=== PATIENT | female | born 1985 | race African-American/Black ===

== ENCOUNTER → 2017-05-19 11:26 | Outpatient (CLI) | payer MEDICAID, SELFPAY ==
[2017-05-23 14:35] LABS: HPV Reflexed? NOT INDICATED
== END ==
PROVIDERS: Visit Provider Obstetrics & Gynecology
DX: Z12.4 Encounter for screening for malignant neoplasm of cervix (principal)
CPT/HCPCS: 88175; G0145

== ENCOUNTER → 2018-01-09 10:14 | Outpatient (CLI) | payer MEDICAID, SELFPAY ==
[2018-01-09 12:51] LABS: hCG Titer Quant., Serum < 1 mIU/mL (<9 non-preg)
== END ==
PROVIDERS: Visit Provider Obstetrics & Gynecology
DX: N92.5 Other specified irregular menstruation (principal)
CPT/HCPCS: 36415; 84702

== ENCOUNTER 2018-04-06 16:23 | Emergency (ER) | payer MEDICAID, SELFPAY ==
[2018-04-06 16:25] VITALS: BP 172/93; PULSE 90; RESP 16; TEMP 37.1; O2SAT 98; BMI 39.8
--- NOTE | 2018-04-06 16:36 | RAD_ITS ---
STUDY: X-RAY - LEFT HAND, ATTENTION FIRST FINGER REASON FOR EXAM: Female, 32 years old. Shut thumb in car door one week ago. Swelling and bruising. TECHNIQUE: 3 view(s) of the finger were obtained. COMPARISON: None. FINDINGS: Normal metacarpal head. Normal metacarpophalangeal joint. Normal proximal phalanx. Normal distal phalanx. Normal interphalangeal joint. There is no demonstrated fracture. RAD/Finger(s) Min 2 Views IMPRESSION: No fracture of the left thumb. Electronically Signed: Estuardo Cardoso MD at 16:59 EST , Service support ,
--- NOTE | 2018-04-06 16:57 | ED.VISSUMM ---
- ER Visit Summary Date of Service: 04/06/18 Chief Complaint: [Injury left thumb] History of Present Illness: The patient is a 32 F [presents the emergency department after sustaining an injury to her left thumb 1 week ago. Patient states that she accidentally slammed her thumb in a car door. Patient continues to have discomfort and swelling.] Physical Examination: [Left thumb-patient has 100% subungual hematoma. Patient has tenderness over the distal phalanx. She has normal range of motion at the IP joint. Neurovascular intact.] Test Results: [X-rays of the left thumb obtained showed no obvious fracture on my interpretation however official report pending from radiology.] Emergency Department Course and Treatment: [Using high heat electrocautery I was able to trephinate the nail without difficulty and large amount of old dark blood was expressed. Clean dressing was applied and a cage splint was applied over the thumb.] Treatment Plan: [Follow-up with primary care physician within next 5-7 days. I did advise the patient that she she would likely lose the nail and it was unclear if she would grow a new nail partially or if there would be deformity to the nail. Patient also will be given referral to orthopedics.] Disposition: [Discharged home in stable condition] Impression: [Contusion left thumb with 100% subungual hematoma Trephination nail of left thumb] This note was generated with [facility] dictation software. It may contain incorrect words, spelling, and punctuation that were not noted in review of the chart prior to signing ED Disposition - Plan for ED Patient: Referrals: Holland Vang [Primary Care Provider] -
--- NOTE | 2018-04-06 16:59 | ED.DEP ---
ED Disposition - Plan for ED Patient: Instructions: ED Contusion Finger, ED Hematoma Subungual Referrals: Holland Vang [Primary Care Provider] - 5-7 Days Davidson Arzola DO [STAFF PHYSICIAN] - 5-7 Days
== END 2018-04-06 17:12 | disposition home or self-care (01) ==
LOC: ED 17:08
PROVIDERS: Emergency Provider Emergency Medicine; Family Provider Student in an Organized Health Care Education/Training Program; PCP Student in an Organized Health Care Education/Training Program
DX: S60.112A Contusion of left thumb with damage to nail, initial encounter (principal); W23.0XXA Caught, crushed, jammed, or pinched between moving objects, initial encounter; Y93.9 Activity, unspecified; Y92.9 Unspecified place or not applicable; Y99.9 Unspecified external cause status; Z72.0 Tobacco use; Z79.899 Other long term (current) drug therapy
CPT/HCPCS: 11740; 73140; 99283

== ENCOUNTER → 2018-11-08 16:50 | Outpatient (CLI) | payer MEDICAID, SELFPAY ==
[2018-11-08 20:53] LABS: Chlamydia Trachomatis by PCR Negative (Negative); Neisserai gonorrhoeae by PCR Negative (Negative); Probe Check PASS; Sample Adequacy Control PASS; Specimen Processing Control PASS
[2018-11-15 15:27] LABS: HPV APTIMA, High Risk Negative (Negative)
== END ==
PROVIDERS: Family Provider Student in an Organized Health Care Education/Training Program; PCP Student in an Organized Health Care Education/Training Program; Visit Provider Obstetrics & Gynecology
DX: Z12.4 Encounter for screening for malignant neoplasm of cervix (principal); Z11.3 Encounter for screening for infections with a predominantly sexual mode of transmission
CPT/HCPCS: 87491; 87591; 88175; G0145

== ENCOUNTER 2019-07-12 15:14 | Observation (INO) | payer MEDICAID, SELFPAY ==
[2019-07-12 15:15] VITALS: BP 198/94; PULSE 114; RESP 15; TEMP 37.2; O2SAT 96; BMI 42.6
--- NOTE | 2019-07-12 15:35 | CT_ITS ---
STUDY: CT ABDOMEN AND PELVIS WITH CONTRAST REASON FOR EXAM: Female, 33 years old. Abdomen pain x 2 days, nausea, vomiting, diarrhea, elevated WBC, fever yesterday. RADIATION DOSAGE (If Supplied By Facility): CTDIvol = ( 17.00 ) mGy, DLP = ( 1317.18 ) mGycm TECHNIQUE: Transaxial images were obtained from the dome of the diaphragm to the symphysis pubis without oral contrast. Oral and amp; IV Gastrografin and amp; 100mL Isovue-300 was administered. Sagittal and coronal images were reconstructed. Individualized dose optimization techniques were used for this CT. COMPARISON: None. FINDINGS: The visualized lung bases are unremarkable. The visualized portions of the heart are within normal limits. Normal liver. Normal gallbladder and extrahepatic biliary system. Normal spleen. Normal pancreas. Normal bilateral adrenal glands. Normal right kidney. Normal left kidney. Normal visualized stomach. Normal small intestine. There is a moderate amount of stool throughout the colon. The appendix is visualized and appears normal. Normal abdominal aorta. Normal inferior vena cava. Normal retroperitoneum. Normal urinary bladder. There is trace fluid within the pelvis. Normal abdominal wall. There is posterior scalloping of the L2 vertebral body left of midline. CT/Abdomen/Pelvis WITH Contrast IMPRESSION: Moderate amount of stool throughout the colon. Posterior scalloping of the L2 vertebral body may be secondary to an underlying spinal lesion, recommend an MRI with contrast for further evaluation. Electronically Signed: Eda Sanchez MD at 17:36 EDT Tel , Service support ,
--- NOTE | 2019-07-12 15:36 | ED.DCSUM_ITS ---
- ER Visit Summary Date of Service: 07/12/19 Chief Complaint: [Abdominal pain] History of Present Illness: The patient is a 33 F [presents the emergency department complaint of abdominal pain that started 2 to 3 days ago. Patient states the pain is continuous and kind of diffuse throughout the abdomen. She denies any nausea or vomiting or diarrhea. She denies any blood in her stool or black tarry stools. Her last menstrual period was a week ago but was little bit shorter than usual. Patient last ate around 11 AM today and ate some fries and a hot dog. Patient states food does not really seem affected. Moving makes the pain worse. Patient states he had a fever yesterday up to 101. Patient do es describe some frequency of urination but no dysuria. She denies any abnormal vaginal discharge.] Physical Examination: [HEENT-PERRLA, EOMI. Cranial nerves II through XII priscilla ssly intact. TMs clear. Mucous membranes moist. No adenopathy. Cardiovascular-regular rate and rhythm without murmur or ectopy Lungs-clear to auscultation, chest wall stable without crepitus or subcu emphysema Abdomen-normoactive bowel sounds, soft. Patient has diffuse tenderness palpation. There is no rebound, rigidity, or cranial signs. No masses palpated. Patient is morbidly obese. Pelvic exam performed patient had small amount of yellowish discharge noted. She had cervical motion tenderness on exam. Uterus was tender on exam. Extremities-intact ?4, normal range of motion, normal pulses, atraumatic] Test Results: [CBC with differential obtained showed an elevated white count of 16.4, hemoglobin 11.5, hematocrit 36, placed to 86. Chemistries unremarkable. LFTs were normal. Urinalysis normal. hCG was negative. CT flank essentially showed nothing acute and it was thought that the appendix was normal. Patient had moderate stool burden.] Emergency Department Course and Treatment: [She was medicated morphine and Zofran on arrival. Patient continued to vomit. She was given Phenergan.] Case was discussed initially with general surgeon who evaluated the patient in the emergency department and he felt that her exam more consistent with PID and did not feel this was a case of appendicitis. I did bend off gonorrhea and Chlamydia cultures which did come back positive for gonorrhea. Patient was started on Rocephin 1 g IV as well as Zithromax 1 g p.o. Patient continues to have significant discomfort and nausea. Case was discussed with [employer] on-call Dr. Hendricks who will admit patient Treatment Plan: [Admit for pain control and IV antibiotics] Disposition: [Admit] Impression: [PID Intractable abdominal pain] This note was generated with [employer] dictation software. It may contain incorrect words, spelling, and punctuation that were not noted in review of the chart prior to signing ED Disposition - Plan for ED Patient: Referrals: Holland Vang [Primary Care Provider] -
[2019-07-12] MEDS: 0.9% Normal Saline 1,000 ML 125 ML IV (15:57)
[2019-07-12] MEDS: Morphine 4 MG/ML Syringe IV (15:57)
[2019-07-12] MEDS: Ondansetron 4 MG/2 ML Vial IV ×2 (15:57→20:20)
[2019-07-12 16:06] LABS: Absolute Lymphocyte Count 0.93 X10^3/uL (0.83-4.51); Absolute Neutrophil Count 15.1 X10^3/uL (2.0-7.7); Basophil# 0.03 X10^3/uL; Basophil% 0.2 % (0-1); Eosinophil# 0.05 X10^3/uL; Eosinophils% 0.3 % (0-5); Hemoglobin 11.5 g/dL (12.0-15.0); Lymphocyte # 0.93 X10^3/ul (4.0); Lymphocyte % 5.6 % (19-41); Mean Corp Hgb Conc 31.9 g/dL (32-36); Mean Corpuscular Hgb 30.6 pg (27.0-32.0); Mean Corpuscular Volume 95.7 fL (81-99); Mean Platelet Vol. 9.5 fl (6.2-12.0); Monocyte# 0.51 X10^3/uL; Monocyte% 3.1 % (0-10); NRBC Flagged by Analyzer 0 % (0-5); Neutrophil % 90.3 % (47-70); Platelet Count 286 K/mm3 (150-450); RBC Distribution Width CV 13.6 % (11.6-14.6); RBC Distribution Width SD 47.7 fl (35.1-43.9); Red Blood Count 3.76 M/mm3 (4.2-5.4); White Blood Count 16.7 K/mm3 (4.4-11.0)
[2019-07-12 16:36] LABS: Internal QC Validated? YES +Cl - CLEAR BKGD; Pregnancy, Serum, hCG Quali. NEGATIVE Negative
[2019-07-12 16:43] LABS: ALB/GLOB Ratio 0.7 RATIO (0.9-2.4); AST(SGOT) 26 U/L (15-37); Alanine Aminotransfer ALT/SGPT 45 U/L (13-56); Albumin, Serum 3.1 g/dL (3.2-5.0); Alkaline Phosphatase 73 U/L (45-117); Anion Gap 3 (5-15); BUN 8 mg/dL (7-18); BUN/Creat Ratio 10.7 RATIO (10-20); Calcium,Total 8.7 mg/dL (8.5-10.1); Chloride 107 mmol/L (98-107); Creatinine, Serum 0.74 mg/dL (0.55-1.02); EST Glomerular Filtration Rate 96 mL/min (>60); Est Glom Filt Rate - Afr Amer 116 mL/min (>60); Estimated Creatinine Clearance 103.12 ml/min; Globulin 4.6 g/dL (2.2-4.2); Glucose 105 mg/dL (74-106); Lipase 67 U/L (73-393); Potassium 3.8 mmol/L (3.5-5.1); Protein, Total 7.7 g/dL (6.4-8.2); Sodium Level 139 mmol/L (136-145)
[2019-07-12 17:11] LABS: Bacteria 0 SEEN /hpf (None Seen); Mucous, Urine 0 SEEN /hpf (<or=2+); Red Blood Cells-Urine 0 SEEN /hpf (0-5)
[2019-07-12 17:14] LABS: Color, Urine Straw (Yellow); Glucose, Dipstick Normal (Normal); Ketone-Dipstick Negative (Negative); Leukocyte Esterase-Dipstick 25 /ul (Negative); Nitrite-Dipstick Negative (Negative); Occult Blood-Urine 10 /ul (Negative); Protein-Dipstick Negative (Negative); Urine Bilirubin Dipstick Negative (Negative); Urine Clarity Clear (Clear); Urine Urobilinogen Normal (Normal)
[2019-07-12 17:23] LABS: Squamous Epithelial Cells - UA 0-5 SEEN /hpf (5-10); White Blood Cells 0-5 SEEN /hpf (0-5)
[2019-07-12 18:00] VITALS: RESP 16
[2019-07-12] MEDS: proMETHazine 25 MG/ML Syringe 12.5 MG IV (18:26)
--- NOTE | 2019-07-12 18:45 | PCM.CONS.GEN ---
Problem List (1) Diffuse abdominal pain Status: Acute Reason for Consult Date of Consultation: 07/12/19 History of Present Illness: The patient is a 33 F presents the emergency department complaint of abdominal pain that started 2 to 3 days ago. Patient states the pain is continuous and kind of diffuse throughout the abdomen. She denies any nausea or vomiting or diarrhea. She denies any blood in her stool or black tarry stools. Her last menstrual period was a week ago but was little bit shorter than usual. Patient last ate around 11 AM today and ate some fries and a hot dog. Patient states food does not really seem affected. Moving makes the pain worse. Patient states he had a fever yesterday up to 101. Patient does describe some frequency of urination but no dysuria. Patient has no vaginal discharge. Patient had a CAT scan of the abdomen and pelvis reportedly it was read that the appendix was visualized. At the time of this dictation the official report has not been put into the computer. Past Medical History Allergies No Known Allergies Allergy (Verified 07/12/19 15:14) Home Medications: Ambulatory Orders Medication Instructions Recorded Baclofen [Lioresal] 10 mg PO PRN PRN 07/12/19 Escitalopram Oxalate [Lexapro] 10 mg PO DAILY 07/12/19 Multivitamin with Minerals 1 ea PO DAILY 07/12/19 [Multiple Vitamin] Risperidone 1 mg PO DAILY 07/12/19 Smoking Status: Former smoker - *Family History Maternal History Items: No pertinent history Review of Systems Constitutional: Reports: Fever Eyes: Denies: Blurred vision, Pain, Redness, Vision Change HEENT: Denies: Dysphasia, Ear Pain, Eye Pain, Head Aches, Hearing Changes, Sore Throat Cardiovascular: Denies: Chest Pain, Chest Pressure, Chest Tightness, Palpitations Respiratory: Denies: Cough, Hemoptysis, Shortness of breath at rest, Shortness of breath upon exertion, Wheezing Gastrointestinal: Reports: Abdominal Pain. Denies: Diarrhea, Hematemesis, Hematochezia, Melena, Vomiting Genitourinary: Denies: Dysuria, Frequency, Hematuria, Urgency Gynecological: Reports: Vaginal discharge Patient Problems: Active and Suspected Problems Diffuse abdominal pain (Acute) - Physical Exam Vitals/I&O's: Vital Signs Temp Pulse Resp BP Pulse Ox 99.0 F 114 H 15 198/94 H 96 07/12/19 15:15 05/22/20 15:15 07/12/19 15:15 07/12/19 15:15 07/12/19 15:15 Weight: 264 lb 1.82 oz Body Mass Index (BMI) 42.6 General: Alert, Oriented x3 Lungs: Clear to auscultation Cardiovascular: Regular rate, Regular Rhythm, No murmurs Abdomen: Tender - Diffuse abdominal tenderness equally in the left upper quadrant right upper quadrant and in the pelvis area. Laboratory Results 07/12/19 15:50: WBC 16.7 H, RBC 3.76 L, Hgb 11.5 L, Hct 36.0 L, MCV 95.7, MCH 30.6, MCHC 31.9 L, RDW Std Deviation 47.7 H, RDW Coeff of Lc 13.6, Plt Count 286, MPV 9.5, Immature Gran % (Auto) 0.500, Neut % (Auto) 90.3 H, Lymph % (Auto) 5.6 L, Atkinson % (Auto) 3.1, Eos % (Auto) 0.3, Baso % (Auto) 0.2, Absolute Neuts (auto) 15.1 H, Absolute Lymphs (auto) 0.93, Nucleated RBC % 0 07/12/19 15:50: Sodium 139, Potassium 3.8, Chloride 107, Carbon Dioxide 29.0, Anion Gap 3 L, BUN 8, Creatinine 0.74, Estim Creat Clear Calc 103.12, Est GFR (MDRD) Af Amer 116, Est GFR (MDRD) Non-Af 96, BUN/Creatinine Ratio 10.7, Glucose 105, Calcium 8.7, Total Bilirubin 0.90, AST 26, ALT 45, Alkaline Phosphatase 73, Total Protein 7.7, Albumin 3.1 L, Globulin 4.6 H, Albumin/Globulin Ratio 0.7 L, Lipase 67 L 07/12/19 15:50: Serum , Qual NEGATIVE 07/12/19 17:05: Urine Color Straw, Urine Clarity Clear, Urine pH 8.0, Ur Specific [place] 1.010, Urine Protein Negative, Urine Glucose (UA) Normal, Urine Ketones Negative, Urine Occult Blood 10 H, Urine Nitrite Negative, Urine Bilirubin Negative, Urine Urobilinogen Normal, Ur Leukocyte Esterase 25 H, Urine RBC 0 SEEN, Urine WBC 0-5 SEEN, Ur Squamous Epith Cells 0-5 SEEN, Urine Bacteria 0 SEEN, Urine Mucus 0 SEEN 07/12/19 17:05: Chlam trachomat DNA PCR Pending, N.gonorrhoeae DNA (PCR) Pending Current Medications Sodium Chloride () 1,000 mls @ 125 mls/hr IV .Q8H [facility] Last Admin: 07/12/19 15:57 Dose: 125 mls/hr Documented by: Assessment/Plan All Active Problems Diffuse abdominal pain (Acute) I am concerned this patient may have pelvic inflammatory disease I have spoke with ER physician and he is going to do a vaginal exam on her. When I compare her previous CAT scans to the most recent CAT scan the uterus itself seems far more boggy. Possibly a vaginal ultrasound might be beneficial here. Her presentation is not that of what I would consider a ruptured appendicitis but does not appear to be any signs of acute appendicitis on the CAT scan. I called the radiologist and reviewed the films with her and i am in agreement that her appendix is normal. Office Visits / Consults: [id number] IP Consult L3
[2019-07-12 21:13] LABS: Chlamydia Trachomatis by PCR Negative (Negative); Probe Check PASS
[2019-07-12 21:17] LABS: Neisserai gonorrhoeae by PCR Positive (Negative)
[2019-07-12] MEDS: Ceftriaxone 1 GM/50 ML BAG IV (21:33)
[2019-07-12] MEDS: Azithromycin 250 MG Tablet 1000 MG PO (21:33)
[2019-07-12 21:38] VITALS: BP 170/88; PULSE 102; RESP 16; O2SAT 99
[2019-07-12 21:45] VITALS: BP 170/88; PULSE 102; RESP 16; TEMP 37.2; O2SAT 99
[2019-07-12 22:12] VITALS: BP 170/88; PULSE 102; RESP 16; TEMP 37.2; O2SAT 99
[2019-07-12 22:29] VITALS: BP 117/68; PULSE 123; RESP 18; TEMP 36.8; O2SAT 100; BMI 41.3
[2019-07-12] MEDS: Ketorolac 30 MG/ML Syringe IV (22:55)
[2019-07-12] MEDS: Dext 5%-0.45% NS 1,000 ML 30 ML IV (22:55)
--- NOTE | 2019-07-12 23:00 | NURSING ---
pt takes valtrex. she is unsure of the amount. pt had a flue shot in the fall, but she doesn't remember when.
[2019-07-13] MEDS: oxyCODONE 5 MG Tablet PO ×2 (01:44→07:30)
[2019-07-13 02:24] VITALS: BP 116/68; PULSE 116; RESP 16; TEMP 37; O2SAT 97
[2019-07-13] MEDS: Ketorolac 30 MG/ML Syringe IV ×2 (04:37→10:43)
[2019-07-13 05:54] VITALS: BP 121/64; PULSE 99; RESP 16; TEMP 36.8; O2SAT 98
[2019-07-13] MEDS: Doxycycline 100 MG CAPSULE PO (08:59)
[2019-07-13 09:55] VITALS: BP 108/66; PULSE 95; RESP 16; TEMP 36.8; O2SAT 100
--- NOTE | 2019-07-13 11:02 | HP.PCM_ITS ---
History and Physical Date of Admission: 07/12/19 HISTORY OF PRESENT ILLNESS: Emre Quinn, a 33 year old female 1 0 2 0 1, presented to the ER last evening for: -- Severe abdominal pain -- Emre presented last evening to the emergency room with severe abdominal pain and fevers. Subsequent work-up showed a white count of approximately 16,000 and positive gonorrhea cultures. She had a fever of approximately 101 at home. She was ruled out for appendicitis by Dr. Casas. CT scan of the abdomen showed some inflammatory changes around the uterus and her pain was sufficiently severe that it was felt that it warranted admission. Patient had a CAT scan of the abdomen and pelvis reportedly it was read that the appendix was visualized. At the time of this dictation the official report has not been put into the computer. ALLERGIES: NKDA MEDICATIONS HISTORY: Current medications prescribed by our practice are: valacyclovir 500 mg tablet, one tab PO daily Patient is also takin. buspirone 10 mg tablet, daily REVIEW OF SYSTEMS: GENERAL - Denies fever, or chills SKIN - Denies skin changes EYES - Denies visual changes EARS - Denies difficulty hearing NOSE - Denies nasal congestion or bleeding MOUTH - Denies sore throat or difficulty swallowing NECK - Denies pain or swelling RESPIRATORY - Shortness of breath before presenting to the ER. Markedly improved after IV antibiotics. CARDIOVASCULAR - Denies palpitations or chest pain GASTROINTESTINAL - Denies nausea, vomiting, diarrhea, constipation GENITOURINARY - Denies dysuria, frequency of urination, incontinence of urine MUSCULOSKELETAL - Denies joint or muscle pain NEUROLOGICAL - Denies localized numbness or weakness PSYCHIATRIC - Denies depression or anxiety ENDOCRINE - Denies heat or cold intolerance, weight loss or gain HEMATO-IMMUNOLOGIC - Denies excessive bleeding with cuts PAST HISTORY: Breast/Ovarian/Colon Cancers - Mat. Gr Aunt -- Breast CA Infections - Chlamydia and Chicken pox Illnesses - allergies, depression, GERD and HSV Accidents - no injuries of consequence History of Abnormal PAPS - NO Hospitalizations - see surgery and Childbirth Irreg. HR at times and PP Depression; SURGICAL HISTORY: 1. 05/13/[address] Mic Cota 2. Tonsillectomy 2001 3. D+C 2008 4. 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 Illicit Drug Use - uses marijuana and denies in recent years Sexual Activity - multiple sexual partners Hours Worked - 40 hours per week Spouse-Sig Other Name - boyfriend of 1 year as of 11-08-18 Children Name(s) - Adry () JW Control - Mirena IUD PHYSICAL EXAMINATION BP- 128/90 Sitting, Right arm, large cuff Weight- 240.20 lbs Height- 65.50 inch BMI:39.45 CONSTITUTIONAL - NAD, well nourished, and well developed SKIN - No rash, lesions, or ulcers HEENT - Normocephalic, PERRLA, EOMI NECK - No nodes, no nuchal rigidity and thyroid normal size and texture LYMPH NODES - Palpation of lymph nodes in neck and groins within normal limits LUNGS - CTA x2 without wheezes, crackles or rales per ER CARDIAC - Regular rate and rhythm without rubs, murmurs, or gallops per ER ABDOMEN - Without hepatosplenomegaly, distention, masses; moderate tenderness especially around the umbilicus this morning EXTREMITIES - No edema or calf tenderness NEUROLOGICAL - Cranial nerves II-XII grossly intact PSYCHIATRIC - A and O to time, place, person, mood and affect ASSESSMENT/PLAN BY DIAGNOSIS: Positive gonorrhea and pelvic inflammatory disease. Patient was given Rocephin and started on IV antibiotics. Since her admission last evening and the antibiotics her pain has markedly improved and she feels comfortable going home on oral medications. She indicates her pain is now 4 out of 10 when before it was 10 out of 10. Patient was instructed to call if she had fever or if her pain was worsening. We discussed the possibility of PID causing infertility and chronic pelvic pain. She is already contacted her partner regarding the positive gonorrhea culture. Plan to see Emre chandra in approximately 2 weeks. A prescription for doxycycline 100 mg twice daily for 2 weeks and Flagyl 500 mg twice daily for 2 weeks was sent to [facility]'s pharmacy in [place].
--- NOTE | 2019-07-13 11:20 | PCM.DC ---
- Discharge Diagnoses Current Active Problems: Current Active and Chronic Problems Diffuse abdominal pain (Acute) You will use the following diet at home:: No restrictions Discharge Activity: Return to Normal Activity May resume sexual activity in: 2 weeks Weight Bearing Status: Weight bearing as tolerated Call your doctor if your incision/area has: Increased Pain/ Swelling, Foul Smelling Discharge Call your doctor if you observe: Fever of 101 or Higher, Inability to urinate, Inability to have a bowel movement, Shortness of breath Additional Instructions: Call with fevers or increasing pain Allergies/Adverse Reactions: Allergies No Known Allergies Allergy (Verified 07/12/19 15:14) Medications to take at Discharge Baclofen [Lioresal] 10 mg PO PRN PRN 07/12/19 Escitalopram Oxalate [Lexapro] 10 mg PO DAILY 07/12/19 Multivitamin with Minerals [Multiple Vitamin] 1 ea PO DAILY 07/12/19 Risperidone 1 mg PO DAILY 07/12/19 Valtrex 500 mg PO DAILY 07/12/19 Doxycycline [Vibramycin] 100 mg PO BID 14 Days #28 capsule 07/13/19 Metronidazole [Flagyl] 500 mg PO BID 14 Days #28 tablet 07/13/19 traMADol [Ultram (G)] 50 mg PO Q6H PRN PRN 14 Days #30 tab 07/13/19 The following prescriptions were given: Metronidazole [Flagyl] 500 mg PO BID 14 Days #28 tablet traMADol [Ultram (G)] 50 mg PO Q6H PRN PRN 14 Days #30 tab PRN Reason: Pain Score 6-10/10 Transmission Status: Received by [id number] Doxycycline [Vibramycin] 100 mg PO BID 14 Days #28 capsule Primary Care Physician: Holland Vang [Primary Care Provider] - Test Results: Test results from this visit will be discussed in further detail at your follow-up appointment, if applicable. Please Follow Up With: Tico Hendricks MD When: 2 to 3 weeks
[2019-07-13 12:24] VITALS: BP 119/87; PULSE 91; RESP 16; TEMP 36.7; O2SAT 98
== END 2019-07-13 11:26 | disposition home or self-care (01) ==
LOC: ED 16:04 → MS3 23:16
PROVIDERS: Admitting Provider Obstetrics & Gynecology; Emergency Provider Emergency Medicine; PCP Student in an Organized Health Care Education/Training Program; Referring Provider Obstetrics & Gynecology; Visit Provider Obstetrics & Gynecology
DX: N73.9 Female pelvic inflammatory disease, unspecified (principal); A54.9 Gonococcal infection, unspecified; A54.24 Gonococcal female pelvic inflammatory disease; F32.9 Major depressive disorder, single episode, unspecified; Z79.899 Other long term (current) drug therapy; Z87.891 Personal history of nicotine dependence
CPT/HCPCS: 74177; 80053; 81001; 83690; 84703; 85025; 87491; 87591; 96361; 96365; 96367; 96375; 96376; 99218; 99285; 99406; J7050; Q9967; A4216; G0378; J2405; J7799

== ENCOUNTER 2021-04-06 11:23 | Outpatient (CLI) | payer MEDICAID, SELFPAY ==
[2021-04-08 14:28] LABS: HPV Reflexed? NOT INDICATED
== END 2021-04-06 23:59 | disposition home or self-care (01) ==
LOC: LABSPEC 11:29
PROVIDERS: PCP Student in an Organized Health Care Education/Training Program; Visit Provider Obstetrics & Gynecology
DX: Z12.4 Encounter for screening for malignant neoplasm of cervix (principal)
CPT/HCPCS: 88175; G0145

== ENCOUNTER 2022-05-18 08:44 | Emergency (ER) | payer MEDICAID, SELFPAY ==
[2022-05-18 08:45] VITALS: BP 143/97; PULSE 79; RESP 16; TEMP 36.2; O2SAT 99; BMI 47.9
--- NOTE | 2022-05-18 09:22 | US_ITS ---
STUDY: ULTRASOUND TRANSVAGINAL CLINICAL: Female, 36 years old. Pelvic pain TECHNIQUE: Transvaginal COMPARISON: None. FINDINGS: Normal uterine size measuring 8.2 sono by 5.5 signed by 4.1 cm in maximal craniocaudal dimension. There are no myometrial masses. Normal endometrial thickness measuring 5 mm. There are no endometrial masses, and there is no fluid in the endometrial cavity. Normal uterine cervix. Normal right ovary, measuring 2.7 cm x 1.7 cm x 2 cm. There are multiple follicles without a dominant cyst. Normal left ovary, measuring 3.1 cm x 2.5 cm x 2 cm. There are multiple follicles without a dominant cyst. Minimal fluid is seen in the cul-de-sac. Polycystic ovary disease: No. US/Transvaginal Non- IMPRESSION: Normal pelvic sonogram. Electronically Signed: Carlos Pugh MD at 10:22 EDT ,
--- NOTE | 2022-05-18 09:24 | EDS_ITS ---
HPI HPI - Female History of Present Illness Chief Complaint: Abd Pain Detail of Chief Complaint: Pelvic pain with vaginal bleeding. Informant: patient Pain Pain: Positive for Pelvic Pain Onset: Today and Yesterday Context: Gradual Onset Timing: Continuous Quality: Positive for Cramping Current Severity: Mild Maximum Severity: Mild Bleeding Issue: Positive for Vaginal bleeding and Passing clots; Negative for Passing tissue Onset: Today and Yesterday Context: Gradual Onset Timing: Intermittent Current Severity: Mild Maximum Severity: Heavy Associated Symptoms Associated Symptoms: Negative for Dysuria or Frequency P: 1 Ab: 2 Narrative Narrative: 36-year-old female no seen past medical history. G3, P1 Ab2 with is being miscarriages. Prior history of PID. States she had pelvic pain for the last 3 days. Prior history of similar. Last menstrual period was 227 started having heavier bleeding around 3 days ago and now its only mild. No discharge. No fever. No dysuria. She is also had 1 prior D&C with one of her miscarriages. Prior similar symptoms: Yes Recent Illness/Hospitalization: No PFSH PFSH Medical History Physical exam, pre-employment no medical history Home Medications Valtrex 500 mg PO DAILY herpes 07/12/19 [History Last Taken Unknown] multivitamin with minerals 1 ea PO DAILY dep 07/12/19 [History Last Taken 07/12/19] Allergy/AdvReac Type Severity Reaction Status Date / Time No Known Allergies Allergy Verified 05/18/22 08:47 Social History Smoking Status: Former smoker ROS ROS ED ROS Narrative Pelvic pain with vaginal bleeding. No discharge. No fever. No dysuria. Review of Systems ROS Unobtainable: Denies due to encephalopathy Constitutional Constitutional ED: Denies chills or fever(s) ENT ENT ED: Denies ear pain Cardiovascular Cardiovascular: Denies chest pain Respiratory/Chest Respiratory/Chest: Denies cough or dyspnea Gastrointestinal Gastrointestinal: Reports other Details: Pelvic pain ; Denies abdominal pain Genitourinary Genitourinary ED: Denies dysuria or hematuria Musculoskeletal Musculoskeletal: Denies arthralgias Integumentary Denies abscess Neurologic Neurologic: Denies headache(s) Psychiatric Psychiatric: Denies anxiety or depression Endocrine Endocrinology: Denies heat intolerance Hematologic/Lymphatic Hematologic/Lymphatic: Denies easy bleeding Allergic/Immunologic Allergic/Immunologic ED: Denies mouth swelling EXAM Physical Exam Narrative Exam Narrative: Well-appearing 37-year-old female. Vital signs stable afebrile. No distress. H EENT exam unremarkable. Lungs clear. Heart regular rhythm. Abdomen soft, nontender, nondistended normal bowel sounds without peritoneal signs. Both right upper and right lower quadrants are unremarkable. She has mild discomfort on lower suprapubic and pelvic region. Moving all 4 extremities. Back nontender. Neurologically she is awake and alert. Const Vital Signs: 05/18/22 08:45 05/18/22 10:44 Temperature 97.1 F L Temperature Source Temporal Pulse Rate 79 Respiratory Rate 16 20 H Blood Pressure 143/97 H Blood Pressure Mean 112 Pulse Ox 99 Oxygen Delivery Method Room Air Positive well nourished, well developed and obese; Negative for cachectic, contractures or unkempt General Appearance ED: well developed and NAD; Negative for unkempt, cachectic, contractures or pallor Nutritional Appearance: obese; Negative for cachectic HEENT Reports moist mucous membranes Negative for trauma or tenderness Eyes PERRL and EOMs intact bilaterally General Eye ED: Negative for pale conjunctiva, scleral icterus or other Neck no lymphadenopathy, supple and no JVD General: Negative for other Thyroid: Negative for tender Lymph Lymphatic: Negative for other Chest Wall inspection of chest normal and palpation of chest normal Chest: Negative for other Resp normal respiratory effort and clear to auscultation bilaterally Effort and Inspection: Negative for pain with movement Auscultation: Negative for rales, rhonchi or wheezes Cardio regular rate, regular rhythm, S1 normal heart sound, no murmurs and no JVD GI normal to inspection, nondistended, normoactive bowel sounds, soft to palpation, non-tender, non-distended and no masses GI Narrative: Very mild suprapubic/pelvic tenderness. No abdominal tenderness. Auscultation: normoactive bowel sounds Palpation: Negative for tender, guarding or rigid Back/Spine no CVA tenderness General Back: Negative for CVA tenderness Cervical Spine: Negative for cervical spine tenderness Thoracic Spine / Upper Back: Negative for thoracic spinal tenderness Lumbar Spine / Lower Back: Negative for lumbar spinal tenderness Extremity normal to inspection and full ROM General Extremety ED: Negative for edema or other findings General Extremity: Negative for edema or other findings Neuro oriented x3 and CN's II-XII intact bilaterally Sensorium / Orientation: alert, oriented to person, oriented to place and oriented to time; Negative for confused, lethargic or stuporous Motor Exam: strength 5/5 throughout Psych mental status grossly normal Appearance: Negative for unkempt Attitude: No agitated Speech: No other Mood & Affect: Negative for depressed, anxious or tearful Skin no rashes or lesions noted and no wounds General Skin Exam: Negative for jaundice or pallor Rashes: No rashes noted Trauma: Negative for other MDM MDM MDM Narrative Medical decision making narrative: 36-year-old female with vaginal bleeding and pelvic pain. About time for her menstrual period. Patient is G3, P1 with 2 prior miscarriages. She had a prior D&C. She had PID several years ago. She is having no fever, chills or discharge at this time. Screening labs and urinalysis will be obtained. A serum test. She will be given Zofran for nausea. And a pelvic ultrasound is being obtained. She did not want thing for pain. Repeat exam patient is doing well at 11:35 PM. We discussed all of her test results. This may just be your menstrual period with the cramping and the bleeding. She is having no discharge and deferred a pelvic exam at this time. Outpatient follow-up with her [employer]. Tylenol Motrin for pain. Return if worse. Lab Data Attestation: I reviewed the patient's lab results. Lab results narrative: CBC shows normal white count 5.1 H&H of 12.7 39.2. Platelets 354. Electrolytes unremarkable gap of 7 normal BUN of 9 creatinine 0.8. Glucose 99. Serum test negative. UA is negative. Pelvic ultrasound per radiologist read shows no acute abnormality. Labs: Laboratory Results - last 24 hr 05/18/22 05/18/22 05/18/22 09:32 09:32 09:32 WBC 5.1 RBC 4.28 Hgb 12.7 Hct 39.2 MCV 91.6 MCH 29.7 MCHC 32.4 RDW Std Deviation 45.1 H RDW Coeff of Lc 13.3 Plt Count 354 MPV 9.8 Immature Gran % (Auto) 0.000 Neut % (Auto) 62.1 Lymph % (Auto) 29.4 [place] % (Auto) 6.3 Eos % (Auto) 1.6 Baso % (Auto) 0.6 Absolute Neuts (auto) 3.2 Absolute Lymphs (auto) 1.50 Nucleated RBC % 0 Sodium 139 Potassium 3.7 Chloride 106 Carbon Dioxide 26.0 Anion Gap 7 BUN 9 Creatinine 0.86 Estim Creat Clear Calc 82.94 Est GFR (MDRD) Af Amer 96 Est GFR (MDRD) Non-Af 79 BUN/Creatinine Ratio 10.4 Glucose 99 Calcium 8.8 Serum , Qual NEGATIVE Urine Color Urine Clarity Urine pH Ur Specific [place] Urine Protein Urine Glucose (UA) Urine Ketones Urine Occult Blood Urine Nitrite Urine Bilirubin Urine Urobilinogen Ur Leukocyte Esterase Urine RBC Urine WBC Ur Squamous Epith Cells Urine Bacteria Urine Mucus 05/18/22 10:20 WBC RBC Hgb Hct MCV MCH MCHC RDW Std Deviation RDW Coeff of Lc Plt Count MPV Immature Gran % (Auto) Neut % (Auto) Lymph % (Auto) [place] % (Auto) Eos % (Auto) Baso % (Auto) Absolute Neuts (auto) Absolute Lymphs (auto) Nucleated RBC % Sodium Potassium Chloride Carbon Dioxide Anion Gap BUN Creatinine Estim Creat Clear Calc Est GFR (MDRD) Af Amer Est GFR (MDRD) Non-Af BUN/Creatinine Ratio Glucose Calcium Serum , Qual Urine Color Yellow Urine Clarity Clear Urine pH 6.0 Ur Specific [place] 1.025 Urine Protein 30 H Urine Glucose (UA) Normal Urine Ketones 5 H Urine Occult Blood 50 H Urine Nitrite Negative Urine Bilirubin Negative Urine Urobilinogen Normal Ur Leukocyte Esterase 25 H Urine RBC 0 SEEN Urine WBC 0 SEEN Ur Squamous Epith Cells 0-5 SEEN Urine Bacteria 0 SEEN Urine Mucus 1+ Radiography Diagnostic Testing: Clinical Impression(s) from Imaging Studies Transvaginal US 05/18/22 09:22 IMPRESSION: Normal pelvic sonogram. Electronically Signed: Carlos Pugh MD at 10:22 EDT , Discharge Plan Triage Chief Complaint: Abd Pain ED Provider: Lonny Akbar Dx/Rx/DC Orders Clinical Impression: Pelvic pain, Vaginal bleeding Instructions: ED Pelvic Pain, Unknown Cause Prescriptions: No Action multivitamin with minerals 1 EACH tablet 1 ea PO DAILY Valtrex 500 mg PO DAILY Primary Care Provider: Holland Vang Referrals: Holland Vang DO [Primary Care Provider] - Mere Guevara MD [Med Staff - Active Staff] - 3-5 Days if not improving Activity Restrictions/Additional Instructions: Plenty fluids and rest. Tylenol and Motrin for pain. Follow-up with your [employer] if not improving. Return if increasing pain, fever, discharge or heavy bleeding with clots. Disposition Disposition: Home, Self Care
[2022-05-18 09:38] LABS: Absolute Neutrophil Count 3.2 X10^3/uL (2.0-7.7); Basophil# 0.03 X10^3/uL; Basophil% 0.6 % (0-1); Eosinophil# 0.08 X10^3/uL; Eosinophils% 1.6 % (0-5); Hematocrit 39.2 % (37-47); Hemoglobin 12.7 g/dL (12.0-15.0); Lymphocyte % 29.4 % (19-41); Mean Corp Hgb Conc 32.4 g/dL (32-36); Mean Corpuscular Hgb 29.7 pg (27.0-32.0); Mean Corpuscular Volume 91.6 fL (81-99); Mean Platelet Vol. 9.8 fl (6.2-12.0); Monocyte# 0.32 X10^3/uL; Monocyte% 6.3 % (0-10); NRBC Flagged by Analyzer 0 % (0-5); Neutrophil # 3.17 X10^3/uL (2.7-7.7); Neutrophil % 62.1 % (47-70); Platelet Count 354 K/mm3 (150-450); RBC Distribution Width CV 13.3 % (11.6-14.6); RBC Distribution Width SD 45.1 fl (35.1-43.9); Red Blood Count 4.28 M/mm3 (4.2-5.4); White Blood Count 5.1 K/mm3 (4.4-11.0)
[2022-05-18] MEDS: Ondansetron 4 MG/2 ML Vial IV (09:38)
[2022-05-18 09:53] LABS: Anion Gap 7 (5-15); BUN 9 mg/dL (7-18); BUN/Creat Ratio 10.4 RATIO (10-20); Calcium,Total 8.8 mg/dL (8.5-10.1); Chloride 106 mmol/L (98-107); Creatinine, Serum 0.86 mg/dL (0.55-1.02); EST Glomerular Filtration Rate 79 mL/min (>60); Est Glom Filt Rate - Afr Amer 96 mL/min (>60); Estimated Creatinine Clearance 82.94 ml/min; Glucose 99 mg/dL (74-106); Potassium 3.7 mmol/L (3.5-5.1); Sodium Level 139 mmol/L (136-145)
[2022-05-18 10:07] LABS: Internal QC Validated? YES +Cl - CLEAR BKGD; Pregnancy, Serum, hCG Quali. NEGATIVE Negative
[2022-05-18 10:28] LABS: Bacteria 0 SEEN /hpf (None Seen); Red Blood Cells-Urine 0 SEEN /hpf (0-5); White Blood Cells 0 SEEN /hpf (0-5)
[2022-05-18 10:29] LABS: Color, Urine Yellow (Yellow); Glucose, Dipstick Normal (Normal); Ketone-Dipstick 5 mg/dl (Negative); Leukocyte Esterase-Dipstick 25 /ul (Negative); Nitrite-Dipstick Negative (Negative); Occult Blood-Urine 50 /ul (Negative); Protein-Dipstick 30 mg/dl (Negative); Specific Gravity, Urine 1.025 (1.002-1.030); Urine Bilirubin Dipstick Negative (Negative); Urine Clarity Clear (Clear); Urine Urobilinogen Normal (Normal)
[2022-05-18 10:44] VITALS: RESP 20
[2022-05-18 11:17] LABS: Mucous, Urine 1+ /hpf (<or=2+); Squamous Epithelial Cells - UA 0-5 SEEN /hpf (5-10)
== END 2022-05-18 11:51 | disposition home or self-care (01) ==
PROVIDERS: Emergency Provider Emergency Medicine; PCP Student in an Organized Health Care Education/Training Program; Visit Provider Emergency Medicine
DX: R10.2 Pelvic and perineal pain (principal); N93.9 Abnormal uterine and vaginal bleeding, unspecified; R11.0 Nausea; Z87.891 Personal history of nicotine dependence; E66.9 Obesity, unspecified
CPT/HCPCS: 76830; 80048; 81001; 84703; 85025; 93976; 96374; 99283; A4216; J2405

== ENCOUNTER 2022-07-25 15:45 | Emergency (ER) | payer OTHER, MEDICAID, SELFPAY ==
[2022-07-25 15:46] VITALS: BP 124/83; PULSE 94; RESP 14; TEMP 36.1; O2SAT 100; BMI 46.9
--- NOTE | 2022-07-25 16:05 | ED.VIS.FEGU ---
HPI HPI - Female History of Present Illness Chief Complaint: Female C/O Informant: patient Narrative Narrative: With vaginal itch odor and discharge. Patient has a new sexual partner. Symptoms started after intercourse about a week ago. She is not really having pain. But she has a thick discharge. She states that has a strong odor. She is not sure if it is a fishy odor or not. She is not really having pain. No change in urination or bowel habits. No fevers or chills. No upper abdominal pain. No sore joints or rashes. She overall feels well but just has the discharge and odor. No history of diabetes. No polyuria or polydipsia. [facility] Medical History (Updated 07/25/22 @ 16:16 by Franci Troy) Acute urogenital gonorrhea Chlamydia Physical exam, pre-employment Home Medications Valtrex 500 mg PO DAILY herpes 07/12/19 [History Last Taken Unknown] multivitamin with minerals 1 ea PO DAILY dep 07/12/19 [History Last Taken 07/12/19] metronidazole 500 mg tablet 500 mg PO BID 7 days #14 tabs 07/25/22 [Rx Last Taken Unknown] Allergy/AdvReac Type Severity Reaction Status Date / Time No Known Allergies Allergy Verified 07/25/22 15:46 Social History Smoking Status: Former smoker ROS ROS ED ROS Narrative A complete review of systems was performed and is negative except as documented in the history of present illness. Some specific details below. Constitutional: No recent fevers or chills. She does not feel ill. ENT: No difficulty swallowing. No sore throat. CV: No chest pain or palpitations. Respiratory: No dyspnea. No hemoptysis. No difficulty taking breaths. GI: No nausea vomiting abdominal pain or change in bowel habits : See history of present illness. Musculoskeletal: No recent trauma. No pains. Skin: No rash. Nondiaphoretic. Neuro: No weakness or numbness. Endocrine: No polyuria or polydipsia. EXAM Physical Exam Narrative Exam Narrative: CONSTITUTIONAL: Patient is nontoxic in appearance. The patient looks comfortable. She is sitting comfortably on bed. HEENT: No notable trauma. Mucous membranes moist. EYES: No conjunctival injection. CARDIOVASCULAR: Regular rate. Regular rhythm. No notable murmur. No JVD. RESPIRATORY: No respiratory distress. Breathing is unlabored. No wheezes. GASTROINTESTINAL: Not distended. Bowel sounds are normal. No tenderness. No guarding. No rebound. No palpable mass. No bruit. GENITOURINARY: No tenderness over the bladder. No CVA tenderness. Pelvic exam will be done separately with nurse in attendance. MUSCULOSKELETAL: Atraumatic. No peripheral edema. NEUROLOGICAL: Patient is alert and appropriate. SKIN: No noted rashes. No diaphoresis. PSYCHIATRIC: Patient is calm. Mood is appropriate. Const Vital Signs: 07/25/22 15:46 07/25/22 16:16 Temperature 97 F L 97.9 F Temperature Source Temporal Temporal Pulse Rate 94 84 Respiratory Rate 14 18 Blood Pressure 124/83 H 132/89 H Blood Pressure Mean 96 103 Pulse Ox 100 97 Oxygen Delivery Method Room Air Room Air MDM MDM MDM Narrative Medical decision making narrative: Patient's urine does show a few white cells but its also having a discharge on the patient. She is not having dysuria. This will not be treated with antibiotics. I did do a pelvic exam with nurse Tessie in attendance. Patient has signs of yeast with some redness on the external structures and whitish discharge but she also has that whitish discharge which is rather thin and watery it is not thick. She is also has some odor. I think this may be bacterial vaginosis. She will be treated for this and candidal vaginitis is. We have sent off chlamydia and GC. She does not think it is those either. If those are positive we will have to contact her and initiate treatment. Patient's urine test is negative. Lab Data Attestation: I reviewed the patient's lab results. Labs: Laboratory Results - last 24 hr 07/25/22 16:35 Urine Color Yellow Urine Clarity Sl. Cloudy Urine pH 6.0 Ur Specific [place] 1.025 Urine Protein 30 H Urine Glucose (UA) Normal Urine Ketones 5 H Urine Occult Blood 25 H Urine Nitrite Negative Urine Bilirubin Negative Urine Urobilinogen 1 H Ur Leukocyte Esterase 500 H Urine RBC 0-5 SEEN Urine WBC 10-25 SEEN Ur Squamous Epith Cells 0-5 SEEN Urine Bacteria 1+ Urine Mucus 0 SEEN Urine Test Negative Discharge Plan Triage Chief Complaint: Female C/O ED Provider: Rudi Duke Dx/Rx/DC Orders Instructions: Bacterial Vaginosis, Candidiasis Vaginal Prescriptions: New metronidazole 500 mg tablet 500 mg PO BID 7 Days Qty: 14 0RF No Action multivitamin with minerals 1 EACH tablet 1 ea PO DAILY Valtrex 500 mg PO DAILY Primary Care Provider: Holland Vang Referrals: Holland Vang, [Primary Care Provider] - 1 Week if not improving Activity Restrictions/Additional Instructions: Purchase Monistat 7 [id number] and use. Do not drink any alcohol while taking the antibiotic. Disposition Disposition: Home, Self Care
--- NOTE | 2022-07-25 16:09 | NURSING ---
07/25/22@1604- PT STATES SHES IS HAVING LOTS OF THICK YELLOW DISCHARGE. IT SMELLS LIKE INFECTION. PT C/O HER PUBIS BEING VERY ITCHY. THIS ALL STARTED 07/18/22. INNER THIGHS ARE HOT, ITCHY AND SKIN LOOKS WORN DOWN.
[2022-07-25 16:16] VITALS: BP 132/89; PULSE 84; RESP 18; TEMP 36.6; O2SAT 97
[2022-07-25 16:40] LABS: Mucous, Urine 0 SEEN /hpf (<or=2+)
[2022-07-25 16:52] LABS: Color, Urine Yellow (Yellow); Glucose, Dipstick Normal (Normal); Ketone-Dipstick 5 mg/dl (Negative); Leukocyte Esterase-Dipstick 500 /ul (Negative); Nitrite-Dipstick Negative (Negative); Occult Blood-Urine 25 /ul (Negative); Protein-Dipstick 30 mg/dl (Negative); Specific Gravity, Urine 1.025 (1.002-1.030); Urine Bilirubin Dipstick Negative (Negative); Urine Clarity Sl. Cloudy (Clear); Urine Urobilinogen 1 mg/dl (Normal)
[2022-07-25 17:08] LABS: Bacteria 1+ /hpf (None Seen); Red Blood Cells-Urine 0-5 SEEN /hpf (0-5); Squamous Epithelial Cells - UA 0-5 SEEN /hpf (5-10)
[2022-07-25 17:09] LABS: Internal QC Validated? YES +Cl - CLEAR BKGD; Pregnancy, Urine Negative Negative; White Blood Cells 10-25 SEEN /hpf (0-5)
[2022-07-25 17:19] LABS: Bedside Glucose 107 mg/dL (74-106)
[2022-07-25] MEDS: Fluconazole 100 MG Tablet 200 MG PO (17:19)
[2022-07-25 18:23] LABS: Chlamydia Trachomatis by PCR Negative (Negative); Neisserai gonorrhoeae by PCR Negative (Negative); Probe Check PASS; Sample Adequacy Control PASS; Specimen Processing Control PASS
== END 2022-07-25 17:22 | disposition home or self-care (01) ==
PROVIDERS: Emergency Provider Emergency Medicine; PCP Student in an Organized Health Care Education/Training Program; Visit Provider Emergency Medicine
DX: N89.8 Other specified noninflammatory disorders of vagina (principal); B37.31 Acute candidiasis of vulva and vagina; Z87.891 Personal history of nicotine dependence
CPT/HCPCS: 81001; 81025; 82962; 87491; 87591; 99282

== ENCOUNTER 2023-02-10 20:47 | Emergency (ER) | payer OTHER, MEDICAID, SELFPAY ==
[2023-02-10 20:50] VITALS: BP 137/85; PULSE 81; RESP 16; TEMP 36.4; O2SAT 99; BMI 43.2
--- NOTE | 2023-02-10 21:03 | CT_ITS ---
EXAM: CT maxillofacial. HISTORY: left periorbital work injury TECHNIQUE: CT Maxillofacial W/O Contrast Injection. Coronal and sagittal reconstructions were obtained. A radiation dose optimization technique was utilized for this scan. COMPARISON: None. LIMITATIONS: None. ORBITS: Normal. NASAL BONES: Normal ZYGOMATIC ARCHES: Normal. MAXILLAE: Normal. PTERYGOID PLATES: Normal. MANDIBLE: Normal. SINUSES: Trace fluid in the sphenoid sinus. SOFT TISSUES: The ocular globes are normal in appearance bilaterally. No vitreous hemorrhage. No retrobulbar hematoma. No definite periorbital soft tissue swelling. Submandibular and jugular chain lymph nodes are mildly enlarged. OTHER: None. CONCLUSION: No acute fracture. Electronically Signed: Wellington Stanton MD at 21:49 EST , CT/Sinus/Facial Bone IMPRESSION: undefined
--- NOTE | 2023-02-10 21:04 | EDS_ITS ---
HPI History of Present Illness Chief Complaint: Head Injury Informant: patient Onset/Context/Timing Onset: Yesterday Narrative Narrative: Patient presents secondary to left periorbital injury. She states yesterday at work she was walking in ran into a metal pole that was sticking out. It hit her along the left medial upper eye. She states this morning she noted some blurred vision when she first got up. She states has been having some intermittent blurred vision throughout the day and has tenderness around her left eye. She states she does have some light sensitivity and some watering. She does not wea r glasses or contacts. She does note having URI symptoms this week. [facility] Medical History (Updated 02/10/23 @ 21:[address] Rachelle Kay MD) Acute urogenital gonorrhea Chlamydia Hx of gastroesophageal reflux (GERD) Physical exam, pre-employment Home Medications Valtrex 500 mg PO DAILY herpes 07/12/19 [History Last Taken Unknown] multivitamin with minerals 1 ea PO DAILY dep 07/12/19 [History Last Taken 07/12/19] metronidazole 500 mg tablet 500 mg PO BID 7 days #14 tabs 07/25/22 [Rx Last Taken Unknown] Allergy/AdvReac Type Severity Reaction Status Date / Time No Known Allergies Allergy Verified 07/25/22 15:46 Social History Smoking Status: Former smoker ROS ROS ED Constitutional Constitutional ED: Denies chills or fever(s) Eyes Eyes: Reports blurry vision left; Denies discharge from eye(s) ENT ENT ED: Denies discharge from eye(s), rhinorrhea or sore throat Cardiovascular Cardiovascular: Denies chest pain or palpitations Respiratory/Chest Respiratory/Chest: Denies cough or dyspnea Gastrointestinal Gastrointestinal: Denies abdominal pain, nausea or vomiting Genitourinary Genitourinary ED: Denies dysuria Musculoskeletal Musculoskeletal: Denies back pain or extremity pain Integumentary Denies Abrasions or rash Neurologic Neurologic: Denies headache(s) or weakness Psychiatric Psychiatric: Denies anxiety or depression Allergic/Immunologic Allergic/Immunologic ED: Denies lip swelling or urticaria EXAM Physical Exam Const Vital Signs: 02/10/23 20:50 02/10/23 21:10 Temperature 97.6 F L Temperature Source Temporal Pulse Rate 81 Respiratory Rate 16 Respiratory Effort Normal Blood Pressure 137/85 H Blood Pressure Mean 102 Pulse Ox 99 Oxygen Delivery Method Room Air Positive well nourished and well developed General Appearance ED: well developed HEENT Reports moist mucous membranes Eyes PERRL and EOMs intact bilaterally Eyes Narrative: No significant periorbital edema, ecchymosis, or erythema. Mild tenderness with palpation around the upper left orbital rim. Chest Wall inspection of chest normal and palpation of chest normal Resp normal respiratory effort and clear to auscultation bilaterally Cardio regular rate and regular rhythm GI non-tender Palpation: soft Extremity normal to inspection Neuro oriented x3 and no sensory deficits noted Motor Exam: strength 5/5 throughout Psych mental status grossly normal Skin no rashes or lesions noted MDM MDM MDM Narrative Medical decision making narrative: Given that this was a work-related injury patient was sent for CT scan of the facial bones. I will fluorescein stain her eye to ensure no evidence of conjunctival abrasion or injury. Radiography Diagnostic Testing: Clinical Impression(s) from Imaging Studies Facial/Sinus 02/10/23 21:03 IMPRESSION: undefined The facial bones Conclusion: No acute fracture. Treatment and Re-Evaluation :: Fluorescein is applied to the left eye. There is no abrasion or uptake. CT scan is unremarkable. Patient instructed to take Tylenol or ibuprofen. She will follow-up with [facility]. Discharge Plan Triage Chief Complaint: Head Injury ED Provider: Rachelle Kay Dx/Rx/DC Orders Clinical Impression: Contusion of face Instructions: ED Facial Contusion Prescriptions: No Action multivitamin with minerals 1 EACH tablet 1 ea PO DAILY Valtrex 500 mg PO DAILY metronidazole 500 mg tablet 500 mg PO BID 7 Days Qty: 14 0RF Stand Alone Forms: Work Status Form Primary Care Provider: Holland Vang Referrals: [facility] [Group of Physicians] - 5-7 Days Holland Vang DO [Primary Care Provider] - Disposition Disposition: Home, Self Care
[2023-02-10] MEDS: Fluorescein 1 MG STRIP 1 STRIP LEFT EYE (21:09)
== END 2023-02-10 22:03 | disposition home or self-care (01) ==
PROVIDERS: Emergency Provider Emergency Medicine; PCP Student in an Organized Health Care Education/Training Program; Visit Provider Emergency Medicine
DX: S00.83XA Contusion of other part of head, initial encounter (principal); H53.8 Other visual disturbances; W22.09XA Striking against other stationary object, initial encounter; Y93.01 Activity, walking, marching and hiking; Y99.0 Civilian activity done for income or pay; Z79.899 Other long term (current) drug therapy; Z87.891 Personal history of nicotine dependence
CPT/HCPCS: 70486; 99283

== ENCOUNTER 2023-09-11 16:11 | Observation (INO) | payer OTHER, MEDICAID, SELFPAY ==
[2023-09-11 16:13] VITALS: BP 120/108; PULSE 76; RESP 18; TEMP 36.6; O2SAT 100; BMI 43.7
[2023-09-11 16:30] VITALS: BP 147/90; PULSE 74; RESP 18; O2SAT 100
--- NOTE | 2023-09-11 16:31 | EX.ED.SAOD ---
HPI History of Present Illness Chief Complaint: Substance Abuse Detail of Chief Complaint: Requesting alcohol detox Informant: patient Narrative Narrative: Patient presents requesting admission for alcohol detox. She states she was referred here by her therapist. She states has been drinking alcohol since the age of 19, but has gotten much worse over the past several months. She states she will typically drink what ever she can get her hands on. She has had multiple stressors over the past several months including losing her home and her job. She does admit to some drug use. She specifically names marijuana and mushrooms. When I specifically asked her about opiates or benzodiazepines she denies. Patient states her last drink was yesterday. She is currently feeling anxious with some abdominal pain. She denies history of seizure in the past if she stops drinking. [facility] Medical History Psilocybin abuse Cannabis use disorder History of nicotine vaping Former cigarette smoker Morbid obesity Anxiety and depression Alcohol abuse Substance abuse GERD (gastroesophageal reflux disease) Home Medications ?Medication ?Instructions ?Recorded ?Last Taken ?Type Valtrex 500 mg PO DAILY herpes 07/12/19 Unknown History multivitamin with minerals 1 ea PO DAILY dep 07/12/19 07/12/19 History buspirone 5 mg tablet 5 mg PO PRN ANXIETY 09/11/23 Unknown History cholecalciferol (vitamin D3) 50 50 mcg PO DAILY VIT 09/11/23 Unknown History mcg (2,000 unit) capsule escitalopram oxalate 10 mg tablet 10 mg PO DAILY ANXIETY 09/11/23 Unknown History Allergy/AdvReac Type Severity Reaction Status Date / Time No Known Allergies Allergy Verified 09/11/23 16:12 Family History Father Hypertension Diabetes ETOH abuse Mother Diabetes Surgical History History of dilation and curettage History of tonsillectomy and adenoidectomy Social History (Updated 09/11/23 @ 19:[address] Karen Rice MD) household members: other details: Lives with her 8 year old daughter. Smoking Status: Former smoker how long ago did patient quit smoking: Quit cigarette use 03/2013->transitioned to vaping, quit x 2 weeks. alcohol intake: current alcohol intake frequency: 3 or more drinks per day substance use type: marijuana and other details: Psilocybin ingestion. ROS ROS ED Constitutional Constitutional ED: Denies chills or fever(s) Eyes Eyes: Denies discharge from eye(s) ENT ENT ED: Denies discharge from eye(s), rhinorrhea or sore throat Cardiovascular Cardiovascular: Denies chest pain Respiratory/Chest Respiratory/Chest: Denies cough or dyspnea Gastrointestinal Gastrointestinal: Reports abdominal pain; Denies diarrhea, nausea or vomiting Genitourinary Genitourinary ED: Denies dysuria Musculoskeletal Musculoskeletal: Denies back pain or extremity pain Integumentary Denies Abrasions or rash Neurologic Neurologic: Denies headache(s) or weakness Psychiatric Psychiatric: Reports anxiety; Denies depression Allergic/Immunologic Allergic/Immunologic ED: Denies lip swelling or urticaria EXAM Physical Exam Const Vital Signs: 09/11/23 16:13 09/11/23 16:30 Temperature 97.8 F Temperature Source Temporal Pulse Rate 76 74 Respiratory Rate 18 18 Blood Pressure 120/108 H 147/90 H Blood Pressure Mean 112 109 Blood Pressure Source Monitor Blood Pressure Position Semi-Fowlers Blood Pressure Location Right Arm Pulse Ox 100 100 Oxygen Delivery Method Room Air Room Air Positive well nourished and well developed General Appearance ED: well developed HEENT Reports normocephalic and head/scalp atraumatic Eyes PERRL and EOMs intact bilaterally Neck supple Chest Wall inspection of chest normal and palpation of chest normal Resp normal respiratory effort and clear to auscultation bilaterally Cardio regular rate and regular rhythm GI normal to inspection, nondistended, normoactive bowel sounds Palpation: soft Extremity normal to inspection Neuro oriented x3 and no sensory deficits noted Sensorium / Orientation: alert Motor Exam: strength 5/5 throughout Psych mental status grossly normal Skin no rashes or lesions noted MDM MDM MDM Narrative Medical decision making narrative: Patient sitting comfortably in no acute distress. IV line will be established. Lab work for addiction medicine will be obtained. Patient states that the rules of the program were reviewed with her and she is in agreement. Once medically cleared I will speak with hospitalist regarding admission. Treatment and Re-Evaluation Narrative: CBC was normal white count 6.2 with a hemoglobin of 12.1. Differential unremarkable. CMP is significant only for slightly low potassium at 3.4. test is negative. Urine tox screen is positive for cannabinoids. EtOH is negative. Patient was discussed with hospitalist. Patient will be admitted for detox. Nursing staff states that the patient did complain in triage of having some suicidal thoughts. Nurse did discuss this with her and states that she does feel better while she is here but is concerned about going home to a poor situation. Patient will have a sitter until seen and evaluated by crisis on the floor. Discharge Plan Dx/Rx/DC Orders Clinical Impression: Alcohol abuse, Desire for detoxification Disposition Disposition: Acute Care Hospital [facility] Discharge Date/Time: 09/11/23 18:40
--- NOTE | 2023-09-11 17:00 | HP.PCM.HOS_ITS ---
HPI - General HPI Narrative The patient is a 38 y/o F w/ PMHx: Polysubstance abuse (Cannabis use, Psilocybin usage), Former tobacco use, Anxiety and Depression/Mood disorder, GERD, EtOH abuse who presents to the [facility] on [] w/ noted acute EtOH withdrawal, onset starting [] following last EtOH intake [] with onset of nausea, tremors, agit ation, tactile disturbances. Patient interested in attaining sober status. She notes recently loss her home and job. Last intake the day prior. Anxious, upset stomach. No history of seizures. Acute EtOH Withdrawal: Will admit to [], routine labs obtained in the ED upon presentation and notable for []. Given interest in sobriety, will initiate and continue on protocol with taper course of Phenobarbital, as needed gabapentin, Catapres, Bentyl, Vistaril, IV fluids, IV antiemetics, Tylenol as needed for pain. Will consult Case management for assistance for transition to next level of rehabilitation care. Mag, phos pending. Maintain on CIWA protocol concurrently. T+A, D+C Allergic rhinitis Former tobcco use, quit 03/2013 Maternal aunt Breast [facility] Medical History Hx of gastroesophageal reflux (GERD) Acute urogenital gonorrhea Chlamydia Home Medications ?Medication ?Instructions ?Recorded ?Last Taken ?Type Valtrex 500 mg PO DAILY herpes 07/12/19 Unknown History multivitamin with minerals 1 ea PO DAILY dep 07/12/19 07/12/19 History metronidazole 500 mg tablet 500 mg PO BID 7 days #14 tabs 07/25/22 Unknown Rx Allergy/AdvReac Type Severity Reaction Status Date / Time No Known Allergies Allergy Verified 09/11/23 16:12 Family History (Updated 09/11/23 @ 16:49 by Quinten Dee) Father Hypertension Other Diabetes ETOH abuse Social History Smoking Status: Current some day smoker tobacco type: e-cigarettes Vital Signs Vital Signs Vital Signs: 09/11/23 16:13 Temperature 97.8 F Temperature Source Temporal Pulse Rate 76 Respiratory Rate 18 Blood Pressure 120/108 H Blood Pressure Mean 112 Pulse Ox 100 Oxygen Delivery Method Room Air Weight Weight: 262 lb 9.6 oz Body Mass Index (BMI) 43.7
--- NOTE | 2023-09-11 17:00 | PCM.HP.STD ---
HPI - General General Date of Admission: 09/11/23 Date of Service: 09/11/23 Chief Complaint: Acute EtOH withdrawal HPI Narrative The patient is a 38 y/o F w/ PMHx: Polysubstance abuse (Cannabis use, Psilocybin usage), Former tobacco use, Anxiety and Depression/Mood disorder, GERD, EtOH abuse (Wine, Liquor) who presents to the [facility] on 09/11/23 w/ noted acute EtOH withdrawal, onset starting on day of presentation following last EtOH intake the evening prior with onset of mild nausea, dyspepsia, increased anxiety, mild tremors, tactile disturbances. Patient interested in attaining sober status. She notes she recently lost her home and job. She denies any prior withdrawal seizure history. She notes that she had wine and several margaritas the evening prior. In the emergency room following hospitalist evaluation patient reported to ED staff that she does have suicide thoughts but no specific plan and does have underlying anxiety and depression/mood disorder that has worsened. Following this patient was placed on suicide precaution and crisis was consulted and their evaluation is pending. She does note that if she does not get the help she needs she feels that she would have more of an impetus. Workup in the ED included T97.8, heart rate 76, BP 120/108, respiratory rate 18, 100% room air, CBC with WC 6.2, human 12.1, platelet 314 without marked shift, CMP with potassium 3.4 otherwise unremarkable, serum testing negative, UDS with positive cannabis, alcohol less than 3. [facility] Medical History Psilocybin abuse Cannabis use disorder History of nicotine vaping Former cigarette smoker Morbid obesity Anxiety and depression Alcohol abuse Substance abuse GERD (gastroesophageal reflux disease) Home Medications ?Medication ?Instructions ?Recorded ?Last Taken ?Type Valtrex 500 mg PO DAILY herpes 07/12/19 Unknown History multivitamin with minerals 1 ea PO DAILY dep 07/12/19 07/12/19 History buspirone 5 mg tablet 5 mg PO PRN ANXIETY 09/11/23 Unknown History cholecalciferol (vitamin D3) 50 50 mcg PO DAILY VIT 09/11/23 Unknown History mcg (2,000 unit) capsule escitalopram oxalate 10 mg tablet 10 mg PO DAILY ANXIETY 09/11/23 Unknown History Allergy/AdvReac Type Severity Reaction Status Date / Time No Known Allergies Allergy Verified 09/11/23 16:12 Family History Father Hypertension Diabetes ETOH abuse Mother Diabetes Surgical History History of dilation and curettage History of tonsillectomy and adenoidectomy Social History (Updated 09/11/23 @ 19:[address] Karen Rice MD) household members: other details: Lives with her 8 year old daughter. Smoking Status: Former smoker how long ago did patient quit smoking: Quit cigarette use 03/2013->transitioned to vaping, quit x 2 weeks. alcohol intake: current alcohol intake frequency: 3 or more drinks per day substance use type: marijuana and other details: Psilocybin ingestion. ROS ROS Narrative Admission Review of Systems: CONSTITUTIONAL: No weight loss, fever, chills, + weakness or fatigue. HEENT: Eyes: No visual loss, blurred vision, double vision or yellow sclerae. Ears, Nose, Throat: No hearing loss, sneezing, congestion, runny nose or sore throat. SKIN: No rash or itching, lesions, wounds. CARDIOVASCULAR: No chest pain, chest pressure or chest discomfort, palpitations, edema, orthopnea, syncopal events. RESPIRATORY: No shortness of breath, cough or sputum, wheezing, hemoptysis. GASTROINTESTINAL: + anorexia, nausea, dyspepsia, No vomiting, diarrhea, abdominal pain, melena, BRBPR. GENITOURINARY: No dysuria, frequency, urgency or retention. NEUROLOGICAL: + Tactile disturbances, mild tremors, mild agitation. No headache, dizziness, syncope, paralysis, ataxia, numbness or tingling in the extremities, focal weakness, change in bowel or bladder control, seizure. MUSCULOSKELETAL: + muscle, back pain, joint pain or stiffness. HEMATOLOGIC: No anemia, bleeding or bruising. LYMPHATICS: No enlarged nodes. No history of splenectomy. PSYCHIATRIC: + History of anxiety and depression. Admits to suicidal ideation upon current presentation but no plan. ENDOCRINOLOGIC: No reports of sweating, cold or heat intolerance. No polyuria or polydipsia. ALLERGIES: + History of allergic rhinitis. Vital Signs Vital Signs Vital Signs: 09/11/23 16:13 Temperature 97.8 F Temperature Source Temporal Pulse Rate 76 Respiratory Rate 18 Blood Pressure 120/108 H Blood Pressure Mean 112 Pulse Ox 100 Oxygen Delivery Method Room Air Weight Weight: 262 lb 9.6 oz Body Mass Index (BMI) 43.7 Physical Exam Narrative Physical Examination: General: Awake, alert, oriented x 3 and cooperative, seated upright in the ED bed, fatigued, notes mild ongoing withdrawal symptoms. Skin: Normal color, normal turgor, no icterus, no cyanosis. HEENT: AT/NC, EOMI, PERRLA, mildly dry MM, no carotid bruits or JVD noted; however thickened neck makes evaluation difficult. Lungs: Diminished, distant breath sounds, appropriate effort, no rales, ronchi or wheezing. Heart: Regular rate and rhythm; no gallop, rub audible. Abdomen: Soft, morbidly obese, NTTP, mildly hyperactive BS, difficult to appreciate distention and HSM given habitus. Extremities: No cyanosis, clubbing, or edema. Neurological: Patient awake, alert, oriented as noted, cognitive function intact; pupils equally reactive to light and accommodation, cranial nerves grossly normal, moving all 4 extremities, no focal deficits, strength moderately to severely globally decreased secondary to acute presentation with withdrawal symptoms, noting tactile disturbances, mild tremors Psychiatric: Affect appears fatigued, tearful during discussions, does have underlying anxiety and depression, following evaluation and then admitted to staff suicidal ideations but denying plan. Results Lab / Micro Data 09/11/23 17:55 09/11/23 17:55 Assessment & Plan Assessment/Plan (1) Desire for detoxification: PLAN: Plan The patient is a 38 y/o F w/ PMHx: Polysubstance abuse (Cannabis use, Psilocybin usage), Former tobacco use, Anxiety and Depression/Mood disorder, GERD, EtOH abuse (Wine, Liquor) who presents to the [facility] on 09/11/23 w/ noted acute EtOH withdrawal, onset starting on day of presentation following last EtOH intake the evening prior. #1. Acute EtOH Withdrawal: Will admit to MS, routine labs obtained in the ED upon presentation as noted. Given interest in sobriety, will initiate and continue on protocol with taper course of Phenobarbital, as needed gabapentin, Catapres, Bentyl, Vistaril, IV fluids, IV antiemetics, Tylenol as needed for pain. Will consult Case management for assistance for transition to next level of rehabilitation care. Mag, phos pending. Maintain on CIWA protocol concurrently. #2. Anxiety and depression with suicidal ideation, no specific plan reported: Given this finding until crisis evaluation will maintain on suicide precautions, continue patient escitalopram and BuSpar regimen. Patient will need aggressive outpatient therapy and potentially medication alteration as this is likely contributing to her ongoing alcohol abuse. #3. Hypokalemia: Admission K+ 3.4, magnesium level requested, supplementation given, repeat level in AM. #4. Polysubstance abuse: Patient with usage of cannabis and psilocybin, denies any IV drug abuse or any usage of narcotic therapies, UDS with cannabis noted only, discussed at length and patient is amenable especially given previous history of sexually transmitted infections to have HIV, hepatitis and syphilis testing. #5. Former cigarette tobacco use-> vaping, recent cessation: Encourage continued cigarette tobacco cessation and encouraged patient continue discontinuation of vaping, notes 2 weeks since last usage. #6. Morbid Obesity: Weight loss and lifestyle changes encouraged. #7. GERD: We will have as needed Mylanta regimen. #8. DVT prophylaxis: Low risk, encourage ambulation Charges/Coding Visit Charges Inpatient E&M: 50310 Init Hosp L3
[2023-09-11 17:12] VITALS: BP 147/90; PULSE 75; RESP 20; O2SAT 98
--- NOTE | 2023-09-11 17:13 | NURSING ---
MED SURG ETOH DETOX WHITE
[2023-09-11 17:46] LABS: Amphetamine Urine VISTA NEGATIVE (<1000 ng/mL); Barbiturate Urine VISTA NEGATIVE (< 200 ng/mL); Benzodiazepine Urine VISTA NEGATIVE (< 200 ng/mL); Cocaine Urine VISTA NEGATIVE (< 300 ng/mL); Ecstacy Urine VISTA NEGATIVE (< 500 ng/mL); Methadone Urine VISTA NEGATIVE (< 300 ng/mL); PCP Urine VISTA NEGATIVE (< 25 ng/mL); THC Urine VISTA POSITIVE (< 50 ng/mL); Vista UDS pH Range 5
[2023-09-11 18:00] VITALS: BP 137/73; PULSE 77; RESP 20; O2SAT 98
[2023-09-11 18:03] LABS: Absolute Lymphocyte Count 1.87 X10^3/uL (0.83-4.51); Absolute Neutrophil Count 3.7 X10^3/uL (2.0-7.7); Basophil# 0.03 X10^3/uL; Basophil% 0.5 % (0-1); Eosinophil# 0.09 X10^3/uL; Eosinophils% 1.5 % (0-5); Hematocrit 36.8 % (37-47); Hemoglobin 12.1 g/dL (12.0-15.0); Lymphocyte # 1.87 X10^3/ul (0.83-4.51); Lymphocyte % 30.3 % (19-41); Mean Corp Hgb Conc 32.9 g/dL (32-36); Mean Corpuscular Hgb 30.5 pg (27.0-32.0); Mean Corpuscular Volume 92.7 fL (81-99); Mean Platelet Vol. 9.6 fl (6.2-12.0); Monocyte# 0.42 X10^3/uL; Monocyte% 6.8 % (0-10); NRBC Flagged by Analyzer 0 % (0-5); Neutrophil # 3.74 X10^3/uL (2.7-7.7); Neutrophil % 60.4 % (47-70); Platelet Count 314 K/mm3 (150-450); RBC Distribution Width CV 13.2 % (11.6-14.6); RBC Distribution Width SD 45.5 fl (35.1-43.9); Red Blood Count 3.97 M/mm3 (4.2-5.4); White Blood Count 6.2 K/mm3 (4.4-11.0)
--- NOTE | 2023-09-11 18:05 | ED.RN ---
DR. PULLIAM MADE AWARE OF SUICIDAL STATEMENTS @ 8020
--- NOTE | 2023-09-11 18:13 | ED.RN ---
THIS RN DISCUSSED WITH PT HER FEELING OF BEING SUICIDAL. PT STATES I HAVE NO PLAN, I DON'T FEEL LIKE I'M GOING TO HURT MYSELF, BUT IF I DON'T GET GOOD FOLLOW UP, OR GO BACK TO THE SAME SITUATION I FEEL LIKE I MAY HURT MYSELF. THIS RN INFORMS ED PHYSICIAN
[2023-09-11 18:15] LABS: Internal QC Validated? YES +Cl - CLEAR BKGD; Pregnancy, Serum, hCG Quali. NEGATIVE Negative
[2023-09-11 18:22] LABS: Alcohol, Blood (Medical)-Serum < 3.0 mg/dL
[2023-09-11 18:26] LABS: ALB/GLOB Ratio 0.8 RATIO (0.9-2.4); AST(SGOT) 20 U/L (15-37); Alanine Aminotransfer ALT/SGPT 27 U/L (13-56); Albumin, Serum 3.4 g/dL (3.2-5.0); Alkaline Phosphatase 67 U/L (45-117); Anion Gap 8 (5-15); BUN 11 mg/dL (7-18); BUN/Creat Ratio 13.2 RATIO (10-20); Calcium,Total 8.4 mg/dL (8.5-10.1); Chloride 105 mmol/L (98-107); Creatinine, Serum 0.84 mg/dL (0.55-1.02); EST Glomerular Filtration Rate 82 mL/min (>60); Est Glom Filt Rate - Afr Amer 99 mL/min (>60); Estimated Creatinine Clearance 119.63 ml/min; Globulin 4.3 g/dL (2.2-4.2); Glucose 94 mg/dL (74-106); Magnesium 1.8 mg/dL (1.6-2.6); Potassium 3.4 mmol/L (3.5-5.1); Protein, Total 7.7 g/dL (6.4-8.2); Sodium Level 137 mmol/L (136-145)
--- NOTE | 2023-09-11 18:26 | ED.RN ---
DR DURON AWARE OF PT STATEMENTS. PT TO HAVE A SITTER PER DR DURON. PT TO BE EVALUATED BY CRISES BUT CAN OCCUR ON THE FLOOR
[2023-09-11 18:29] LABS: Phosphorus 2.7 mg/dL (2.5-4.9)
[2023-09-11 18:37] VITALS: BP 137/73; PULSE 71; RESP 20; TEMP 36.8; O2SAT 99
[2023-09-11 18:42] VITALS: BMI 43.4
[2023-09-11 18:55] VITALS: BP 149/95; PULSE 81; RESP 18; TEMP 36.9; O2SAT 100
[2023-09-11 20:09] LABS: HIV - WCH Non-Reactive (Nonreactive); Hepatitis B Surface Antibody Reactive; Hepatitis B Surface Antigen Non-Reactive (Nonreactive); Hepatitis C Antibody Non-Reactive (Nonreactive); Syphilis Antibodies Non-reactive
[2023-09-11] MEDS: Phenobarbital 32.4 MG Tablet 64.8 MG PO (21:10)
[2023-09-11] MEDS: Lactated Ringers 1,000 ML 125 ML IV (21:11)
[2023-09-11] MEDS: Potassium Chloride Oral Tablet 20 MEQ 40 MEQ PO (21:11)
[2023-09-11] MEDS: Acetaminophen 325 MG Tablet 650 MG PO (21:11)
[2023-09-11] MEDS: 0.9% Saline Lock 10 ML Syringe IV (21:12)
[2023-09-11] MEDS: hydrOXYzine PAM 25 MG Capsule 50 MG PO (21:22)
[2023-09-12] VITALS (7 sets, daily range): BP systolic 133–153; BP diastolic 70–101; PULSE 70–80; RESP 16–18; TEMP 36.6–37.1; O2SAT 95–100
[2023-09-12] MEDS: Phenobarbital 32.4 MG Tablet 64.8 MG PO ×6 (01:09→20:05)
[2023-09-12] MEDS: Multivitamins,Ther W-Minerals Tablet 1 TABLET PO (08:55)
[2023-09-12] MEDS: Folic Acid 1 MG Tablet PO (08:55)
[2023-09-12] MEDS: Acyclovir 200 MG Capsule 400 MG PO ×2 (08:56→20:11)
[2023-09-12] MEDS: Escitalopram Oxalate 10 MG Tablet PO (08:56)
[2023-09-12] MEDS: busPIRone 5 MG Tablet PO (08:56)
[2023-09-12] MEDS: Thiamine Hydrochloride 100 MG Tablet PO (08:56)
[2023-09-12] MEDS: Na Biphos/Potassium Phosphate PACKET 1 PACKET PO ×3 (10:32→20:10)
[2023-09-12] MEDS: Magnesium Chloride 64 MG Delay Rel.Tablet 128 MG PO ×2 (10:32→20:10)
[2023-09-12] MEDS: Pantoprazole Sodium 40 MG Tablet PO (10:32)
--- NOTE | 2023-09-12 12:19 | ADDICTION ---
This travel writer met with PT to conduct ASAM, MSE, AUDIT, DUDIT assessments and to plan for d/c. PT A+Ox4 and participated actively. All assessments completed. PT plans to f/u with [facility] for follow-up in patient treatment services on . [facility] will transport to treatment.
--- NOTE | 2023-09-12 14:04 | PCM.PN.HOSP ---
Objective Data Objective Data Vital Signs: Vital Signs Temp Pulse Resp BP Pulse Ox O2 Del Method 98.2 F 78 18 153/95 H 100 Room Air 09/12/23 08:59 09/12/23 08:59 09/12/23 08:59 09/12/23 08:59 09/12/23 08:59 09/12/23 08:59 Oxygen Delivery Method Room Air Weight: 261 lb 7.492 oz Body Mass Index (BMI) 43.4 Intake & Output: Intake and Output for Last 24 Hours 09/10/23 09/11/23 09/12/23 23:59 23:59 23:59 Intake Total 1000 / 1000 Balance 1000 / 1000 Lab / Micro Data 09/11/23 17:55 09/11/23 17:55 Labs: Laboratory Results - last 24 hr 09/11/23 17:02: Urine Opiates Screen NEGATIVE, Urine Methadone Screen NEGATIVE, Ur Barbiturates Screen NEGATIVE, Ur Phencyclidine Scrn NEGATIVE, Ur Amphetamines Screen NEGATIVE, MDMA (Ecstasy) Screen NEGATIVE, U Benzodiazepines Scrn NEGATIVE, Urine Cocaine Screen NEGATIVE, U Cannabinoids Screen POSITIVE H, Ur Drug Screen Comment 09/11/23 17:55: WBC 6.2, RBC 3.97 L, Hgb 12.1, Hct 36.8 L, MCV 92.7, MCH 30.5, MCHC 32.9, RDW Std Deviation 45.5 H, RDW Coeff of Lc 13.2, Plt Count 314, MPV 9.6, Immature Gran % (Auto) 0.500, Neut % (Auto) 60.4, Lymph % (Auto) 30.3, Finney % (Auto) 6.8, Eos % (Auto) 1.5, Baso % (Auto) 0.5, Absolute Neuts (auto) 3.7, Absolute Lymphs (auto) 1.87, Nucleated RBC % 0, Sodium 137, Potassium 3.4 L, Chloride 105, Carbon Dioxide 24.0, Anion Gap 8, BUN 11, Creatinine 0.84, Estim Creat Clear Calc 119.63, Est GFR (MDRD) Af Amer 99, Est GFR (MDRD) Non-Af 82, BUN/Creatinine Ratio 13.2, Glucose 94, Calcium 8.4 L, Phosphorus 2.7, Magnesium 1.8, Total Bilirubin 0.50, AST 20, ALT 27, Alkaline Phosphatase 67, Total Protein 7.7, Albumin 3.4, Globulin 4.3 H, Albumin/Globulin Ratio 0.8 L, Serum , Qual NEGATIVE, Ethyl Alcohol < 3.0, Syphilis Total Ab Non-reactive, Hep Bs Antigen Non-Reactive, Hep Bs Antibody Reactive, Hepatitis C Antibody Non-Reactive, HIV 1&2 Antibody Non-Reactive Physical Exam Narrative Seen and examined. Patient not straightforward in giving accurate history. She does not tell exactly how much she drinks alcohol. She states she starts drinking in the morning and then keep on drinking until she falls sleeps by the evening. She drinks vodka, rum and whiskey. She also had several suicidal attempt but could not tell me how many times and what was the methods. Probably she is hiding. Patient was evaluated by crisis management team and found no high risk for suicide therefore sitter was discontinued. Currently having withdrawal symptoms of anxiety and restlessness. Physical exam General: Alert, Oriented x3, Cooperative HEENT: Atraumatic, PERRLA, EOMI, Normocephalic Oral: No Gingival or Mucosal Lesions/ Ulcerations Neck: Supple, No JVD, Negative Carotid Bruits Chest wall/Lungs: Air entry diminished in bilateral lung bases. No crepitation/rhonchi Cardiovascular: Regular rate, Regular Rhythm, Normal S1, Normal S2, No M/G/R Abdomen: Bowel Sounds Present, Soft, Non Tender, Non-Distended : No dysuria. No renal angle tenderness. No suprapubic tenderness. Extremities: No edema, Capillary Refill Less than 3 Seconds Skin: No rashes, No breakdown Musculoskeletal: No Tenderness to Palpation of Joints or Extremities Neurological: Cranial nerves II-XII grossly intact, DTR 2+/4. No acute focal neurological deficit. Psych/Mental Status: Normal Affect, Appropriate. Assessment & Plan Assessment/Plan (1) Desire for detoxification: PLAN: Plan The patient is a 38 y/o F with history of polysubstance use and alcohol admitted with acute alcohol withdrawal syndrome. w/ PMHx: Polysubstance abuse (Cannabis use, Psilocybin usage), Former tobacco use, Anxiety and Depression/Mood disorder, GERD, EtOH abuse (Wine, Liquor) who presents to the [facility] on 09/11/23 w/ noted acute EtOH withdrawal, onset starting on day of presentation following last EtOH intake the evening prior. #1. Acute alcohol withdrawal syndrome with history of chronic alcohol use disorder with dependence and tolerance: Patient is being admitted to MedSur floor. Patient on phenobarbital based order set along with other adjunctive medications gabapentin, Bentyl, Vistaril, clonidine, Klonopin as needed for alcohol withdrawal symptom control. Patient is on thiamine and folate acid. CIWA monitor. veterinary manager 180 consulted. #2. Anxiety and depression with suicidal ideation, no specific plan reported: Patient was evaluated by crisis management and found no high risk. Sitter was discontinued. Continue escitalopram and BuSpar. #3. Hypokalemia: Admission K+ 3.4, magnesium level requested, supplementation given, repeat potassium is still 3.4. On Neutra-Phos. Magnesium and phosphorus in normal range. #4. Polysubstance abuse: Patient with usage of cannabis and psilocybin, denies any IV drug abuse or any usage of narcotic therapies, UDS with cannabis noted only, discussed at length and patient is amenable especially given previous history of sexually transmitted infections to have HIV, hepatitis and syphilis testing. #5. Former cigarette tobacco use-> vaping, recent cessation: Encourage continued cigarette tobacco cessation and encouraged patient continue discontinuation of vaping, notes 2 weeks since last usage. #6. Morbid Obesity: Weight loss and lifestyle changes encouraged. #7. GERD: We will have as needed Mylanta regimen. #8. DVT prophylaxis: Low risk, encourage ambulation Charges/Coding Visit Charges Inpatient E&M: 43581 Subs Hosp L2
[2023-09-12] MEDS: Acetaminophen 325 MG Tablet 650 MG PO (20:07)
[2023-09-13] MEDS: Phenobarbital 32.4 MG Tablet 64.8 MG PO ×4 (00:09→11:56)
[2023-09-13] MEDS: Na Biphos/Potassium Phosphate PACKET 1 PACKET PO ×2 (04:17→11:56)
[2023-09-13 04:40] VITALS: BP 109/56; PULSE 74; RESP 16; TEMP 36.3; O2SAT 100
[2023-09-13 08:06] VITALS: O2SAT 95
[2023-09-13] MEDS: Folic Acid 1 MG Tablet PO (08:41)
[2023-09-13] MEDS: Multivitamins,Ther W-Minerals Tablet 1 TABLET PO (08:41)
[2023-09-13] MEDS: Escitalopram Oxalate 10 MG Tablet PO (08:42)
[2023-09-13] MEDS: Pantoprazole Sodium 40 MG Tablet PO (08:42)
[2023-09-13] MEDS: Magnesium Chloride 64 MG Delay Rel.Tablet 128 MG PO (08:42)
[2023-09-13] MEDS: Thiamine Hydrochloride 100 MG Tablet PO (08:42)
[2023-09-13] MEDS: Acyclovir 200 MG Capsule 400 MG PO (08:42)
[2023-09-13 10:00] VITALS: BP 138/78; PULSE 75; RESP 16; TEMP 36.7; O2SAT 100
--- NOTE | 2023-09-13 12:12 | DCINST_ITS ---
Discharge Instructions Diet Discharge Diet: No restrictions Activity Discharge Activity: Return to Normal Activity Weight Bearing Status: Weight bearing as tolerated Dressing / Incision Call your doctor if you observe: Fever of 101 or Higher, Coldness, Increased Pain, Numbness or Tingling, Change in Color, Inability to urinate, Inability to have a bowel movement, Shortness of breath, Dizziness, Fainting spells, Swelling in the ankles, Chest pain, Prolonged hiccupping, Increased palpitations (irregular heartbeat) and Calf discomfort Follow Up Care When: IN 2 WEEKS Test Results: Test results from this visit will be discussed in further detail at your follow- up appointment, if applicable. Discharge Plan Admission Admit Date/Time: 09/11/23 17:00 Primary Reason for Your Visit: Acute alcohol withdrawal syndrome Attending Provider: Jorje Harper Primary Care Provider: Holland Vang Consulting Providers: Karen Rice Discharge Orders/Prescriptions Prescriptions: New thiamine HCl (vitamin B1) 100 mg Tablet 100 mg PO DAILYCM Qty: 0 0RF folic acid 1 mg Tablet 1 mg PO DAILY@0800 Qty: 0 0RF Continued multivitamin with minerals 1 EACH tablet 1 ea PO DAILY Valtrex 500 mg PO DAILY buspirone 5 mg tablet 5 mg PO PRN cholecalciferol (vitamin D3) 50 mcg (2,000 unit) capsule 50 mcg PO DAILY escitalopram oxalate 10 mg tablet 10 mg PO DAILY Referrals / Follow Up: Holland Vang DO [Primary Care Provider] -
--- NOTE | 2023-09-13 12:14 | DS.PCM_ITS ---
Providers Date of Admission: 09/11/23 Date of Discharge: 09/13/23 Primary Care Physician: Dr. Holland Vnag DO Reason For Visit: ETOH WITHDRAWAL Diagnosis Discharge Diagnosis (1) Desire for detoxification: Status: Acute Plan The patient is a 38 y/o F with history of polysubstance use and alcohol admitted with acute alcohol withdrawal syndrome. w/ PMHx: Polysubstance abuse (Cannabis use, Psilocybin usage), Former tobacco use, Anxiety and Depression/Mood disorder, GERD, EtOH abuse (Wine, Liquor) who presents to the [facility] on 09/11/23 w/ noted acute EtOH withdrawal, onset starting on day of presentation following last EtOH intake the evening prior. #1. Acute alcohol withdrawal syndrome with history of chronic alcohol use disorder with dependence and tolerance: Patient is being admitted to [facility] floor. Patient on phenobarbital based order set along with other adjunctive medications gabapentin, Bentyl, Vistaril, clonidine, Klonopin as needed for alcohol withdrawal symptom control. Patient is on thiamine and folate acid. CIWA monitor. credit relationship manager 180 consulted. 09/12: Patient alcohol withdrawal symptoms are well-controlled. She is walking around the nursing station independently. Patient was evaluated by [facility] staff and felt she is stable for discharge to inpatient alcohol rehab. Patient is discharged. #2. Anxiety and depression with suicidal ideation, no specific plan reported: Patient was evaluated by crisis management and found no high risk. Sitter was discontinued. Continue escitalopram and BuSpar. 09/12: Patient denies any suicidal ideation. #3. Hypokalemia: Admission K+ 3.4, magnesium level requested, supplementation given, repeat potassium is still 3.4. On Neutra-Phos. Magnesium and phosphorus in normal range. 09/12: Potassium replaced. #4. Polysubstance abuse: Patient with usage of cannabis and psilocybin, denies any IV drug abuse or any usage of narcotic therapies, UDS with cannabis noted only, discussed at length and patient is amenable especially given previous history of sexually transmitted infections to have HIV, hepatitis and syphilis testing. #5. Former cigarette tobacco use-> vaping, recent cessation: Encourage continued cigarette tobacco cessation and encouraged patient continue discontinuation of vaping, notes 2 weeks since last usage. #6. Morbid Obesity: Weight loss and lifestyle changes encouraged. #7. GERD: We will have as needed Mylanta regimen. #8. DVT prophylaxis: Low risk, encourage ambulation discharge medication reconciliation done. Discharge follow-up instructions completed. Discharge process discussed with the patient and all questions were answered to patient's satisfaction. Follow with PCP in 1 to 2 weeks Total time spent, exact 35 minutes on discharge meds reconciliation, examination, coordination of care with nurses and ancillary staff, review of imaging and blood test and discussion with the patient on follow-up instructions. Medications at Discharge Home Medications Valtrex 500 mg PO DAILY herpes 07/12/19 multivitamin with minerals 1 ea PO DAILY dep 07/12/19 buspirone 5 mg tablet 5 mg PO PRN ANXIETY 09/11/23 cholecalciferol (vitamin D3) 50 mcg (2,000 unit) capsule 50 mcg PO DAILY VIT 09/11/23 escitalopram oxalate 10 mg tablet 10 mg PO DAILY ANXIETY 09/11/23 folic acid 1 mg tablet 1 mg PO DAILY@0800 #0 tabs 09/13/23 thiamine HCl (vitamin B1) 100 mg tablet 100 mg PO DAILYCM #0 tabs 09/13/23 Physical Exam Narrative Seen and examined. Alcohol withdrawal symptoms are well-controlled. Physical exam General: Alert, Oriented x3, Cooperative HEENT: Atraumatic, PERRLA, EOMI, Normocephalic Oral: No Gingival or Mucosal Lesions/ Ulcerations Neck: Supple, No JVD, Negative Carotid Bruits Chest wall/Lungs: Air entry diminished in bilateral lung bases. No crepitation/rhonchi Cardiovascular: Regular rate, Regular Rhythm, Normal S1, Normal S2, No M/G/R Abdomen: Bowel Sounds Present, Soft, Non Tender, Non-Distended : No dysuria. No renal angle tenderness. No suprapubic tenderness. Extremities: No edema, Capillary Refill Less than 3 Seconds Skin: No rashes, No breakdown Musculoskeletal: No Tenderness to Palpation of Joints or Extremities Neurological: Cranial nerves II-XII grossly intact, DTR 2+/4. No acute focal neurological deficit. Psych/Mental Status: Normal Affect, Appropriate. Weight / BMI Weight Weight: 261 lb 7.492 oz Body Mass Index (BMI) 43.4 ABG / Lab / Microbiology Data 09/11/23 17:55 09/11/23 17:55 D/C Instructions Discharge Diet: No restrictions Weight Bearing Status: Weight bearing as tolerated Call your doctor if you observe: Fever of 101 or Higher, Coldness, Increased Pain, Numbness or Tingling, Change in Color, Inability to urinate, Inability to have a bowel movement, Shortness of breath, Dizziness, Fainting spells, Swelling in the ankles, Chest pain, Prolonged hiccupping, Increased palpitations (irregular heartbeat) and Calf discomfort When: IN 2 WEEKS Meaningful Use Info Meaningful Use Meaningful Use Diagnoses (Choose all that apply): None applicable Ischemic Stroke Statin Dosing Therapy Reference: STATIN DOSE THERAPY REFERENCE: * Patients > 75 years receive moderate or high dose statin therapy. * Patients 75 years or YOUNGER should receive HIGH intensity statin dose unless contraindicated. You will be required to document reason for non-treatment if statin daily dose does not meet guidelines. HIGH DOSE STATIN THERAPY DAILY Atorvastatin > than or = to 40 mg Rosuvastatin > than or = to 20 mg Amlodipine + Atorvastatin > than or = to 2.5/40 mg Ezetimibe + Simvastatin 10/80 mg Simvastatin 80mg Discharge Plan Admission Admit Date/Time: 09/11/23 17:00 Primary Reason for Your Visit: Acute alcohol withdrawal syndrome Attending Provider: Jorje Harper Primary Care Provider: Holland Vang Consulting Providers: Karen Rice Discharge Orders/Prescriptions Prescriptions: New thiamine HCl (vitamin B1) 100 mg Tablet 100 mg PO DAILYCM Qty: 0 0RF folic acid 1 mg Tablet 1 mg PO DAILY@0800 Qty: 0 0RF Continued multivitamin with minerals 1 EACH tablet 1 ea PO DAILY Valtrex 500 mg PO DAILY buspirone 5 mg tablet 5 mg PO PRN cholecalciferol (vitamin D3) 50 mcg (2,000 unit) capsule 50 mcg PO DAILY escitalopram oxalate 10 mg tablet 10 mg PO DAILY Referrals / Follow Up: Holland Vang DO [Primary Care Provider] - Charges/Coding Visit Charges Inpatient E&M: 13490 Disch Hosp >30min
== END 2023-09-13 12:28 | disposition home or self-care (01) | DRG 775 ==
LOC: ED 17:06 → MS3 09-12 07:07
PROVIDERS: Admitting Provider Family Medicine; Emergency Provider Emergency Medicine; PCP Student in an Organized Health Care Education/Training Program; Visit Provider Internal Medicine
DX: F10.239 Alcohol dependence with withdrawal, unspecified (principal); E66.01 Morbid (severe) obesity due to excess calories; Z68.41 Body mass index [BMI] 40.0-44.9, adult; R45.851 Suicidal ideations; F32.A Depression, unspecified; E87.6 Hypokalemia; K21.9 Gastro-esophageal reflux disease without esophagitis; F12.90 Cannabis use, unspecified, uncomplicated; F41.9 Anxiety disorder, unspecified; F16.90 Hallucinogen use, unspecified, uncomplicated; Z87.891 Personal history of nicotine dependence; Z79.899 Other long term (current) drug therapy; Z91.51 Personal history of suicidal behavior
CPT/HCPCS: 36415; 80053; 80307; 82077; 83735; 84100; 84703; 85025; 86703; 86706; 86780; 86803; 87340; 96360; 96361; 99221; 99284; 99406; A4216; G0378

== ENCOUNTER 2024-09-23 12:29 | Inpatient (IN) | payer MEDICAID, SELFPAY ==
[2024-09-23] VITALS (15 sets, daily range): BP systolic 125–162; BP diastolic 67–110; PULSE 88–113; RESP 16–22; TEMP 35.9–37.1; O2SAT 98–100; BMI 48.6; BMI 1333.0; BMI 20250804.0
[2024-09-23] MEDS: Lactated Ringers 1,000 ML 999 ML IV ×2 (13:05→13:20)
[2024-09-23 13:30] LABS: Hematocrit 34.8 % (37-47); Hemoglobin 11.6 g/dL (12.0-15.0); Immature Granulocytes Count 0.050 X10^3/uL (0.0-0.0); Mean Corp Hgb Conc 33.3 g/dL (32-36); Mean Corpuscular Volume 87.2 fL (81-99); Mean Platelet Vol. 10.8 fl (6.2-12.0); NRBC Flagged by Analyzer 0 % (0-5); Platelet Count 246 K/mm3 (150-450); RBC Distribution Width CV 15.7 % (11.6-14.6); RBC Distribution Width SD 50.0 fl (35.1-43.9); Red Blood Count 3.99 M/mm3 (4.2-5.4); White Blood Count 7.6 K/mm3 (4.4-11.0)
--- NOTE | 2024-09-23 13:50 | PCM.HP.OB ---
HPI - General General Date of Admission: 09/23/24 Date of Service: 09/23/24 Chief Complaint: labor HPI Narrative MACY REYES, is a 39 F who presents with contractions. She has been having contractions since yesterday morning. No vb, lof. Good FM. PFSH [facility] Medical History (Updated 09/23/24 @ 13:[address] Tyesha Ardon, DO) AMA (advanced maternal age) multigravida 35+ Psilocybin abuse Cannabis use disorder History of nicotine vaping Former cigarette smoker Morbid obesity Anxiety and depression Alcohol abuse Substance abuse GERD (gastroesophageal reflux disease) Home Medications ?Medication ?Instructions ?Recorded ?Last Taken ?Type Valtrex 500 mg PO DAILY herpes 07/12/19 09/22/24 History multivitamin with minerals 1 ea PO DAILY dep 07/12/19 07/12/19 History buspirone 5 mg tablet 5 mg PO PRN ANXIETY 09/11/23 Unknown History Held on 09/23/24. Instructions: MD Ordered cholecalciferol (vitamin D3) 50 50 mcg PO DAILY VIT 09/11/23 09/23/24 History mcg (2,000 unit) capsule escitalopram oxalate 10 mg tablet 10 mg PO DAILY ANXIETY 09/11/23 09/22/24 History folic acid 1 mg tablet 1 mg PO DAILY@0800 prenancy #0 tabs 09/13/23 Unknown Rx Held on 09/23/24. Instructions: Order Changed thiamine HCl (vitamin B1) 100 mg 100 mg PO DAILYCM #0 tabs 09/13/23 Unknown Rx tablet Held on 09/23/24. Instructions: MD Ordered aspirin 81 mg tablet,delayed 81 mg PO DAILY 09/23/24 09/22/24 History release famotidine 20 mg tablet 20 mg PO BID 09/23/24 09/22/24 History ferrous sulfate 325 mg (65 mg 325 mg PO QODAY 09/23/24 09/22/24 History iron) tablet omeprazole 20 mg capsule,delayed 20 mg PO 09/23/24 09/22/24 History release Allergy/AdvReac Type Severity Reaction Status Date / Time No Known Allergies Allergy Verified 09/23/24 13:02 Family History Father Hypertension Diabetes ETOH abuse Mother Diabetes Surgical History (Updated 09/23/24 @ 13:[address] Tyesha Ardon DO) History of dilation and curettage History of tonsillectomy and adenoidectomy Social History (Updated 09/11/23 @ 19:[address] Karen Rice MD) household members: other details: Lives with her 8 year old daughter. Smoking Status: Former smoker how long ago did patient quit smoking: Quit cigarette use 03/2013->transitioned to vaping, quit x 2 weeks. alcohol intake: current alcohol intake frequency: 3 or more drinks per day substance use type: marijuana and other details: Psilocybin ingestion. History Elective abortions Hx Para 1 Spontaneous abortions Hx # Term Pregnancies Ectopic pregnancies Hx # Pregnancies Multiple births # of living children Addt'l History: Daughter was 8 lb 8 ounces - vacuum delivery and shoulder dystocia documented. Delivery with [place] [employer] NST FHR Rate Baby A FHR Category:: Category I Vital Signs Vital Signs Vital Signs: 09/23/24 10:19 09/23/24 10:19 09/23/24 10:19 Temperature Temperature Source Pulse Rate 100 Respiratory Rate Blood Pressure 142/78 H Blood Pressure Mean BP Systolic 142 BP Diastolic 78 Blood Pressure Source Blood Pressure Position Blood Pressure Location Pulse Ox 99 Oxygen Delivery Method 09/23/24 13:45 09/23/24 13:45 09/23/24 13:45 Temperature 98 F Temperature Source Temporal Pulse Rate 113 H Respiratory Rate 20 H Blood Pressure 142/78 H Blood Pressure Mean 99 BP Systolic BP Diastolic Blood Pressure Source Monitor Blood Pressure Position Semi-Fowlers Blood Pressure Location Left Arm Pulse Ox 99 Oxygen Delivery Method Room Air Weight Weight: 301 lb 6.4 oz Body Mass Index (BMI) 48.6 Labs Labs Labs: Blood Type B POSITIVE Antibody Screen NEGATIVE Hct 34.8 % (37-47) L Hgb 11.6 g/dL (12.0-15.0) L Syphilis Total Ab Non-reactive Rubella IgG Antibody 20.1 IU/mL Hep Bs Antigen Non-Reactive (Nonreactive) Hepatitis C Antibody Non-Reactive (Nonreactive) Chlamydia DNA (CHRISS) Negative (Negative) N.gonorrhoeae DNA (CHRISS) Negative (Negative) HIV 1&2 Antibody Non-Reactive (Nonreactive) Glucose 1 Hr 50 gm 99 mg/dL (70-140) Group B Strep DNA Negative (Negative) Rhogam given: No Assessment & Plan (1) 38 weeks gestation of : PLAN: Discussed r/b/a primary versus continuing with labor to try for a vaginal delivery. Discussed limitations with growth US, risk of shoulder dystocia, surgical risk with a section. Patient feels she has been well counseled and all questions answered. The patient requests to proceed with a primary section given LGA and baby expected to be about 1 pound more than daughter, and she had a vacuum and shoulder dystocia with her daughter. (2) Uterine contractions: (3) LGA (large for gestational age) fetus affecting management of mother: (4) History of shoulder dystocia in prior : (5) History of vacuum extraction assisted delivery: (6) Advanced maternal age (AMA) in : (7) Request for sterilization: PLAN: Discussed r/b/a tubal sterilization. She understands this is permanent and irreversible with risk of regret. She requests to proceed with tubal sterilization. (8) History of substance abuse:
[2024-09-23] MEDS: Cefazolin 1 GM/5 ML Vial 3 GM IV (14:09)
[2024-09-23 14:16] LABS: Syphilis Antibodies Nonreactive (Nonreactive)
[2024-09-23 14:53] LABS: Barbiturate Urine NEGATIVE (< 200 ng/mL); Benzodiazepine Urine NEGATIVE (< 200 ng/mL); PCP Urine NEGATIVE (< 25 ng/mL); THC Urine NEGATIVE (< 50 ng/mL)
--- NOTE | 2024-09-23 15:30 | OP.PCM_ITS ---
Problems Associated Problem List Diagnoses (1) History of substance abuse: (2) Request for sterilization: (3) Advanced maternal age (AMA) in : (4) History of vacuum extraction assisted delivery: (5) History of shoulder dystocia in prior : (6) LGA (large for gestational age) fetus affecting management of mother: (7) Uterine contractions: (8) 38 weeks gestation of : Operative Report (Standard) Operative Information Date of Procedure: 09/23/24 Pre-Operative Diagnosis: 38 week gestation, labor, LGA, history vacuum assisted vaginal delivery and shoulder dystocia, request for sterilization Post-Operative Diagnosis: As above Surgery/Procedure Performed: PLTCS via pfannenstiel incision Bilateral salpingectomy mental hygiene consultant: Yes Primary Care Provider: Letitia SAGE Tasks completed by cardiology physician assistant: Closing and Retracting Type of Anesthesia: Spinal Procedure Start Time: 14:04 Procedure Stop Time: 15:47 Select all DRAINS/GRAFTS/IMPLANTS that apply: None Special Medications: None Estimated Blood Loss: 1200 mL Fluids Replaced: 1000 mL Specimen collected: No Description of surgery: The patient was taken to the operating room where the spinal anesthesia was found to be adequate. She was prepped and draped in the dorsal supine position with a leftward tilt. A Pfannenstiel skin incision was made using a scalpel and carried down to the underlying layer of fascia. The fascia was incised in midline. The fascial incision was extended laterally using Jenkins scissors. The fascia was tented off the rectus muscles using Kulwant clamps and dissected cephalad and caudad using a combination of sharp and blunt dissection. The rectus muscles were already in the midline. The peritoneum was entered bluntly with good visualization of the bladder. The peritoneal incision was extended with lateral traction. A bladder blade was inserted. A low transverse incision was made on the uterus with a scalpel. The uterine incision was extended with cephalad and caudad traction. Clear fluid was noted. The head was elevated and flexed and delivered followed by the shoulders and body without any traction force or delay. A vigorous viable male was delivered, and the cord was clamped and cut after a slight delay. The infant was handed off to the awaiting nursery staff. The placenta was delivered with fundal massage. The placenta was noted to be normal-appearing and intact. The uterus was exteriorized. The uterus was cleared of all clot and debris. There were several vessels that were bleeding along the hysterotomy, as well as a right sided extension. 1-0 Vicryl was used to close the hysterotomy in a running locked fashion including the extension into the cervix, followed by several [id number] sutures to achieve hemostasis. I confirmed that the patient desired sterilization. The right fallopian tube was followed out to the fimbriated end, and elevated using Ivy clamps. The LigaSure device was used to serially clamp, cauterize, and transect along the mesosalpinx hugging adjacent to the fallopian tube. The fallopian tube was then transected once at the cornua and removed. The left fallopian tube was followed up to the fimbriated end. The left fallopian tube was elevated using ivy clamps. The LigaSure device was used to serially clamp, cauterize, and transect along the mesosalpinx adjacent to the fallopian tube. The fallopian tube was then transected and removed. Hemostasis was confirmed after the bilateral salpingectomy. The uterus was placed back into the abdomen. Gutters were cleared of clot and debris. A bladder blade was reinserted. Hemablast was placed over the extension and hysterotomy. Hemostasis was confirmed. The subfascial space was inspected and noted to be hemostatic. The fascia was closed with STRATAFIX in a running fashion. The subcutaneous space was irrigated and made hemostatic with the Bovie cautery. The subcutaneous space was reapproximated using 3-0 Vicryl. The skin was closed with 4-0 Monocryl in a subcuticular fashion. A dressing was placed. Instrument, sharp, sponge counts were correct x 2 and the patient was taken to the recovery room in stable condition. Surgical Findings: Normal appearing uterus and bilateral adnexa VMI weighing 9 pounds 12 ounces Clear fluid Normal appearing placenta Complications Complications: No Admit VTE Documentation VTE Present on Admission: No VTE Mechan Device Prophylaxis: SCD's
--- NOTE | 2024-09-23 15:36 | PCM.POST.ANE ---
Anesthesia: Postop Eval I Current Vital Signs Temperature: 98 F Pulse Rate: 88 Blood Pressure: 162/100 (pt had been given methergine) Respiratory Rate: 16 Pulse Ox: 100 Oxygen Delivery Method: Room Air Assessment Airway patent: Yes Spontaneous unlabored respirations: Yes Mental status: Awake and Calm nausea: No Vomiting: No Anesthesia Complication: No Fluid Hydration Crystalloid volume administer (ml): 1,200 Total IV fluid infused: 1,200 Progress Note Anesthesia document: Postop Eval 1 completed: Yes
--- NOTE | 2024-09-23 15:41 | POSTOPAN2_ITS ---
Anesthesia Postop Eval I Sum Postop Eval Completion status Anesthesia document: Postop Eval 1 completed: Yes Anesthesia Postop Eval I Summary Anesthesia Postop Eval I Summary: Anesthesia Postop Eval I: Assessment Summary Airway patent Yes 09/23/24 15:37 LOSS PREVENTION SUPERVISOR.MDOT Spontaneous unlabored Yes 09/23/24 15:37 LOSS PREVENTION SUPERVISOR.MDOT respirations Mental status Awake,Calm 09/23/24 15:37 LOSS PREVENTION SUPERVISOR.MDOT nausea No 09/23/24 15:37 LOSS PREVENTION SUPERVISOR.MDOT Vomiting No 09/23/24 15:37 LOSS PREVENTION SUPERVISOR.MDOT Anesthesia Postop Eval I: Fluid Summary Crystalloid volume administer 1,200 09/23/24 15:37 LOSS PREVENTION SUPERVISOR.MDOT (ml) Colloids volume administered ( ml) Blood Product volume administered (ml) Total IV fluid infused 1,200 09/23/24 15:37 LOSS PREVENTION SUPERVISOR.MDOT Anesthesia Postop Eval I: Summary Notes Anesthesia Complication No 09/23/24 15:37 LOSS PREVENTION SUPERVISOR.MDOT Anesthesia Complication Comment: Post-operative progress note Anesthesia: Postop Eval II Evaluation Mental status: Awake and Calm Pain Level: 0 nausea: No Vomiting: No Complications Anesthesia Complication: No
--- NOTE | 2024-09-23 15:41 | PCM.POSTANE2 ---
Anesthesia Postop Eval I Sum Postop Eval Completion status Anesthesia document: Postop Eval 1 completed: Yes Anesthesia Postop Eval I Summary Anesthesia Postop Eval I Summary: Anesthesia Postop Eval I: Assessment Summary Airway patent Yes 09/23/24 15:37 LEGAL INSTRUCTOR.MDOT Spontaneous unlabored Yes 09/23/24 15:37 LEGAL INSTRUCTOR.MDOT respirations Mental status Awake,Calm 09/23/24 15:37 LEGAL INSTRUCTOR.MDOT nausea No 09/23/24 15:37 LEGAL INSTRUCTOR.MDOT Vomiting No 09/23/24 15:37 LEGAL INSTRUCTOR.MDOT Anesthesia Postop Eval I: Fluid Summary Crystalloid volume administer 1,200 09/23/24 15:37 LEGAL INSTRUCTOR.MDOT (ml) Colloids volume administered ( ml) Blood Product volume administered (ml) Total IV fluid infused 1,200 09/23/24 15:37 LEGAL INSTRUCTOR.MDOT Anesthesia Postop Eval I: Summary Notes Anesthesia Complication No 09/23/24 15:37 LEGAL INSTRUCTOR.MDOT Anesthesia Complication Comment: Post-operative progress note Anesthesia: Postop Eval II Evaluation Mental status: Awake and Calm Pain Level: 0 nausea: No Vomiting: No Complications Anesthesia Complication: No
[2024-09-23] MEDS: Oxytocin 15 Units/NS 250ml 15 UNITS/250 ML IV.SOLN 83 UNITS IV (16:04)
[2024-09-23] MEDS: Ketorolac 30 MG/ML Syringe IV ×2 (16:36→22:14)
[2024-09-23] MEDS: NIFEdipine 30 MG Tablet PO (19:10)
[2024-09-23] MEDS: Lactated Ringers 1,000 ML 100 ML IV (19:11)
[2024-09-23 19:40] LABS: Creatinine, Urine (random) 167.00 mg/dL (28.00-217.00)
[2024-09-23 19:42] LABS: AST(SGOT) 23 U/L (<=31); Alanine Aminotransfer ALT/SGPT 15 U/L (<=34); Albumin, Serum 2.9 g/dL (3.5-5.0); Alkaline Phosphatase 131 U/L (35-104); Anion Gap 14 (5-15); BUN 5 mg/dL (4-19); BUN/Creat Ratio 8.8 RATIO (10-20); Calcium,Total 9.0 mg/dL (7.6-11.0); Carbon Dioxide 16.7 mmol/L (21.0-32.0); Chloride 105 mmol/L (98-108); Estimated Creatinine Clearance 177.03 ml/min (50-250); Globulin 2.8 g/dL (2.2-4.2); Glucose 143 mg/dL (70-99); Potassium 3.8 mmol/L (3.3-5.1)
[2024-09-23 19:51] LABS: Protein, Urine (Random) 422.0 mg/dL (0.0-12.0); Protein:Creat Ratio 2527 mg/g CRE (0-200)
--- NOTE | 2024-09-23 20:16 | FALS_PTH ---
PATIENT: MACY REYES LOC: [facility] U#:[id number] AGE/SX: 39/F ROOM: WP009 RE09/23/[address]: Aixa Mak CNM : 1985 BED: 1 DIS: 09/25/2024 SPEC #: [id number] RECD: 09/23/24 20:30 STATUS: LOTUS ZACHARY #: [id number] LU: 09/23/24 20:[address]: Aixa Mak DEPT: SURGICAL PATHOLOGY RECD BY: Bk Aguilar ENTERED: 09/24/24 09:45 SP TYPE: FALL TUBES OTHR DR: Dr. Holland Vang, DO Tissues: A - Fallopian tube Procedures: Surgery Specimen Level II HEADER OPERATION: Primary section PRE-OP DIAGNOSIS: Tubal ligation TISSUE SUBMITTED: A- Bilateral fallopian tubes MICROSCOPIC DIAGNOSIS A. Left and right fallopian tubes, bilateral salpingectomy: - No specific pathologic change (luminal cross-section confirmed), left (A1). - Focal acute inflammation (luminal cross-section confirmed), right (A2) - see note. Note: The acute inflammation raises consideration of infection/pelvic inflammatory disease. Recommend correlation with clinical findings. MICROSCOPIC DESCRIPTION Slides are reviewed. GROSS DESCRIPTION A. Received in formalin labeled with the patient's name and date of . Designated as R+ L fallopian tubes are 2 red-purple fimbriated fallopian tubes with orientation (suture-right), measuring 6.4 x 0.6 cm (left) and 6.8 x 0.7 cm (right). There are patchy serosal adhesions however, no definitive lesions are grossly identified. Appliance Parts Counter Clerk sections are submitted in 2 cassettes as follows: A1: Left fallopian tubeA2: Right fallopian tube OK 09/24/2024 CPT:[id number]
[2024-09-23] MEDS: Cefazolin 1 GM/50 ML BAG IV (22:14)
--- OUTSIDE RECORDS SUMMARY | 2024-09-23 22:15 | XMS RPT_ITS | CCD ---
Author Organization [facility] Care Team Providers Care Seal Mixer Name Role Phone Holland Vang DO Primary Care Provider Ha[address] BUILDER.Lianne SOTO Unavailable DELPHINE BRADLEY Attending Unavailabl e MIGUEL ESCUDERO Referring Unavailable HOLLAND VANG Primary Care Unavailable Holland Vang DO Primary Care Provider Ha[address] BUILDER.Lianne SOTO Unavailable Holland Vang DO Primary Care Provider Ha[address] BUILDER.Lianne SOTO Unavailable Sharma ROAD BUILDER.Soco SOTO Unavailable Jonh ROAD BUILDER.Ronny SOTO Unavailable Ha[address] BUILDER.Lianne SOTO Unavailable Shrama ROAD BUILDER.Soco SOTO Unavailable Jorje Harper Attending Unavailable White, Karen L Consulting Unavailable White, Karen L Admitting Unavailable Vang, Holland Primary Care Unavailable Leroy, Jorje Consulting Unavailable White, Karen L Admitting Unavailable Leroy, Jorje Attending Unavailable Dwayne, Karen L Consulting Unavailable Vang, Holland Primary Care Unavailable Miguel Escudero Attending Unavailable Miguel Escudero Referring Unavailable Vang, Holland Primary Care Unavailable Miguel Escudero Admitting Unavailable Dwayne Karen L Attending Unavailable Hus[address] RO[address] BUILDER.Mi SOTO Unavailable HOLLAND VANG Primary Care Unavailable CHAPARRITA COPE Attending Unavailable VANG, HOLLAND L Primary Care Unavailable HAURY, CHAPARRITA Referring Unavailable JULIA DAY Attending Unavail able VANG, HOLLAND L Primary Care Unavailable VANG, HOLLAND L Primary Care Unavailable HAURY, CHAPARRITA Referring Unavailable VANG, HOLLAND L Primary Care Unavailable SELENE BASILIO Attending Unavailable VANG, HOLLAND L Primary Care Unavailable AIXA MAK Attending Unavailable VANG, HOLLAND L Primary Care Unavailable HAURY, CHAPARRITA Attending Unavailable MIGUEL ESCUDERO Attending Unavailable VANG, HOLLAND L Primary Care Unavailable HAURY, CHAPARRITA Referring Unavailable VANG, HOLLAND L Primary Care Unavailable VANG, HOLLAND L Primary Care Unavailable MEHRAN RENEE Attending Unavailable RACHELLE VARNER Referring Unavailable VANG, HOLLAND L Primary Care Unavailable TORCHIA, SONAM Referring Unavailable VANG, HOLLAND L Primary Care Unavailable VANG, HOLLAND L Primary Care Unavailable TORCHIA, SONAM Referring Unavailable WISWELL, KRISTI Referring Unavailable VANG, HOLLADN L Primary Care Unavailable JULIA DAY Attending Unavail able WISWELL, KRISTI Referring Unavailable VANG, HOLLAND L Primary Care Unavailable WISWELL, KRISTI Attending Unavailable VANG, HOLLAND L Primary Care Unavailable JULIA DAY Referring Unavail able VANG, HOLLAND L Primary Care Unavailable TORCHIA, SONAM Referring Unavailable VANG, HOLLAND L Primary Care Unavailable TORCHIA, SONAM Referring Unavailable VANG, HOLLAND L Primary Care Unavailable VANG, HOLLAND L Primary Care Unavailable VANG, HOLLAND L Primary Care Unavailable MEHRAN RENEE Attending Unavailable VANG, HOLLAND L Primary Care Unavailable HAURY, CHAPARRITA Referring Unavailable VANG, HOLLAND L Primary Care Unavailable RACHELLE VARNER Referring Unavailable WISWELL, KRISTI Referring Unavailable VNAG, HOLLAND L Primary Care Unavailable WISWELL, KRISTI Referring Unavailable RACHELLE VARNER Attending Unavailable VANG, HOLLAND L Primary Care Unavailable WISWELL, KRISTI Referring Unavailable VANG, HOLLAND L Primary Care Unavailable RONNY BORJA Attending Unavailable VANG, HOLLAND L Primary Care Unavailable JONHRONNY Referring Unavailable VANG, HOLLAND L Primary Care Unavailable VANG, HOLLAND L Primary Care Unavailable RACHELLE VARNER Attending Unavailable VANG, HOLLAND L Primary Care Unavailable RACHELLE VARNER Referring Unavailable WISWELL, KRISTI Referring Unavailable MEHRAN RENEE Attending Unavailable HOLLAND VANG Primary Care Unavailable KRISTI ARDON Attending Unavailable HOLLAND VANG Primary Care Unavailable RACHELLE VARNER Referring Unavailable Medications Current Medications Medication Drug Class(es) Dates Sig (Normalized) Sig (Original) aspirin 81 mg delayed release oral tablet (20 sources) Platelet Aggregation Inhibitor, Nonsteroidal Anti-inflammatory Drug Start: 03-04-2024 take 1 tablet by mouth once daily aspirin, enteric coated (ECOTRIN LOW STRENGTH) 81 mg EC tablet Indications: Encounter for supervision of high risk in first trimester, antepartum (HCC) , 8 weeks gestation of (HCC) Take 1 tablet by mouth once daily. 90 tablet 3 03/04/2024 Active busPIRone hydrochloride 5 mg oral tablet (1 source) Start: 12-28-2022 End: 03-28-2023 take 1 tablet by mouth three times daily busPIRone (BUSPAR) 5 mg tablet Indications: MARCO ANTONIO (generalized anxiety disorder) Take 1 tablet by mouth three times a day. 270 tablet 0 12/28/2022 03/28/2023 Active Comment on above: Take 1 tablet by [facility] three times a day. cholecalciferol 0.05 mg oral capsule (20 sources) Vitamin D Start: 07-20-2022 End: 05-09-2024 take 1 capsule by mouth once daily Cholecalciferol, Vitamin D3, 50 mcg (2,000 unit) cap Indications: Vitamin D deficiency Take 1 capsule by mouth once daily. 90 capsule 3 05/09/2024 Active Start: 07-15-2021 End: 07-17-2022 take 1 capsule by mouth once daily Cholecalciferol, Vitamin D3, 50 mcg (2,000 unit) cap Indications: Vitamin D deficiency Take 1 capsule by mouth once daily. 90 capsule 3 07/15/2021 07/17/2022 Discontinued Comment on above: Take 1 capsule by mo [facility] once daily. escitalopram 10 mg oral tablet (20 sources) Serotonin Reuptake Inhibitor Start: End: take 1 tablet by mouth once daily escitalopram oxalate (LEXAPRO) 10 mg tablet Indications: MARCO ANTONIO (generalized anxiety disorder) Take 1 tablet by mouth once daily. 90 tablet 1 05/06/2024 11/02/2024 Active Start: 05-05-2020 End: 07-08-2023 take 1 tablet by mouth once daily escitalopram oxalate (LEXAPRO) 10 mg tablet Indications: MARCO ANTONIO (generalized anxiety disorder) Take 1 tablet by mouth once daily. 90 tablet 1 12/28/2022 06/26/2023 Active Comment on above: Take 1 tablet by anshul th once daily. famotidine 20 mg oral tablet (20 sources) Histamine-2 Receptor Antagonist Start: 03-04-19 take 1 tablet by mouth twice daily famotidine (PEPCID) 20 mg tablet Indications: Heartburn during in first trimester (HCC) Take 1 tablet by mouth two times a day. 60 tablet 3 03/04/2024 Active ferrous sulfate 325 mg oral tablet (20 sources) Start: 08-08-19 End: 09-03-19 take 1 tablet by mouth every other day ferrous sulfate 325 mg (65 mg iron) tablet TAKE 1 TABLET BY MOUTH EVERY OTHER DAY 45 tablet 2 09/02/2024 Active metroNIDAZOLE 500 mg oral tablet (5 sources) Nitroimidazole Antimicrobial Start: 07-26-19 take 500 mg by mouth twice daily Metronidazole Active 500 MG PO TWICE A DAY 14 July 24, 2022 11:00pm Start: 07-13-2019 End: 07-27-2019 take 500 mg by mouth twice daily Metronidazole Discontinued 500 MG PO TWICE A DAY July 12, 2019 11:00pm July 26, 2019 11:02pm Multivitamin With Minerals (3 sources) Start: 07-12-2019 Multivitamin W ith Minerals Active 1 EACH PO DAILY July 11, 2019 11:00pm Start: 07-12-2019 Multivitamin W ith Minerals Active 1 EACH PO DAILY July 12, 2019 12:00am omeprazole 20 mg delayed release oral capsule (20 sources) Proton Pump Inhibitor Start: 07-01-2024 take 1 capsule by mouth once daily before breakfast omeprazole (PRILOSEC) 20 mg capsule Indications: Well adult exam , GERD without esophagitis Take 1 capsule by mouth daily before breakfast. 1/2 hr before meal. 30 capsule 2 07/01/2024 Active Start: 12-18-2023 End: 03-04-2024 take 1 capsule by mouth once daily before breakfast omeprazole (PRILOSEC) 20 mg capsule Indications: Well adult exam , GERD without esophagitis Take 1 capsule by mouth daily before breakfast. 1/2 hr before meal. 30 capsule 2 12/18/2023 03/04/2024 Discontinued Start: 07-20-2022 End: 12-16-2023 take 1 capsule by mouth once daily before breakfast omeprazole (PRILOSEC) 20 mg capsule Indications: Well adult exam , GERD without esophagitis Take 1 capsule by mouth daily before breakfast. 1/2 hr before meal. 30 capsule 2 08/23/2023 12/16/2023 Discontinued Start: 11-01-2021 End: 07-17-2022 take 1 capsule by mouth once daily before breakfast omeprazole (PRILOSEC) 20 mg capsule Indications: GERD without esophagitis , Well adult exam Take 1 capsule by mouth daily before breakfast. 1/2 hr before meal. 30 capsule 2 03/15/2022 07/17/2022 Discontinued Start: 07-14-2021 End: 10-30-2021 take 1 capsule by mouth once daily before breakfast omeprazole (PRILOSEC) 20 mg capsule Indications: GERD without esophagitis , Well adult exam Take 1 capsule by mouth daily before breakfast. 1/2 hr before meal. 30 capsule 2 07/14/2021 10/30/2021 Discontinued Comment on above: Take 1 capsule by mo uth daily before breakfast. 1/2 hr before meal. PNV no.153/FA/om3/dha/epa /fish ( GUMMIES ORAL) (20 sources) PNV no.153/FA/om3/dha/ep a/fish ( GUMMIES ORAL) Take 2 Pieces by mouth once daily. Active valACYclovir 1000 mg oral tablet (20 sources) Herpesvirus Nucleoside Analog DNA Polymerase Inhibitor, Herpes Simplex Virus Nucleoside Analog DNA Polymerase Inhibitor, Herpes Zoster Virus Nucleoside Analog DNA Polymerase Inhibitor Start: End: take 1 tablet by mouth once daily valACYclovir (VALTREX) 1 gram tablet Take 1 tablet by mouth once daily. 90 tablet 3 08/28/2024 Active Start: 04-27-2022 End: 05-10-2023 take 2 tablets by mouth once daily valACYclovir (VALTREX) 500 mg tablet Take 2 tablets by mouth once daily. 60 tablet 12 04/27/2022 05/10/2023 Discontinued Start: 07-12-2019 take 500 mg by mouth once merlene y Valtrex Active 500 MG PO DAILY July 11, 2019 11:00pm End: 04-27-2022 take 1 tablet by mouth twice daily valACYclovir (VALTREX) 500 mg tablet Take 500 mg by mouth twice daily. 0 04/27/2022 Discontinued Comment on above: Take 500 mg by mouth twice daily. Take 2 tablets by mo [facility] once daily. Take 1 tablet by anshul th once daily. TAKE 1 TABLET BY ANSHUL TH EVERY DAY Completed/Discontinued Medications Medication Drug Class(es) Dates Sig (Normalized) Sig (Original) baclofen 10 mg oral tablet (20 sources) gamma-Aminobutyric Acid-ergic Agonist Start: 04-20-2020 End: 08-17-2023 take 1 tablet by mouth every eight hours as needed baclofen (LIORESAL) 10 mg tablet Take 1 tablet by mouth three times daily as needed (muscle spasms). 30 tablet 0 04/20/2020 08/17/2023 Discontinued (Other) Comment on above: Take 1 tablet by anshul th three times daily as needed (muscle spasms). cetirizine hydrochloride 10 mg oral tablet (8 sources) Histamine-1 Receptor Antagonist Start: 01-18-2021 End: 12-28-2022 take 1 tablet by mouth once daily cetirizine (ZYRTEC) 10 mg tablet Indications: URI with cough and congestion Take 1 tablet by mouth once daily. 30 tablet 01/18/2021 12/28/2022 Discontinued Comment on above: Take 1 tablet by anshul th once daily. doxycycline hyclate 100 mg oral capsule (3 sources) Tetracycline-class Drug Start: 07-13-2019 End: 07-27-2019 take 100 mg by mouth twice daily Doxycycline Hyclate Discontinued 100 MG PO TWICE A DAY July 12, 2019 11:00pm July 26, 2019 11:02pm fluticasone propionate 0.05 mg/actuat metered dose nasal spray (8 sources) Corticosteroid Start: 01-18-2021 End: 12-28-2022 take 2 spray(s) by mouth once daily fluticasone (FLONASE) 50 mcg/actuation nasal spray Indications: URI with cough and congestion Use 2 Sprays in each nostril once daily. Rinse mouth after use. 1 Each 01/18/2021 12/28/2022 Discontinued Comment on above: Use 2 Sprays in each nostril once daily. Rinse mouth after use. 12 hr guaiFENesin 600 mg / pseudoephedrine hydrochloride 60 mg extended release oral tablet (8 sources) alpha-Adrenergic Agonist Start: 01-18-2021 End: 12-28-2022 take 1 tablet by mouth every twelve hours as needed pseudoephedrine-g uaiFENesin (MUCINEX D) 60-600 mg per tablet Indications: URI with cough and congestion Take 1 tablet by mouth every 12 hours as needed for cold/allergy symptoms. 30 tablet 0 01/18/2021 12/28/2022 Discontinued Comment on above: Take 1 tablet by [facility] every 12 hours as needed for cold/allergy symptoms. 10 ml iron sucrose 20 mg/ml injection (4 sources) Parenteral Iron Replacement Start: 09-04-2024 End: 09-04-2024 200 mg, INTRAVENOUS, ONCE, 1 dose, On Mon09/04/24 at 1100, May administer up to 200 mg via IV push over 5-10 minutes. Start: 09-02-2024 End: 09-02-2024 200 mg, INTRAVENOUS, ONCE, 1 dose, On Mon09/02/24 at 0930, May administer up to 200 mg via IV push over 5-10 minutes. Start: 08-29-2024 End: 08-29-2024 200 mg, INTRAVENOUS, ONCE, 1 dose, On Mon08/29/24 at 1130, May administer up to 200 mg via IV push over 5-10 minutes. Start: 08-27-2024 End: 08-27-2024 200 mg, INTRAVENOUS, ONCE, 1 dose, On Mon08/27/24 at 0930, May administer up to 200 mg via IV push over 5-10 minutes. 24 hr mirabegron 25 mg extended release oral tablet (6 sources) beta3-Adrenergic Agonist Start: 08-29-2023 End: 08-23-2024 take 1 tablet by mouth once daily MYRBETRIQ 25 mg Tb24 TAKE 1 TABLET BY MOUTH EVERY DAY 90 tablet 3 08/29/2023 03/04/2024 Discontinued multivitamin tablet (20 sources) Start: 05-25-2020 End: 03-04-2024 take 1 tablet by mouth once daily multivitamin tablet Take 1 tablet by mouth once daily. 05/25/2020 03/04/2024 Discontinued Start: 05-25-2020 take 1 tablet by anshul th once daily multivitamin tablet Take 1 tablet by mouth once daily. 05/25/2020 Active Start: 05-25-2020 take 1 tablet by anshlu th once daily multivitamin tablet Take 1 tablet by mouth once daily. 0 05/25/2020 Active Comment on above: Take 1 tablet by anshul th once daily. nabumetone 500 mg oral tablet (20 sources) Nonsteroidal Anti-inflammatory Drug Start: 10-01-19 End: 08-17-19 take 1 tablet by mouth twice daily at mealtime nabumetone (RELAFEN) 500 mg tablet Indications: Acute pain of both knees Take 1 tablet by mouth twice daily. TAKE WITH FOOD 60 tablet 1 09/30/2020 08/17/2023 Discontinued (Other) Comment on above: Take 1 tablet by anshul th twice daily. TAKE WITH FOOD risperiDONE 1 mg oral tablet (8 sources) Atypical Antipsychotic Start: 05-06-19 End: 12-29-19 risperiDONE (RISPERDAL) 1 mg tablet traMADol hydrochloride 50 mg oral tablet (3 sources) Opioid Agonist Start: 07-13-19 End: 07-27-19 take 50 mg by mouth every six hours as needed Tramadol Discontinued 50 MG PO EVERY 6 HOURS NEEDED 30 July 12, 2019 11:00pm July 26, 2019 11:02pm Problems Active Problems Problem Classification Problem Date Documented Date Episodic/Chronic Abdominal pain (9 sources) Generalized abdominal pain; Translations: [Generalized abdominal pain] Onset: 06-28-2024 07-12-2019 Episodic Alcohol-related disorders (20 sources) History of alcohol abuse; Translations: [Alcohol abuse, in remission] Onset: 03-04-2024 03-04-2024 Chronic Anxiety disorders (10 sources) Generalized anxiety disorder; Translations: [Generalized anxiety disorder] Onset: 03-04-2024 12-28-2022 Chronic Contraceptive and procreative management (7 sources) Sterilization requested; Translations: [Encounter for sterilization] Onset: 09-10-2024 09-10-2024 Episodic Deficiency and other anemia (1 source) Iron deficiency anemia, unspecified; Translations: [Maternal iron deficiency anemia complicating , third trimester (HCC)] Onset: 07-16-2024 Episodic Esophageal disorders (10 sources) Gastroesophageal reflux disease without esophagitis; Translations: [Gastro-esophageal reflux disease without esophagitis] Chronic Immunizations and screening for infectious disease (15 sources) Patient encounter status; Translations: [Encounter for screening for human papillomavirus (HPV)] Episodic Mood disorders (1 source) Mood disorders; Translations: [Depression affecting (HCC)] Onset: 03-04-2024 Nutritional deficiencies (8 sources) Vitamin D deficiency; Translations: [Vitamin D deficiency, unspecified] Onset: 05-08-2024 Chronic Osteoarthritis (1 source) Osteoarthritis of right knee joint; Translations: [Unilateral primary osteoarthritis, right knee] 05-08-2024 Chronic Other complications of (20 sources) Maternal obesity complicating , childbirth and the puerperium, antepartum; Translations: [Obesity complicating , first trimester] Onset: 03-04-2024 03-04-2024 Chronic Other complications of (20 sources) Anemia in mother complicating , childbirth AND/OR puerperium; Translations: [Anemia complicating , second trimester] Onset: 05-09-2016 04-01-2024 Chronic Other complications of (3 sources) Anemia of ; Translations: [Anemia complicating , third trimester] 08-28-2024 Chronic Other complications of (2 sources) Anemia complicating , third trimester; Translations: [Anemia during in third trimester (HCC)] Onset: 07-16-2024 Chronic Other complications of (1 source) Obesity complicating , unspecified trimester; Translations: [Obesity in (HCC)] Onset: 09-10-2024 Chronic Other complications of (1 source) Obesity complicating , second trimester; Translations: [Obesity affecting in second trimester, unspecified obesity type (HCC)] Onset: 07-08-2024 Chronic Other complications of (1 source) Anemia complicating , second trimester; Translations: [Anemia complicating , second trimester (HCC)] Onset: 04-01-2024 Chronic Other complications of (1 source) Obesity complicating , first trimester; Translations: [Obesity affecting in first trimester, unspecified obesity type] Onset: 03-04-2024 Chronic Other complications of (20 sources) High risk ; Translations: [Supervision of high risk , unspecified, first trimester] Onset: 03-04-2024 03-04-2024 Episodic Other complications of (20 sources) Multigravida of advanced maternal age; Translations: [Supervision of elderly multigravida, first trimester] Onset: 03-04-2024 03-04-2024 Episodic Other complications of (14 sources) Anxiety in ; Translations: [Other mental disorders complicating , unspecified trimester] Onset: 03-04-2024 03-04-2024 Episodic Other complications of (1 source) Complication of , childbirth and/or the puerperium; Translations: [Other specified related conditions, unspecified trimester] 06-28-2024 Episodic Other complications of (1 source) Supervision of elderly multigravida, third trimester; Translations: [Multigravida of advanced maternal age in third trimester (HCC)] Onset: 09-10-2024 Episodic Other complications of (2 sources) Supervision of elderly multigravida, second trimester; Translations: [Advanced maternal age in multigravida, second trimester (HCC)] Onset: 06-10-2024 Episodic Other complications of (1 source) Supervision of high risk , unspecified, third trimester; Translations: [Supervision of high risk in third trimester (HCC)] Onset: 07-08-2024 Episodic Other complications of (1 source) Supervision of high risk , unspecified, second trimester; Translations: [Supervision of high risk in second trimester ([facility])] Onset: 07-08-2024 Episodic Other complications of (1 source) Supervision of other high risk pregnancies, second trimester; Translations: [Supervision of other high risk pregnancies, second trimester ([facility])] Onset: 06-28-2024 Episodic Other complications of (1 source) Other specified related conditions, unspecified trimester; Translations: [Pelvic pain in , antepartum ([facility])] Onset: 06-28-2024 Episodic Other female genital disorders (3 sources) Vaginal bleeding; Translations: [Abnormal uterine and vaginal bleeding, unspecified] 05-18-2022 Chronic Other nutritional; endocrine; and metabolic disorders (1 source) Body mass index 40+ - severely obese; Translations: [Morbid (severe) obesity due to excess calories] 05-08-2024 Chronic Other nutritional; endocrine; and metabolic disorders (13 sources) Obesity; Translations: [Obesity complicating , unspecified trimester] 07-22-2024 Chronic Other conditions (2 sources) Large for gestation age fetus; Translations: [Other heavy for gestational age ] 09-10-2024 Episodic Other conditions (1 source) Other heavy for gestational age ; Translations: [LGA (large for gestational age) (HCC)] Onset: 09-09-2024 Episodic Residual codes; unclassified (2 sources) Gestation period, 8 weeks; Translations: [8 weeks gestation of ] 03-04-2024 Episodic Residual codes; unclassified (2 sources) Gestation period, 12 weeks; Translations: [12 weeks gestation of ] 04-01-2024 Episodic Residual codes; unclassified (1 source) Gestation period, 19 weeks; Translations: [19 weeks gestation of ] 05-13-2024 Episodic Residual codes; unclassified (1 source) Gestation period, 23 weeks; Translations: [23 weeks gestation of ] 06-10-2024 Episodic Residual codes; unclassified (1 source) Gestation period, 26 weeks; Translations: [26 weeks gestation of ] 06-28-2024 Episodic Residual codes; unclassified (1 source) Gestation period, 27 weeks; Translations: [27 weeks gestation of ] 07-08-2024 Episodic Residual codes; unclassified (1 source) Gestation period, 29 weeks; Translations: [29 weeks gestation of ] 07-22-2024 Episodic Residual codes; unclassified (2 sources) Gestation period, 31 weeks; Translations: [31 weeks gestation of ] 08-05-2024 Episodic Residual codes; unclassified (1 source) Gestation period, 33 weeks; Translations: [33 weeks gestation of ] 08-14-2024 Episodic Residual codes; unclassified (1 source) Gestation period, 34 weeks; Translations: [34 weeks gestation of ] 08-20-2024 Episodic Residual codes; unclassified (1 source) Gestation period, 35 weeks; Translations: [35 weeks gestation of ] 08-28-2024 Episodic Residual codes; unclassified (1 source) Gestation period, 36 weeks; Translations: [36 weeks gestation of ] 09-05-2024 Episodic Residual codes; unclassified (1 source) Gestation period, 37 weeks; Translations: [37 weeks gestation of ] 09-10-2024 Episodic Residual codes; unclassified (1 source) Gestation period, 38 weeks; Translations: [38 weeks gestation of ] 09-19-2024 Episodic Residual codes; unclassified (1 source) 38 weeks gestation of ; Translations: [38 weeks gestation of (HCC)] Onset: 09-19-2024 Episodic Residual codes; unclassified (1 source) 37 weeks gestation of ; Translations: [37 weeks gestation of (HCC)] Onset: 09-10-2024 Episodic Residual codes; unclassified (1 source) 36 weeks gestation of ; Translations: [36 weeks gestation of (HCC)] Onset: 09-05-2024 Episodic Residual codes; unclassified (1 source) 31 weeks gestation of ; Translations: [31 weeks gestation of (HCC)] Onset: 08-28-2024 Episodic Residual codes; unclassified (1 source) 35 weeks gestation of ; Translations: [35 weeks gestation of (HCC)] Onset: 08-28-2024 Episodic Residual codes; unclassified (1 source) 34 weeks gestation of ; Translations: [34 weeks gestation of (HCC)] Onset: 08-20-2024 Episodic Residual codes; unclassified (1 source) 33 weeks gestation of ; Translations: [33 weeks gestation of (HCC)] Onset: 08-14-2024 Episodic Residual codes; unclassified (1 source) 29 weeks gestation of ; Translations: [29 weeks gestation of (HCC)] Onset: 07-22-2024 Episodic Residual codes; unclassified (1 source) 27 weeks gestation of ; Translations: [27 weeks gestation of (HCC)] Onset: 07-08-2024 Episodic Residual codes; unclassified (1 source) 26 weeks gestation of ; Translations: [26 weeks gestation of (HCC)] Onset: 06-28-2024 Episodic Substance-related disorders (1 source) Smoker; Translations: [Nicotine dependence, unspecified, uncomplicated] 12-28-2022 Chronic Superficial injury; contusion (1 source) Contusion of face; Translations: [Contusion of other part of head, initial encounter] 12-22-2023 Episodic Unclassified (20 sources) [facility] - [facility] Onset: 03-04-2024 03-04-2024 Unclassified (20 sources) Education - [place] Onset: 03-04-2024 03-04-2024 Past or Other Problems Problem Classification Problem Date Documented Date Episodic/Chronic Acquired foot deformities (20 sources) Talipes planus; Translations: [Flat foot [pes planus] (acquired), unspecified foot] Onset: 10-01-2020 10-01-2020 Episodic Deficiency and other anemia (20 sources) Anemia; Translations: [Anemia, unspecified] Onset: 05-09-2016 Resolved: 03-04-2024 05-09-2016 Episodic Genitourinary symptoms and ill-defined conditions (20 sources) Incontinence; Translations: [Mixed incontinence] Onset: 08-29-2023 Resolved: 03-04-2024 08-23-2023 Chronic Joint disorders and dislocations; trauma-related (20 sources) Patellofemoral syndrome of bilateral knees; Translations: [Patellofemoral disorders, right knee] Onset: 10-01-2020 Resolved: 03-04-2024 10-01-2020 Chronic Other complications of (20 sources) Depressive disorder in mother complicating ; Translations: [Other mental disorders complicating , unspecified trimester] Onset: 03-04-2024 03-04-2024 Episodic Other complications of (20 sources) Heartburn; Translations: [Other specified related conditions, first trimester] Onset: 03-04-2024 03-04-2024 Episodic Other complications of (20 sources) Vomiting of , unspecified; Translations: [Unspecified vomiting of , unspecified as to episode of care or not applicable] Onset: 03-04-2024 03-04-2024 Episodic Other complications of (20 sources) Other mental disorders complicating , unspecified trimester; Translations: [Mental disorders of mother, antepartum condition or complication] Onset: 03-04-2024 03-04-2024 Episodic Other complications of (1 source) Supervision of high risk , unspecified, first trimester; Translations: [Encounter for supervision of high risk in first trimester, antepartum] Onset: 03-04-2024 Episodic Other complications of (1 source) Supervision of elderly multigravida, first trimester; Translations: [Advanced maternal age in multigravida, first trimester] Onset: 03-04-2024 Episodic Other connective tissue disease (20 sources) Tendonitis of right wrist; Translations: [Other enthesopathies, not elsewhere classified] Onset: 11-10-2015 Resolved: 03-04-2024 11-10-2015 Episodic Other female genital disorders (20 sources) History of pelvic inflammatory disease; Translations: [Personal history of other diseases of the female genital tract] Onset: 03-04-2024 Resolved: 05-13-2024 03-04-2024 Episodic Other female genital disorders (1 source) Personal history of other diseases of the female genital tract; Translations: [History of pelvic inflammatory disease] Onset: 03-04-2024 Episodic Other infections; including parasitic (20 sources) History of sexually transmitted disease; Translations: [Personal history of other infectious and parasitic diseases] Onset: 03-04-2024 03-04-2024 Episodic Other infections; including parasitic (1 source) Personal history of other infectious and parasitic diseases; Translations: [History of herpes genitalis] Onset: 03-04-2024 Episodic Other nervous system disorders (20 sources) Carpal tunnel syndrome of right wrist; Translations: [Carpal tunnel syndrome, right upper limb] Onset: 10-01-2020 Resolved: 03-04-2024 10-01-2020 Chronic Other nervous system disorders (20 sources) Perineurial cyst; Translations: [Perineural cyst] Onset: 10-01-2020 Resolved: 05-13-2024 10-01-2020 Chronic Other non-traumatic joint disorders (20 sources) Pain of right wrist; Translations: [Pain in right wrist] Onset: 11-10-2015 Resolved: 03-04-2024 11-10-2015 Episodic Other non-traumatic joint disorders (20 sources) Pain in right knee; Translations: [Pain in joint, lower leg] Onset: 07-18-2019 07-18-2019 Episodic Other and delivery including normal (2 sources) with uncertain dates; Translations: [Encounter for supervision of normal , unspecified, first trimester] Onset: 03-04-2024 03-04-2024 Episodic Other screening for suspected conditions (not mental disorders or infectious disease) (3 sources) Cancer cervix screening status; Translations: [Encounter for screening for malignant neoplasm of cervix] Onset: 05-13-2024 Episodic Residual codes; unclassified (20 sources) H/O: miscarriage; Translations: [Personal history of other complications of , childbirth and the puerperium] Onset: 03-04-2024 Resolved: 05-13-2024 03-04-2024 Episodic Residual codes; unclassified (20 sources) History of headache; Translations: [Personal history of other specified conditions] Onset: 03-04-2024 03-04-2024 Episodic Residual codes; unclassified (20 sources) H/O: depression; Translations: [Personal history of other complications of , childbirth and the puerperium] Onset: 03-04-2024 03-04-2024 Episodic Residual codes; unclassified (1 source) 23 weeks gestation of ; Translations: [23 weeks gestation of (HCC)] Onset: 06-10-2024 Episodic Residual codes; unclassified (1 source) 12 weeks gestation of ; Translations: [12 weeks gestation of ] Onset: 04-01-2024 Episodic Residual codes; unclassified (1 source) 8 weeks gestation of ; Translations: [8 weeks gestation of ] Onset: 03-04-2024 Episodic Screening and history of mental health and substance abuse codes (20 sources) Tobacco use and exposure - finding; Translations: [Personal history of nicotine dependence] Onset: 03-04-2024 03-04-2024 Episodic Spondylosis; intervertebral disc disorders; other back problems (20 sources) Chronic low back pain; Translations: [Chronic midline low back pain without sciatica] Onset: 07-18-2019 10-01-2020 Episodic Results Test Name Value Interpretation Reference Range Facility URINE OB DIP B/Oon 5 Glucose Ql (U) Negative Neg mg/dL [facility] Interpretation and review of laboratory results Normal [facility] Protein.monoclonal (U) [Mass/Vol] trace Neg mg/dL [facility] Examination level ultrasound on 09-10-2024 [facility] Radiology Study observation (narrative) [facility] URINE OB DIP B/Oon 5 Glucose Ql (U) Negative Abnormal Neg mg/dL [facility] Interpretation and review of laboratory results Abnormal [facility] Protein.monoclonal (U) [Mass/Vol] trace Abnormal Neg mg/dL [facility] ROUTINE, GROUP B ST REPTOCOCCUS BY PCRon 09-05-2024 ROUTINE, GROUP B STREPTOCOCCUS BY PCR Not detected Normal [facility] Comment on above: Performed By: #### G BPCR ####[facility] [id number] [place] [id number] [place] URINE OB DIP B/OOrdered By: Monserrat Marrero on 09-05-2024 Glucose Ql (U) Negative Neg mg/dL [facility] Interpretation and review of laboratory results Normal [facility] Protein.monoclonal (U) [Mass/Vol] trace Neg mg/dL [facility] CBC panel Auto (Bld)on 08-29 Erythrocyte distribution width (RBC) [Ratio] 13.5 % Normal 11.5-15.0 [facility] Comment on above: Order Comment: Speci men Type: BLOOD SPECIMEN Ordering Facility: [facility] Address: [address] [place] [address] Performed By: #### 2 276-4, 21888-0 #### [facility] CLIA [id number] [address] [place] [address] [place] Hematocrit (Bld) [Volume fraction] 31.3 % Low 36.0-46.0 [facility] Comment on above: Order Comment: Speci men Type: BLOOD SPECIMEN Ordering Facility: [facility] Address: [address] [place] [address] Performed By: #### 2 276-4, 67100-4 #### [facility] CLIA [id number] [address] [place], [place] [id number] [place] Hemoglobin (Bld) [Mass/Vol] 10.3 g/dL Low 11.5-15.5 [facility] Comment on above: Order Comment: Speci men Type: BLOOD SPECIMEN Ordering Facility: [facility] Address: [address] [place] [address] Performed By: #### 2 276-4, 47517-0 #### [facility] CLIA [id number] [address] [place] [address] [place] MCH (RBC) [Entitic mass] 28.2 pg Normal 26.0-34.0 [facility] Comment on above: Order Comment: Speci men Type: BLOOD SPECIMEN Ordering Facility: [facility] Address: [address] [place] [address] Performed By: #### 2 276-4, 84757-2 #### [facility] CLIA [id number] [address] [place] [address] [place] MCHC (RBC) [Mass/Vol] 32.9 g/dL Normal 30.5-36.0 [facility] Comment on above: Order Comment: Speci men Type: BLOOD SPECIMEN Ordering Facility: [facility] Address: [address] [place] [address] Performed By: #### 2 276-4, 74206-8 #### [facility] CLIA [id number] [address] [place] [address] [place] MCV (RBC) [Entitic vol] 85.8 fL Normal 80.0-100.0 [facility] Comment on above: Order Comment: Speci men Type: BLOOD SPECIMEN Ordering Facility: [facility] Address: [address] [place] [address] Performed By: #### 2 276-4, 69102-8 #### [facility] CLIA [id number] [address] [place] [address] [place] Nucleated RBC (Bld) [#/Vol] 10*3/uL Normal <0.01 [facility] Comment on above: Order Comment: Speci men Type: BLOOD SPECIMEN Ordering Facility: [facility] Address: [address] [place] [address] Performed By: #### 2 276-4, 55347-4 #### [facility] CLIA [id number] [address] [place], [place] [id number] [place] Platelet mean volume (Bld) [Entitic vol] 10.0 fL Normal 9.0-12.7 [facility] Comment on above: Order Comment: Speci men Type: BLOOD SPECIMEN Ordering Facility: [facility] Address: [address] [place] [address] Performed By: #### 2 276-4, 79081-2 #### [facility] CLIA [id number] [address] [place] [address] [place] Platelets (Bld) [#/Vol] 250 10*3/uL Normal 150-400 [facility] Comment on above: Order Comment: Speci men Type: BLOOD SPECIMEN Ordering Facility: [facility] Address: [address] [place] [address] Performed By: #### 2 276-4, 05012-6 #### [facility] CLIA [id number] [address] [place] [address] [place] RBC (Bld) [#/Vol] 3.65 10*6/uL Low 3.90-5.20 [facility] Comment on above: Order Comment: Speci men Type: BLOOD SPECIMEN Ordering Facility: [facility] Address: [address] [place] [address] Performed By: #### 2 276-4, 92375-0 #### [facility] CLIA [id number] [address] [place] [address] [place] WBC (Bld) [#/Vol] 7.32 10*3/uL Normal 3.70-11.00 [facility] Comment on above: Order Comment: Speci men Type: BLOOD SPECIMEN Ordering Facility: [facility] Address: [address] [place] [address] Performed By: #### 2 276-4, 25092-9 #### [facility] CLIA [id number] [address] [place] [address] [place] URINE OB DIP B/Oon 5 Glucose Ql (U) Negative Neg mg/dL [facility] Interpretation and review of laboratory results Normal [facility] Protein.monoclonal (U) [Mass/Vol] Negative Neg mg/dL [facility] URINE OB DIP B/Oon 5 Glucose Ql (U) Negative Neg mg/dL [facility] Protein.monoclonal (U) [Mass/Vol] Negative Neg mg/dL [facility] CNPNon 08-12-2024 CNPN Telephone (OBGYWM) EMRE QUINN ([id number]) 1985 F Date Time Provider Department 08/12/24 MIGUEL ESCUDERO OBGYWM During your visit today, we recorded the following information about you: Annmarie Spivey RN 08/12/2024 4:15 PM Signed Breast pump request received from [employer]. Order to provider to sign. REBECCA Coelho Tara, RN 08/13/2024 2:52 PM Signed Faxed. Andrew Travis RN Allergies As of Date: 08/12/2024 (No Known Allergies) Date Reviewed: 08/05/2024 Reviewed by: Misty Cervantes MA - Fully Assessed Reason for Visit: breast pump [Other] Prescriptions as of 08/13/2024 - ferrous sulfate 325 mg (65 mg iron) tablet Take 1 tablet by mouth every other day. - omeprazole (PRILOSEC) 20 mg capsule Take 1 capsule by mouth daily before breakfast. 1/2 hr before meal. - Cholecalciferol, Vitamin D3, 50 mcg (2,000 unit) cap Take 1 capsule by mouth once daily. - escitalopram oxalate (LEXAPRO) 10 mg tablet Take 1 tablet by mouth once daily. - aspirin, enteric coated (ECOTRIN LOW STRENGTH) 81 mg EC tablet Take 1 tablet by mouth once daily. - famotidine (PEPCID) 20 mg tablet Take 1 tablet by mouth two times a day. - PNV no.153/FA/om3/dha/ep a/fish ( GUMMIES ORAL) Take 2 Pieces by mouth once daily. - valACYclovir (VALTREX) 1 gram tablet Take 1 tablet by mouth once daily. 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] 10/01/2020 05/13/2024 Mixed incontinence [N39.46] 08/29/2023 03/04/2024 Advanced maternal age in multigravida, second t*03/04/2024 History of herpes genitalis [Z86.19] 03/04/2024 History of pelvic inflammatory disease [Z87.42] 03/04/2024 05/13/2024 Obesity affecting in second trimester*03/04/2024 Anxiety disorder affecting , antepartu*03/04/2024 Depression affecting [O99.340, F32.A] 03/04/2024 History of miscarriage [Z87.59] 03/04/2024 05/13/2024 History of smoking [Z87.891] 03/04/2024 Heartburn during in first trimester [*03/04/2024 Nausea and vomiting during [O21.9] 03/04/2024 History of headache [Z87.898] 03/04/2024 History of depression [Z87.59, Z86.5*03/04/2024 History of alcohol abuse [F10.11] 03/04/2024 Supervision of high risk in second tr*07/08/2024 Maternal iron deficiency anemia complicating pr*07/16/2024 Encounter Status:Closed by ANDREW TRAVIS on 08/13/24 Normal [facility] Examination level ultrasound on 08-05-2024 [facility]ative[facility] CNCOon 07-31-2024 CNCO Letter Text Normal [facility] CNPNon 07-23-2024 CNPN Telephone ([id number]) EMRE QUINN ([id number]) 1985 F Date Time Provider Department 07/23/24 RACHELLE KING [id number] During your visit today, we recorded the following information about you: Rachelle King RN 07/23/2024 9:16 AM Signed 3rd risk assessment form submitted 07/23/2024. Rachelle King RN Allergies As of Date: 07/23/2024 (No Known Allergies) Date Reviewed: 07/22/2024 Reviewed by: Rachelle Varner MD - Fully Assessed Reason for Visit: [employer] - Other [6812] Cmt: ELYSSA Prescriptions as of 07/23/2024 - omeprazole (PRILOSEC) 20 mg capsule Take 1 capsule by mouth daily before breakfast. 1/2 hr before meal. - Cholecalciferol, Vitamin D3, 50 mcg (2,000 unit) cap Take 1 capsule by mouth once daily. - escitalopram oxalate (LEXAPRO) 10 mg tablet Take 1 tablet by mouth once daily. - aspirin, enteric coated (ECOTRIN LOW STRENGTH) 81 mg EC tablet Take 1 tablet by mouth once daily. - famotidine (PEPCID) 20 mg tablet Take 1 tablet by mouth two times a day. - PNV no.153/FA/om3/dha/ep a/fish ( GUMMIES ORAL) Take 2 Pieces by mouth once daily. - valACYclovir (VALTREX) 1 gram tablet Take 1 tablet by mouth once daily. 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] 10/01/2020 05/13/2024 Mixed incontinence [N39.46] 08/29/2023 03/04/2024 Advanced maternal age in multigravida, second t*03/04/2024 History of herpes genitalis [Z86.19] 03/04/2024 History of pelvic inflammatory disease [Z87.42] 03/04/2024 05/13/2024 Obesity affecting in second trimester*03/04/2024 Anxiety disorder affecting , antepartu*03/04/2024 Depression affecting [O99.340, F32.A] 03/04/2024 History of miscarriage [Z87.59] 03/04/2024 05/13/2024 History of smoking [Z87.891] 03/04/2024 Heartburn during in first trimester [*03/04/2024 Nausea and vomiting during [O21.9] 03/04/2024 History of headache [Z87.898] 03/04/2024 History of depression [Z87.59, Z86.5*03/04/2024 History of alcohol abuse [F10.11] 03/04/2024 Supervision of high risk in second tr*07/08/2024 Maternal iron deficiency anemia complicating pr*07/16/2024 Encounter Status:Closed by RACHELLE KING on 07/23/24 [facility] Joanie 07-17-2024 CNPN Telephone (INTMMN) EMRE QUINN ([id number]) 1985 F Date Time Provider Department 07/17/24 MAURA WHITE INTMMN During your visit today, we recorded the following information about you: Maura White, REBECCA 07/17/2024 2:55 PM Signed Venofer treatment plan signed and Sonam Noyola 07/18/2024 12:06 PM Signed Please review and advise Lakisha Valencia 07/19/2024 4:13 PM Signed 1ST attempt. Message left for patient to contact office to schedule 4 doses of iron on 2nd floor, 1 hour treatment. 2ND VENOFER/1-4/ORDERING PROV Franci Carter 07/31/2024 4:56 PM Addendum 2nd attempt made to contact patient to schedule her iron sucrose infusions. I left another message Unable to reach letter has been sent to her via [employer] Lakisha Salinas 08/15/2024 2:56 PM Signed Scheduled with patient Start email sent Allergies As of Date: 07/17/2024 (No Known Allergies) Date Reviewed: 07/16/2024 Reviewed by: Sonam Ordoñez PA-C - Fully Assessed Reason for Visit: Hematology [Other] Prescriptions as of 08/15/2024 - ferrous sulfate 325 mg (65 mg iron) tablet Take 1 tablet by mouth every other day. - omeprazole (PRILOSEC) 20 mg capsule Take 1 capsule by mouth daily before breakfast. 1/2 hr before meal. - Cholecalciferol, Vitamin D3, 50 mcg (2,000 unit) cap Take 1 capsule by mouth once daily. - escitalopram oxalate (LEXAPRO) 10 mg tablet Take 1 tablet by mouth once daily. - aspirin, enteric coated (ECOTRIN LOW STRENGTH) 81 mg EC tablet Take 1 tablet by mouth once daily. - famotidine (PEPCID) 20 mg tablet Take 1 tablet by mouth two times a day. - PNV no.153/FA/om3/dha/ep a/fish ( GUMMIES ORAL) Take 2 Pieces by mouth once daily. - valACYclovir (VALTREX) 1 gram tablet Take 1 tablet by mouth once daily. 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] 10/01/2020 05/13/2024 Mixed incontinence [N39.46] 08/29/2023 03/04/2024 Advanced maternal age in multigravida, second t*03/04/2024 History of herpes genitalis [Z86.19] 03/04/2024 History of pelvic inflammatory disease [Z87.42] 03/04/2024 05/13/2024 Obesity affecting in second trimester*03/04/2024 Anxiety disorder affecting , antepartu*03/04/2024 Depression affecting [O99.340, F32.A] 03/04/2024 History of miscarriage [Z87.59] 03/04/2024 05/13/2024 History of smoking [Z87.891] 03/04/2024 Heartburn during in first trimester [*03/04/2024 Nausea and vomiting during [O21.9] 03/04/2024 History of headache [Z87.898] 03/04/2024 History of depression [Z87.59, Z86.5*03/04/2024 History of alcohol abuse [F10.11] 03/04/2024 Supervision of high risk in second tr*07/08/2024 Maternal iron deficiency anemia complicating pr*07/16/2024 Encounter Status:Closed by MAURA PRETTY on 07/17/24 Normal [facility] CNCOon 07-09-2024 CNCO Letter Text Normal [facility] CBC W Auto Differential pane l (Bld)on 07-08-2024 Basophils (Bld) [#/Vol] 10*3/uL Normal <0.11 [facility] Comment on above: Order Comment: Speci men Type: BLOOD SPECIMEN Ordering Facility: [facility] Address: [address] [place] [address] Performed By: #### 2 276-4, 56381-8 #### [facility] CLIA [id number] [address] [place] [address] [place] Basophils/100 WBC (Bld) 0.2 % Normal [facility] Comment on above: Order Comment: Speci men Type: BLOOD SPECIMEN Ordering Facility: [facility] Address: [address] [place] [address] Performed By: #### 2 276-4, 32256-9 #### [facility] CLIA [id number] [address] [place] [address] [place] Differential cell count method Nom (Bld) Auto Normal [facility] Comment on above: Order Comment: Speci men Type: BLOOD SPECIMEN Ordering Facility: [facility] Address: [address] [place] [address] Performed By: #### 2 276-4, 62339-1 #### [facility] CLIA [id number] [address] [place] [address] [place] Eosinophils (Bld) [#/Vol] 0.07 10*3/uL Normal <0.46 [facility] Comment on above: Order Comment: Speci men Type: BLOOD SPECIMEN Ordering Facility: [facility] Address: [address] [place] [address] Performed By: #### 2 276-4, 19031-4 #### [facility] CLIA [id number] [address] [place] [address] [place] Eosinophils/100 WBC (Bld) 1.1 % Normal [facility] Comment on above: Order Comment: Speci men Type: BLOOD SPECIMEN Ordering Facility: [facility] Address: [address] [place] [address] Performed By: #### 2 276-4, 89837-5 #### [facility] CLIA [id number] [address] [place] [address] [place] Erythrocyte distribution width (RBC) [Ratio] 13.1 % Normal 11.5-15.0 [facility] Comment on above: Order Comment: Speci men Type: BLOOD SPECIMEN Ordering Facility: [facility] Address: [address] [place] [address] Performed By: #### 2 276-4, 01932-5 #### [facility] CLIA [id number] [address] [place] [address] [place] Hematocrit (Bld) [Volume fraction] 30.0 % Low 36.0-46.0 [facility] Comment on above: Order Comment: Speci men Type: BLOOD SPECIMEN Ordering Facility: [facility] Address: [address] [place] [address] Performed By: #### 2 276-4, 11717-8 #### [facility] CLIA [id number] [address] [place], [place] [id number] [place] Hemoglobin (Bld) [Mass/Vol] 9.8 g/dL Low 11.5-15.5 [facility] Comment on above: Order Comment: Speci men Type: BLOOD SPECIMEN Ordering Facility: [facility] Address: [address] [place] [address] Performed By: #### 2 276-4, 73687-4 #### [facility] CLIA [id number] [address] [place] [address] [place] Immature granulocytes (Bld) [#/Vol] 0.04 10*3/uL Normal <0.10 [facility] Comment on above: Order Comment: Speci men Type: BLOOD SPECIMEN Ordering Facility: [facility] Address: [address] [place] [address] Performed By: #### 2 276-4, 50992-2 #### [facility] CLIA [id number] [address] [place] [address] [place] Immature granulocytes/100 WBC (Bld) 0.6 % Normal [facility] Comment on above: Order Comment: Speci men Type: BLOOD SPECIMEN Ordering Facility: [facility] Address: [address] [place] [address] Performed By: #### 2 276-4, 08662-0 #### [facility] CLIA [id number] [address] [place] [address] [place] Lymphocytes (Bld) [#/Vol] 1.30 10*3/uL Normal 1.00-4.00 [facility] Comment on above: Order Comment: Speci men Type: BLOOD SPECIMEN Ordering Facility: [facility] Address: [address] [place] [address] Performed By: #### 2 276-4, 53137-1 #### [facility] CLIA [id number] [address] [place] [address] [place] Lymphocytes/100 WBC (Bld) 19.9 % Normal [facility] Comment on above: Order Comment: Speci men Type: BLOOD SPECIMEN Ordering Facility: [facility] Address: [address] [place] [address] Performed By: #### 2 276-4, 69023-6 #### [facility] CLIA [id number] [address] [place] [address] [place] MCH (RBC) [Entitic mass] 28.9 pg Normal 26.0-34.0 [facility] Comment on above: Order Comment: Speci men Type: BLOOD SPECIMEN Ordering Facility: [facility] Address: [address] [place] [address] Performed By: #### 2 276-4, 92298-6 #### [facility] CLIA [id number] [address] [place] [address] [place] MCHC (RBC) [Mass/Vol] 32.7 g/dL Normal 30.5-36.0 [facility] Comment on above: Order Comment: Speci men Type: BLOOD SPECIMEN Ordering Facility: [facility] Address: [address] [place] [address] Performed By: #### 2 276-4, 88912-5 #### [facility] CLIA [id number] [address] [place] [address] [place] MCV (RBC) [Entitic vol] 88.5 fL Normal 80.0-100.0 [facility] Comment on above: Order Comment: Speci men Type: BLOOD SPECIMEN Ordering Facility: [facility] Address: [address] [place] [address] Performed By: #### 2 276-4, 48579-6 #### [facility] CLIA [id number] [address] [place] [address] [place] Monocytes (Bld) [#/Vol] 0.44 10*3/uL Normal <0.87 [facility] Comment on above: Order Comment: Speci men Type: BLOOD SPECIMEN Ordering Facility: [facility] Address: [address] [place] [address] Performed By: #### 2 276-4, 76398-3 #### [facility] CLIA [id number] [address] [place] [address] [place] Monocytes/100 WBC (Bld) 6.7 % Normal [facility] Comment on above: Order Comment: Speci men Type: BLOOD SPECIMEN Ordering Facility: [facility] Address: [address] [place] [address] Performed By: #### 2 276-4, 24534-4 #### [facility] CLIA [id number] [address] [place] [address] [place] Neutrophils (Bld) [#/Vol] 4.67 10*3/uL Normal 1.45-7.50 [facility] Comment on above: Order Comment: Speci men Type: BLOOD SPECIMEN Ordering Facility: [facility] Address: [address] [place] [address] Performed By: #### 2 276-4, 83265-1 #### [facility] CLIA [id number] [address] [place] [address] [place] Neutrophils/100 WBC (Bld) 71.5 % Normal [facility] Comment on above: Order Comment: Speci men Type: BLOOD SPECIMEN Ordering Facility: [facility] Address: [address] [place] [address] Performed By: #### 2 276-4, 96654-5 #### [facility] CLIA [id number] [address] [place] [address] [place] Nucleated RBC (Bld) [#/Vol] 10*3/uL Normal <0.01 [facility] Comment on above: Order Comment: Speci men Type: BLOOD SPECIMEN Ordering Facility: [facility] Address: [address] [place] [address] Performed By: #### 2 276-4, 96118-3 #### [facility] CLIA [id number] [address] [place] [address] [place] Nucleated RBC/100 WBC (Bld) [Ratio] 0.0 /100 WBC Normal [facility] Comment on above: Order Comment: Speci men Type: BLOOD SPECIMEN Ordering Facility: [facility] Address: [address] [place] [address] Performed By: #### 2 276-4, 05309-0 #### [facility] CLIA [id number] [address] [place] [address] [place] Platelet mean volume (Bld) [Entitic vol] 10.5 fL Normal 9.0-12.7 [facility] Comment on above: Order Comment: Speci men Type: BLOOD SPECIMEN Ordering Facility: [facility] Address: [address] [place] [address] Performed By: #### 2 276-4, 71781-1 #### [facility] CLIA [id number] [address] [place] [address] [place] Platelets (Bld) [#/Vol] 265 10*3/uL Normal 150-400 [facility] Comment on above: Order Comment: Speci men Type: BLOOD SPECIMEN Ordering Facility: [facility] Address: [address] [place] [address] Performed By: #### 2 276-4, 58246-8 #### [facility] CLIA [id number] [address] [place] [address] [place] RBC (Bld) [#/Vol] 3.39 10*6/uL Low 3.90-5.20 [facility] Comment on above: Order Comment: Speci men Type: BLOOD SPECIMEN Ordering Facility: [facility] Address: [address] [place] [address] Performed By: #### 2 276-4, 68173-8 #### [facility] CLIA [id number] [address] [place] [address] [place] WBC (Bld) [#/Vol] 6.53 10*3/uL Normal 3.70-11.00 [facility] Comment on above: Order Comment: Speci men Type: BLOOD SPECIMEN Ordering Facility: [facility] Address: [address] [place] [address] Performed By: #### 2 276-4, 75725-5 #### [facility] CLIA [id number] [address] [place] [address] [place] Ferritin SerPl-mCncon 2024 Ferritin [Mass/Vol] 26.8 ng/mL Normal 14.7-205.1 [facility] Comment on above: Order Comment: Speci men Type: BLOOD SPECIMEN Ordering Facility: [facility] Address: [address] [place] [address] Performed By: #### 2 276-4, 95355-5 #### [facility] CLIA [id number] [address] [place] [address] [place] GESTATIONAL GLUCOSE SCREEN, 1-HOUR, 50 GRAM, NON-FASTINGon 07-08-2024 Glucose [Mass/Vol] 129 mg/dL Normal 74-134 [facility] Comment on above: Order Comment: Speci men Type: BLOOD SPECIMENOrdering Facility: [facility] Address: [address] [place] [address] Result Comment: [facility] Congress of Obstetricians and Gynecologists (Lona/Vaibhav) guidelines state a gestational diabetes mellitus positive screen is made, in women not previously diagnosed with overt diabetes, when the 1 hr plasma glucose level is equal to or above 140 mg/dL. The [facility] It Support [facility] recommends a 135 mg/dL cutoff. Performed By: #### G LTGST ####[facility] [id number] [place] [address] [place] Iron and Iron binding capaci ty panelon 07-08-2024 Iron [Mass/Vol] 155 ug/dL Normal 41-186 [facility] Comment on above: Order Comment: Speci men Type: BLOOD SPECIMEN Ordering Facility: [facility] Address: [address] [place] [address] Performed By: #### 2 276-4, 03343-0 #### [facility] CLIA [id number] [address] [place] [address] [place] Iron binding capacity [Mass/Vol] 413 ug/dL High 232-386 [facility] Comment on above: Order Comment: Speci men Type: BLOOD SPECIMEN Ordering Facility: [facility] Address: [address] [place] [address] Performed By: #### 2 276-4, 59645-6 #### [facility] CLIA [id number] [address] [place] [address] [place] Iron/TIBC [Molar ratio] 37.5 % Normal 15.0-57.0 [facility] Comment on above: Order Comment: Speci men Type: BLOOD SPECIMEN Ordering Facility: [facility] Address: [address] [place] [address] Performed By: #### 2 276-4, 61024-1 #### [facility] CLIA [id number] [address] [place] [address] [place] Reagin and Treponema pallidu m IgG and IgM [Interp]on 07-08-2024 T. pallidum IgG+IgM IA Ql (S) Non-Reactive Normal Nonreactive [facility] Comment on above: Order Comment: Speci men Type: BLOOD SPECIMENOrdering Facility: [facility] Address: [address] [place] [address] Performed By: #### 7 3752-8 ####[facility] [id number] [place] [address] [place] Reagin+T pallidum IgG+IgM Se rPl-Impon 07-08-2024 Reagin and Treponema pallidum IgG and IgM [Interp] Cannot exclude recent Treponemal infection if specimen collected within 7-10 days after appearance of suspect lesions or 2-3 weeks after an exposure. Clinical correlation is required. Normal [facility] Comment on above: Order Comment: Speci men Type: BLOOD SPECIMENOrdering Facility: [facility] Address: [address] [place] [address] Performed By: #### 7 3752-8 ####[facility] [id number] [address] [place] Bacteria Ur Culton 5 Bacteria identified Cx Nom (U) ORGANISM ID: 1 <10,000 CFU/ml Normal urogenital manny Normal [facility] Comment on above: Performed By: #### 6 30-4 ####[facility] [id number] [address] [place] UA DIP, URINE (POC)on 2024 BILIRUBIN UA (POCT) Negative Negative [facility] CLARITY UA (POCT) Clear [facility] COLOR UA (POCT) Yellow [facility] GLUCOSE UA (POCT) Negative Negative mg/dL [facility] Hemoglobin Ql (U) Negative Negative [facility] Interpretation and review of laboratory results Abnormal [facility] KETONE UA (POCT) Negative Negative mg/dL [facility] LEUKOCYTES UA (POCT) Small Abnormal Negative [facility] NITRITE UA (POCT) Negative Negative [facility] PH UA (POCT) 6.5 4.5 - 8.0 [facility] Protein Ql (U) Negative Negative mg/dL [facility] SPECIFIC GRAVITY UA (POCT) 1.015 1.005 - 1.030 [facility] UROBILINOGEN UA (POCT) 0.2 Normal E.U./d L [facility] Location:[facility], [address], [place], [place], [id number] [place] [address] POINT OF CARE [facility] CNPLacy 06-11-2024 CNPN Telephone ([id number]) EMRE QUINN ([id number]) 1985 F Date Time Provider Department 06/11/24 RACHELLE KING [id number] During your visit today, we recorded the following information about you: Rachelle King RN 06/11/2024 10:00 AM Signed 2nd risk assessment form submitted 06/12/2024. Rachelle King RN Allergies As of Date: 06/11/2024 (No Known Allergies) Date Reviewed: 06/10/2024 Reviewed by: Bk Bean MA - Fully Assessed Reason for Visit: [employer] - Other [3602] Cmt: PRAF Prescriptions as of 06/11/2024 - Cholecalciferol, Vitamin D3, 50 mcg (2,000 unit) cap Take 1 capsule by mouth once daily. - escitalopram oxalate (LEXAPRO) 10 mg tablet Take 1 tablet by mouth once daily. - aspirin, enteric coated (ECOTRIN LOW STRENGTH) 81 mg EC tablet Take 1 tablet by mouth once daily. - famotidine (PEPCID) 20 mg tablet Take 1 tablet by mouth two times a day. - PNV no.153/FA/om3/dha/ep a/fish ( GUMMIES ORAL) Take 2 Pieces by mouth once daily. - valACYclovir (VALTREX) 1 gram tablet Take 1 tablet by mouth once daily. Problem List As Of Date 06/11/2024 Noted Resolved Right wrist tendonitis [M77.8] 11/10/2015 03/04/2024 Pain in right wrist [M25.531] 11/10/2015 03/04/2024 Anemia complicating , second trimester*05/09/2016 Chronic pain of both knees [M25.561, M25.562, G*07/18/2019 Chronic midline low back pain without sciatica *07/18/2019 Patellofemoral arthralgia of both knees [M22.2X*10/01/2020 03/04/2024 Flat foot [M21.40] 10/01/2020 Carpal tunnel syndrome of right wrist [G56.01] 10/01/2020 03/04/2024 Perineural cyst [G96.191] 10/01/2020 05/13/2024 Mixed incontinence [N39.46] 08/29/2023 03/04/2024 Advanced maternal age in multigravida, first tr*03/04/2024 History of herpes genitalis [Z86.19] 03/04/2024 History of pelvic inflammatory disease [Z87.42] 03/04/2024 05/13/2024 Obesity affecting in first trimester *03/04/2024 Anxiety disorder affecting , antepartu*03/04/2024 Depression affecting [O99.340, F32.A] 03/04/2024 History of miscarriage [Z87.59] 03/04/2024 05/13/2024 History of smoking [Z87.891] 03/04/2024 Heartburn during in first trimester [*03/04/2024 Nausea and vomiting during [O21.9] 03/04/2024 History of headache [Z87.898] 03/04/2024 History of depression [Z87.59, Z86.5*03/04/2024 History of alcohol abuse [F10.11] 03/04/2024 Encounter Status:[facility] ([id number]) 1985 F Date Time Provider Department 05/14/24 [facility] During your visit today, we recorded the following information about you: Tessa Tubbs MA 05/14/2024 7:11 AM Signed Please see pt message I am trying to receive these products through my insurance and [facility] has sent over the request for your continence care supplies. Soco Sharma APRN.COMMODITY BUYER 05/16/2024 2:25 PM Signed What is needed? Please clarify Soco Sharma APRN.Tessa Daniels MA 05/16/2024 3:37 PM Signed I'm currently and having issues with bladder control. It is to the point where I have to change my pants se Ronny Borja APRN.CHARLES 05/17/2024 7:01 AM Signed She should talk to her OB provider about this. Ronny Borja APRN.CHARLES Allergies As of Date: 05/14/2024 (No Known Allergies) Date Reviewed: 05/13/2024 Reviewed by: Miguel Escudero MD - Fully Assessed Prescriptions as of 05/17/2024 - Cholecalciferol, Vitamin D3, 50 mcg (2,000 unit) cap Take 1 capsule by mouth once daily. - escitalopram oxalate (LEXAPRO) 10 mg tablet Take 1 tablet by mouth once daily. - aspirin, enteric coated (ECOTRIN LOW STRENGTH) 81 mg EC tablet Take 1 tablet by mouth once daily. - famotidine (PEPCID) 20 mg tablet Take 1 tablet by mouth two times a day. - PNV no.153/FA/om3/dha/ep a/fish ( GUMMIES ORAL) Take 2 Pieces by mouth once daily. - valACYclovir (VALTREX) 1 gram tablet Take 1 tablet by mouth once daily. Problem List As Of Date 05/14/2024 Noted Resolved Right wrist tendonitis [M77.8] 11/10/2015 03/04/2024 Pain in right wrist [M25.531] 11/10/2015 03/04/2024 Anemia complicating , second trimester*05/09/2016 Chronic pain of both knees [M25.561, M25.562, G*07/18/2019 Chronic midline low back pain without sciatica *07/18/2019 Patellofemoral arthralgia of both knees [M22.2X*10/01/2020 03/04/2024 Flat foot [M21.40] 10/01/2020 Carpal tunnel syndrome of right wrist [G56.01] 10/01/2020 03/04/2024 Perineural cyst [G96.191] 10/01/2020 05/13/2024 Mixed incontinence [N39.46] 08/29/2023 03/04/2024 Encounter for supervision of high risk pregnanc*03/04/2024 Advanced maternal age in multigravida, first tr*03/04/2024 History of herpes genitalis [Z86.19] 03/04/2024 History of pelvic inflammatory disease [Z87.42] 03/04/2024 05/13/2024 Obesity affecting in first trimester *03/04/2024 Anxiety disorder affecting , antepartu*03/04/2024 Depression affecting [O99.340, F32.A] 03/04/2024 History of miscarriage [Z87.59] 03/04/2024 05/13/2024 History of smoking [Z87.891] 03/04/2024 Heartburn during in first trimester [*03/04/2024 Nausea and vomiting during [O21.9] 03/04/2024 History of headache [Z87.898] 03/04/2024 History of depression [Z87.59, Z86.5*03/04/2024 History of alcohol abuse [F10.11] 03/04/2024 Encounter Status:Closed by TESSA TUBBS on 05/17/24 Normal [facility] Examination level ultrasound on 05-14-2024 Indication Detailed anatomic survey Maternal obesity, BMI >40, Advanced maternal age Impression REMOTE READ The patient is referred for a detailed anatomic survey. - Single, live, intrauterine . - biometry is consistent with the established gestational age. - No malformations were visualized on a complete detailed anatomic survey. - The amniotic fluid volume is normal amount. - The placenta is posterior, fundal. - The Transabdominal cervical length measures 34.2 mm with no evidence of funneling or other dynamic changes. - Not all structural malformations can be detected by ultrasound examination. Recommendations Additional follow-up as clinically indicated. Maternal Assessment Height 170 cm Height (ft) 5 ft Height (in) 7 in Physical Exam Initial weight (lb) 281 lb Initial BMI 44.01 kg/m Maternal assessment other: 4 Para 1 Method Transabdominal ultrasound examination. View: Adequate visualization Ray . Number of fetuses: 1 Dating LMP on: 01/04/2024 Cycle: LMP date uncertain GA by LMP 18 w + 4 d ELENITA by LMP: 10/10/2024 GA by prior assessment 19 w + 6 d ELENITA by prior assessment: 10/01/2024 Ultrasound examination on: 05/13/2024 GA by U/S based upon: AC, BPD, Femur, HC GA by U/S 19 w + 6 d ELENITA by U/S: 10/01/2024 Assigned: based on stated ELENITA, selected on 05/13/2024 Assigned GA 19 w + 6 d Assigned ELENITA: 10/01/2024 General Evaluation Cardiac activity present. FHR 147 bpm. movements: present. Presentation: cephalic Placenta: Placental site: posterior, fundal Umbilical cord: Cord vessels: 3 vessel cord Amniotic fluid: Amount of AF: normal amount. MVP 6.9 cm Growth Overview Exam date GA BPD (mm) HC (mm) AC (mm) FL (mm) HL (mm) EFW (g) 05/13/2024 19w 6d 46.5 59% 165.9 31% 150.2 58% 31.5 62% 31.6 78% 320 47% Biometry Standard BPD 46.5 mm 20w 0d 59% Hadlock OFD 57.1 mm 18w 5d 19% Nicolaides HC 165.9 mm 19w 2d 31% Gabriel Cerebellum tr 20.1 mm 19w 2d 53% Hill Nuchal fold 3.1 mm AC 150.2 mm 20w 2d 58% Hadlock Femur 31.5 mm 20w 0d 62% Gabriel Humerus 31.6 mm 20w 4d 78% Gabriel EFW 320 g 19w 6d 47% Hadlock EFW (lb) 0 lb EFW (oz) 11 oz EFW by: Hadlock (HC-AC-FL) Extended Nude Model 7.8 mm CM 4.7 mm 40% Nicolaides Extremities / Bony Struc FL / HC 0.19 68% Hadlock Other Structures FHR 147 bpm Anatomy Cranium: normal Lateral ventricles: normal Choroid plexus: normal Midline falx: normal Cavum septi pellucidi: normal Cerebellum: normal Cisterna magna: normal Head / Neck Vermis: normal Neck: normal Nuchal fold: normal Lips: normal Profile: normal Nose: normal Face Maxilla: normal Mandible: normal Orbits: normal Lens: normal 4-chamber view: normal RVOT view: normal LVOT view: normal 3-vessel view: normal 4-[id number]-[id number] view: normal Heart / Thorax Situs: situs solitus (normal) Aortic arch view: normal SVC: normal IVC: normal Cardiac axis: normal Rt lung: normal Lt lung: normal Diaphragm: normal Cord insertion: normal Stomach: normal Kidneys: normal Bladder: normal Genitals: normal Abdomen Abdom. wall: normal Cervical spine: normal Thoracic spine: normal Lumbar spine: normal Sacral spine: normal Arms: normal Legs: normal Rt upper arm: normal Rt forearm: normal Rt hand: normal Rt fingers: normal Lt upper arm: normal Lt forearm: normal Lt hand: normal Lt fingers: normal Rt upper leg: normal Rt lower leg: normal Rt foot: normal Lt upper leg: normal Lt lower leg: normal Lt foot: normal sex: male Wants to know sex: yes Maternal Structures Uterus / Cervix Uterus: Visualized Cervix: Visualized Approach: Transabdominal Cervical length 34.2 mm Other: Patient declined transvaginal ultrasound for cervical length. Ovaries / Tubes / Adnexa Rt ovary: Visualized Lt ovary: Not visualized Performed By: Annmarie Malin, JUSTINE, RVT Read By: Diana Ortiz M.D. MATERNAL MEDICINE [facility] Examination level ultrasound on 05-13-2024 Radiology Study observation (narrative) [facility] 25([place] 25-hydroxyvitamin D3 [Mass/Vol] 28.4 ng/mL Low 31.0-80.0 [facility] Comment on above: Order Comment: Speci men Type: BLOOD SPECIMEN Ordering Facility[facility] Address: [address] [place] [address] Result Comment: Clas sification of 25 [place] Vitamin D status: Deficiency/Insufficiency: < or = 30 ng/ml. Sufficiency/Optimal Levels: 31-80 ng/mL Toxicity: > 100 ng/mL. Test performed by chemiluminescent immunoassay. Performed By: #### H GBELEV, [id number] #### [facility] CLIA [id number] [address] [place] [address] [place] CNOVon 05-08-2024 CNOV Office Visit (FAMPWS) EMRE QUINN ([id number]) 1985 F Date Time Provider Department 05/08/24 10:00 AM RONNY BORJA During your visit today, we recorded the following information about you: Pulse Blood pressure Weight 90/minute 116/72 131.7 kg Ronny Borja APRN.COMMODITY BUYER 05/08/2024 12:42 PM Signed Chief Complaint No chief complaint on file. HPI Emre Quinn is a 38 year old female who presents here today for Above Complaints.. Anxiety- Lexapro 10mg daily. States this definitely works and wants to stay consistent with this. Pt reports her OB is okay with her taking this. Knee pain - states her right knee has been cracking and grinding when she walks, is painful and will swell up after activity. States her knee always hurts, but is worse when active. This pain has been going on for at least a year but is much worse now since becoming - 19 weeks gestation.Takes tylenol for it and this does not help. Past medical history, appointments, medications, allergies reviewed. Previous Medical History PAST MEDICAL HISTORY Diagnosis Date Abnormal Pap smear of cervix before 2007 Acquired acanthosis nigricans Anemia 05/09/2016 Carpal tunnel syndrome of right wrist 10/01/2020 Chronic pain of both knees 07/18/2019 Generalized anxiety disorder Gonorrhea 2019 Herpes, genital Incontinence of urine Mixed incontinence 08/29/2023 Pain in right wrist 11/10/2015 Patellofemoral arthralgia of both knees 10/01/2020 PID (acute pelvic inflammatory disease) 2019 Right wrist tendonitis 11/10/2015 Suicidal ideation 03/13/2017 [facility] transfer to [facility] Previous Surgical History PAST SURGICAL HISTORY Procedure Laterality Date PAST SURGICAL HISTORY OF BIOPSY OF SCALP LSION TONSILLECTOMY PRIMARY/SECONDARY Tonsillectomy Family History FAMILY HISTORY Problem Relation Age of Onset None Mother other (osteoarthritis) Mother Hypertension Father Arthritis Maternal Grandmother rheumatoid Patient Allergies ALLERGIES No Known Allergies Current Medications Current Outpatient Medications on File Prior to Visit Medication Sig escitalopram oxalate (LEXAPRO) 10 mg tablet Take 1 tablet by mouth once daily. aspirin, enteric coated (ECOTRIN LOW STRENGTH) 81 mg EC tablet Take 1 tablet by mouth once daily. famotidine (PEPCID) 20 mg tablet Take 1 tablet by mouth two times a day. PNV no.153/FA/om3/dha/ep a/fish ( GUMMIES ORAL) Take 2 Pieces by mouth once daily. valACYclovir (VALTREX) 1 gram tablet Take 1 tablet by mouth once daily. Cholecalciferol, Vitamin D3, 50 mcg (2,000 unit) cap Take 1 capsule by mouth once daily. No current facility-administere d medications on file prior to visit. Social History Social History Tobacco Use Smoking status: Former Current packs/day: 0.00 Average packs/day: 0.5 packs/day for 10.0 years (5.0 ttl pk-yrs) Types: Cigarettes Start date: 01/20/2006 Quit date: 01/21/2016 Years since quittin.3 Smokeless tobacco: Never Vaping Use Vaping status: Former Substances: Nicotine, THC Substance Use Topics Alcohol use: Not Currently Drug use: No Review of Symptoms REVIEW OF SYSTEMS See HPI, otherwise negative EXAM: LMP 01/04/2024 (Exact Date) General Appearance: Well appearing, alert, in no acute distress, well-hydrated, well nourished.. Ears: External ears normal, canals clear. Oropharynx: Lips, mucosa, and tongue normal, teeth and gums normal, oropharynx normal. Neck: Supple, no adenopathy; thyroid symmetric, normal size, no bruits. Lungs: Lungs clear to auscultation. No wheezing, rhonchi, rales.. Heart: RRR without murmur, gallop, or rubs. No ectopy. Abdomen: Normal abdominal exam, Abdomen soft, non-tender. Bowel sounds normal. No masses, organomegaly. 19weeks Extremities: No deformities, edema, skin discoloration, clubbing or cyanosis. Good capillary refill. . Peripheral Pulses: Normal. Musculoskeletal: Negative findings: No deformities present, No erythema, induration, or nodules, No evidence of joint effusion, No evidence of joint instability, No evidence of muscle atrophy. Health Maintenance List Anxiety Screening Never done DTaP,Tdap,Td Vaccine(7 - Tdap) due on 08/03/2015 Influenza Vaccine(1) due on 10/22/2023 Covid-19 Vaccine(1 - 2023-25 season) Never done Cervical Cancer Screening due on 04/28/2027 Hepatitis B Vaccine Completed RSV Vaccine(No Doses Required) Completed Hepatitis C Screening Completed HIV Screening Completed Data reviewed See HPI, otherwise negative ASSESSMENT/PLAN: 1. Chronic pain of right knee - ICD9: 719.46, 338.29, ICD10: M25.561, G89.29 (primary diagnosis) - Educated patient to utilize rest, ice, compression, and elevation - KNEE BRACE WITH STRAPS 2. Vitamin D deficiency - ICD9: 268.9, ICD10: E55.9 - Checking vitamin D labs, ok to cont (more content not included)... Normal [facility] CBC W Auto Differential pane l (Bld)on 04-01-2024 Basophils (Bld) [#/Vol] 10*3/uL Normal <0.11 C [facility] Comment on above: Order Comment: Speci men Type: BLOOD SPECIMEN Ordering Facility: [facility] Address: [address] [place] [address] Performed By: #### 2 276-4, 34583-9 #### [facility] CLIA [id number] [address] [place] [address] [place] Basophils/100 WBC (Bld) 0.3 % Normal C [facility] Comment on above: Order Comment: Speci men Type: BLOOD SPECIMEN Ordering Facility: [facility] Address: [address] [place] [address] Performed By: #### 2 276-4, 67984-3 #### [facility] CLIA [id number] [address] [place], [place] [address] [place] Differential cell count method Nom (Bld) Auto Normal [facility] Comment on above: Order Comment: Speci men Type: BLOOD SPECIMEN Ordering Facility: [facility] Address: [address] [place] [address] Performed By: #### 2 276-4, 70975-4 #### [facility] CLIA [id number] [address] [place], [place] [address] [place] Eosinophils (Bld) [#/Vol] 0.12 10*3/uL Normal <0.46 [facility] Comment on above: Order Comment: Speci men Type: BLOOD SPECIMEN Ordering Facility: [facility] Address: [address] [place] [address] Performed By: #### 2 276-4, 99573-8 #### [facility] CLIA [id number] [address] [place] [address] [place] Eosinophils/100 WBC (Bld) 2.0 % Normal [facility] Comment on above: Order Comment: Speci men Type: BLOOD SPECIMEN Ordering Facility: [facility] Address: [address] [place] [address] Performed By: #### 2 276-4, 05790-2 #### [facility] CLIA [id number] [address] [place] [address] [place] Erythrocyte distribution width (RBC) [Ratio] 13.1 % Normal 11.5-15.0 [facility] Comment on above: Order Comment: Speci men Type: BLOOD SPECIMEN Ordering Facility: [facility] Address: [address] [place] [address] Performed By: #### 2 276-4, 95799-7 #### [facility] CLIA [id number] [address] [place] [address] [place] Hematocrit (Bld) [Volume fraction] 32.3 % Low 36.0-46.0 [facility] Comment on above: Order Comment: Speci men Type: BLOOD SPECIMEN Ordering Facility: [facility] Address: [address] [place] [address] Performed By: #### 2 276-4, 75719-6 #### [facility] CLIA [id number] [address] [place] [address] [place] Hemoglobin (Bld) [Mass/Vol] 10.6 g/dL Low 11.5-15.5 [facility] Comment on above: Order Comment: Speci men Type: BLOOD SPECIMEN Ordering Facility: [facility] Address: [address] [place] [address] Performed By: #### 2 276-4, 15246-1 #### [facility] CLIA [id number] [address] [place] [address] [place] Immature granulocytes (Bld) [#/Vol] 10*3/uL Normal <0.10 [facility] Comment on above: Order Comment: Speci men Type: BLOOD SPECIMEN Ordering Facility: [facility] Address: [address] [place] [address] Performed By: #### 2 276-4, 23805-6 #### [facility] CLIA [id number] [address] [place] [address] [place] Immature granulocytes/100 WBC (Bld) 0.3 % Normal [facility] Comment on above: Order Comment: Speci men Type: BLOOD SPECIMEN Ordering Facility: [facility] Address: [address] [place] [address] Performed By: #### 2 276-4, 71454-9 #### [facility] CLIA [id number] [address] [place] [address] [place] Lymphocytes (Bld) [#/Vol] 1.55 10*3/uL Normal 1.00-4.00 [facility] Comment on above: Order Comment: Speci men Type: BLOOD SPECIMEN Ordering Facility: [facility] Address: [address] [place] [address] Performed By: #### 2 276-4, 11726-3 #### [facility] CLIA [id number] [address] [place] [address] [place] Lymphocytes/100 WBC (Bld) 25.4 % Normal [facility] Comment on above: Order Comment: Speci men Type: BLOOD SPECIMEN Ordering Facility: [facility] Address: [address] [place] [address] Performed By: #### 2 276-4, 17651-6 #### [facility] CLIA [id number] [address] [place] [address] [place] MCH (RBC) [Entitic mass] 29.4 pg Normal 26.0-34.0 [facility] Comment on above: Order Comment: Speci men Type: BLOOD SPECIMEN Ordering Facility: [facility] Address: [address] [place] [address] Performed By: #### 2 276-4, 12189-2 #### [facility] CLIA [id number] [address] [place] [address] [place] MCHC (RBC) [Mass/Vol] 32.8 g/dL Normal 30.5-36.0 [facility] Comment on above: Order Comment: Speci men Type: BLOOD SPECIMEN Ordering Facility: [facility] Address: [address] [place] [address] Performed By: #### 2 276-4, 30411-1 #### [facility] CLIA [id number] [address] [place] [address] [place] MCV (RBC) [Entitic vol] 89.7 fL Normal 80.0-100.0 [facility] Comment on above: Order Comment: Speci men Type: BLOOD SPECIMEN Ordering Facility: [facility] Address: [address] [place] [address] Performed By: #### 2 276-4, 42450-1 #### [facility] CLIA [id number] [address] [place] [address] [place] Monocytes (Bld) [#/Vol] 0.42 10*3/uL Normal <0.87 [facility] Comment on above: Order Comment: Speci men Type: BLOOD SPECIMEN Ordering Facility: [facility] Address: [address] [place] [address] Performed By: #### 2 276-4, 26470-1 #### [facility] CLIA [id number] [address] [place] [address] [place] Monocytes/100 WBC (Bld) 6.9 % Normal [facility] Comment on above: Order Comment: Speci men Type: BLOOD SPECIMEN Ordering Facility: [facility] Address: [address] [place] [address] Performed By: #### 2 276-4, 86729-6 #### [facility] CLIA [id number] [address] [place] [address] [place] Neutrophils (Bld) [#/Vol] 3.98 10*3/uL Normal 1.45-7.50 [facility] Comment on above: Order Comment: Speci men Type: BLOOD SPECIMEN Ordering Facility: [facility] Address: [address] [place] [address] Performed By: #### 2 276-4, 67222-1 #### [facility] CLIA [id number] [address] [place] [address] [place] Neutrophils/100 WBC (Bld) 65.1 % Normal [facility] Comment on above: Order Comment: Speci men Type: BLOOD SPECIMEN Ordering Facility: [facility] Address: [address] [place] [address] Performed By: #### 2 276-4, 89854-9 #### [facility] CLIA [id number] [address] [place] [address] [place] Nucleated RBC (Bld) [#/Vol] 10*3/uL Normal <0.01 [facility] Comment on above: Order Comment: Speci men Type: BLOOD SPECIMEN Ordering Facility: [facility] Address: [address] [place] [address] Performed By: #### 2 276-4, 04238-4 #### [facility] CLIA [id number] [address] [place] [address] [place] Nucleated RBC/100 WBC (Bld) [Ratio] 0.0 /100 WBC Normal [facility] Comment on above: Order Comment: Speci men Type: BLOOD SPECIMEN Ordering Facility: [facility] Address: [address] [place] [address] Performed By: #### 2 276-4, 72258-8 #### [facility] CLIA [id number] [address] [place] [address] [place] Platelet mean volume (Bld) [Entitic vol] 9.1 fL Normal 9.0-12.7 [facility] Comment on above: Order Comment: Speci men Type: BLOOD SPECIMEN Ordering Facility: [facility] Address: [address] [place] [address] Performed By: #### 2 276-4, 66626-3 #### [facility] CLIA [id number] [address] [place] [address] [place] Platelets (Bld) [#/Vol] 299 10*3/uL Normal 150-400 [facility] Comment on above: Order Comment: Speci men Type: BLOOD SPECIMEN Ordering Facility: [facility] Address: [address] [place] [address] Performed By: #### 2 276-4, 53286-2 #### [facility] CLIA [id number] [address] [place] [address] [place] RBC (Bld) [#/Vol] 3.60 10*6/uL Low 3.90-5.20 [facility] Comment on above: Order Comment: Speci men Type: BLOOD SPECIMEN Ordering Facility: [facility] Address: [address] [place] [address] Performed By: #### 2 276-4, 61568-9 #### [facility] CLIA [id number] [address] [place] [address] [place] WBC (Bld) [#/Vol] 6.11 10*3/uL Normal 3.70-11.00 [facility] Comment on above: Order Comment: Speci men Type: BLOOD SPECIMEN Ordering Facility: [facility] Address: [address] [place] [address] Performed By: #### 2 276-4, 89254-1 #### [facility] CLIA [id number] [address] [place] [address] [place] [address] [place] Examination level ultrasound on 04-01-2024 Indication First trimester anatomic survey Maternal obesity, BMI >40, Advanced maternal age Impression REMOTE READ The patient is referred for a first trimester anatomy scan including nuchal translucency measurement as clinically indicated. - Single, live, intrauterine . - [place] rump length measurement is consistent with the established gestational age. - A qualitative screen of the nuchal translucency and other anatomic structures was unremarkable on a complete first trimester anatomic assessment. - Not all structural malformations can be detected by ultrasound examination. Maternal Structures: Right Ovary: Size 44 mm x 42 mm x 49 mm Recommendations - A standard anatomic survey at 16 weeks can be offered and a detailed exam at 20 weeks is recommended for increased risk. Maternal Assessment Height 170 cm Height (ft) 5 ft Height (in) 7 in Physical Exam Initial weight (lb) 281 lb Initial BMI 44.01 kg/m Maternal assessment other: 4 Para 1 Method Transabdominal ultrasound examination Ray . Number of fetuses: 1 Dating LMP on: 01/04/2024 Cycle: LMP date uncertain GA by LMP 12 w + 4 d ELENITA by LMP: 10/10/2024 GA by prior assessment 12 w + 4 d ELENITA by prior assessment: 10/10/2024 Ultrasound examination on: 04/01/2024 GA by U/S based upon: CRL GA by U/S 13 w + 6 d ELENITA by U/S: 10/01/2024 Assigned: based on ultrasound (CRL), selected on 04/01/2024 Assigned GA 13 w + 6 d Assigned ELENITA: 10/01/2024 General Evaluation Cardiac activity present Placenta: posterior Cord vessels: 3 vessel cord Amniotic fluid: normal amount Biometry Standard FHR 159 bpm CRL 77.8 mm 13w 6d 48% [facility] First Trimester Anatomy Calvarium: normal Falx cerebri: normal Choroid plexus: normal Profile: normal Nasal bone: normal Retronasal triangle: normal Maxilla: normal Mandible: normal Nuchal translucency: Unremarkable Situs: normal Cardiac position: normal Cardiac axis: normal 4-chamber view: normal 4-chamber view with color: normal [id number] view: normal Abdominal cord insertion: normal Stomach: normal Kidneys: visualized Bladder: normal Color doppler of perivesical umbilical arteries: normal Vertebral alignment: normal Arms: normal Hands: normal Legs: normal Feet: normal Maternal Structures Uterus / Cervix Uterus: Visualized Uterus length 145 mm Uterus width 129 mm Uterus height 90 mm Uterus Vol 884.4 cm Ovaries / Tubes / Adnexa Rt ovary: Visualized Rt ovary D1 44 mm Rt ovary D2 42 mm Rt ovary D3 49 mm Rt ovary Vol 47.4 cm Rt ovarian cyst D1 40 mm Rt ovarian cyst D2 36 mm Rt ovarian cyst D3 34 mm Rt ovarian cyst mean 36.7 mm Rt ovarian cyst vol 25.635 cm Rt ovarian cyst findings: Unilocular simple cyst Lt ovary: Not visualized Performed By: Annmarie Malin RDMS, RVT Read By: Roxanna Christine M.D. MATERNAL MEDICINE [facility] Radiology Study observation (narrative) [facility] HBV surface Ag Ser Qlon 03-23 HBV surface Ag Ql (S) Negative Normal Negative [facility] Comment on above: Order Comment: Speci men Type: BLOOD SPECIMEN Ordering Facility: [facility] Address: [address] [place] [address] Performed By: #### 2 276-4, 24060-2 #### [facility] CLIA [id number] [address] [place] [address] [place] HCV Ab Ser Qlon 04-01-2024 HCV Ab Ql (S) Negative Normal Negative [facility] Comment on above: Order Comment: Speci men Type: BLOOD SPECIMEN Ordering Facility: [facility] Address: [address] [place] [address] Result Comment: The result suggests no evidence of active infection with Hepatitis C virus. Should recent infection be suspected, repeat testing may be considered 4-6 weeks after this draw. Performed By: #### H GBELEV, [id number] #### [facility] CLIA [id number] [address] [place] [address] [place] HGB ELECTROPHORESIS FOR EVAL (LAB ORDER)on 04-01-2024 Hemoglobin A (Bld) [Mass fraction] 97.7 % Normal 96.2-98.0 [facility] Comment on above: Order Comment: Speci men Type: BLOOD SPECIMEN Ordering Facility: [facility] Address: [address] [place] [address] Performed By: #### H GBELEV, [id number] #### [facility] CLIA [id number] [address] [place] [address] [place] Hemoglobin A2 (Bld) [Mass fraction] 2.3 % Normal 2.0-3.1 [facility] Comment on above: Order Comment: Speci men Type: BLOOD SPECIMEN Ordering Facility: [facility] Address: [address] [place] [address] Performed By: #### H GBBEATRIZV, [id number] #### [facility] CLIA [id number] [address] [place] [address] [place] Hemoglobin Unsp Elph (Bld) [Mass fraction] No abnormal hemoglobin identified. Normal No abnormal hemoglobin identified. [facility] Comment on above: Order Comment: Speci men Type: BLOOD SPECIMEN Ordering Facility: [facility] Address: [address] [place] [address] Performed By: #### H GBELEV, [id number] #### [facility] CLIA [id number] [address] [place] [address] [place] HGB EVALUATION CASCADE INTER Davide 04-01-2024 Hemoglobin pattern (Bld) [Interp] Reviewed by Mercedes Ndiaye M.D., Ph.D Normal [facility] Comment on above: Order Comment: Speci men Type: BLOOD SPECIMEN Ordering Facility: [facility] Address: [address] [place] [address] Performed By: #### H GBELEV, [id number] #### [facility] CLIA [id number] [address] [place] [address] [place] INTERPRETATION (HGB EVAL) Normal [facility] Comment on above: Order Comment: Speci men Type: BLOOD SPECIMEN Ordering Facility: [facility] Address: [address] [place] [address] Result Comment: Hemo globins were analyzed by capillary electrophoresis and CBC red cell parameters were reviewed. There is a normal hemoglobin capillary electrophoresis pattern with the exception of a small peak in the Z1 zone is detected. This is consistent with heterozygosity for Hemoglobin A2 prime (HbA2'). This is a benign delta variant. Hence the concentration of the HbA2 prime was added to the total quantification for the HbA2. Performed By: #### H GBELEV, [id number] #### [facility] CLIA [id number] [address] [place] [address] [place] HIV 1+2 Ab IA Qlon 5 HIV 1 and 2 Ab IA.rapid Nom (S/P/Bld) Normal [facility] Comment on above: Order Comment: Speci men Type: BLOOD SPECIMEN Ordering Facility: [facility] Address: [address] [place] [address] Result Comment: Test not indicated. Performed By: #### 2 276-4, 47149-7 #### [facility] CLIA [id number] [address] [place] [address] [place] HIV 1+2 Ab+HIV1 p24 Ag IA Ql Non-Reactive Normal Nonreactive [facility] Comment on above: Order Comment: Speci men Type: BLOOD SPECIMEN Ordering Facility: [facility] Address: [address] [place] [address] Performed By: #### 2 276-4, 19371-3 #### [facility] CLIA [id number] [address] [place] [address] [place] HIV immunoassay testing algorithm interpretation (S/P/Bld) [Interp] Normal [facility] Comment on above: Order Comment: Speci men Type: BLOOD SPECIMEN Ordering Facility: [facility] Address: [address] [place] [address] Result Comment: No e vidence of HIV-1 or HIV-2 infection. Should recent infection be suspected, repeat testing may be considered 2-3 weeks after this draw. [place] Rev. Code 3701.243(E): This information has been disclosed to you from confidential records protected from disclosure by state law. ???You shall make no further disclosure of this information without the specific, written, and informed release of the individual to whom it pertains or as otherwise permitted by state law. A general authorization for the release of medical or other information is not sufficient for the purpose of the release of HIV test results or diagnoses. Performed By: #### 2 276-4, 70987-6 #### [facility] CLIA [id number] [address] [place] [address] [place] HbA1c (Bld)on 04-01-2024 Average glucose Estimated from glycated hemoglobin (Bld) [Mass/Vol] 103 mg/dL Normal [facility] Comment on above: Order Comment: Speci men Type: BLOOD SPECIMENOrdering Facility: [facility] Address: [address] [place] [address] Result Comment: eAG: (Estimated average glucose) is a calculated value from HgbA1c and is sales representative door to door of the average blood glucose level in the last 2-3 month period. Performed By: #### 5 5454-3 ####[facility] [id number] [address] [place] HbA1c (Bld) [Mass fraction] 5.2 % Normal 4.3-5.6 [facility] Comment on above: Order Comment: Speci men Type: BLOOD SPECIMENOrdering Facility: [facility] Address: [address] [place] [address] Result Comment: Amer [place] Diabetes Association guidelines indicate that patients with HgbA1c in the range 5.7-6.4% are at increased risk for development of diabetes, and intervention by lifestyle modification may be beneficial. HgbA1c greater or equal to 6.5% is considered diagnostic of diabetes. Performed By: #### 5 5454-3 ####[facility] [id number] [place] [address] [place] [id number] PLUSon 04-01-2024 Cell-free DNA./Cell-free DNA.total Dosage of chromosome-specific cfDNA (cfDNA) [Molar fraction] 16% Normal [facility] Comment on above: Order Comment: Speci men Type: BLOOD SPECIMEN Ordering Facility: [facility] Address: [address] [place] [address] Performed By: #### H JENNIFER [id number] #### [facility] CLIA [id number] [address] [place] [address] [place] Chr 13+18+21+X+Y aneuploidy Dosage of chromosome-specific cfDNA Ql (cfDNA) Negative Normal [facility] Comment on above: Order Comment: Speci men Type: BLOOD SPECIMEN Ordering Facility: [facility] Address: [address] [place] [address] Performed By: #### H JENNIFER [id number] #### [facility] CLIA [id number] [address] [place] [address] [place] Chr 21 trisomy Dosage of chromosome-specific cfDNA Ql (cfDNA) Negative Normal [facility] Comment on above: Order Comment: Speci men Type: BLOOD SPECIMEN Ordering Facility: [facility] Address: [address] [place] [address] Performed By: #### H JENNIFER, [id number] #### [facility] CLIA [id number] [address] [place] [address] [place] Chr X and Y aneuploidy risk Sequencing Ql (cfDNA) [Interp] Not detected Normal [facility] Comment on above: Order Comment: Speci men Type: BLOOD SPECIMEN Ordering Facility: [facility] Address: [address] [place] [address] Result Comment: Not Detected Not Detected Performed By: #### H JENNIFER, [id number] #### [facility] CLIA [id number] [address] [place] [address] [place] Citation Don (Reference lab test) Comment Normal [facility] Comment on above: Order Comment: Speci men Type: BLOOD SPECIMEN Ordering Facility: [facility] Address: [address] [place] [address] Result Comment: 1. P brooklynn NATH, et al. Radha Med. 2012;14(3):296-305. 2. Pro RENEE et al. Prenat Diag. 2013;33(6):591-597. 3. Melvin Reardon, et al. Clin Chem. 2015 Apr;61(4):608-616. 4. Kilo NATH, et al. Radha Med. 2011;13(11):913-920. 5. ACOG/SMFM Practice Bulletin No. 226, Nov 2019. Performed By: #### Negro RODRIGUEZ [id number] #### [facility] CLIA [id number] [address] [place] [address] [place] Gestational age Estimated from conception date Ray Normal [facility] Comment on above: Order Comment: Speci men Type: BLOOD SPECIMEN Ordering Facility: [facility] Address: [address] [place] [address] Performed By: #### Negro RODRIGUEZ [id number] #### [facility] CLIA [id number] [address] [place] [address] [place] GESTATIONALAGE AGE > OR = 9W Yes Normal [facility] Comment on above: Order Comment: Speci men Type: BLOOD SPECIMEN Ordering Facility: [facility] Address: [address] [place] [address] Performed By: #### Negro RODRIGUEZ, [id number] #### [facility] CLIA [id number] [address] [place] [address] [place] Laboratory comment Don (Report) Comment Normal [facility] Comment on above: Order Comment: Speci men Type: BLOOD SPECIMEN Ordering Facility: [facility] Address: [address] [place] [address] Result Comment: The MaterniT(R) 21 PLUS laboratory-developed test (LDT) analyzes circulating cell-free DNA from a maternal blood sample. This test is used for screening purposes and not diagnostic. Clinical correlation is recommended. Validation data on twin pregnancies is limited and the ability of this test to detect aneuploidy in higher multiple gestations has not yet been validated. Performed By: #### H JENNIFER, [id number] #### [facility] CLIA [id number] [address] [place] [address] OF [facility] director of services name Nom (Provider) Comment Normal [facility] Comment on above: Order Comment: Speci men Type: BLOOD SPECIMEN Ordering Facility: [facility] Address: [address] [place] [address] Result Comment: This specimen showed an expected representation of chromosome 21, 18 and 13 material. Clinical correlation is suggested. Comment Thai Street MD, PhD, Director, [employer] Performed By: #### H GBJENNI, [id number] #### [facility] CLIA [id number] [address] [place] [address] LIMITATIONS OF THE TEST Comment Normal [facility] Comment on above: Order Comment: Speci men Type: BLOOD SPECIMEN Ordering Facility: [facility] Address: [address] [place] [address] Result Comment: Dorothy anand the results of these tests are highly reliable, discordant results, including inaccurate sex prediction, may occur due to placental, maternal, or mosaicism or neoplasm; vanishing twin; prior maternal organ transplant; or other causes. These tests are screening tests and not diagnostic; they do not replace the accuracy and precision of diagnosis with CVS or amniocentesis. A patient with a positive test result should be referred for genetic counseling and offered invasive diagnosis for confirmation of test results.[5] The results of this testing, including the benefits and limitations, should be discussed with a qualified healthcare provider. management decisions, including termination of the , should not be based on the results of these tests alone. The healthcare provider is responsible for the use of this information in the management of their patient. Sex chromosomal aneuploidies are not reportable for known multiple gestations. A negative result does not ensure an unaffected nor does it exclude the possibility of other chromosomal abnormalities or defects which are not a part of these tests. An uninformative result may be reported, the causes of which may include, but are not limited to, insufficient sequencing coverage, noise or artifacts in the region, amplification or sequencing bias, or insufficient fraction. These tests are not intended to identify pregnancies at risk for neural tube defects or ventral wall defects. Testing for whole chromosome abnormalities (including sex chromosomes) and for subchromosomal abnormalities could lead to the potential discovery of both and maternal genomic abnormalities that could have major, minor, or no, clinical significance. Evaluating the significance of a positive or a non-reportable result may involve both invasive testing and additional studies on the mother. Such investigations may lead to a diagnosis of maternal chromosomal or subchromosomal abnormalities, which on occasion may be associated with benign or malignant maternal neoplasms. These tests may not accurately identify triploidy, balanced rearrangements, or the precise location of subchromosomal duplications or deletions; these may be detected by diagnosis with CVS or amniocentesis. The ability to report results may be impacted by maternal BMI, maternal weight, maternal systemic lupus erythematosus (SLE) and/or by certain pharmaceutical agents such as low molecular weight heparin (for example: Lovenox(R), Xaparin(R), Clexane(R) and Fragmin(R)). Performed By: #### H JENNIFER [id number] #### [facility] CLIA [id number] [address] [place] [address] [place] Monosomy X risk Dosage of chromosome-specific cfDNA Ql (Plasma cell-free+WBC DNA) [Interp] Not detected Normal [facility] Comment on above: Order Comment: Speci men Type: BLOOD SPECIMEN Ordering Facility: [facility] Address: [address] [place] [address] Performed By: #### H JENNIFER, [id number] #### [facility] CLIA [id number] [address] [place] [address] [place] NEGATIVE PREDICTIVE VALUE Note Normal [facility] Comment on above: Order Comment: Fredy gonsalves Type: BLOOD SPECIMEN Ordering Facility: [facility] Address: [address] [place] [address] Result Comment: The Negative Predictive Value (NPV) for trisomy 21, 18, and 13 is greater than 99%. The NPV for SCA and ESS cannot be calculated as SCA and ESS are only reported when an abnormality is detected. Performed By: #### H JENNIFER, [id number] #### [facility] CLIA [id number] [address] [facility] [place]K [id number] [id number] [facility] Note Normal [facility] Comment on above: Order Comment: Fredy gonsalves Type: BLOOD SPECIMEN Ordering Facility: [facility] Address: [address] [place] [address] Result Comment: ! Sex ! Accuracy: 99.4% ! ! ! ! Region (associated syndrome) ! Est. Sens# ! Est. Spec ! ! ! ! Trisomy 21 (Down Syndrome) ! 99.1% ! 99.9% ! ! ! ! Trisomy 18 (Vernon Syndrome) ! >99.9% ! 99.6% ! ! ! ! Trisomy 13 (Patau Syndrome) ! 91.7% ! 99.7% ! ! ! ! Sex Chromosome Aneuploidies## ! 96.2% ! 99.7% ! ! ! * As reported in [facility] database nstd37 [https://www.[employer].nlm.nih.gov/dbvar/studies/nstd37/ ] # Estimated Sensitivity. Sensitivity estimated across the observed size distribution of each syndrome [per [facility] database nstd37] and across the range of fractions observed in routine clinical NIPT. Actual sensitivity can also be influenced by other factors such as the size of the event, total sequence counts, amplification bias, or sequence bias. ## Ray gestation only. Performed By: #### BECKY [id number] #### [facility] CLIA [id number] [address] [place] [address] [place] POSITIVE PREDICTIVE VALUE N/A Normal [facility] Comment on above: Order Comment: Fredy gonsalves Type: BLOOD SPECIMEN Ordering Facility: [facility] Address: [address] [place] [address] Performed By: #### Negro RODRIGUEZ [id number] #### [facility] CLIA [id number] [address] [place] [address] [place] Reference Lab Test Method Comment Normal [facility] Comment on above: Order Comment: Fredy gonsalves Type: BLOOD SPECIMEN Ordering Facility: [facility] Address: [address] [place] [address] Result Comment: See Notes Circulating cell-free DNA was purified from the plasma component of maternal blood. The extracted DNA was then converted into a genomic DNA library for aneuploidy analysis of chromosomes 21, 18, and 13 via next generation sequencing.[1] Optional findings based on the test order include sex chromosome aneuploidy (SCA)[2], and enhanced sequencing series (ESS)[3], which will only be reported on as an additional finding when an abnormality is detected. SCA testing includes information on X and Y representation, while ESS testing includes deletions in selected regions (22q, 15q, 11q, 8q, 5p, 4p, 1p) and trisomy of chromosomes 16 and 22. Performed By: #### H GBELEV, [id number] #### [facility] CLIA [id number] [address] [place] [address] [place] Service comment (Unsp spec) [Interp] Comment Normal [facility] Comment on above: Order Comment: Speci men Type: BLOOD SPECIMEN Ordering Facility: [facility] Address: [address] [place] [address] Result Comment: See Notes [employer] is a subsidiary of [employer], using the brand [employer]. This test was developed and its performance characteristics determined by [employer]. It has not been cleared or approved by the Food and Drug Administration. This laboratory is certified under the Clinical Laboratory Improvement Amendments (CLIA) as qualified to perform high complexity clinical laboratory testing and accredited by the [employer] [place] [employer] ([employer]). If there is future clinical need for adding MaterniT GENOME testing, this specimen will be available until term. [facility] samples will not be retained beyond 60 days. [facility] patients will have to send a new sample for re-sequencing ([facility] Test Code: [id number]). Performed By: #### H GBELEV, [id number] #### [facility] CLIA [id number] [address] [place] [address] [place] Sex Dosage of chromosome-specific cfDNA Nom (cfDNA) Comment Normal [facility] Comment on above: Order Comment: Speci men Type: BLOOD SPECIMEN Ordering Facility: [facility] Address: [address] [place] [address] Result Comment: Cons istent with Male Performed By: #### H GBELEV, [id number] #### [facility] CLIA [id number] [address] [place] [address] [place] Test performance information Don (Unsp spec) Comment Normal [facility] Comment on above: Order Comment: Fredy gonsalves Type: BLOOD SPECIMEN Ordering Facility: [facility] Address: [address] [place] [address] Result Comment: The performance characteristics of the MaterniT(R) 21 PLUS laboratory-developed test (LDT) have been determined in a clinical validation study with women at increased risk for chromosomal aneuploidy.[1-4] Performed By: #### Negro RODRIGUEZ [id number] #### [facility] CLIA [id number] [address] [place] [address] [place] Trisomy 13 risk Dosage of chromosome-specific cfDNA Ql (cfDNA) [Interp] Negative Normal [facility] Comment on above: Order Comment: Fredy gonsalves Type: BLOOD SPECIMEN Ordering Facility: [facility] Address: [address] [place] [address] Performed By: #### Negro RODRIGUEZ, [id number] #### [facility] CLIA [id number] [address] [place] [address] [place] Trisomy 18 risk Dosage of chromosome-specific cfDNA Ql (Plasma cell-free+WBC DNA) [Interp] Negative Normal [facility] Comment on above: Order Comment: Fredy gonsalves Type: BLOOD SPECIMEN Ordering Facility: [facility] Address: [address] [place] [address] Performed By: #### Negro RODRIGUEZ, [id number] #### [facility] CLIA [id number] [address] [place] [address] [place] RBC PARAMETERS FOR HB IDon 0 2- Erythrocyte distribution width (RBC) [Ratio] 13.0 % Normal 11.5-15.0 [facility] Comment on above: Order Comment: Fredy gonsalves Type: BLOOD SPECIMEN Ordering Facility: [facility] Address: [address] [place] [address] Performed By: #### H JENNIFER, [id number] #### [facility] CLIA [id number] [address] [place] [address] [place] Hematocrit (Bld) [Volume fraction] 31.9 % Low 36.0-46.0 [facility] Comment on above: Order Comment: Speci men Type: BLOOD SPECIMEN Ordering Facility: [facility] Address: [address] [place] [address] Performed By: #### H JENNIFER, [id number] #### [facility] CLIA [id number] [address] [place] [address] [place] Hemoglobin (Bld) [Mass/Vol] 10.8 g/dL Low 11.5-15.5 [facility] Comment on above: Order Comment: Speci men Type: BLOOD SPECIMEN Ordering Facility: [facility] Address: [address] [place] [address] Performed By: #### H JENNIFER, [id number] #### [facility] CLIA [id number] [address] [place] [address] [place] MCH (RBC) [Entitic mass] 31.3 pg Normal 26.0-34.0 [facility] Comment on above: Order Comment: Speci men Type: BLOOD SPECIMEN Ordering Facility: [facility] Address: [address] [place] [address] Performed By: #### H GBBEATRIZV, [id number] #### [facility] CLIA [id number] [address] [place] [address] [place] MCHC (RBC) [Mass/Vol] 33.9 g/dL Normal 30.5-36.0 [facility] Comment on above: Order Comment: Speci men Type: BLOOD SPECIMEN Ordering Facility: [facility] Address: [address] [place] [address] Performed By: #### H JOSSUEV, [id number] #### [facility] CLIA [id number] [address] [place] [address] [place] MCV (RBC) [Entitic vol] 92.5 fL Normal 80.0-100.0 [facility] Comment on above: Order Comment: Speci men Type: BLOOD SPECIMEN Ordering Facility: [facility] Address: [address] [place] [address] Performed By: #### Negro JENNIFER, [id number] #### [facility] CLIA [id number] [address] [place] [address] [place] RBC (Bld) [#/Vol] 3.45 10*6/uL Low 3.90-5.20 [facility] Comment on above: Order Comment: Speci men Type: BLOOD SPECIMEN Ordering Facility: [facility] Address: [address] [place] [address] Performed By: #### Negro RODRIGUEZ, [id number] #### [facility] CLIA [id number] [address] [place] [address] [place] RUBELLA IGG ANTIBODYon 04-01 RUBELLA IGG AB, QUAL Positive Normal Positive [facility] Comment on above: Order Comment: Speci men Type: BLOOD SPECIMEN Ordering Facility: [facility] Address: [address] [place] [address] Result Comment: The result suggests recent or past exposure to Rubella virus or history of Rubella vaccination. Positive result may also be seen due to presence of passively-transferred antibodies. Please correlate with patient's history. Performed By: #### H JENNIFER, [id number] #### [facility] CLIA [id number] [address] [place] [address] [place] Reagin and Treponema pallidu m IgG and IgM [Interp]on 04-01-2024 T. pallidum IgG+IgM IA Ql (S) Non-Reactive Normal Nonreactive [facility] Comment on above: Order Comment: Speci men Type: BLOOD SPECIMEN Ordering Facility: [facility] Address: [address] [place] [address] Performed By: #### 2 276-4, 96393-3 #### [facility] CLIA [id number] [address] [place] [address] [place] Reagin+T pallidum IgG+IgM Se rPl-Impon 04-01-2024 Reagin and Treponema pallidum IgG and IgM [Interp] Cannot exclude recent Treponemal infection if specimen collected within 7-10 days after appearance of suspect lesions or 2-3 weeks after an exposure. Clinical correlation is required. Normal [facility] Comment on above: Order Comment: Speci men Type: BLOOD SPECIMEN Ordering Facility: [facility] Address: [address] [place] [address] Performed By: #### 2 276-4, 98400-9 #### [facility] CLIA [id number] [address] [place] [address] [place] TYPE + SCREEN PRENATALon ABO B Normal [facility] Comment on above: Order Comment: Speci men Type: BLOOD SPECIMEN Ordering Facility: [facility] Address: [address] [place] [address] Performed By: #### H GBJENNI, [id number] #### [facility] CLIA [id number] [address] [place] [address] [place] Rh Nom (Bld) Positive Normal [facility] Comment on above: Order Comment: Speci men Type: BLOOD SPECIMEN Ordering Facility: [facility] Address: [address] [place] [address] Performed By: #### H GBJENNI, [id number] #### [facility] CLIA [id number] [address] [place] [address] [place] TYPE AND SCREEN EXPIRATION 04/04/2024 23:59 Normal [facility] Comment on above: Order Comment: Speci men Type: BLOOD SPECIMEN Ordering Facility: [facility] Address: [address] [place] [address] Performed By: #### H GBBEATRIZV, [id number] #### [facility] CLIA [id number] [address] [place], [place] [address] OF [facility] Joanie 03-05-2024 CNPN Telephone (OGFVWE) EMRE QUINN ([id number]) 1985 F Date Time Provider Department 03/05/24 RACHELLE KING During your visit today, we recorded the following information about you: Rachelle King RN 03/05/2024 11:28 AM Signed 1st risk assessment form submitted 03/05/2024. Rachelle King RN Allergies As of Date: 03/05/2024 (No Known Allergies) Date Reviewed: 03/04/2024 Reviewed by: Chaparrita Cope APRN.[facility] - Fully Assessed Reason for Visit: [employer] - Other [[id number]] [facility] Prescriptions as of 03/05/2024 - aspirin, enteric coated (ECOTRIN LOW STRENGTH) 81 mg EC tablet Take 1 tablet by mouth once daily. - famotidine (PEPCID) 20 mg tablet Take 1 tablet by mouth two times a day. - PNV no.153/FA/om3/dha/ep a/fish ( GUMMIES ORAL) Take 2 Pieces by mouth once daily. - valACYclovir (VALTREX) 1 gram tablet Take 1 tablet by mouth once daily. - escitalopram oxalate (LEXAPRO) 10 mg tablet Take 1 tablet by mouth once daily. - Cholecalciferol, Vitamin D3, 50 mcg (2,000 unit) cap Take 1 capsule by mouth once daily. 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9] 03/04/2024 History of headache [Z87.898] 03/04/2024 History of depression [Z87.59, Z86.5*03/04/2024 History of alcohol abuse [F10.11] 03/04/2024 Encounter Status:Closed by RACHELLE KING on 03/05/24 Normal [facility] Bacteria Ur Culton Bacteria identified Cx Nom (U) CULTURE, URINE: No growth (<1,000 CFU/ml) Normal [facility] Comment on above: Performed By: #### 6 30-4 ####[facility] [id number] [place] [address] [place] C. trachomatis+N. gonorrhoea e DNA CHRISS+probe Ql (Unsp spec)on 03-04-2024 C. trachomatis rRNA CHRISS+probe Ql (Unsp spec) Not detected Normal Not detected [facility] Comment on above: Order Comment: Speci men Type: BLOOD SPECIMEN Order[facility] Facility[facility] Address: [address] [place] [address] Performed By: #### H GBBEATRIZV, [id number] #### [facility] CLIA [id number] [address] [place] [address] OF [place] N. gonorrhoeae rRNA CHRISS+probe Ql (Unsp spec) Not detected Normal Not detected [facility] Comment on above: Order Comment: Speci men Type: BLOOD SPECIMEN Order[facility] Facility: [facility] Address: [address] [place] [address] Performed By: #### H GBJENNI, [id number] #### [facility] CLIA [id number] [address] [place] [address] [place] POC HAIR WEAVER ULTRASOUNDon 03-04-19 25 Indication Viability; confirm cardiac activity Impression Single intrauterine gestational sac, CRL is appropriate for clinical dates, corresponding to ELENITA 10/10/2024 cardiac activity is visualized Recommendations Follow up for NT scan if desired Method Transvaginal ultrasound examination. View: Adequate visualization Ray . Number of embryos: 1 Dating LMP on: 01/04/2024 GA by LMP 8 w + 4 d ELENITA by LMP: 10/10/2024 Ultrasound examination on: 03/04/2024 GA by U/S based upon: CRL GA by U/S 9 w + 1 d ELENITA by U/S: 10/06/2024 Assigned: based on the LMP, selected on 03/04/2024 Assigned GA 8 w + 4 d Assigned ELENITA: 10/10/2024 Biometry Standard FHR 179 bpm CRL 24.3 mm 9w 1d >99% Hadlock Assessment Gestational sac: visualized Location: intrauterine Yolk sac: visualized Embryo: visualized CRL 24.3 mm 9w 1d >99% Hadlock Cardiac activity: present FHR 179 bpm General Evaluation Cardiac activity present. FHR 179 bpm Performed By: Chaparrita Cope NP Read By: Chaparrita Cope NP MATERNAL MEDICINE [facility] Radiology Study observation (narrative) Meena rankin [facility] TRICHOMONAS VAGINALIS NAATon 03-04-2024 T. vaginalis DNA CHRISS+probe Ql (Unsp spec) Not detected Normal Not detected Mike shaw [facility] Comment on above: Order Comment: Speci men Type: BLOOD SPECIMEN [facility] Facility[facility] Address: [address] [place] [address] Performed By: #### H GBELEV, [id number] #### [facility] CLIA [id number] [address] [place] [address] STATES OF [facility] CNPNon 11-13-2023 CNPN Telephone (URCANT) EMRE QUINN ([id number]) 1985 F Date Time Provider Department 11/13/23 DELPHINE BRADLEY URCANAbelardo During your visit today, we recorded the following information about you: Brent Vizcarra 11/13/2023 9:40 AM Signed Patient was scheduled for a cysto in August and cancelled. Patient is requesting an appointment, she states medication is not working for incontinence. Did you want a cysto rescheduled or an office visit? Thank you Elena Allergies As of Date: 11/13/2023 (No Known Allergies) Date Reviewed: 08/29/2023 Reviewed by: Joy Uribe MA - Fully Assessed Prescriptions as of 11/13/2023 - MYRBETRIQ 25 mg Tb24 TAKE 1 TABLET BY MOUTH EVERY DAY - omeprazole (PRILOSEC) 20 mg capsule Take 1 capsule by mouth daily before breakfast. 1/2 hr before meal. - valACYclovir (VALTREX) 1 gram tablet Take 1 tablet by mouth once daily. - escitalopram oxalate (LEXAPRO) 10 mg tablet Take 1 tablet by mouth once daily. - Cholecalciferol, Vitamin D3, 50 mcg (2,000 unit) cap Take 1 capsule by mouth once daily. - multivitamin tablet Take 1 tablet by mouth once daily. Problem List As Of Date 11/13/2023 Noted Resolved Routine Gynecological Examination [Z01.419] 04/30/2009 Class: Chronic Right wrist tendonitis [M77.8] 11/10/2015 Pain in right wrist [M25.531] 11/10/2015 Well adult exam [Z00.00] 03/22/2016 Anemia [D64.9] 05/09/2016 Chronic pain of both knees [M25.561, M25.562, G*07/18/2019 Chronic midline low back pain without sciatica *07/18/2019 Patellofemoral arthralgia of both knees [M22.2X*10/01/2020 Flat foot [M21.40] 10/01/2020 Carpal tunnel syndrome of right wrist [G56.01] 10/01/2020 Perineural cyst [G96.191] 10/01/2020 Mixed incontinence [N39.46] 08/29/2023 Encounter Status:Closed by BRENT VIZCARRA on 11/13/23 [facility] Discharge Instructionon 08-21 Discharge Instruction [facility] Medical Records Department [address] [place] [address] Instructions for Home/Discharge Instructions 09/13/23 1212 MR#: [id number] Acct: [id number] Name: EMRE QUINN Rep #: [id number] : 1985 38 From: Jorje Harper MD PCP: Dr. Holland Vang, DO Status:ADM IN Discharge Instructions Diet Discharge Diet: No restrictions Activity Discharge Activity: Return to Normal Activity Weight Bearing Status: Weight bearing as tolerated Dressing / Incision Call your doctor if you observe: Fever of 101 or Higher, Coldness, Increased Pain, Numbness or Tingling, Change in Color, Inability to urinate, Inability to have a bowel movement, Shortness of breath, Dizziness, Fainting spells, Swelling in the ankles, Chest pain, Prolonged hiccupping, Increased palpitations (irregular heartbeat) and Calf discomfort Follow Up Care When: IN 2 WEEKS Test Results: Test results from this visit will be discussed in further detail at your follow-up appointment, if applicable. Discharge Plan Admission Admit Date/Time: 09/11/23 17:00 Primary Reason for Your Visit: Acute alcohol withdrawal syndrome Attending Provider: Jorje Harper Primary Care Provider: Holland Vang Consulting Providers: Karen Rice Discharge Orders/Prescriptions Prescriptions: New thiamine HCl (vitamin B1) 100 mg Tablet 100 mg PO DAILYCM Qty: 0 0RF folic acid 1 mg Tablet 1 mg PO DAILY@0800 Qty: 0 0RF Continued multivitamin with minerals 1 EACH tablet 1 ea PO DAILY Valtrex 500 mg PO DAILY buspirone 5 mg tablet 5 mg PO PRN cholecalciferol (vitamin D3) 50 mcg (2,000 unit) capsule 50 mcg PO DAILY escitalopram oxalate 10 mg tablet 10 mg PO DAILY Referrals / Follow Up: Holland Vang DO [Primary Care Provider] - 09/13/23 1214 Jorje Harper MD CC: Dr. Karen Rice MD; Dr. Holland Vang DO Signed Normal [facility] Alcohol, Blood (Medical)-Ser umon 09-11-2023 SERUM ETOH < 3.0 Normal [facility] Comment on above: Result Comment: The serum:whole blood ethanol ratio is approximately 1.14 and varies slightly with hematocrit. Medical Alcohol reference interval and critical value in non-tolerant individuals; 50 - 100 Impairment 100 Intoxication 100 - 250 Severe Poisoning 250 - 400 Deep/possible fatal coma Performed By: #### L 501.9100, L100.0100, L505.5000, L500.4050, L700.6800, L501.5200 ####[facility] [address] [place], [address] CBC W/Diff, Automatedon 08-21 Absolute Lymph 1.87 X10 3/uL Normal 0.83-4.51 [facility] Comment on above: Performed By: #### L 501.9100, L100.0100, L505.5000, L500.4050, L700.6800, L501.5200 ####[facility] [address] [place], [address] Absolute Neut 3.7 X10 3/uL Normal 2.0-7.7 [facility] Comment on above: Performed By: #### L 501.9100, L100.0100, L505.5000, L500.4050, L700.6800, L501.5200 ####[facility] [address] [place], [address] Basophils/100 WBC (Bld) 0.5 % Normal 0-1 [facility] Comment on above: Performed By: #### L 501.9100, L100.0100, L505.5000, L500.4050, L700.6800, L501.5200 ####[facility] [address] [place], [address] Eosinophils/100 WBC (Bld) 1.5 % Normal 0-5 [facility] Comment on above: Performed By: #### L 501.9100, L100.0100, L505.5000, L500.4050, L700.6800, L501.5200 ####[facility] [address] [place], [address] Erythrocyte distribution width (RBC) [Ratio] 13.2 % Normal 11.6-14.6 [facility] Comment on above: Performed By: #### L 501.9100, L100.0100, L505.5000, L500.4050, L700.6800, L501.5200 ####[facility] [address] [place], [address] Hematocrit (Bld) [Volume fraction] 36.8 % Low 37-47 [facility] Comment on above: Performed By: #### L 501.9100, L100.0100, L505.5000, L500.4050, L700.6800, L501.5200 ####[facility] [facility] [address] [place], [address] Hemoglobin (Bld) [Mass/Vol] 12.1 g/dL Normal 12.0-15.0 [facility] Comment on above: Performed By: #### L 501.9100, L100.0100, L505.5000, L500.4050, L700.6800, L501.5200 ####[facility] [address] [place], [address] IG% 0.500 Normal 0.0-0.9 [facility] Comment on above: Result Comment: IG% - Immature Granulocytes (promyelocytes, myelocytes and metamyelocytes) > 1% indicates that a LEFT SHIFT is Present. Performed By: #### L 501.9100, L100.0100, L505.5000, L500.4050, L700.6800, L501.5200 ####[facility] [address] [place], [address] Lymphocytes/100 WBC (Bld) 30.3 % Normal 19-41 [facility] Comment on above: Performed By: #### L 501.9100, L100.0100, L505.5000, L500.4050, L700.6800, L501.5200 ####[facility] [address] [place], [address] MCH (RBC) [Entitic mass] 30.5 pg Normal 27.0-32.0 [facility] Comment on above: Performed By: #### L 501.9100, L100.0100, L505.5000, L500.4050, L700.6800, L501.5200 ####[facility] [address] [place], [address] MCHC (RBC) [Mass/Vol] 32.9 g/dL Normal 32-[address] [facility] Comment on above: Performed By: #### L 501.9100, L100.0100, L505.5000, L500.4050, L700.6800, L501.5200 ####[facility] [address] [place], [address] MCV (RBC) [Entitic vol] 92.7 fL Normal 81-99 [facility] Comment on above: Performed By: #### L 501.9100, L100.0100, L505.5000, L500.4050, L700.6800, L501.5200 ####[facility] [address] [place], [address] Monocytes/100 WBC (Bld) 6.8 % Normal 0-10 [facility] Comment on above: Performed By: #### L 501.9100, L100.0100, L505.5000, L500.4050, L700.6800, L501.5200 ####[facility] [address] [place], [address] Neutrophils/100 WBC (Bld) 60.4 % Normal 47-70 [facility] Comment on above: Performed By: #### L 501.9100, L100.0100, L505.5000, L500.4050, L700.6800, L501.5200 ####[facility] [address] [place], [address] Nucleated RBC (Bld) [#/Vol] 0 10*3/uL Normal 0-5 [facility] Comment on above: Performed By: #### L 501.9100, L100.0100, L505.5000, L500.4050, L700.6800, L501.5200 ####[facility] [address] [place], [address] Platelet mean volume (Bld) [Entitic vol] 9.6 fL Normal 6.2-12.0 [facility] Comment on above: Performed By: #### L 501.9100, L100.0100, L505.5000, L500.4050, L700.6800, L501.5200 ####[facility] [address] [place], [address] Platelets (Bld) [#/Vol] 314 10*3/uL Normal 150-450 [facility] Comment on above: Performed By: #### L 501.9100, L100.0100, L505.5000, L500.4050, L700.6800, L501.5200 ####[facility] [address] [place], [address] RBC (Bld) [#/Vol] 3.97 10*6/uL Low 4.2-5.[address] [facility] Comment on above: Performed By: #### L 501.9100, L100.0100, L505.5000, L500.4050, L700.6800, L501.5200 ####[facility] [address] [place], [address] RDW SD 45.5 fl High 35.1-43.9 [facility] Comment on above: Performed By: #### L 501.9100, L100.0100, L505.5000, L500.4050, L700.6800, L501.5200 ####[facility] [address] [place], [address] WBC (Bld) [#/Vol] 6.2 10*3/uL Normal 4.4-11.0 [facility] Comment on above: Performed By: #### L 501.9100, L100.0100, L505.5000, L500.4050, L700.6800, L501.5200 ####[facility] [address] [place], [address] Comprehensive Metabolic [facility] 09-11-2023 Albumin [Mass/Vol] 3.4 g/dL Normal 3.2-5.0 [facility] Comment on above: Order Comment: Comme nts: may add to ED labs Performed By: #### L 501.9100, L100.0100, L505.5000, L500.4050, L700.6800, L501.5200 ####[facility] [address] [place], [address] Albumin/Globulin [Mass ratio] 0.8 {ratio} Low 0.9-2.4 [facility] Comment on above: Order Comment: Comme nts: may add to ED labs Performed By: #### L 501.9100, L100.0100, L505.5000, L500.4050, L700.6800, L501.5200 ####[facility] [address] [place], [address] ALK P 67 U/L Normal 45-117 [facility] Comment on above: Order Comment: Comme nts: may add to ED labs Performed By: #### L 501.9100, L100.0100, L505.5000, L500.4050, L700.6800, L501.5200 ####[facility] [address] [place], [address] ALT [Catalytic activity/Vol] 27 U/L Normal 13-56 [facility] Comment on above: Order Comment: Comme nts: may add to ED labs Performed By: #### L 501.9100, L100.0100, L505.5000, L500.4050, L700.6800, L501.5200 ####[facility] [address] [place], [address] AST [Catalytic activity/Vol] 20 U/L Normal 15-37 [facility] Comment on above: Order Comment: Commwatson nts: may add to ED labs Performed By: #### L 501.9100, L100.0100, L505.5000, L500.4050, L700.6800, L501.5200 ####[facility] [address] [place], [address] Bilirubin [Mass/Vol] 0.50 mg/dL Normal 0.20-1.00 [facility] Comment on above: Order Comment: Comme nts: may add to ED labs Result Comment: For patients on eltrombopag therapy, use of Dimension [place] TBIL is not recommended. Performed By: #### L 501.9100, L100.0100, L505.5000, L500.4050, L700.6800, L501.5200 ####[facility] [address] [place], [address] BUN/CRE 13.2 RATIO Normal 10-20 [facility] Comment on above: Order Comment: Comme nts: may add to ED labs Performed By: #### L 501.9100, L100.0100, L505.5000, L500.4050, L700.6800, L501.5200 ####[facility] [address] [place], [address] CA,Total 8.4 mg/dL Low 8.5-10.1 [facility] Comment on above: Order Comment: Comme nts: may add to ED labs Performed By: #### L 501.9100, L100.0100, L505.5000, L500.4050, L700.6800, L501.5200 ####[facility] [address] [place], [address] Chloride [Moles/Vol] 105 mmol/L Normal 98-107 [facility] Comment on above: Order Comment: Comme nts: may add to ED labs Performed By: #### L 501.9100, L100.0100, L505.5000, L500.4050, L700.6800, L501.5200 ####[facility] [address] [place], [address] CO2 [Moles/Vol] 24.0 mmol/L Normal 21.0-32.0 [facility] Comment on above: Order Comment: Comme nts: may add to ED labs Performed By: #### L 501.9100, L100.0100, L505.5000, L500.4050, L700.6800, L501.5200 ####[facility] [address] [place], [address] Creatinine [Mass/Vol] 0.84 mg/dL Normal 0.55-1.[address] [facility] Comment on above: Order Comment: Comme nts: may add to ED labs Result Comment: The validity of the calculated GFR GFRAA in patients over 70 years has not been determined. Clinical correlation is essential. Performed By: #### L 501.9100, L100.0100, L505.5000, L500.4050, L700.6800, L501.5200 ####[facility] [address] [place], [address] ECRCL 119.63 ml/min Normal [facility] Comment on above: Order Comment: Comme nts: may add to ED labs Performed By: #### L 501.9100, L100.0100, L505.5000, L500.4050, L700.6800, L501.5200 ####[facility] [address] [place], [address] EST GFR - AA 99 mL/min Normal >60 [facility] Comment on above: Order Comment: Comme nts: may add to ED labs Result Comment: Afri can Citizen Of [place] GFR Calc Performed By: #### L 501.9100, L100.0100, L505.5000, L500.4050, L700.6800, L501.5200 ####[facility] [address] [place], [address] GAP 8 Normal 5-15 [facility] Comment on above: Order Comment: Comme nts: may add to ED labs Performed By: #### L 501.9100, L100.0100, L505.5000, L500.4050, L700.6800, L501.5200 ####[facility] [address] [place], [address] GFR/1.73 sq M.predicted among non-blacks MDRD (S/P/Bld) [Vol rate/Area] 82 mL/min/{1.73_m2} Normal >60 [facility] Comment on above: Order Comment: Fabiola nts: may add to ED labs Result Comment: Non- GFR Calc Performed By: #### L 501.9100, L100.0100, L505.5000, L500.4050, L700.6800, L501.5200 ####[facility] [address], [address] Globulin (S) [Mass/Vol] 4.3 g/dL High 2.2-4.2 [facility] Comment on above: Order Comment: Comme nts: may add to ED labs Performed By: #### L 501.9100, L100.0100, L505.5000, L500.4050, L700.6800, L501.5200 ####[facility] [address], [address] Glucose [Mass/Vol] 94 mg/dL Normal 74-106 [facility] Comment on above: Order Comment: Comme nts: may add to ED labs Performed By: #### L 501.9100, L100.0100, L505.5000, L500.4050, L700.6800, L501.5200 ####[facility] [address] [place], [address] Potassium [Moles/Vol] 3.4 mmol/L Low 3.5-5.[address] [facility] Comment on above: Order Comment: Merone nts: may add to ED labs Performed By: #### L 501.9100, L100.0100, L505.5000, L500.4050, L700.6800, L501.5200 ####[facility] [address] [place], [address] Sodium [Moles/Vol] 137 mmol/L Normal 136-145 [facility] Comment on above: Order Comment: Comme nts: may add to ED labs Performed By: #### L 501.9100, L100.0100, L505.5000, L500.4050, L700.6800, L501.5200 ####[facility] [address], [address] T PROT 7.7 g/dL Normal 6.4-8.2 [facility] Comment on above: Order Comment: Comme nts: may add to ED labs Performed By: #### L 501.9100, L100.0100, L505.5000, L500.4050, L700.6800, L501.5200 ####[facility] [address] [place], [address] Urea nitrogen [Mass/Vol] 11 mg/dL Normal 7-18 [facility] Comment on above: Order Comment: Comme nts: may add to ED labs Performed By: #### L 501.9100, L100.0100, L505.5000, L500.4050, L700.6800, L501.5200 ####[facility] [address] [place], [address] Emergency Department Summary on 09-11-2023 Emergency Department Summary [facility] Medical Records Department [address] [place] [address] Emergency Department Summary 09/11/23 MR#: [id number] Acct: [id number] Name: EMRE QUINN Rep #: [id number] : 1985 38 From: Rachelle Kay MD PCP: Dr. Holland Vang, DO Status:ADM IN Location: [place] [address] HPI History of Present Illness Chief Complaint: Substance Abuse Detail of Chief Complaint: Requesting alcohol detox Informant: patient Narrative Narrative: Patient presents requesting admission for alcohol detox. She states she was referred here by her therapist. She states has been drinking alcohol since the age of 19, but has gotten much worse over the past several months. She states she will typically drink what ever she can get her hands on. She has had multiple stressors over the past several months including losing her home and her job. She does admit to some drug use. She specifically names marijuana and mushrooms. When I specifically asked her about opiates or benzodiazepines she denies. Patient states her last drink was yesterday. She is currently feeling anxious with some abdominal pain. She denies history of seizure in the past if she stops drinking. [facility] Medical History Psilocybin abuse Cannabis use disorder History of nicotine vaping Former cigarette smoker Morbid obesity Anxiety and depression Alcohol abuse Substance abuse GERD (gastroesophageal reflux disease) Home Medications ???Medication ???Instructions ???Recorded ???Last Taken ???Type Valtrex 500 mg PO DAILY herpes 07/12/19 Unknown History multivitamin with minerals 1 ea PO DAILY dep 07/12/19 07/12/19 History buspirone 5 mg tablet 5 mg PO PRN ANXIETY 09/11/23 Unknown History cholecalciferol (vitamin D3) 50 50 mcg PO DAILY VIT 09/11/23 Unknown History mcg (2,000 unit) capsule escitalopram oxalate 10 mg tablet 10 mg PO DAILY ANXIETY 09/11/23 Unknown History Allergy/AdvReac Type Severity Reaction Status Date / Time No Known Allergies Allergy Verified 09/11/23 16:12 Family History Father Hypertension Diabetes ETOH abuse Mother Diabetes Surgical History History of dilation and curettage History of tonsillectomy and adenoidectomy Social History (Updated 09/11/23 @ 19:[address] Karen Rice MD) household members: other details: Lives with her 8 year old daughter. Smoking Status: Former smoker how long ago did patient quit smoking: Quit cigarette use 03/2013->transitioned to vaping, quit x 2 weeks. alcohol intake: current alcohol intake frequency: 3 or more drinks per day substance use type: marijuana and other details: Psilocybin ingestion. ROS ROS ED Constitutional Constitutional ED: Denies chills or fever(s) Eyes Eyes: Denies discharge from eye(s) ENT ENT ED: Denies discharge from eye(s), rhinorrhea or sore throat Cardiovascular Cardiovascular: Denies chest pain Respiratory/Chest Respiratory/Chest: Denies cough or dyspnea Gastrointestinal Gastrointestinal: Reports abdominal pain; Denies diarrhea, nausea or vomiting Genitourinary Genitourinary ED: Denies dysuria Musculoskeletal Musculoskeletal: Denies back pain or extremity pain Integumentary Denies Abrasions or rash Neurologic Neurologic: Denies headache(s) or weakness Psychiatric Psychiatric: Reports anxiety; Denies depression Allergic/Immunologic Allergic/Immunologic ED: Denies lip swelling or urticaria EXAM Physical Exam Const Vital Signs: 09/11/23 16:13 09/11/23 16:30 Temperature 97.8 F Temperature Source Temporal Pulse Rate 76 74 Respiratory Rate 18 18 Blood Pressure 120/108 H 147/90 H Blood Pressure Mean 112 109 Blood Pressure Source Monitor Blood Pressure Position Semi-Fowlers Blood Pressure Location Right Arm Pulse Ox 100 100 Oxygen Delivery Method Room Air Room Air Positive well nourished and well developed General Appearance ED: well developed HEENT Reports normocephalic and head/scalp atraumatic Eyes PERRL and EOMs intact bilaterally Neck supple Chest Wall inspection of chest normal and palpation of chest normal Resp normal respiratory effort and clear to auscultation bilaterally Cardio regular rate and regular rhythm GI normal to inspection, nondistended, normoactive bowel sounds Palpation: soft Extremity normal to inspection Neuro oriented x3 and no sensory deficits noted Sensorium / Orientation: alert Motor Exam: strength 5/5 throughout Psych mental status grossly normal Skin no rashes or lesions noted MDM MDM MDM Narrative Medical decision making narrative: Patient sitting comfortably in no acute distress. (more content not included)... Normal [facility] H AND P Exam - Hospitaliston 09-11-2023 H&P Exam - Hospitalist [facility] Medical Records Department [address] [place] [address] H P Exam - Hospitalist 09/11/23 1700 MR#: [id number] Acct: [id number] Name: EMRE QUINN Rep #: [id number] : 1985 38 From: Karen Rice MD PCP: Dr. Holland Vang, DO Status:ADM IN Location: [facility] GG325-2 HPI - General General Date of Admission: 09/11/23 Date of Service: 09/11/23 Chief Complaint: Acute EtOH withdrawal HPI Narrative The patient is a 38 y/o F w/ PMHx: Polysubstance abuse (Cannabis use, Psilocybin usage), Former tobacco use, Anxiety and Depression/Mood disorder, GERD, EtOH abuse (Wine, Liquor) who presents to the [facility] on 09/11/23 w/ noted acute EtOH withdrawal, onset starting on day of presentation following last EtOH intake the evening prior with onset of mild nausea, dyspepsia, increased anxiety, mild tremors, tactile disturbances. Patient interested in attaining sober status. She notes she recently lost her home and job. She denies any prior withdrawal seizure history. She notes that she had wine and several margaritas the evening prior. In the emergency room following hospitalist evaluation patient reported to ED staff that she does have suicide thoughts but no specific plan and does have underlying anxiety and depression/mood disorder that has worsened. Following this patient was placed on suicide precaution and crisis was consulted and their evaluation is pending. She does note that if she does not get the help she needs she feels that she would have more of an impetus. Workup in the ED included T97.8, heart rate 76, BP 120/108, respiratory rate 18, 100% room air, CBC with WC 6.2, human 12.1, platelet 314 without marked shift, CMP with potassium 3.4 otherwise unremarkable, serum testing negative, UDS with positive cannabis, alcohol less than 3. [facility] Medical History Psilocybin abuse Cannabis use disorder History of nicotine vaping Former cigarette smoker Morbid obesity Anxiety and depression Alcohol abuse Substance abuse GERD (gastroesophageal reflux disease) Home Medications ???Medication ???Instructions ???Recorded ???Last Taken ???Type Valtrex 500 mg PO DAILY herpes 07/12/19 Unknown History multivitamin with minerals 1 ea PO DAILY dep 07/12/19 07/12/19 History buspirone 5 mg tablet 5 mg PO PRN ANXIETY 09/11/23 Unknown History cholecalciferol (vitamin D3) 50 50 mcg PO DAILY VIT 09/11/23 Unknown History mcg (2,000 unit) capsule escitalopram oxalate 10 mg tablet 10 mg PO DAILY ANXIETY 09/11/23 Unknown History Allergy/AdvReac Type Severity Reaction Status Date / Time No Known Allergies Allergy Verified 09/11/23 16:12 Family History Father Hypertension Diabetes ETOH abuse Mother Diabetes Surgical History History of dilation and curettage History of tonsillectomy and adenoidectomy Social History (Updated 09/11/23 @ 19:[address] Karen Rice MD) household members: other details: Lives with her 8 year old daughter. Smoking Status: Former smoker how long ago did patient quit smoking: Quit cigarette use 03/2013->transitioned to vaping, quit x 2 weeks. alcohol intake: current alcohol intake frequency: 3 or more drinks per day substance use type: marijuana and other details: Psilocybin ingestion. ROS ROS Narrative Admission Review of Systems: CONSTITUTIONAL: No weight loss, fever, chills, + weakness or fatigue. HEENT: Eyes: No visual loss, blurred vision, double vision or yellow sclerae. Ears, Nose, Throat: No hearing loss, sneezing, congestion, runny nose or sore throat. SKIN: No rash or itching, lesions, wounds. CARDIOVASCULAR: No chest pain, chest pressure or chest discomfort, palpitations, edema, orthopnea, syncopal events. RESPIRATORY: No shortness of breath, cough or sputum, wheezing, hemoptysis. GASTROINTESTINAL: + anorexia, nausea, dyspepsia, No vomiting, diarrhea, abdominal pain, melena, BRBPR. GENITOURINARY: No dysuria, frequency, urgency or retention. NEUROLOGICAL: + Tactile disturbances, mild tremors, mild agitation. No headache, dizziness, syncope, paralysis, ataxia, numbness or tingling in the extremities, focal weakness, change in bowel or bladder control, seizure. MUSCULOSKELETAL: + muscle, back pain, joint pain or stiffness. HEMATOLOGIC: No anemia, bleeding or bruising. LYMPHATICS: No enlarged nodes. No history of splenectomy. PSYCHIATRIC: + History of anxiety and depression. Admits to suicidal ideation upon current presentation but no plan. ENDOCRINOLOGIC: No reports of sweating, cold or heat intolerance. No polyuria or polydipsia. ALLERGIES: + History of allergic rhinitis. Vital Signs Vital Signs Vital Signs: 09/11/23 16:13 (more content not included)... Normal [facility] HIV - WCHon 09-11-2023 HIV Non-Reactive Normal Nonreactive [facility] Comment on above: Order Comment: Reaso n for Exam: polysubstance abuse Reason for Exam: Hepatitis Screen Performed By: #### L 3890.6100, L509.8000, L3890.6005, L3890.6300, L3890.6200 #### [facility] [address] [place], [place], [address] Hepatitis B Surface Antibody on 09-11-2023 HEP B Surf Ab Reactive Normal [facility] Comment on above: Order Comment: Reaso n for Exam: polysubstance abuse Reason for Exam: Hepatitis Screen Result Comment: Non Reactive: Inconsistent with immunity less than <10 mIU/mL Reactive: Consistent with immunity greater than or equal to 10 mIU/mL Performed By: #### L 3890.6100, L509.8000, L3890.6005, L3890.6300, L3890.6200 #### [facility] [address] [place], [address] Hepatitis B Surface Antigeno n 09-11-2023 HEP B Surf Ag Non-Reactive Normal Nonreactive [facility] Comment on above: Order Comment: Reaso n for Exam: polysubstance abuse Reason for Exam: Hepatitis Screen Performed By: #### L 3890.6100, L509.8000, L3890.6005, L3890.6300, L3890.6200 #### [facility] [address] [place], [place], [id number] Hepatitis C Antibodyon 09-10 Hepatitis C AB Non-Reactive Normal Nonreactive [facility] Comment on above: Order Comment: Reaso n for Exam: polysubstance abuse Reason for Exam: Hepatitis Screen Result Comment: Non Reactive: < 0.8 Equivocal: >/= 0.8 to < 1.0 Reactive: >/= 1.0 The CDC requires that a reactive/equivocal HCV antibody result be sent out for confirmation. HCV Quant by PCR testing. Performed By: #### L 3890.6100, L509.8000, L3890.6005, L3890.6300, L3890.6200 #### [facility] [address] [place], [address] L509.8000on 09-11-2023 Syphilis Abs Non-Reactive Normal [facility] Comment on above: Order Comment: Reaso n for Exam: polysubstance abuse Reason for Exam: Hepatitis Screen Performed By: #### L 3890.6100, L509.8000, L3890.6005, L3890.6300, L3890.6200 #### [facility] [address] [place], [address] Magnesiumon 09-11-2023 Magnesium [Mass/Vol] 1.8 mg/dL Normal 1.6-2.6 [facility] Comment on above: Order Comment: Comme nts: may add to ED labs Performed By: #### L 501.9100, L100.0100, L505.5000, L500.4050, L700.6800, L501.5200 ####[facility] [address] [place], [address] Phosphoruson 09-11-2023 Phosphate [Mass/Vol] 2.7 mg/dL Normal 2.5-4.9 [facility] Comment on above: Order Comment: Comme nts: May add to ED labs Performed By: #### L 501.2300 #### [facility] [address] [place], [address] ,Serum,hCG Quali.on 09-11-2023 HCG, SERUM QUAL Negative Normal [facility] Comment on above: Order Comment: Compl ete for all females age 13-50 years old Performed By: #### L 501.9100, L100.0100, L505.5000, L500.4050, L700.6800, L501.5200 ####[facility] [address], [address] Urine Drug Screen (VISTA)on 09-11-2023 AMPHETAMINES Negative Normal <1000 ng/mL [facility] Comment on above: Performed By: #### L 501.9100, L100.0100, L505.5000, L500.4050, L700.6800, L501.5200 #### [facility] [address] [place], [facility] BARBITIURATES Negative Normal < 200 ng/mL [facility] Comment on above: Performed By: #### L 501.9100, L100.0100, L505.5000, L500.4050, L700.6800, L501.5200 #### [facility] [address] [place], [address] BENZODIAZIPINE Negative Normal < 200 ng/mL [facility] Comment on above: Performed By: #### L 501.9100, L100.0100, L505.5000, L500.4050, L700.6800, L501.5200 #### [facility] [address] [place], [place], [facility] COCAINE Negative Normal < 300 ng/mL [facility] Comment on above: Performed By: #### L 501.9100, L100.0100, L505.5000, L500.4050, L700.6800, L501.5200 #### [facility] Laboratory [address] [place], [address] ECSTACY Negative Normal < 500 ng/mL [facility] Comment on above: Performed By: #### L 501.9100, L100.0100, L505.5000, L500.4050, L700.6800, L501.5200 #### [facility] [address] [place], [address] METHADONE Negative Normal < 300 ng/mL [facility] Comment on above: Performed By: #### L 501.9100, L100.0100, L505.5000, L500.4050, L700.6800, L501.5200 #### [facility] [address] [place], [address] OPIATES Negative Normal < 300 ng/mL [facility] Comment on above: Performed By: #### L 501.9100, L100.0100, L505.5000, L500.4050, L700.6800, L501.5200 #### [facility] [address] [place], [address] PCP Negative Normal < 25 ng/mL [facility] Comment on above: Performed By: #### L 501.9100, L100.0100, L505.5000, L500.4050, L700.6800, L501.5200 #### [facility] [address] [place], [address] THC Positive Abnormal < 50 ng/mL [facility] Comment on above: Performed By: #### L 501.9100, L100.0100, L505.5000, L500.4050, L700.6800, L501.5200 #### [facility] [address] [place], [address] VISTA UDS PH 5 Normal [facility] Comment on above: Performed By: #### L 501.9100, L100.0100, L505.5000, L500.4050, L700.6800, L501.5200 #### [facility] [address] [place], [address] CNOVon 08-29-2023 CNOV Office Visit (URMASS) EMRE QUINN ([id number]) 1985 F Date Time Provider Department 08/29/23 8:00 AM [facility] During your visit today, we recorded the following information about you: Delphine Bradley MD 08/29/2023 8:30 AM Signed [facility] NEW PATIENT ENCOUNTER HISTORY OF PRESENT ILLNESS: Emre Quinn is a 38 year old female who presents send urgency incontinence and stress urinary incontinence Patient also has nocturia x 3-4 and frequency every half an hour Has to wear a depends all the time Urinalysis done today was negative for heme or infection Patient Entered Questionnaires PROMIS Global Health 06/28/2019 09/30/2019 03/21/2020 PROMIS Global Health Scale Physical Health Percentile 15 22 41 Mental Health Percentile 53 82 63 Percentiles provide an indication of how the patient's score ranks in relation to the general population. Higher percentile rankings indicate better function/quality of life. 50th percentile is the average of the general population and indicates half of respondents had a worse score. Review of Systems LAB Creatinine Date Value Ref Range Status 06/07/2023 0.66 0.58 - 0.96 mg/dL Final GLUCOSE UA (POCT) (mg/dL) Date Value 07/14/2021 Negative BILIRUBIN UA (POCT) (no units) Date Value 07/14/2021 Negative KETONE UA (POCT) (mg/dL) Date Value 07/14/2021 Negative SPECIFIC GRAVITY UA (POCT) (no units) Date Value 07/14/2021 1.020 HEMOGLOBIN/BLOOD UA (POCT) (no units) Date Value 07/14/2021 Trace-intact (A) PH UA (POCT) (no units) Date Value 07/14/2021 6.0 PROTEIN UA (POCT) (mg/dL) Date Value 07/14/2021 Negative UROBILINOGEN UA (POCT) (E.U./dL) Date Value 07/14/2021 0.2 NITRITE UA (POCT) (no units) Date Value 07/14/2021 Negative LEUKOCYTES UA (POCT) (no units) Date Value 07/14/2021 Negative COLOR UA (POCT) (no units) Date Value 07/14/2021 Yellow CLARITY UA (POCT) (no units) Date Value 07/14/2021 Clear ] MEDICATIONS omeprazole (PRILOSEC) 20 mg capsule Take 1 capsule by mouth daily before breakfast. 1/2 hr before meal. valACYclovir (VALTREX) 1 gram tablet Take 1 tablet by mouth once daily. escitalopram oxalate (LEXAPRO) 10 mg tablet Take 1 tablet by mouth once daily. Cholecalciferol, Vitamin D3, 50 mcg (2,000 unit) cap Take 1 capsule by mouth once daily. multivitamin tablet Take 1 tablet by mouth once daily. mirabegron (MYRBETRIQ) 25 mg Tb24 Take 1 tablet by mouth once daily. HISTORIES PAST MEDICAL HISTORY Diagnosis Date Abnormal Pap smear of cervix before 2007 Acquired acanthosis nigricans Gonorrhea 2019 Herpes, genital Incontinence of urine PID (acute pelvic inflammatory disease) 2019 Suicidal ideation 03/13/2017 [facility] transfer to [facility] PAST SURGICAL HISTORY Procedure Laterality Date PAST SURGICAL HISTORY OF BIOPSY OF SCALP LSION TONSILLECTOMY PRIMARY/SECONDARY Tonsillectomy FAMILY HISTORY Problem Relation Age of Onset None Mother other (osteoarthritis) Mother Hypertension Father Arthritis Maternal Grandmother rheumatoid SOCIAL HISTORY Social History Tobacco Use Smoking status: Former Packs/day: 0.50 Years: 10.00 Additional pack years: 0.00 Total pack years: 5.00 Types: Cigarettes Quit date: 01/21/2016 Years since quittin.6 Smokeless tobacco: Never Vaping Use Vaping Use: current everyday user Substances: Nicotine, THC Substance Use Topics Alcohol use: Yes Drug use: No LMP 08/04/2023 (Exact Date) Physical Exam Constitutional: Appearance: Normal appearance. HENT: Head: Normocephalic. Nose: Nose normal. Eyes: Pupils: Pupils are equal, round, and reactive to light. Pulmonary: Effort: Pulmonary effort is normal. Abdominal: General: Abdomen is flat. Musculoskeletal: General: Normal range of motion. Skin: General: Skin is warm. Neurological: General: No focal deficit present. Psychiatric: Mood and Affect: Mood normal. Legs are benign ASSESSMENT AND PLAN ASSESSMENT/PLAN: 1. Mixed incontinence - ICD9: 788.33, ICD10: N39.46 Will start Jennifer cannot get patient scheduled for cystoscopy and urodynamic evaluation Delphine Bradley MD This note was partially created using voice recognition software and is inherently subject to errors including those of syntax and sound-alike substitutions which may escape proofreading. In such instances, original meaning may be extrapolated by contextual derivation. Referring Provider: MIGUEL ESCUDERO [[id number]] Allergies As of Date: 08/29/2023 (No Known Allergies) Date Reviewed: 08/29/2023 Reviewed by: Joy Uribe MA - Fully Assessed Reason for Visit: Urinary Incontinence [606] Cmt: While sneezing, coughing and laughing Pt states, Some days I need to change my pants at least 4 times Nocturia [2774] Cmt: Around (more content not included)... Normal [facility] UA DIP, URINE (POC)on 2023 BILIRUBIN UA (POCT) Negative Negative [facility] CLARITY UA (POCT) Clear [facility] COLOR UA (POCT) Yellow [facility] GLUCOSE UA (POCT) Negative Negative mg/dL [facility] Hemoglobin Ql (U) Negative Negative [facility] KETONE UA (POCT) Negative Negative mg/dL [facility] LEUKOCYTES UA (POCT) Negative Negative [facility] NITRITE UA (POCT) Negative Negative [facility] PH UA (POCT) 6.5 4.5 - 8.0 [facility] Protein Ql (U) Negative Negative mg/dL [facility] SPECIFIC GRAVITY UA (POCT) 1.015 1.005 - 1.030 [facility] UROBILINOGEN UA (POCT) 0.2 Normal E.U./d L [facility] Location:[facility] [place], [address] [place] [address], [id number] [place] [address] POINT OF CARE [facility] US [facility] 08-23-2023 Indication Pelvic pain Impression Retroflexed fibroid uterus that measures 81 mm x 42 mm x 53 mm. The largest fibroids are described below. Endometrium has a normal trilaminar appearance and measures 9 mm. Right ovary contains a 31 x 26 x 24 mm hemorrhagic cyst with peripheral flow which is suggestive of a corpus luteum cyst. Left ovary contains an 8 x 8 x 8 mm simple paraovarian/paratuba l cyst. No adnexal masses were observed. There is free fluid visualized in the peritoneal cavity. Recommendations Follow up as clinically indicated. Menstrual History LMP on 08/04/2023. Contraception: none Method Transabdominal, transvaginal, 3D ultrasound examination, Color Doppler examination. View: Adequate visualization Uterus Uterus: Visualized Uterus position: retroflexed Description of uterine malformations: none Myometrium: heterogeneous Endometrium: normal Cervix details: cystic lesions identified suggesting superficial Nabothian cysts Uterus length 81 mm Uterus width 53 mm Uterus height 42 mm Uterus Vol 95.3 cm Endometrial thickness, total 9.0 mm Uterine fibroid D1 9 mm Uterine fibroid D2 9 mm Uterine fibroid mean 9.1 mm Uterine fibroid vol 0.385 cm Uterine fibroids findings: Left lateral posterior wall. intramural Right Ovary Rt ovary: Visualized Rt ovary D1 38 mm Rt ovary D2 30 mm Rt ovary D3 31 mm Rt ovary Vol 17.7 cm Rt ovarian cyst(s): Cysts identified Rt ovarian cyst D1 31 mm Rt ovarian cyst D2 26 mm Rt ovarian cyst D3 24 mm Rt ovarian cyst mean 27.0 mm Rt ovarian cyst vol 10.128 cm Rt ovarian cyst findings: Hemorrhagic cyst with reticular pattern/clot Left Ovary Lt ovary: Visualized Lt ovary morphology: premenopausal normal follicular Lt ovary D1 28 mm Lt ovary D2 16 mm Lt ovary D3 14 mm Lt ovary Vol 3.3 cm Lt ovarian cyst D1 8 mm Lt ovarian cyst D2 8 mm Lt ovarian cyst D3 8 mm Lt ovarian cyst mean 8.0 mm Lt ovarian cyst vol 0.268 cm Lt ovarian cyst findings: Simple paraovarian/paratuba l cyst [place] Visualized. free fluid visualized: small Performed By: Allyssa Hernandez RDMS Read By: Ally Levin M.D. MATERNAL MEDICINE [facility] 08-22-2023 Radiology Study observation (narrative) Meena rankin [facility] Basophil percentageOrdered B y: Dr. Duke on 07-25-2022 Basophil percentage 10-25 SEEN /hpf 0-5 [facility] Bilirubin Test strip Ql (U)O rdered By: Dr. Duke on 07-25-2022 Bilirubin Ql (U) Negative Negative [facility] Glucose Glucometer (BldC) [M ass/Vol]Ordered By: Dr. Duke on 07-25-2022 Glucose [Mass/Vol] 107 mg/dL 74-106 [facility] Comment on above: MANAGEMENT OF PATIEN T CARE PER NURSING PROTOCOL Ketones Test strip Ql (U)Ord ered By: Dr. Duke on 07-25-2022 Ketones Ql (U) 5 mg/dl Negative [facility] Laboratory - Chemistry and C hemistry - challengeOrdered By: Dr. Duke on 07-25-2022 HCG ( test) Ql (U) Negative [facility] Comment on above: Very dilute urine sp ecimens, as indicated by a low specificgravity, may not contain sales representative door to door levels of hCG. If is still suspected, a first morning urinespecimen should be collected 48 hours later and tested. Mucus LM Ql (Urine sed)Order ed By: Dr. Duke on 07-25-2022 Mucus Ql (Urine sed) 0 SEEN /hpf [facility] Nitrite Test strip Ql (U)Ord ered By: Dr. Duke on 07-25-2022 Nitrite Ql (U) Negative Negative [facility] Protein Test strip Ql (U)Ord ered By: Dr. Duke on 07-25-2022 Protein Ql (U) 30 mg/dl Negative [facility] Squamous epithelial cells de tection in urine sediment by light microscopyOrdered By: Dr. Duke on 07-25-2022 Epithelial cells.squamous LM Ql (Urine sed) 0-5 SEEN /hpf 5-10 [facility] Urine blood detectionOrdered By: Dr. Duke on 07-25-2022 RBC Ql (U) 25 /ul Negative [facility] RBC Ql (U) 0-5 SEEN /hpf 0-5 [facility] Urine clarityOrdered By: Dr. Duke on 07-25-2022 Clarity (U) Sl. Cloudy Clear [facility] Urine color determinationOrd ered By: Dr. Duke on 07-25-2022 Color (U) Yellow Yellow [facility] Urine glucose detectionOrder ed By: Dr. Duke on 07-25-2022 Glucose Ql (U) Normal mg/dl Normal [facility] Urine leukocyte esterase det ection by dipstickOrdered By: Dr. Duke on 07-25-2022 Leukocyte esterase Test strip Ql (U) 500 /ul Negative [facility] Urine pHOrdered By: Dr. Lisa wise on 07-25-2022 pH (U) 6.0 [pH] 5.0 - 8.0 [facility] Urine sediment bacteria coun t by microscopy (number/high power field)Ordered By: Dr. Duke on 07-25-2022 Bacteria LM.HPF (Urine sed) [#/Area] 1 /[HPF] None Seen [facility] Urine specific gravity measu rementOrdered By: Dr. Duke on 07-25-2022 Specific gravity (U) [Rel density] 1.025 1.002-1.030 [facility] Urobilinogen Auto test strip Ql (U)Ordered By: Dr. Duke on 07-25-2022 Urobilinogen Ql (U) 1 mg/dl Normal [facility] Absolute lymphocyte countOrd ered By: Dr. Akbar on 05-18-2022 Lymphocytes Auto (Unsp spec) [#/Vol] 1.50 10*3/uL 0.83-4.51 [facility] Basophil percentageOrdered B y: Dr. Akbar on 05-18-2022 Basophil percentage 0 SEEN /hpf 0-5 [facility] Basophils/100 WBC (Bld) 0.6 % 0-1 [facility] Chloride [Moles/Vol] 106 mmol/L 98-107 [facility] Eosinophils/100 WBC (Bld) 1.6 % 0-5 [facility] Glucose [Mass/Vol] 99 mg/dL 74-106 [facility] Neutrophils (Bld) [#/Vol] 3.2 10*3/uL 2.0-7.7 [facility] Neutrophils/100 WBC (Bld) 62.1 % 47-70 [facility] Potassium [Moles/Vol] 3.7 mmol/L 3.5-5.[address] [facility] Sodium [Moles/Vol] 139 mmol/L 136-145 [facility] WBC (Bld) [#/Vol] 5.1 10*3/uL 4.4-11.0 [facility] Beta hCG serum qualOrdered B y: Dr. Akbar on 05-18-2022 Beta HCG ( test) Ql Negative [facility] Bilirubin Test strip Ql (U)O rdered By: Dr. Akbar on 05-18-2022 Bilirubin Ql (U) Negative Negative [facility] Blood erythrocytes count (nu mber/volume)Ordered By: Dr. Akbar on 05-18-2022 RBC (Bld) [#/Vol] 4.28 10*6/uL 4.2-5.[address] [facility] Blood hemoglobin measurement (mass/volume)Ordered By: Dr. Akbar on 05-18-2022 Hemoglobin (Bld) [Mass/Vol] 12.7 g/dL 12.0-15.0 [facility] Blood lymphocytes/100 leukoc ytesOrdered By: Dr. Akbar on 05-18-2022 Lymphocytes/100 WBC (Bld) 29.4 % 19-41 [facility] Blood monocytes/100 leukocyt esOrdered By: Dr. Akbar on 05-18-2022 Monocytes/100 WBC (Bld) 6.3 % 0-10 [facility] Blood platelet mean volumeOr dered By: Dr. Akbar on 05-18-2022 Platelet mean volume (Bld) [Entitic vol] 9.8 fL 6.2-12.0 [facility] Determination of erythrocyte mean corpuscular volume (MCV)Ordered By: Dr. Akbar on 05-18-2022 MCV (RBC) [Entitic vol] 91.6 fL 81-99 [facility] Hematocrit Auto (Bld) [Volum e fraction]Ordered By: Dr. Akbar on 05-18-2022 Hematocrit (Bld) [Volume fraction] 39.2 % 37-47 [facility] Ketones Test strip Ql (U)Ord ered By: Dr. Akbar on 05-18-2022 Ketones Ql (U) 5 mg/dl Negative [facility] Laboratory - Chemistry and C hemistry - challengeOrdered By: Dr. Akbar on 05-18-2022 CO2 [Moles/Vol] 26.0 mmol/L 21.0-32.0 [facility] Urea nitrogen/Creatinine [Mass ratio] 10.4 mg/mg 10-20 [facility] - Hematology and Cell countsOrdered By: Dr. Akbar on 05-18-2022 Erythrocyte distribution width (RBC) [Entitic vol] 45.1 fL 35.1-43.9 [facility] Erythrocyte distribution width (RBC) [Ratio] 13.3 % 11.6-14.6 [facility] Immature granulocytes/100 WBC (Bld) 0.000 % 0.0-0.9 [facility] Comment on above: IG% - Immature Granu locytes (promyelocytes, myelocytes and metamyelocytes) > 1% indicates that a LEFT SHIFT is Present. MCH (RBC) [Entitic mass] 29.7 pg 27.0-32.0 [facility] Nucleated RBC/100 WBC (Bld) [Ratio] 0 % 0-5 [facility] MCHC Auto (RBC) [Mass/Vol]Or dered By: Dr. Akbar on 05-18-2022 MCHC (RBC) [Mass/Vol] 32.4 g/dL 32-[address] [facility] Mucus LM Ql (Urine sed)Order ed By: Dr. Akbar on 05-18-2022 Mucus Ql (Urine sed) 1+ /hpf [facility] Nitrite Test strip Ql (U)Ord ered By: Dr. Akbar on 05-18-2022 Nitrite Ql (U) Negative Negative [facility] No Panel InformationOrdered By: Dr. Akbar on 05-18-2022 Estimated Creatinine Clearance Calc 82.94 ml/min [facility] Estimated GFR (MDRD) Amer 96 mL/min >60 [facility] Comment on above: GFR Calc Estimated GFR (MDRD) Non-Af Amer 79 mL/min >60 [facility] Comment on above: Non- GFR Calc Platelets bldOrdered By: Dr. Akbar on 05-18-2022 Platelets (Bld) [#/Vol] 354 10*3/uL 150-450 [facility] Protein Test strip Ql (U)Ord ered By: Dr. Akbar on 05-18-2022 Protein Ql (U) 30 mg/dl Negative [facility] Serum or plasma calcium abe urement (mass/volume)Ordered By: Dr. Akbar on 05-18-2022 Calcium [Mass/Vol] 8.8 mg/dL 8.5-10.1 [facility] Serum or plasma creatinine m easurement (mass/volume)Ordered By: Dr. Akbar on 05-18-2022 Creatinine [Mass/Vol] 0.86 mg/dL 0.55-1.[address] [facility] Comment on above: The validity of the calculated GFR & GFRAA in patients over 70 years has not been determined. Clinical correlation is essential. Serum or plasma urea nitroge n measurement (mass/volume)Ordered By: Dr. Akbar on 05-18-2022 Urea nitrogen [Mass/Vol] 9 mg/dL 7-18 [facility] Squamous epithelial cells de tection in urine sediment by light microscopyOrdered By: Dr. Akbar on 05-18-2022 Epithelial cells.squamous LM Ql (Urine sed) 0-5 SEEN /hpf 5-10 [facility] Thin prep Papanicolaou smear with manual screeningOrdered By: Dr. Akbar on 05-18-2022 Thin prep Papanicolaou smear with manual screening 7 5-15 [facility] Urine blood detectionOrdered By: Dr. Akbar on 05-18-2022 RBC Ql (U) 50 /ul Negative [facility] RBC Ql (U) 0 SEEN /hpf 0-5 [facility] Urine clarityOrdered By: Dr. Akbar on 05-18-2022 Clarity (U) Clear Clear [facility] Urine color determinationOrd ered By: Dr. Akbar on 05-18-2022 Color (U) Yellow Yellow [facility] Urine glucose detectionOrder ed By: Dr. Akbar on 05-18-2022 Glucose Ql (U) Normal mg/dl Normal [facility] Urine leukocyte esterase det ection by dipstickOrdered By: Dr. Akbar on 05-18-2022 Leukocyte esterase Test strip Ql (U) 25 /ul Negative [facility] Urine pHOrdered By: Dr. Sreedhar ram on 05-18-2022 pH (U) 6.0 [pH] 5.0 - 8.0 [facility] Urine sediment bacteria coun t by microscopy (number/high power field)Ordered By: Dr. Akbar on 05-18-2022 Bacteria LM.HPF (Urine sed) [#/Area] 0 /[HPF] None Seen [facility] Urine specific gravity measu rementOrdered By: Dr. Akbar on 05-18-2022 Specific gravity (U) [Rel density] 1.025 1.002-1.030 [facility] Urobilinogen Auto test strip Ql (U)Ordered By: Dr. Akbar on 05-18-2022 Urobilinogen Ql (U) Normal mg/dl Normal [facility] CNCOon 12-04-2020 CNCO Letter Text Normal [facility] CNPNon 12-04-2020 CNPN Telephone (AGRHEUHWN) EMRE QUINN ([id number]) 1985 F Date Time Provider Department 12/04/20 MISTY WIGGINS During your visit today, we recorded the following information about you: Aixa Cheung [facility] 12/04/2020 10:47 AM Signed No Show Documentation Emre Quinn no showed for an appointment on 12/04/20 with Misty Wiggins PA-C at 10:00. She was scheduled for follow up. I called and spoke with the patient regarding her missed appointment. Emre stated the reason that she missed her appointment was because called patient and left message. Resources discussed/offered to patient: told patient to call back to leave message No show determined to be fault of patient: N/A This is the patients first no show in the last 12 months. Patient was rescheduled for n/a. Letter mailed : Yes Is this the Third or Fourth No Show? No Aixa Cheung Pss December 04, 2020 10:46 AM Allergies As of Date: 12/04/2020 (No Known Allergies) Date Reviewed: 02/12/2020 Reviewed by: Dedra Ramon LPN - Fully Assessed Reason for Visit: No Show [1558] Prescriptions as of 12/04/2020 - omeprazole (PRILOSEC) 20 mg capsule Take 1 capsule by mouth daily before breakfast. 1/2 hr before meal. - nabumetone (RELAFEN) 500 mg tablet Take 1 tablet by mouth twice daily. TAKE WITH FOOD - multivitamin tablet Take 1 tablet by mouth once daily. - escitalopram oxalate (LEXAPRO) 10 mg tablet - risperiDONE (RISPERDAL) 1 mg tablet - baclofen (LIORESAL) 10 mg tablet Take 1 tablet by mouth three times daily as needed (muscle spasms). - valACYclovir (VALTREX) 500 mg tablet Take 500 mg by mouth twice daily. 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] 10/01/2020 Encounter Status:Closed by AIXA LITTLE on 12/04/20 Normal [facility] CBCon 05-26-2020 Absolute nRBC <0.01 Normal <0.01 [facility] Comment on above: Performed By: #### H BA1C, CMP, LIPB, TSH, PROL, CBC #### [facility] Routine Lab [address] [place], [place] [address] Erythrocyte distribution width (RBC) [Ratio] 13.8 % Normal 11.5-15.0 [facility] Comment on above: Performed By: #### H BA1C, CMP, LIPB, TSH, PROL, CBC #### [facility] Routine Lab [address] [place], [place] [address] Hematocrit (Bld) [Volume fraction] 37.1 % Normal 36.0-46.0 [facility] Comment on above: Performed By: #### H BA1C, CMP, LIPB, TSH, PROL, CBC #### [facility] Routine Lab [address] [place], [place] [address] Hemoglobin (Bld) [Mass/Vol] 11.2 g/dL Low 11.5-15.5 [facility] Reference [facility] Comment on above: Performed By: #### H BA1C, CMP, LIPB, TSH, PROL, CBC #### [facility] Routine Lab [address] [place] [address] MCH (RBC) [Entitic mass] 29.2 pG Normal 26.0-34.0 [facility] Reference [facility] Comment on above: Performed By: #### H BA1C, CMP, LIPB, TSH, PROL, CBC #### [facility] Routine Lab [address] [place] [address] MCHC (RBC) [Mass/Vol] 30.2 g/dL Low 30.5-36.0 [facility] Reference Lab Comment on above: Performed By: #### H BA1C, CMP, LIPB, TSH, PROL, CBC #### [facility] Routine Lab [address] [place] [address] MCV (RBC) [Entitic vol] 96.6 fL Normal 80.0-100.0 C [facility] Reference Lab Comment on above: Performed By: #### H BA1C, CMP, LIPB, TSH, PROL, CBC #### [facility] Routine Lab [address] [place] [address] Platelet mean volume (Bld) [Entitic vol] 11.2 fL Normal 9.0-12.7 [facility] Reference Lab Comment on above: Performed By: #### H BA1C, CMP, LIPB, TSH, PROL, CBC #### [facility] Routine Lab [address] [place] [address] Platelets (Bld) [#/Vol] 299 10*3/uL Normal 150-400 [facility] Reference Lab Comment on above: Performed By: #### H BA1C, CMP, LIPB, TSH, PROL, CBC #### [facility] Routine Lab [address] [place] [address] RBC (Bld) [#/Vol] 3.84 10*6/uL Low 3.90-5.20 [facility] Reference Lab Comment on above: Performed By: #### H BA1C, CMP, LIPB, TSH, PROL, CBC #### [facility] Routine Lab [address] [place] [address] WBC (Bld) [#/Vol] 6.25 10*3/uL Normal 3.70-11.00 [facility] Reference Lab Comment on above: Performed By: #### H BA1C, CMP, LIPB, TSH, PROL, CBC #### [facility] Routine Lab [address] [place] [address] Comp Metabolic Panelon 05-26 Albumin [Mass/Vol] 3.9 g/dL Normal 3.9-4.9 [facility] Reference Lab Comment on above: Performed By: #### H BA1C, CMP, LIPB, TSH, PROL, CBC #### [facility] Routine Lab [address] [place] [address] ALP [Catalytic activity/Vol] 75 U/L Normal 34-123 [facility] Reference Lab Comment on above: Performed By: #### H BA1C, CMP, LIPB, TSH, PROL, CBC #### [facility] Routine Lab [address] [place] [address] ALT [Catalytic activity/Vol] 22 U/L Normal 7-38 [facility] Reference Lab Comment on above: Performed By: #### H BA1C, CMP, LIPB, TSH, PROL, CBC #### [facility] Routine Lab [address] [place], [place] [address] Anion gap [Moles/Vol] 12 mmol/L Normal 9-18 [facility] Reference Lab Comment on above: Performed By: #### H BA1C, CMP, LIPB, TSH, PROL, CBC #### [facility] Routine Lab [address] [place], [place] [address] AST [Catalytic activity/Vol] 28 U/L Normal 13-35 [facility] Reference Lab Comment on above: Performed By: #### H BA1C, CMP, LIPB, TSH, PROL, CBC #### [facility] Routine Lab [address] [place], [place] [address] Bilirubin Ql (U) 0.2 mg/dL Normal 0.2-1.3 [facility] Reference Lab Comment on above: Performed By: #### H BA1C, CMP, LIPB, TSH, PROL, CBC #### [facility] Routine Lab [address] [place] [id number] Calcium [Mass/Vol] 9.0 mg/dL Normal 8.5-10.2 [facility] Reference Lab Comment on above: Performed By: #### H BA1C, CMP, LIPB, TSH, PROL, CBC #### [facility] Routine Lab [address] [place], [place] [address] Chloride [Moles/Vol] 104 mmol/L Normal 97-105 [facility] Reference Lab Comment on above: Performed By: #### H BA1C, CMP, LIPB, TSH, PROL, CBC #### [facility] Routine Lab [address] [place] [address] CO2 [Moles/Vol] 24 mmol/L Normal 22-30 [facility] Reference Lab Comment on above: Performed By: #### H BA1C, CMP, LIPB, TSH, PROL, CBC #### [facility] Routine Lab [address] [place], [place] [address] Creatinine [Mass/Vol] 0.69 mg/dL Normal 0.58-0.96 [facility] Reference Lab Comment on above: Performed By: #### H BA1C, CMP, LIPB, TSH, PROL, CBC #### [facility] Routine Lab [address] [place], [place] [address] eGFR- Amer. >60 Normal [facility] Reference Lab Comment on above: Performed By: #### H BA1C, CMP, LIPB, TSH, PROL, CBC #### [facility] Routine Lab [address] [place], [place] [address] GFR/1.73 sq M predicted among non-blacks MDRD (S/P/Bld) [Vol rate/Area] mL/min/{1.73_m2} Normal [facility] Reference Lab Comment on above: Performed By: #### H BA1C, CMP, LIPB, TSH, PROL, CBC #### [facility] Routine Lab [address] [place], [place] [address] Glucose [Mass/Vol] 80 mg/dL Normal 74-99 [facility] Reference Lab Comment on above: Performed By: #### H BA1C, CMP, LIPB, TSH, PROL, CBC #### [facility] Routine Lab [address] [place] [address] Potassium [Moles/Vol] 4.2 mmol/L Normal 3.7-5.1 [facility] Reference Lab Comment on above: Performed By: #### H BA1C, CMP, LIPB, TSH, PROL, CBC #### [facility] Routine Lab [address] [place] [address] Protein [Mass/Vol] 7.2 g/dL Normal 6.3-8.0 [facility] Reference Lab Comment on above: Performed By: #### H BA1C, CMP, LIPB, TSH, PROL, CBC #### [facility] Routine Lab [address] [place], [place] [address] Sodium [Moles/Vol] 140 mmol/L Normal 136-144 [facility] Reference Lab Comment on above: Performed By: #### H BA1C, CMP, LIPB, TSH, PROL, CBC #### [facility] Routine Lab [address] [place], [place] [address] Urea nitrogen [Mass/Vol] 12 mg/dL Normal 7-21 [facility] Reference Lab Comment on above: Performed By: #### H BA1C, CMP, LIPB, TSH, PROL, CBC #### [facility] Routine Lab [address] [place], [place] [address] Hemoglobin A1con 05-26-2020 HbA1c (Bld) [Mass fraction] 5.4 % Normal 4.3-5.6 [facility] Reference Lab Comment on above: Performed By: #### H BA1C, CMP, LIPB, TSH, PROL, CBC #### [facility] Routine Lab [address] [place], [place] [address] HbA1c (Bld) [Mass fraction] 108 mg/dL Normal [facility] Reference Lab Comment on above: Performed By: #### H BA1C, CMP, LIPB, TSH, PROL, CBC #### [facility] Routine Lab [address] [place], [place] [address] Lipid Panel, Basicon 021 Cholesterol [Mass/Vol] 128 mg/dL Normal <200 [facility] Reference Lab Comment on above: Performed By: #### H BA1C, CMP, LIPB, TSH, PROL, CBC #### [facility] Routine Lab [address] [place], [place] [address] Cholesterol in HDL [Mass/Vol] 49 mg/dL Normal >39 [facility] Reference Lab Comment on above: Performed By: #### H BA1C, CMP, LIPB, TSH, PROL, CBC #### [facility] Routine Lab [address] [place], [place] [address] Cholesterol in LDL [Mass/Vol] 69 mg/dL Normal <100 [facility] Reference Lab Comment on above: Performed By: #### H BA1C, CMP, LIPB, TSH, PROL, CBC #### [facility] Routine Lab [address] [place], [place] [address] Cholesterol in VLDL [Mass/Vol] 10 mg/dL Normal <30 [facility] Reference Lab Comment on above: Performed By: #### H BA1C, CMP, LIPB, TSH, PROL, CBC #### [facility] Routine Lab [address] [place] [phone] Cholesterol non HDL [Mass/Vol] 79 mg/dL Normal <130 [facility] Reference Lab Comment on above: Performed By: #### H BA1C, CMP, LIPB, TSH, PROL, CBC #### [facility] Routine Lab [address] [place] [phone] Fasting Time UN Normal [facility] Reference Lab Comment on above: Performed By: #### H BA1C, CMP, LIPB, TSH, PROL, CBC #### [facility] Routine Lab [address] [place] [phone] LDL:HDL Ratio 1.41 Normal <2.54 [facility] Reference Lab Comment on above: Performed By: #### H BA1C, CMP, LIPB, TSH, PROL, CBC #### [facility] Routine Lab [address] [place] [phone] TC:HDL Ratio 2.61 Normal <5.10 [facility] Reference Lab Comment on above: Performed By: #### H BA1C, CMP, LIPB, TSH, PROL, CBC #### [facility] Routine Lab [address] [place] [phone] Triglyceride [Mass/Vol] 51 mg/dL Normal <150 C [facility] Reference Lab Comment on above: Performed By: #### H BA1C, CMP, LIPB, TSH, PROL, CBC #### [facility] Routine Lab [address] [place] [phone] Prolactinon 05-26-2020 Prolactin 52.8 ng/mL High 4.5-26.8 [facility] Reference Lab Comment on above: Performed By: #### H BA1C, CMP, LIPB, TSH, PROL, CBC #### [facility] Routine Lab [address] [place] [phone] TSHon 05-26-2020 TSH Qn 0.537 uU/mL Normal 0.270-4.200 [facility] Reference Lab Comment on above: Performed By: #### H BA1C, CMP, LIPB, TSH, PROL, CBC #### [facility] Routine Lab [address] [place] [phone] Vital Signs Date Time Vital Sign Value Performing Clinician Facility 09-19-2024 10:06-0400 Body mass index (BMI) [Ratio] 48.55 kg/m2 Kristi Ardon MD Work Phone: [facility] 09-19-2024 10:06-0400 Body weight 139.16 kg Kristi Ardon MD Work Phone: [facility] 09-19-2024 10:06-0400 Diastolic blood pressure 84 mm[Hg] Kristi Ardon MD Work Phone: [facility] 09-19-2024 10:06-0400 Systolic blood pressure 126 mm[Hg] Kristi Ardon MD Work Phone: [facility] 09-10-2024 10:42-0400 Body mass index (BMI) [Ratio] 48.93 kg/m2 Mehran Renee MD Work Phone: [facility] 09-10-2024 10:42-0400 Body weight 140.25 kg Mehran Renee MD Work Phone: [facility] 09-10-2024 10:42-0400 Diastolic blood pressure 66 mm[Hg] Mehran Renee MD Work Phone: [facility] 09-10-2024 10:42-0400 Systolic blood pressure 120 mm[Hg] Mehran Renee MD Work Phone: [facility] 09-05-2024 10:59-0400 Body mass index (BMI) [Ratio] 48.58 kg/m2 Mehran Renee MD Work Phone: [facility] 09-05-2024 10:59-0400 Body weight 139.25 kg Mehran Renee MD Work Phone: [facility] 09-05-2024 10:59-0400 Diastolic blood pressure 80 mm[Hg] Mehran Renee MD Work Phone: [facility] 09-05-2024 10:59-0400 Systolic blood pressure 117 mm[Hg] Mehran Renee MD Work Phone: [facility] 09-04-2024 10:38-0400 Body temperature 98.91 [degF] Treatment Wstr Work Phone: [facility] 09-04-2024 10:38-0400 Diastolic blood pressure 85 mm[Hg] Treatment Wstr Work Phone: [facility] 09-04-2024 10:38-0400 Heart rate 92 /min Treatment Wstr Work Phone: [facility] 09-04-2024 10:38-0400 SaO2% (BldA) [Mass fraction] 98 % Treatment Wstr Work Phone: [facility] 09-04-2024 10:38-0400 Systolic blood pressure 123 mm[Hg] Treatment Wstr Work Phone: [facility] 09-02-2024 09:00-0400 Body temperature 97.59 [degF] Treatment Wstr Work Phone: [facility] 09-02-2024 09:00-0400 Diastolic blood pressure 81 mm[Hg] Treatment Wstr Work Phone: [facility] 09-02-2024 09:00-0400 Heart rate 101 /min Treatment Wstr Work Phone: [facility] 09-02-2024 09:00-0400 Respiratory rate 20 /min Treatment Wstr Work Phone: [facility] 09-02-2024 09:00-0400 SaO2% (BldA) [Mass fraction] 97 % Treatment Wstr Work Phone: [facility] 09-02-2024 09:00-0400 Systolic blood pressure 133 mm[Hg] Treatment Wstr Work Phone: [facility] 08-29-2024 10:52-0400 Body temperature 97.9 [degF] Treatment Wstr Work Phone: [facility] 08-29-2024 10:52-0400 Diastolic blood pressure 82 mm[Hg] Treatment Wstr Work Phone: [facility] 08-29-2024 10:52-0400 Heart rate 99 /min Treatment Wstr Work Phone: [facility] 08-29-2024 10:52-0400 SaO2% (BldA) [Mass fraction] 99 % Treatment Wstr Work Phone: [facility] 08-29-2024 10:52-0400 Systolic blood pressure 137 mm[Hg] Treatment Wstr Work Phone: [facility] 08-28-2024 10:08-0400 Body mass index (BMI) [Ratio] 48.36 kg/m2 Julia Segal MD Work Phone: [facility] 08-28-2024 10:08-0400 Body weight 138.62 kg Julia Segal MD Work Phone: [facility] 08-28-2024 10:08-0400 Diastolic blood pressure 67 mm[Hg] Julia Segal MD Work Phone: [facility] 08-28-2024 10:08-0400 Systolic blood pressure 107 mm[Hg] Julia Segal MD Work Phone: [facility] 08-27-2024 09:14-0400 Body temperature 98.01 [degF] Treatment Wstr Work Phone: [facility] 08-27-2024 09:14-0400 Diastolic blood pressure 88 mm[Hg] Treatment Wstr Work Phone: [facility] 08-27-2024 09:14-0400 Heart rate 94 /min Treatment Wstr Work Phone: [facility] 08-27-2024 09:14-0400 SaO2% (BldA) [Mass fraction] 97 % Treatment Wstr Work Phone: [facility] 08-27-2024 09:14-0400 Systolic blood pressure 131 mm[Hg] Treatment Wstr Work Phone: [facility] 08-20-2024 10:10-0400 Diastolic blood pressure 80 mm[Hg] Mehran Renee MD Work Phone: [facility] 08-20-2024 10:10-0400 Systolic blood pressure 124 mm[Hg] Mehran Renee MD Work Phone: [facility] 08-14-2024 13:40-0400 Body mass index (BMI) [Ratio] 48.11 kg/m2 Rachelle Varner MD Work Phone: [facility] 08-14-2024 13:40-0400 Body weight 137.89 kg Rachelle Varner MD Work Phone: [facility] 08-14-2024 13:40-0400 Diastolic blood pressure 84 mm[Hg] Rachelle Varner MD Work Phone: [facility] 08-14-2024 13:40-0400 Systolic blood pressure 135 mm[Hg] Rachelle Varner MD Work Phone: [facility] 08-05-2024 11:30-0400 Body mass index (BMI) [Ratio] 48.33 kg/m2 Kristi Ardon MD Work Phone: [facility] 08-05-2024 11:30-0400 Body weight 138.53 kg Kristi Ardon MD Work Phone: [facility] 08-05-2024 11:30-0400 Diastolic blood pressure 78 mm[Hg] Kristi Ardon MD Work Phone: [facility] 08-05-2024 11:30-0400 Systolic blood pressure 120 mm[Hg] Kristi rAdon MD Work Phone: [facility] 07-22-2024 10:36-0400 Body mass index (BMI) [Ratio] 47.16 kg/m2 Rachelle Varner MD Work Phone: [facility] 07-22-2024 10:36-0400 Body weight 135.17 kg Rachelle Varner MD Work Phone: [facility] 07-22-2024 10:36-0400 Diastolic blood pressure 68 mm[Hg] Rachelle Varner MD Work Phone: [facility] 07-22-2024 10:36-0400 Systolic blood pressure 126 mm[Hg] Rachelle Varner MD Work Phone: [facility] 07-08-2024 09:49-0400 Body mass index (BMI) [Ratio] 47.79 kg/m2 Chaparritapaulina Cope [address] BUILDER.COMMODITY BUYER Work Phone: [facility] 07-08-2024 09:49-0400 Body weight 136.[address] BUILDER.COMMODITY BUYER Work Phone: [facility] 07-08-2024 09:49-0400 Diastolic blood pressure 76 mm[Hg] Chaparrita Haury [address] BUILDER.COMMODITY BUYER Work Phone: [facility] 07-08-2024 09:49-0400 Systolic blood pressure 134 mm[Hg] Chaparrita Haury [address] BUILDER.COMMODITY BUYER Work Phone: [facility] 06-28-2024 15:38-0400 Body mass index (BMI) [Ratio] 47.48 kg/m2 Aixa Mak RO[address] BUILDER.CNM Work Phone: [facility] 06-28-2024 15:38-0400 Body weight 136.[address] BUILDER.CNM Work Phone: [facility] 06-28-2024 15:38-0400 Diastolic blood pressure 76 mm[Hg] Aixa Mak RO[employer] BUILDER.CNM Work Phone: [facility] 06-28-2024 15:38-0400 Systolic blood pressure 118 mm[Hg] Aixa Mak RO[employer] BUILDER.CNM Work Phone: [facility] 06-10-2024 09:34-0400 Body mass index (BMI) [Ratio] 46.84 kg/m2 Selene Basilio RO[address] BUILDER.CNM Work Phone: [facility] 06-10-2024 09:34-0400 Body weight 134.[address] BUILDER.CNM Work Phone: [facility] 06-10-2024 09:34-0400 Diastolic blood pressure 66 mm[Hg] Selene Basilio RO[address] BUILDER.CNM Work Phone: [facility] 06-10-2024 09:34-0400 Systolic blood pressure 112 mm[Hg] Selene Basilio RO[address] BUILDER.CNM Work Phone: [facility] 05-13-2024 10:58-0400 Body mass index (BMI) [Ratio] 45.58 kg/m2 Miguel Escudero MD Work Phone: [facility] 05-13-2024 10:58-0400 Body weight 130.64 kg Miguel Escudero MD Work Phone: [facility] 05-13-2024 10:58-0400 Diastolic blood pressure 82 mm[Hg] Miguel Escudero MD Work Phone: [facility] 05-13-2024 10:58-0400 Systolic blood pressure 132 mm[Hg] Miguel Escudero MD Work Phone: [facility] 05-08-2024 10:01-0400 Body mass index (BMI) [Ratio] 45.96 kg/m2 Ronny Borja [address] BUILDER.COMMODITY BUYER Work Phone: [facility] 05-08-2024 10:01-0400 Body weight 131.[address] BUILDER.COMMODITY BUYER Work Phone: [facility] 05-08-2024 10:01-0400 Diastolic blood pressure 72 mm[Hg] Ronny Borja RO[address] BUILDER.COMMODITY BUYER Work Phone: [facility] 05-08-2024 10:01-0400 Heart rate 90 /min Ronny Borja [address] BUILDER.COMMODITY BUYER Work Phone: [facility] 05-08-2024 10:01-0400 SaO2% (BldA) [Mass fraction] 99 % Ronny Borja RO[address] BUILDER.COMMODITY BUYER Work Phone: [facility] 05-08-2024 10:01-0400 Systolic blood pressure 116 mm[Hg] Ronny Borja RO[address] BUILDER.COMMODITY BUYER Work Phone: [facility] 04-01-2024 11:41-0500 Body mass index (BMI) [Ratio] 44.47 kg/m2 Julia Segal MD Work Phone: [facility] 04-01-2024 11:41-0500 Body weight 127.46 kg Julia Segal MD Work Phone: [facility] 04-01-2024 11:41-0500 Diastolic blood pressure 66 mm[Hg] Julia Segal MD Work Phone: [facility] 04-01-2024 11:41-0500 Systolic blood pressure 126 mm[Hg] Julia Segal MD Work Phone: [facility] 03-04-2024 09:27-0500 Body height 169.[address] BUILDER.COMMODITY BUYER Work Phone: [facility] 03-04-2024 09:27-0500 Body mass index (BMI) [Ratio] 44.47 kg/m2 Chaparrita Haury [address] BUILDER.COMMODITY BUYER Work Phone: [facility] 03-04-2024 09:27-0500 Body weight 127.[address] BUILDER.COMMODITY BUYER Work Phone: [facility] 03-04-2024 09:27-0500 Diastolic blood pressure 72 mm[Hg] Chaparrita Haury [address] BUILDER.COMMODITY BUYER Work Phone: [facility] 03-04-2024 09:27-0500 Systolic blood pressure 124 mm[Hg] Chaparrita Haury [address] BUILDER.COMMODITY BUYER Work Phone: [facility] 08-17-2023 13:53-0400 Body height 168.3 cm Miguel Escudero MD Work Phone: [facility] 08-17-2023 13:53-0400 Body mass index (BMI) [Ratio] 41.81 kg/m2 Miguel Escudero MD Work Phone: [facility] 08-17-2023 13:53-0400 Body weight 118.39 kg Miguel Escudero MD Work Phone: [facility] 08-17-2023 13:53-0400 Diastolic blood pressure 88 mm[Hg] Miguel Escudero MD Work Phone: [facility] 08-17-2023 13:53-0400 Systolic blood pressure 144 mm[Hg] Miguel Escudero MD Work Phone: [facility] 02-10-2023 20:50-0500 Body height 165.1 cm [facility] 02-10-2023 20:50-0500 Body mass index (BMI) [Ratio] 43.2 kg/m2 [facility] 02-10-2023 20:50-0500 Body temperature 97.6 [degF] [facility] 02-10-2023 20:50-0500 Body weight 117.93 kg [facility] 02-10-2023 20:50-0500 Diastolic blood pressure 85 mm[Hg] [facility] 02-10-2023 20:50-0500 Heart rate 81 /min [facility] 02-10-2023 20:50-0500 Respiratory rate 16 /min [facility] 02-10-2023 20:50-0500 SaO2% (BldA) [Mass fraction] 99 % [facility] 02-10-2023 20:50-0500 Systolic blood pressure 137 mm[Hg] [facility] 12-28-2022 13:17-0500 Body height 169 cm Soco Sharma APRN.COMMODITY BUYER Work Phone: [facility] 12-28-2022 13:17-0500 Body weight 119.39 kg Soco Sharma APRN.COMMODITY BUYER Work Phone: [facility] 12-28-2022 13:17-0500 Diastolic blood pressure 80 mm[Hg] Soco Sharma RO[employer] BUILDER.COMMODITY BUYER Work Phone: [facility] 12-28-2022 13:17-0500 Heart rate 64 /min Soco Sharma [address] BUILDER.COMMODITY BUYER Work Phone: [facility] 12-28-2022 13:17-0500 Respiratory rate 14 /min Soco Sharma [address] BUILDER.COMMODITY BUYER Work Phone: [facility] 12-28-2022 13:17-0500 Systolic blood pressure 120 mm[Hg] Soco Sharma RO[address] BUILDER.COMMODITY BUYER Work Phone: [facility] 07-25-2022 16:16-0400 Body temperature 97.9 [degF] [facility] 07-25-2022 16:16-0400 Diastolic blood pressure 89 mm[Hg] [facility] 07-25-2022 16:16-0400 Heart rate 84 /min [facility] 07-25-2022 16:16-0400 Respiratory rate 18 /min [facility] 07-25-2022 16:16-0400 SaO2% (BldA) [Mass fraction] 97 % [facility] 07-25-2022 16:16-0400 Systolic blood pressure 132 mm[Hg] [facility] 07-25-2022 15:46-0400 Body height 165.1 cm [facility] 07-25-2022 15:46-0400 Body mass index (BMI) [Ratio] 46.9 kg/m2 [facility] 07-25-2022 15:46-0400 Body weight 128 kg [facility] 05-18-2022 10:44-0400 Respiratory rate 20 /min [facility] 05-18-2022 08:45-0400 Body height 165.1 cm [facility] 05-18-2022 08:45-0400 Body mass index (BMI) [Ratio] 47.9 kg/m2 [facility] 05-18-2022 08:45-0400 Body temperature 97.1 [degF] [facility] 05-18-2022 08:45-0400 Body weight 130.63 kg [facility] 05-18-2022 08:45-0400 Diastolic blood pressure 97 mm[Hg] [facility] 05-18-2022 08:45-0400 Heart rate 79 /min [facility] 05-18-2022 08:45-0400 SaO2% (BldA) [Mass fraction] 99 % [facility] 05-18-2022 08:45-0400 Systolic blood pressure 143 mm[Hg] [facility] 04-27-2022 13:11-0500 Body height 166.4 cm Miguel Escudero MD Work Phone: [facility] 04-27-2022 13:11-0500 Body weight 131.09 kg Miguel Escudero MD Work Phone: [facility] 04-27-2022 13:11-0500 Diastolic blood pressure 90 mm[Hg] Miguel Escudero MD Work Phone: [facility] 04-27-2022 13:11-0500 Systolic blood pressure 132 mm[Hg] Miguel Escudero MD Work Phone: [facility] Encounters Encounter Date Encounter Type Care Provider Facility Start: 10-01-2024 ambulatory Miguel Escudero Facilit y:[facility] Start: 09-19-2024 End: 09-19-2024 E-mail encounter from caregiver Kristi Ardon MD Work Phone: OB/Gynecology Start: 09-19-2024 End: 09-19-2024 Patient encounter procedure Kristi Ardon MD Work Phone: OB/Gynecology Comment on above: LGA (large for gesta tional age) (HCC) (Primary Dx); 38 weeks gestation of (HCC); Multigravida of advanced maternal age in third trimester (HCC); Obesity in (HCC); Supervision of high risk in third trimester (HCC) Start: 09-19-2024 End: 09-19-2024 ambulatory Kristi Ardon MD Work Phone: OB/Gynecology Comment on above: Induction at [facility] Start: 09-17-2024 End: 09-17-2024 ambulatory [facility] [place] Start: 09-17-2024 End: 09-17-2024 Patient encounter procedure [facility] [place] Comment on above: Population Health Na vigation Outreach ( to PCP/OB/) Start: 09-10-2024 End: 09-10-2024 Patient encounter procedure Mehran Renee MD Work Phone: OB/Gynecology Comment on above: LGA (large for gesta tional age) (HCC) (Primary Dx); Multigravida of advanced maternal age in third trimester (HCC); Anemia during in third trimester (HCC); Obesity in (HCC); 37 weeks gestation of (HCC); Request for sterilization; History of herpes genitalis Advanced maternal ag e in multigravida, second trimester (HCC) (Primary Dx); Obesity in (HCC); Obesity affecting in second trimester, unspecified obesity type (HCC) Start: 09-10-2024 End: 09-10-2024 ambulatory HOLLAND VANG Facility:[facility] Start: 09-05-2024 End: 09-05-2024 Patient encounter procedure Mehran Renee MD Work Phone: OB/Gynecology Comment on above: Supervision of high risk in third trimester (HCC) (Primary Dx); Multigravida of advanced maternal age in third trimester (HCC); Anemia during in third trimester (HCC); Obesity in (HCC); 36 weeks gestation of (HCC) Start: 09-05-2024 End: 09-05-2024 ambulatory HOLLAND L VANG Facility:[facility] Start: 09-04-2024 End: 09-04-2024 ambulatory Treatment Rm 15 Alexis [facility] [employer] Work Phone: Hematology/Oncology Comment on above: Maternal iron defici ency anemia complicating , third trimester (HCC) (Primary Dx) Start: 09-02-2024 End: 09-02-2024 Refill Miguel Escudero MD Work Phone: OB/Gynecology Comment on above: Med Change Request Start: 09-02-2024 End: 09-02-2024 ambulatory Treatment Rm 17 Alexis [facility] Work Phone: Hematology/Oncology Comment on above: Maternal iron defici ency anemia complicating , third trimester (HCC) (Primary Dx) Start: 08-29-2024 End: 08-29-2024 ambulatory [facility] Work Phone: [facility] Comment on above: Maternal iron defici ency anemia complicating , third trimester (HCC) (Primary Dx) Start: 08-28-2024 End: 08-28-2024 Patient encounter procedure Julia Segal MD Work Phone: OB/Gynecology Comment on above: Supervision of high risk in third trimester (HCC) (Primary Dx); Multigravida of advanced maternal age in third trimester (HCC); Anemia during in third trimester (HCC); Obesity in (HCC); 35 weeks gestation of (HCC) Start: 08-28-2024 End: 08-28-2024 ambulatory [facility] Facility:[facility] Start: 08-27-2024 End: 08-27-2024 ambulatory Treatment Rm 15 [facility] Work Phone: Hematology/Oncology Comment on above: Maternal iron defici ency anemia complicating , third trimester (HCC) (Primary Dx) Start: 08-20-2024 End: 08-20-2024 Patient encounter procedure Mehran Renee MD Work Phone: OB/Gynecology Comment on above: Supervision of high risk in third trimester (HCC) (Primary Dx); Multigravida of advanced maternal age in third trimester (HCC); Obesity in (HCC); 34 weeks gestation of (HCC) Start: 08-20-2024 End: 08-20-2024 ambulatory [facility] Facility:[facility] Start: 08-15-2024 End: 08-15-2024 ambulatory Miguel Escudero MD Work Phone: OB/Gynecology Comment on above: Iron infusions Start: 08-14-2024 End: 08-14-2024 Office outpatient visit 15 minutes Rachelle Varner MD Work Phone: OB/Gynecology Comment on above: Supervision of high risk in third trimester (HCC) (Primary Dx); Multigravida of advanced maternal age in third trimester (HCC); Obesity in (HCC); 33 weeks gestation of (HCC) Start: 08-14-2024 End: 08-14-2024 ambulatory [facility] Facility:[facility] Start: 08-12-2024 End: 08-13-2024 Telephone encounter Miguel Escudero MD Work Phone: OB/Gynecology Comment on above: breast pump Start: 08-07-2024 End: 08-07-2024 ambulatory Miguel Escudero MD Work Phone: OB/Gynecology Comment on above: Iron Start: 08-05-2024 End: 08-05-2024 Patient encounter procedure Whi Tech 1 It Support Engineer Mfm Wstr [employer] Maternal Medicine Comment on above: Advanced maternal ag e in multigravida, second trimester (HCC) (Primary Dx); Obesity in (HCC); Obesity affecting in second trimester, unspecified obesity type (HCC) Obesity in (HCC) (Primary Dx); 31 weeks gestation of (HCC); Supervision of high risk in third trimester (HCC); Multigravida of advanced maternal age in third trimester (HCC) Start: 08-05-2024 End: 08-05-2024 ambulatory [facility] Facility:[facility] Start: 08-02-2024 End: 08-02-2024 ambulatory Holland Vang DO Work Phone: [facility] [place] Start: 08-02-2024 End: 08-02-2024 Letter encounter Holland Vang DO Work Phone: [facility] [place] Comment on above: Letter Start: 07-23-2024 End: 07-23-2024 Telephone encounter Rachelle King RN Maternal Medicine Comment on above: [employer] Start: 07-22-2024 End: 07-22-2024 Office outpatient visit 15 minutes Rachelle Varner MD Work Phone: OB/Gynecology Comment on above: Supervision of high risk in third trimester (HCC) (Primary Dx); Multigravida of advanced maternal age in third trimester (HCC); Obesity in (HCC); 29 weeks gestation of (HCC) Start: 07-22-2024 End: 07-22-2024 ambulatory HOLLAND VANG Facility:[facility] Start: 07-17-2024 End: 07-17-2024 Telephone encounter Maura White RNelectrical linesworker [facility] Comment on above: Hematology Start: 07-16-2024 End: 07-16-2024 ambulatory Maura White RNelectrical linesworker [facility] Comment on above: Blood management Maternal iron defici ency anemia complicating , third trimester (HCC) (Primary Dx) Start: 07-10-2024 End: 09-09-2024 Follow-up encounter Selene Basilio APRN.CNM Work Phone: OB/Gynecology Start: 07-08-2024 End: 07-08-2024 Patient encounter procedure Chaparrita Cope APRN.CNP Work Phone: OB/Gynecology Comment on above: Supervision of high risk in second trimester (HCC) (Primary Dx); 27 weeks gestation of (HCC); AMA (advanced maternal age) multigravida 35+, second trimester (HCC); Anemia complicating , second trimester (HCC); Obesity affecting in second trimester, unspecified obesity type (HCC); Depression affecting (HCC); Anxiety disorder affecting , antepartum (HCC); History of herpes genitalis; History of alcohol abuse Start: 07-08-2024 End: 07-08-2024 ambulatory HOLLAND VANG Facility:[facility] Start: 07-01-2024 End: 07-01-2024 Patient encounter status Holland Vang DO Work Phone: [facility] Work Phone: Start: 07-01-2024 End: 08-31-2024 Refill Holland Vang DO Work Phone: [facility] Comment on above: Refill Request Start: 06-28-2024 End: 06-28-2024 Patient encounter procedure Aixa Mak APRN.CNM Work Phone: OB/Gynecology Comment on above: Supervision of other high risk pregnancies, second trimester (HCC) (Primary Dx); AMA (advanced maternal age) multigravida 35+, second trimester (HCC); 26 weeks gestation of (HCC); Pelvic pain in , antepartum (HCC); Obesity affecting in second trimester, unspecified obesity type (HCC) Start: 06-28-2024 End: 06-28-2024 ambulatory Miguel Escudero MD Work Phone: OB/Gynecology Start: 06-28-2024 End: 06-28-2024 Manual pelvic examination Miguel Escudero MD Work Phone: OB/Gynecology Comment on above: Pelvic pressure Start: 06-11-2024 End: 06-11-2024 Telephone encounter Rachelle King RN Maternal Medicine Comment on above: [employer] Start: 06-10-2024 End: 06-10-2024 Patient encounter procedure Selene Tonyasusan SANONCNM Work Phone: OB/Gynecology Comment on above: AMA (advanced matern al age) multigravida 35+, second trimester (HCC) (Primary Dx); Obesity affecting in second trimester, unspecified obesity type (HCC); Anxiety disorder affecting , antepartum (HCC); Depression affecting (HCC); 23 weeks gestation of (HCC); Screening for diabetes mellitus Start: 06-10-2024 End: 06-10-2024 ambulatory HOLLAND VANG Facility:[facility] Start: 05-14-2024 End: 05-17-2024 Telephone encounter Holland Vang DO Work Phone: Family [facility] [place] Start: 05-13-2024 End: 05-13-2024 Patient encounter procedure Miguel Escudero MD Work Phone: OB/Gynecology Comment on above: AMA (advanced matern al age) multigravida 35+, second trimester (Primary Dx); 19 weeks gestation of ; Obesity affecting in second trimester, unspecified obesity type; Need for influenza vaccination Start: 05-13-2024 End: 05-14-2024 ambulatory Holland Vang DO Work Phone: Family [facility] [place] Comment on above: Contact Start: 05-13-2024 End: 05-13-2024 Patient encounter procedure Whi Tech 1 It Support Engineer Mfm Wstr Mob Maternal Medicine Comment on above: Encounter for anatomic survey (Primary Dx); Encounter for supervision of high risk in first trimester, antepartum; 8 weeks gestation of Start: 05-09-2024 End: 07-09-2024 Follow-up encounter Ronny Borja APRN.CNP Work Phone: [facility] [place] Comment on above: Results Start: 05-08-2024 End: 05-08-2024 ambulatory RONNY BORJA Facility:[facility] Start: 05-08-2024 End: 05-08-2024 Office outpatient visit 25 minutes Ronny Borja APRN.CNP Work Phone: [facility] [place] Comment on above: Chronic pain of righ t knee (Primary Dx); Vitamin D deficiency; Encounter for screening examination for other mental health and behavioral disorders; Primary osteoarthritis of right knee; Morbid obesity with BMI of 45.0-49.9, adult (HCC); Well adult exam; MARCO ANTONIO (generalized anxiety disorder) Start: 05-08-2024 End: 05-08-2024 Patient encounter status Ronny Borja APRN.CNP Work Phone: [facility] Start: 05-06-2024 End: 05-06-2024 Refill Holland Loyolaon DO Work Phone: [facility] [place] Comment on above: Refill Request Start: 04-09-2024 End: 04-19-2024 Refill Holland Mesarison DO Work Phone: [facility] [place] Comment on above: Refill Request Start: 04-08-2024 End: 04-09-2024 [facility] Get Medical Advice Holland Mesarison DO Work Phone: [facility] [place] Comment on above: Refill Start: 04-03-2024 End: 04-03-2024 ambulatory Julia Segal MD Work Phone: OB/Gynecology Comment on above: adjusted due date Start: 04-03-2024 End: 04-03-2024 E-mail encounter from caregiver Julia Segal MD Work Phone: OB/Gynecology Start: 04-03-2024 End: 06-03-2024 Follow-up encounter Chaparrita Cope APRN.CNP Work Phone: OB/Gynecology Start: 04-01-2024 End: 06-01-2024 Follow-up encounter Chaparrita Cope APRN.CNP Work Phone: OB/Gynecology Start: 04-01-2024 End: 04-01-2024 [facility] Facility:[facility] Start: 04-01-2024 End: 04-01-2024 Patient encounter procedure Julia Segal MD Work Phone: OB/Gynecology Comment on above: Encounter for superv ision of high risk in first trimester, antepartum (Primary Dx); Advanced maternal age in multigravida, first trimester; Obesity affecting in first trimester, unspecified obesity type; Anxiety disorder affecting , antepartum; Depression affecting ; History of miscarriage; 12 weeks gestation of Encounter for efe yo screening for malformation using ultrasound (Primary Dx); 12 weeks gestation of Start: 03-05-2024 End: 03-05-2024 Telephone encounter Rachelle King RN Obstetrics/Gynecolog y Comment on above: [employer] Start: 03-04-2024 End: 03-04-2024 [facility] Facility:[facility] Start: 03-04-2024 End: 03-04-2024 Patient encounter procedure Chaparrita Cope APRN.CNP Work Phone: OB/Gynecology Comment on above: Encounter for superv ision of high risk in first trimester, antepartum (Primary Dx); 8 weeks gestation of ; with uncertain dates in first trimester; Advanced maternal age in multigravida, first trimester; History of herpes genitalis; History of pelvic inflammatory disease; Obesity affecting in first trimester, unspecified obesity type; Anxiety disorder affecting , antepartum; Depression affecting ; History of miscarriage; History of smoking; Heartburn during in first trimester; Nausea and vomiting during ; History of headache; History of depression; History of alcohol abuse Start: 12-16-2023 End: 12-18-2023 Patient encounter status Soco Sharma APRN.CNP Work Phone: [facility] Start: 12-16-2023 End: 12-18-[address] BUILDER.COMMODITY BUYER Work Phone: [facility] Comment on above: Refill Request Start: 11-13-2023 End: 11-13-2023 Telephone encounter Delphine Bradley MD Work Phone: Urology Start: 09-11-2023 End: 09-13-2023 ambulatory Karen Rice Facility:[facility] Start: 08-29-2023 Refill Delphine Bradley MD Work Phone: Urology Comment on above: Med Change Request Start: 08-29-2023 End: 08-29-2023 ambulatory DELPHINE BRADLEY Facility:[id number] Start: 08-29-2023 End: 08-29-2023 Patient encounter procedure Delphine Bradley MD Work Phone: Urology Comment on above: Mixed incontinence Start: 08-23-2023 Patient encounter status Pat Sharma ROAD BUILDER.COMMODITY BUYER Work Phone: [facility] Start: 08-23-[address] BUILDER.COMMODITY BUYER Work Phone: [facility] Comment on above: Refill Request Cysts Start: 08-22-2023 End: 08-22-2023 ambulatory Whi Mob OB/Gynecology Start: 08-22-2023 End: 08-22-2023 Patient encounter procedure i Tech 1 It Support Engineer Wstr Mob OB/Gynecology Start: 08-17-2023 End: 08-17-2023 Patient encounter procedure Miguel Escudero MD Work Phone: OB/Gynecology Comment on above: Encounter for gyneco logical examination (general) (routine) without abnormal findings (Primary Dx); Screen for STD (sexually transmitted disease); Pelvic pain in female Start: 08-17-2023 End: 08-17-2023 Patient encounter status Miguel Escudero MD Work Phone: [facility] Start: 07-14-2023 Refill Miguel solorzano MD Work Phone: OB/Gynecology Comment on above: Refill Request Start: 07-08-[address] BUILDER.COMMODITY BUYER Work Phone: [facility] [place] Comment on above: Refill Request Start: 07-08-[address] BUILDER.COMMODITY BUYER Work Phone: [facility] [place] Comment on above: Refill Request Start: 06-29-[address] BUILDER.COMMODITY BUYER Work Phone: [facility] [place] Comment on above: Refill Request Start: 06-08-[address] BUILDER.COMMODITY BUYER Work Phone: [facility] [place] Comment on above: Refill Request Start: 06-08-[address] BUILDER.COMMODITY BUYER Work Phone: [facility] [place] Comment on above: Refill Request Start: 06-07-2023 Telephone encounter Holland ayon DO Work Phone: [facility] [place] Start: 06-06-2023 Refill Miguel solorzano MD Work Phone: OB/Gynecology Comment on above: Med Change Request Start: 05-26-2023 Patient encounter status Alyso ivan Sharma ROAD BUILDER.COMMODITY BUYER Work Phone: [facility] Start: 05-26-[address] BUILDER.COMMODITY BUYER Work Phone: [facility] [place] Comment on above: Refill Request Start: 05-20-2023 Patient encounter status Alyso ivan Sharma ROAD BUILDER.COMMODITY BUYER Work Phone: [facility] Start: 05-20-[address] BUILDER.COMMODITY BUYER Work Phone: [facility] [place] Comment on above: Med Change Request Start: 05-10-2023 Refill Miguel solorzano MD Work Phone: OB/Gynecology Comment on above: Refill Request Start: 05-05-[address] BUILDER.COMMODITY BUYER Work Phone: [facility] Comment on above: Refill Request Start: 03-29-2023 Telephone encounter Holland ayon DO Work Phone: [facility] Start: 02-10-2023 End: 02-10-2023 [facility] Start: 12-28-2022 End: 12-28-2022 Patient encounter procedure Soco Sharma APRN.COMMODITY BUYER Work Phone: [facility] Comment on above: Well adult exam (Daria reyna Dx); Vitamin D deficiency; Screening for lipid disorders; Screening for diabetes mellitus; GERD without esophagitis; Encounter for immunization; Pain in right wrist; Carpal tunnel syndrome of right wrist; MARCO ANTONIO (generalized anxiety disorder); Smoker Start: 12-28-2022 End: 12-28-2022 Patient encounter status Soco Sharma APRN.COMMODITY BUYER Work Phone: [facility] Work Phone: Start: 10-07-2022 Patient encounter status Sim Vang DO Work Phone: [facility] Start: 10-07-2022 Refill Holland zepeda DO Work Phone: [facility] Comment on above: Refill Request Start: 07-25-2022 End: 07-25-2022 [facility] Start: 07-17-2022 Patient encounter status Kymberly Borja APRN.COMMODITY BUYER Work Phone: [facility] Start: 07-17-[address] BUILDER.COMMODITY BUYER Work Phone: [facility] Comment on above: Refill Request Start: 05-18-2022 End: 05-18-2022 [facility] Start: 04-27-2022 End: 04-27-2022 Patient encounter procedure Miguel Escudero MD Work Phone: OB/Gynecology Comment on above: Encounter for gyneco logical examination (general) (routine) without abnormal findings (Primary Dx); Screening for cervical cancer; Encounter for screening for human papillomavirus (HPV) Start: 04-27-2022 End: 04-27-2022 Patient encounter status Miguel Escudero MD Work Phone: OB/Gynecology Start: 03-14-2022 Patient encounter status Pat Sharma ROAD BUILDER.COMMODITY BUYER Work Phone: [facility] [place] Start: 03-14-[address] BUILDER.COMMODITY BUYER Work Phone: [facility] [place] Comment on above: Refill Request Start: 10-30-2021 Patient encounter status Kymberly Borja ROAD BUILDER.COMMODITY BUYER Work Phone: [facility] [place] Start: 10-30-[address]ly yepez [address]AD BUILDER.COMMODITY BUYER Work Phone: Family [facility] [place] Comment on above: Refill Request Start: 07-15-[address] BUILDER.COMMODITY BUYER Work Phone: [facility] [place] Comment on above: Results Start: 03-22-2016 Patient encounter status Malavictorina castro Jonh ROAD BUILDER.COMMODITY BUYER Work Phone: [facility] Work Phone: Start: 04-30-2009 Patient encounter status Kymberly castro Jonh ROAD BUILDER.COMMODITY BUYER Work Phone: [facility] Work Phone: Procedures Date Procedure Procedure Detail Performing Clinician Start: 09-19-2024 Urnls dip stick/tabl et rgnt non-auto w/o micrscp Kristi Ardon MD Work Phone: Start: 09-10-2024 Us preg uterus after 1st trimest 02/20 gestation Rachelle Varner MD Work Phone: Start: 09-10-2024 Urnls dip stick/tabl et rgnt non-auto w/o micrscp Mehran Renee MD Work Phone: Start: 09-05-2024 Urnls dip stick/tabl et rgnt non-auto w/o micrscp Mehran Renee MD Work Phone: Start: 08-28-2024 Urnls dip stick/tabl et rgnt non-auto w/o micrscp Julia Segal MD Work Phone: Start: 08-20-2024 Urnls dip stick/tabl et rgnt non-auto w/o micrscp Mehran Renee MD Work Phone: Start: 08-05-2024 Us preg uterus after 1st trimest 02/20 gestation Rachelle Varner MD Work Phone: Start: 06-28-2024 Urnls dip stick/tabl et rgnt auto w/o microscopy Aixa Mak APRN.CNM Work Phone: Start: 05-13-2024 Us preg uterus after 1st trimest 02/20 gestation Chaparrita Cope APRN.COMMODITY BUYER Work Phone: Start: 04-01-2024 Antibody screen HOLLAND VANG Comment on above: Order Comment: Speci men Type: BLOOD SPECIMEN Ordering Facility: [facility] Address: [address] [place] [address] Performed By: #### H GBELEV, [id number] #### [facility] CLIA [id number] [address] [place] [address] [place] [address] [place] Start: 04-01-2024 Us preg uterus after 1st trimest 02/20 gestation Chaparrita Cope APRN.COMMODITY BUYER Work Phone: Start: 03-04-2024 Us uterus l imited fetuses Chaparrita Cope APRN.COMMODITY BUYER Work Phone: Start: 08-29-2023 Urnls dip stick/tabl et rgnt auto w/o microscopy Delphine Bradley MD Work Phone: Start: 08-22-2023 Us pelvic nonobstetr ic real-time image complete Miguel Escudero MD Work Phone: Start: 02-10-2023 CT of face Start: 12-28-2022 INFLUENZA VACCINE, A GE 6 MO - 64 YR, QUADRIVALENT (AFLURIA, FLULAVAL, FLUZONE) Soco Sharma APRN.COMMODITY BUYER Work Phone: Start: 05-18-2022 Transvaginal echography Start: 01-03-2019 Adult depression scr eening assessment Ronny Borja ROAD BUILDER.COMMODITY BUYER Work Phone: Plan of Treatment Date Care Activity Detail Author Start: 04-28-2027 HPV TESTING HPV TESTING [facility] Start: 04-28-2027 PAP TESTING PAP TESTING [facility] Start: 04-28-2027 Screening for malign ant neoplasm of cervix [facility] Start: 05-08-2025 Anxiety Screening Anxiety Screening [facility] Start: 05-08-2025 Covid-19 Vaccine ( season) Covid-19 Vaccine () [facility] Comment on above: Postponed from 10/21 (Declined at this time) Start: 10-21-2024 Influenza vaccination Influenza Vacc ine (#1) [facility] Start: 09-19-2024 End: 09-19-2024 Patient encounter procedure OB/Gynecology Comment on above: NST NST/OB - schedule in duction per KJ Start: 09-10-2024 End: 09-10-2024 Patient encounter procedure Maternal Medicine Comment on above: Obesity in (HCC) [O99.210] OB US 10:30 Start: 09-05-2024 End: 09-05-2024 Patient encounter procedure OB/Gynecology Comment on above: NST NST/OB Start: 09-04-2024 End: 09-04-2024 ambulatory 09/04/2024 10:30 AM [facility] Hematology/Oncology [address] [place], [place] [id number] 2ND Hematology/Oncology Comment on above: 2ND Start: 09-02-2024 End: 09-02-2024 ambulatory 09/02/2024 9:00 AM [facility] Hematology/Oncology [address] [place] [address] 2ND Hematology/Oncology Comment on above: 2ND Start: 08-29-2024 End: 08-29-2024 ambulatory 08/29/2024 10:30 AM EDT [facility] Hematology/Oncology [address] [place] [address] [facility] Hematology/Oncology Comment on above: 2ND Start: 08-28-2024 End: 11-27-2024 CBC panel - Blood by Automated count COMPLETE BLOOD COUNT Lab Routine Anemia during in third trimester ([facility]) Expected: 08/28/2024, Expires: 11/27/2024 [facility] Work Phone: Comment on above: Expected: 08/28/2024 , Expires: 11/27/2024 Start: 08-28-2024 End: 08-28-2024 Patient encounter procedure OB/Gynecology Comment on above: NST OB Routine Start: 08-27-2024 End: 08-27-2024 ambulatory 08/27/2024 9:30 AM EDT [facility] Hematology/Oncology [address] [place] [address] 2ND Hematology/Oncology Comment on above: 2ND Start: 08-20-2024 End: 08-20-2024 Patient encounter procedure OB/Gynecology Comment on above: NST OB Routine Start: 08-19-2024 Influenza vaccination Influenza Vacc ine (#1) [facility] Comment on above: Postponed from 10/21 (Declined at this time) Start: 08-14-2024 End: 08-14-2024 Patient encounter procedure OB/Gynecology Comment on above: 31 weeks gestation o f ([facility]) [Z3A.31]; Supervision of high risk in third trimester ([facility]) [O09.93]; Multigravida of advanced maternal age in third trimester ([facility]) [O09.523]; Obesity in ([facility]) [O99.210] OB Routine Start: 08-05-2024 End: 08-05-2024 Patient encounter procedure Maternal Medicine Comment on above: Growth Growth/ OB Start: 07-22-2024 End: 07-22-2024 Patient encounter procedure 07/22/2024 10:30 AM EDT Routine Office Visit OB/Gynecology [address] [place] [address] Rachelle Varner MD [address] [place] [address] OB OB/Gynecology Comment on above: OB Start: 07-08-2024 End: 07-08-2024 Patient encounter procedure 07/08/2024 10:00 AM EDT Routine Office Visit OB/Gynecology [address] [place] [address] Kristi Ardon MD [address] [place] [address] OB Routine OB/Gynecology Comment on above: OB Routine Start: 07-08-2024 End: 07-08-2024 ambulatory 07/08/2024 9:45 AM EDT Results Only [place] [facility] [address] [place] [address] Glucose Test and LABs [facility] Comment on above: Glucose Test and LAB s Start: 06-10-2024 End: 09-09-2024 ANEMIA REFLEX PANEL ANEMIA REFLEX PANEL Lab Routine AMA (advanced maternal age) multigravida 35+, second trimester (HCC) Obesity affecting in second trimester, unspecified obesity type (HCC) Anxiety disorder affecting , antepartum (HCC) Depression affecting (HCC) 23 weeks gestation of (HCC) Expected: 06/10/2024, Expires: 09/09/2024 [facility] Comment on above: Expected: 06/10/2024 , Expires: 09/09/2024 Start: 06-10-2024 End: 06-10-2025 GESTATIONAL GLUCOSE SCREEN, 1-HOUR, 50 GRAM, NON-FASTING GESTATIONAL GLUCOSE SCREEN, 1-HOUR, 50 GRAM, NON-FASTING Lab Routine AMA (advanced maternal age) multigravida 35+, second trimester (HCC) Obesity affecting in second trimester, unspecified obesity type (HCC) Anxiety disorder affecting , antepartum (HCC) Depression affecting (HCC) 23 weeks gestation of (HCC) Screening for diabetes mellitus Expected: 06/10/2024, Expires: 06/10/2025 [facility] Work Phone: Comment on above: Expected: 06/10/2024 , Expires: 06/10/2025 Start: 06-10-2024 End: 06-10-2025 SYPHILIS TREPONEMAL W/REFLEX SYPHILIS TREPONEMAL W/REFLEX Lab Routine AMA (advanced maternal age) multigravida 35+, second trimester (HCC) Obesity affecting in second trimester, unspecified obesity type (HCC) Anxiety disorder affecting , antepartum (HCC) Depression affecting (HCC) 23 weeks gestation of (HCC) Expected: 06/10/2024, Expires: 06/10/2025 [facility] Comment on above: Expected: 06/10/2024 , Expires: 06/10/2025 Start: 06-10-2024 End: 06-10-2024 Patient encounter procedure 06/10/2024 9:45 AM EDT Routine Office Visit OB/Gynecology [address] [place] [address] Selene Basilio APRN.CNM [address] [place] [address] OB OB/Gynecology Comment on above: OB Start: 05-13-2024 End: 05-13-2024 Patient encounter procedure OB/Gynecology Comment on above: growth/OB Anatomy/OB Start: 05-13-2024 End: 05-13-2024 Patient encounter procedure Maternal Medicine Comment on above: growth Anatomy Start: 05-08-2024 End: 08-07-2024 25-hydroxyvitamin D3 [Mass/volume] in Serum or Plasma [facility] Work Phone: Comment on above: Expected: 05/08/2024 , Expires: 08/07/2024 Start: 05-08-2024 End: 05-08-2024 Patient encounter procedure 05/08/2024 10:00 AM EDT Office Visit [facility] [place] [address] [place] [address] Ronny Borja APRN.COMMODITY BUYER [address] [place] [address] Annual and prescription refill [facility] [place] Comment on above: Annual and prescript ion refill Start: 04-01-2024 End: 07-01-2024 Chromosome 21 trisomy [Presence] in Blood or Tissue by Cytogenetics [facility] Work Phone: Comment on above: Expected: 04/01/2024 , Expires: 07/01/2024 Start: 04-01-2024 End: 04-01-2024 Patient encounter procedure 04/01/2024 11:40 AM EST Routine Office Visit OB/Gynecology [address] [place], [place] [id number] Julia Day MD [address] [place], [place] [id number] OB/Gynecology Comment on above: Start: 04-01-2024 End: 04-01-2024 Patient encounter procedure 04/01/2024 10:30 AM EST Routine Office Visit Maternal Medicine [address] [place], [place] [id number] anatomy Maternal Medicine Comment on above: anatomy Start: 03-04-2024 End: 06-03-2024 ANEMIA REFLEX PANEL ANEMIA REFLEX PANEL Lab Routine Encounter for supervision of high risk in first trimester, antepartum 8 weeks gestation of Expected: 03/04/2024, Expires: 06/03/2024 [facility] Work Phone: Comment on above: Expected: 03/04/2024 , Expires: 06/03/2024 Start: 03-04-2024 End: 06-03-2024 Hemoglobin A1c in Blood HEMOGLOBIN A1C Lab Routine Encounter for supervision of high risk in first trimester, antepartum 8 weeks gestation of Expected: 03/04/2024, Expires: 06/03/2024 [facility] Comment on above: Expected: 03/04/2024 , Expires: 06/03/2024 Start: 03-04-2024 End: 06-03-2024 HEMOGLOBIN EVALUATION CASCADE HEMOGLOBIN EVALUATION CASCADE Lab Routine Encounter for supervision of high risk in first trimester, antepartum 8 weeks gestation of Expected: 03/04/2024, Expires: 06/03/2024 [facility] Comment on above: Expected: 03/04/2024 , Expires: 06/03/2024 Start: 03-04-2024 End: 06-03-2024 Hepatitis B virus surface Ag [Presence] in Serum HEPATITIS B SURFACE ANTIGEN Lab Routine Encounter for supervision of high risk in first trimester, antepartum 8 weeks gestation of Expected: 03/04/2024, Expires: 06/03/2024 [facility] Comment on above: Expected: 03/04/2024 , Expires: 06/03/2024 Start: 03-04-2024 End: 06-03-2024 Hepatitis C virus Ab [Presence] in Serum HEPATITIS C ANTIBODY IA WITH CONFIRMATION Lab Routine Encounter for supervision of high risk in first trimester, antepartum 8 weeks gestation of Expected: 03/04/2024, Expires: 06/03/2024 [facility] Comment on above: Expected: 03/04/2024 , Expires: 06/03/2024 Start: 03-04-2024 End: 06-03-2024 HIV 1+2 Ab [Presence] in Serum or Plasma by Immunoassay HIV 1/2 COMBO WITH REFLEX TO DIFFERENTIATION Lab Routine Encounter for supervision of high risk in first trimester, antepartum 8 weeks gestation of Expected: 03/04/2024, Expires: 06/03/2024 [facility] Comment on above: Expected: 03/04/2024 , Expires: 06/03/2024 Start: 03-04-2024 End: 03-04-2025 OBSTETRIC ULTRASOUND WHI OBSTETRIC ULTRASOUND WHI Anc Imaging Routine Encounter for supervision of high risk in first trimester, antepartum 8 weeks gestation of Expected: 03/04/2024, Expires: 03/04/2025 [facility] Comment on above: Expected: 03/04/2024 , Expires: 03/04/2025 Start: 03-04-2024 End: 06-03-2024 RUBELLA IGG ANTIBODY RUBELLA IGG ANTIBODY Lab Routine Encounter for supervision of high risk in first trimester, antepartum 8 weeks gestation of Expected: 03/04/2024, Expires: 06/03/2024 [facility] Comment on above: Expected: 03/04/2024 , Expires: 06/03/2024 Start: 03-04-2024 End: 06-03-2024 SYPHILIS TREPONEMAL W/REFLEX SYPHILIS TREPONEMAL W/REFLEX Lab Routine Encounter for supervision of high risk in first trimester, antepartum 8 weeks gestation of Expected: 03/04/2024, Expires: 06/03/2024 [facility] Comment on above: Expected: 03/04/2024 , Expires: 06/03/2024 Start: 03-04-2024 End: 06-03-2024 TYPE + SCREEN TYPE + SCREEN Blood Bank Routine Encounter for supervision of high risk in first trimester, antepartum 8 weeks gestation of Expected: 03/04/2024, Expires: 06/03/2024 [facility] Comment on above: Expected: 03/04/2024 , Expires: 06/03/2024 Start: 12-29-2023 Covid-19 Vaccine (#1) Covid-19 Vacci ne (#1) [facility] Comment on above: Postponed from 01/30 (Declined at this time) Start: 12-29-2023 Covid-19 Vaccine () Covid-19 Vaccine () [facility] Comment on above: Postponed from 10/21 (Declined at this time) Start: 12-29-2023 Urine microalbumin profile DTaP,Tdap,Td Vaccine (7 - Tdap) [facility] Comment on above: Postponed from 08/02 (Declined at this time) Start: 12-28-2023 End: 12-28-2023 Patient encounter procedure 12/28/2023 10:20 AM EST Office Visit Urology [place] [address] Delphine Bradley MD [address] [place] [address] cysto and medication is not working for incontinence. Urology Comment on above: cysto and medication is not working for incontinence. Start: 12-22-2023 End: 12-22-2023 Patient encounter procedure 12/22/2023 11:20 AM EDT [facility] [place] [address] Delphine Bradley MD [address] [place] [address] cysto and medication is not working for incontinence. Urology Comment on above: cysto and medication is not working for incontinence. Start: 12-08-2023 End: 12-08-2023 Patient encounter procedure 12/08/2023 10:30 AM EDT Immunization [facility] [place] [address] [place], [place] [id number] [place], Immunization Clinic Nurse [address] [place] [address] Flu shot [facility] [place] Comment on above: Flu shot Start: 11-09-2023 HPV TESTING HPV TESTING [facility] Start: 11-09-2023 PAP TESTING PAP TESTING [facility] Start: 10-22-2023 Covid-19 Vaccine () Covid-19 Vaccine () [facility] Start: 10-22-2023 Influenza vaccination Influenza Vacc ine (#1) [facility] Start: 09-13-2023 End: 09-13-2023 Patient encounter procedure 09/13/2023 8:20 AM EDT Office Visit Urology [address] [place] [address] Delphine Bradley MD [address] [place] [address] CYSTO - UDS results Urology Comment on above: CYSTO - UDS results Start: 09-05-2023 End: 09-05-2023 Patient encounter procedure 09/05/2023 2:30 PM EDT Office Visit [facility] Department of Urology [place] MCCL[address] [address] Urodynamics - Per Dr. Bradley [facility] Department of Urology [place] Comment on above: Urodynamics - Per Dr Benito Bradley Start: 08-29-2023 End: 08-29-2023 Patient encounter procedure 08/29/2023 8:00 AM EDT Office Visit Urology [address] [facility] [place] [address] Delphine Bradley MD [address] [place] [address] Mixed incontinence [N39.46] Urology Comment on above: Mixed incontinence [ N39.46] Start: 08-22-2023 End: 08-22-2023 Manual pelvic examination 08/22/2023 11:30 AM EDT Procedure OB/Gynecology [address] [place] [address] Pelvic pain in female [R10.2] OB/Gynecology Comment on above: Pelvic pain in femal e [R10.2] Start: 08-17-2023 End: 08-16-2024 US Pelvis PELVIC US WHI Anc Imaging Routine Pelvic pain in female Expected: 08/17/2023, Expires: 08/16/2024 [facility] Work Phone: Comment on above: Expected: 08/17/2023 , Expires: 08/16/2024 Start: 08-17-2023 End: 08-17-2023 Patient encounter procedure 08/17/2023 1:40 PM EDT Office Visit OB/Gynecology [address] [place] [address] Miguel Escudero MD [address] [place] [address] Annual exam OB/Gynecology Comment on above: Annual exam Start: 03-29-2023 End: 06-28-2023 25-hydroxyvitamin D3 [Mass/volume] in Serum or Plasma VITAMIN D 25 HYDROXY Lab Routine Vitamin D deficiency Expected: 03/29/2023, Expires: 06/28/2023 [facility] Work Phone: Comment on above: Expected: 03/29/2023 , Expires: 06/28/2023 Start: 03-29-2023 End: 06-28-2023 CBC panel - Blood by Automated count CBC Lab Routine Screening for diabetes mellitus Expected: 03/29/2023, Expires: 06/28/2023 [facility] Work Phone: Comment on above: Expected: 03/29/2023 , Expires: 06/28/2023 Start: 03-29-2023 End: 06-28-2023 Comprehensive metabolic 2000 panel - Serum or Plasma COMP METABOLIC PANEL Lab Routine Screening for diabetes mellitus Expected: 03/29/2023, Expires: 06/28/2023 [facility] Work Phone: Comment on above: Expected: 03/29/2023 , Expires: 06/28/2023 Start: 03-29-2023 End: 06-28-2023 Hemoglobin A1c in Blood HGB A1C Lab Routine Screening for diabetes mellitus Expected: 03/29/2023, Expires: 06/28/2023 [facility] Work Phone: Comment on above: Expected: 03/29/2023 , Expires: 06/28/2023 Start: 03-29-2023 End: 06-28-2023 Lipid 1996 panel - Serum or Plasma LIPID PANEL BASIC Lab Routine Screening for lipid disorders Expected: 03/29/2023, Expires: 06/28/2023 [facility] Work Phone: Comment on above: Expected: 03/29/2023 , Expires: 06/28/2023 Start: 02-20-2023 Behavioral Health Screening Behavioral Health Screening [facility] Start: 02-20-2023 Depression Assessment Depression Ass essment [facility] Start: 02-10-2023 [facility] Start: 12-28-2022 End: 03-29-2023 25-hydroxyvitamin D3 [Mass/volume] in Serum or Plasma VITAMIN D 25 HYDROXY Lab Routine Vitamin D deficiency Expected: 12/28/2022, Expires: 03/29/2023 [facility] Work Phone: Comment on above: Expected: 12/28/2022 , Expires: 03/29/2023 Start: 12-28-2022 End: 03-29-2023 CBC W Auto Differential panel - Blood CBC + DIFF Lab Routine Well adult exam Expected: 12/28/2022, Expires: 03/29/2023 [facility] Work Phone: Comment on above: Expected: 12/28/2022 , Expires: 03/29/2023 Start: 12-28-2022 End: 03-29-2023 Comprehensive metabolic 2000 panel - Serum or Plasma COMP METABOLIC PANEL Lab Routine Well adult exam Expected: 12/28/2022, Expires: 03/29/2023 [facility] Work Phone: Comment on above: Expected: 12/28/2022 , Expires: 03/29/2023 Start: 12-28-2022 End: 03-29-2023 Hemoglobin A1c in Blood HGB A1C Lab Routine Screening for diabetes mellitus Expected: 12/28/2022, Expires: 03/29/2023 [facility] Work Phone: Comment on above: Expected: 12/28/2022 , Expires: 03/29/2023 Start: 12-28-2022 End: 03-29-2023 Lipid 1996 panel - Serum or Plasma LIPID PANEL BASIC Lab Routine Screening for lipid disorders Expected: 12/28/2022, Expires: 03/29/2023 [facility] Work Phone: Comment on above: Expected: 12/28/2022 , Expires: 03/29/2023 Start: 10-21-2022 Influenza vaccination C [facility] Start: 07-25-2022 [facility] Start: 07-20-2022 End: 09-19-2022 25-hydroxyvitamin D3 [Mass/volume] in Serum or Plasma VITAMIN D 25 HYDROXY Lab Routine Well adult exam Expected: 07/20/2022, Expires: 09/19/2022 [facility] Work Phone: Comment on above: Expected: 07/20/2022 , Expires: 09/19/2022 Start: 07-20-2022 End: 09-19-2022 CBC panel - Blood by Automated count CBC Lab Routine Well adult exam Expected: 07/20/2022, Expires: 09/19/2022 [facility] Work Phone: Comment on above: Expected: 07/20/2022 , Expires: 09/19/2022 Start: 07-20-2022 End: 09-19-2022 Comprehensive metabolic 2000 panel - Serum or Plasma COMP METABOLIC PANEL Lab Routine Well adult exam Expected: 07/20/2022, Expires: 09/19/2022 [facility] Work Phone: Comment on above: Expected: 07/20/2022 , Expires: 09/19/2022 Start: 07-20-2022 End: 09-19-2022 Hemoglobin A1c in Blood HGB A1C Lab Routine Well adult exam Expected: 07/20/2022, Expires: 09/19/2022 [facility] Work Phone: Comment on above: Expected: 07/20/2022 , Expires: 09/19/2022 Start: 07-20-2022 End: 09-19-2022 Lipid 1996 panel - Serum or Plasma LIPID PANEL BASIC Lab Routine Well adult exam Expected: 07/20/2022, Expires: 09/19/2022 [facility] Work Phone: Comment on above: Expected: 07/20/2022 , Expires: 09/19/2022 Start: 07-14-2022 COVID-19 VACCINE (#1) COVID-19 VACCI NE (#1) [facility] Comment on above: Postponed from 07/31 (Declined at this time) Postponed from 01/30 (Declined at this time) Start: 02-20-2022 DEPRESSION ASSESSMENT DEPRESSION ASS ESSMENT [facility] Start: 10-21-2021 [facility] Start: 01-04-2020 Adult depression screening assessment DEPRESSION SCREENING [facility] Start: 08-03-2015 Urine microalbumin profile [facility] Start: 07-31-2005 Anxiety Screening Anxiety Screening [facility] Start: 07-31-2005 Depression Screening Depression Scre ening [facility] Start: 01-31-1988 COVID-19 VACCINE (#1) COVID-19 VACCI NE (#1) [facility] Bacteria identified in Urine by Culture BACTERIAL CULTURE, URINE Microbiology Routine Encounter for supervision of high risk in first trimester, antepartum 8 weeks gestation of 03/04/2024 10:12 AM [facility] Bacteria identified in Urine by Culture BACTERIAL CULTURE, URINE Microbiology Routine AMA (advanced maternal age) multigravida 35+, second trimester ([facility]) Obesity affecting in second trimester, unspecified obesity type ([facility]) 26 weeks gestation of ([facility]) Pelvic pain in , antepartum ([facility]) 06/28/2024 4:27 PM EDT [facility] Work Phone: Chlamydia trachomati s DNA assay [facility] Chlamydia trachomatis+Neisseria gonorrhoeae DNA [Presence] in Unspecified specimen by CHRISS with probe detection GONORRHEA/CHLAMYDIA NAAT Lab Routine Encounter for gynecological examination (general) (routine) without abnormal findings Screen for STD (sexually transmitted disease) 08/17/2023 2:22 PM EDT [facility] Chlamydia trachomatis+Neisseria gonorrhoeae DNA [Presence] in Unspecified specimen by CHRISS with probe detection GONORRHEA/CHLAMYDIA NAAT Lab Routine Encounter for supervision of high risk in first trimester, antepartum 8 weeks gestation of 03/04/2024 10:12 AM [facility] End: 10-18-2024 nonstress test NON-STRESS TEST Procedures Routine Obesity in ([facility]) Once per week for 10 Occurrences starting 07/22/2024 until 10/18/2024 [facility] Comment on above: Once per week for 10 Occurrences starting 07/22/2024 until 10/18/2024 End: 10-07-2024 nonstress test NON-STRESS TEST Procedures Routine 31 weeks gestation of ([facility]) Supervision of high risk in third trimester ([facility]) Multigravida of advanced maternal age in third trimester ([facility]) Obesity in ([facility]) Once per week for 10 Occurrences starting 08/05/2024 until 10/07/2024 [facility] Work Phone: Comment on above: Once per week for 10 Occurrences starting 08/05/2024 until 10/07/2024 Neisseria gonorrhoea e DNA [Presence] in Cervical mucus by CHRISS with probe detection [facility] End: 10-18-2024 OBSTETRIC ULTRASOUND WHI OBSTETRIC ULTRASOUND WHI Anc Imaging Routine Obesity in ([facility]) Once per month for 3 Occurrences starting 07/22/2024 until 10/18/2024 [facility] Work Phone: Comment on above: Once per month for 3 Occurrences starting 07/22/2024 until 10/18/2024 PAP FLUID CERVICAL SCREENING PAP FLUID CERVICAL SCREENING Lab Routine Encounter for gynecological examination (general) (routine) without abnormal findings Screening for cervical cancer Encounter for screening for human papillomavirus (HPV) 04/27/2022 1:41 PM EST [facility] Work Phone: Patient Education [facility] Work Phone: Patient referral [facility] Work Phone: ROUTINE, GR OUP B STREPTOCOCCUS BY PCR ROUTINE, GROUP B STREPTOCOCCUS BY PCR Microbiology Routine Supervision of high risk in third trimester ([facility]) Multigravida of advanced maternal age in third trimester ([facility]) Anemia during in third trimester ([facility]) Obesity in ([facility]) 36 weeks gestation of ([facility]) 09/05/2024 11:43 AM EDT [facility] Work Phone: TRICHOMONAS VAGINALI S NAAT TRICHOMONAS VAGINALIS NAAT Lab Routine Encounter for gynecological examination (general) (routine) without abnormal findings Screen for STD (sexually transmitted disease) 08/17/2023 2:22 PM EDT [facility] TRICHOMONAS VAGINALI S NAAT TRICHOMONAS VAGINALIS NAAT Lab Routine Encounter for supervision of high risk in first trimester, antepartum 8 weeks gestation of History of pelvic inflammatory disease 03/04/2024 10:12 AM [facility] Immunizations Immunization Date Immunization Notes Care Provider Fa [facility] 05-13-2024 influenza, seasonal, injectable Miguel Escudero MD Work Phone: [facility] 05-13-2024 influenza virus vaccine, unspecified formulation Mehran Renee MD Work Phone: [facility] 12-28-2022 influenza, injectabl e, quadrivalent, contains preservative Soco Sharma APRN.CNP Work Phone: [facility] 12-28-2022 influenza virus vaccine, unspecified formulation Whi [facility] 01-20-2019 Influenza virus vaccine [facility] 11-23-2018 influenza, injectabl e, quadrivalent, contains preservative Ronny Jonh ROAD BUILDER.COMMODITY BUYER Work Phone: [facility] 02-22-2018 influenza, injectabl e, quadrivalent, contains preservative Ronny Jonh ROAD BUILDER.COMMODITY BUYER Work Phone: [facility] 12-26-2016 influenza, seasonal, injectable, preservative free Miguel Escudero MD Work Phone: [facility] 02-26-2009 human papilloma viru s vaccine, quadrivalent Ronny Jonh RO[address] BUILDER.COMMODITY BUYER Work Phone: [facility] 07-25-2006 human papilloma viru s vaccine, quadrivalent Ronny Jonh RO[address] BUILDER.COMMODITY BUYER Work Phone: [facility] 05-22-2006 human papilloma viru s vaccine, quadrivalent Ronny Jonh RO[address] BUILDER.[facility] Work Phone: [facility] 08-02-2005 diphtheria and tetan us toxoids, adsorbed for pediatric use Ronny Jonh RO[address] BUILDER.[facility] Work Phone: [facility] Work Phone: 09-30-2004 hepatitis B vaccine, pediatric or pediatric/adolescent dosage Ronny Jonh RO[address] BUILDER.[facility] Work Phone: [facility] Work Phone: 09-13-2003 hepatitis B vaccine, pediatric or pediatric/adolescent dosage Ronny Jonh RO[address] BUILDER.COMMODITY BU[employer]ER Work Phone: [facility] Work Phone: 08-02-2002 hepatitis B vaccine, pediatric or pediatric/adolescent dosage Ronny Jonh RO[address] BUILDER.COMMODITY BUYER Work Phone: [facility] Work Phone: 10-22-1999 measles, mumps and rubella virus vaccine Ronny Jonh RO[address] BUILDER.COMMODITY BUYER Work Phone: [facility] Work Phone: 08-06-1993 diphtheria, tetanus toxoids and acellular pertussis vaccine Ronny Jonh RO[address] BUILDER.[facility] Work Phone: [facility] Work Phone: 08-06-1993 trivalent poliovirus vaccine, live, oral Ronny John RO[address] BUILDER.[facility] Work Phone: [facility] Work Phone: 01-25-1989 diphtheria, tetanus toxoids and acellular pertussis vaccine Ronny Jonh RO[address] BUILDER.[facility] Work Phone: [facility] Work Phone: 01-25-1989 haemophilus influenz ae type b vaccine, HbOC conjugate Ronny Jonh RO[address] BUILDER.[facility] Work Phone: [facility] Work Phone: 01-25-1989 trivalent poliovirus vaccine, live, oral Ronny Jonh RO[address] BUILDER.[facility] Work Phone: [facility] Work Phone: 01-25-1989 tuberculin skin test ; purified protein derivative solution, intradermal Delphine Bradley MD Work Phone: [facility] 11-08-1988 measles, mumps and rubella virus vaccine Ronny Jonh RO[address] BUILDER.[facility] Work Phone: [facility] Work Phone: 02-25-1988 diphtheria, tetanus toxoids and acellular pertussis vaccine Ronny Jonh RO[address] BUILDER.[facility] Work Phone: [facility] Work Phone: 1987 diphtheria, tetanus toxoids and acellular pertussis vaccine Ronny Jonh RO[address] BUILDER.[facility] Work Phone: [facility] Work Phone: 1987 trivalent poliovirus vaccine, live, oral Ronny Jonh RO[address] BUILDER.[facility] Work Phone: [facility] Work Phone: 1987 diphtheria, tetanus toxoids and acellular pertussis vaccine Ronny Jonh RO[address] BUILDER.COMMODITY BU[employer]ER Work Phone: [facility] Work Phone: 1987 trivalent poliovirus vaccine, live, oral Ronny Borja ROAD BUILDER.COMMODITY BUYER Work Phone: [facility] Work Phone: Payers Date Payer Category Payer Private Health Insurance [id number] 2023 Self-pay 2022 Unknown DELTA SORENSON [facility] [id number] 2022[facility] [phone] [address] [place] [address] Indemnity [id number] 2022 Unknown [id number] 2015 Medicaid [id number] 2015 Unknown [id number] Self-pay SELF PAY INSURANCE [id number] Unknown [id number] Unknown [id number] Unknown [id number] Unknown [id number] Unknown [id number] Social History Date Type Detail Facility Start: 03-22-2016 End: 02-29-2024 Tobacco smoking status NHIS Ex-smoker [facility] Work Phone: Start: 01-20-2006 End: 01-21-2016 History of tobacco use Current smoker [facility] Work Phone: Start: 01-20-2006 End: 01-21-2016 History of tobacco use Cigarette Smoker [facility] Work Phone: Start: 03-22-2016 End: 08-05-2024 Cigarettes smoked current (pack per day) - Reported 0.5 [facility] Start: 03-22-2016 End: 02-29-2024 Tobacco use and exposure Smokeless tobacco non-user [facility] Work Phone: Start: 07-14-2021 End: 08-29-2023 Alcohol intake Current drinker of alcohol (finding) [facility] Start: 06-28-2019 History SDOH Alcohol Frequency 4 [facility] Start: 01-04-2019 End: 03-21-2020 History SDOH Alcohol Std Drinks 2 [facility] Start: 06-28-2019 History SDOH Social Connections Phone 5 [facility] Start: 08-25-2019 End: 03-21-2020 History SDOH Social Connections Spiritism 1 [facility] Start: 01-04-2019 History SDOH Social Connections Living 7 [facility] Start: 01-04-2019 History SDOH Physica l Activity DPW 0 [facility] Start: 01-04-2019 History SDOH Financial 3 [facility] Start: 08-25-2019 Education 12 [facility] Start: 1985 Sex Assigned At Female [facility] Start: 07-03-2021 End: 07-13-2021 Exposure to SARS-CoV-2 (event) Not sure [facility] Work Phone: Start: 05-18-2022 End: 02-10-2023 Tobacco smoking status MOIS Unknown if ever smoked [facility] Start: 07-13-2019 Secondhand;Cigarettes [facility] Start: 08-25-2019 End: 08-05-2024 Social connection and isolation panel [facility] Frequency of Communication with Friends and Family Not on file [facility] How often to you hav e a drink containing alcohol? 2-3 time sa week [facility] How many standard drinks containing alcohol do you have on a typical day? 3 or 4 [facility] How often do you hav e 6 or more drinks on 1 occasion? Less than monthly [facility] How hard is it for y ou to pay for the very basics like food, housing, medical care, and heating Somewhat hard [facility] Do you feel stress - tense, restless, nervous, or anxious, or unable to sleep at night because your mind is troubled all the time - these days [OSQ] Only a little [facility] (I/We) worried sangita er (my/our) food would run out before (I/we) got money to buy more. Never true [facility] In the past 12 month s, was there a time when you were not able to pay the mortgage or rent on time? No [facility] Start: 07-26-2018 Gender identity Identifies as female gender (finding) [facility] Start: 07-26-2018 Sexual orientation Heterosexual (nadya fuentes) [facility] Start: 03-04-2024 End: 09-19-2024 Alcoholic beverage intake Ex-drinker (finding) [facility] The thought of basil earnest myself has occurred to me Never [facility] Start: 02-29-2024 Education 13 [facility] Start: 01-09-2024 [facility] NEGATED: Highlighted row [facility] Goals Date Patient Goal Desired Activity /State Personal health goal Functional Status Date Assessment Result Facility 03-11-2014 Are you deaf, or do you have serious difficulty hearing No 03/11/2014 2:22 PM Nick Ramirez LPN No [facility] 03-11-2014 Are you blind, or do you have serious difficulty seeing, even when wearing glasses No 03/11/2014 2:22 PM Nick Ramirez LPN No [facility] 03-11-2014 Do you have serious difficulty walking or climbing stairs No 03/11/2014 2:22 PM Nick Ramirez LPN No [facility] 03-11-2014 Do you have difficul ty dressing or bathing No 03/11/2014 2:22 PM Nick Ramirez LPN No [facility] 03-11-2014 Because of a physica l, mental, or emotional condition, do you have difficulty doing errands alone such as visiting a physician's office or shopping No 03/11/2014 2:22 PM Nick Ramirez LPN No [facility] Mental Status Date Assessment Result Facility 03-11-2014 Because of a physica l, mental, or emotional condition, do you have serious difficulty concentrating, remembering, or making decisions No 03/11/2014 2:22 PM Nick Ramirez LPN No [facility] Clinical Notes 10-01-2020 to 09-19-2024 Quick Notes - Kristi Ardon MD - 09/19/2024 10:59 AM EDTPrenatal Quick Notes - Kristi Ardon MD - 09/19/2024 10:59 AM EDTWiKristi sales MD - 09/19/2024 10:34 AM EDTPatient Instructions Note Date & Type Note Facility 09-19-2024 Progress note Formatting of t his note might be different from the original. SW- Pt doing well. No TORRES, vision changes, ctx, vb, lof. Good FM. No urinary symptoms. Did not have water prior to appointment PE: Gen- NAD, well appearing Abd- Soft, gravid, NT See flowsheet A/p 38 wk gestation - GBS negative - Obesity: NST reactive. Discussed r/b/a IOL and consent signed. Patient desires ~39 week IOL - H/o herpes: No symptoms of outbreak or outbreak in . Cont daily suppression - RTO Kristi Ardon DO [facility] 09-19-2024 Miscellaneous Notes SW- Pt doing well. No TORRES, vision changes, ctx, vb, lof. Good FM. No urinary symptoms. Did not have water prior to appointment PE: Gen- NAD, well appearing Abd- Soft, gravid, NT See flowsheet A/p 38 wk gestation - GBS negative - Obesity: NST reactive. Discussed r/b/a IOL and consent signed. Patient desires ~39 week IOL - H/o herpes: No symptoms of outbreak or outbreak in . Cont daily suppression - RTO Kristi Ardon DO documented in this encounter [facility] 09-19-2024 Note HNO ID: [id number] Author: KRISTI ARDON MD Service: ? Author Type: Physician Type: Progress Notes Filed: 09/19/2024 11:10 Note Text: NST SUMMARY PROVIDER ASSESSMENT AND INTERPRETATION Emre Quinn is a 39 year old female, , who is at 38w2d with an ELENITA of 10/01/2024, by Ultrasound dating method. Indications for NST: Obesity Baseline: 130 Variability: Moderate Accelerations: Present 15 X 15 Decelerations: None Contractions: TOCO: Irregular Interpretation: Reactive SIGNATURE: Kristi Ardon DO [facility] 09-19-2024 History of Present illness Narrative NST SUMMARY PROVIDER ASSESSMENT AND INTERPRETATION Emre Quinn is a 39 year old female, , who is at 38w2d with an ELENITA of 10/01/2024, by Ultrasound dating method. Indications for NST: Obesity Baseline: 130 Variability: Moderate Accelerations: Present 15 X 15 Decelerations: None Contractions: TOCO: Irregular Interpretation: Reactive SIGNATURE: Kristi Ardon DO documented in this encounter [facility] 09-19-2024 Instructions Misty Cervantes MA - 09/19/2024 10:03 AM EDT SEQUENTIAL SCREENINGS The [facility] offers sequential screenings for women who are interested in screenings for chromosomal abnormalities and certain defects during a . The sequential screen combines ultrasound and blood tests to determine the risk of chromosomal abnormalities, including Down's Syndrome (Trisomy 21) and Trisomy 18, as well as open neural tube defects including spina bifida. Ultrasound examination is performed between 11 weeks and 13 weeks gestational age. Blood tests are drawn after the ultrasound and again later in the between 15 and 21 weeks gestational age. Please let your physician know if you are interested in this testing. It will require an appointment with our chief technician x ray. This is not an ultrasound performed by a physician in our office during a routine visit. SIGNS AND SYMPTOMS OF LABOR 1. Contractions every 10 minutes or more often 2. Clear, pink, or brownish fluid (water) leaking from vagina 3. Feeling that baby is pushing down, pressure 4. Low, dull backache 5. Cramps that feel like a period 6. Cramps with or without diarrhea If you notice any of the above symptoms, contact our office at [phone] and ask to speak with a nurse. After hours, you can call doctors registry at [phone] OR call [facility] at [phone] and ask to have the doctor addiction specialist paged. If you consider this an emergency, dial 10-21-5 or go to your nearest emergency department. NEED HELP? Are you dealing with a violent or abusive relationship? Are you a victim of rape or sexual assult? Call [facility] ([place]) 24 hour Crisis Hotline: 158.235.4984 or 698-782-9306. MANUAL Your Guide to a Healthy manual is now on-line. Visit [email or web address] to download your free copy documented in this encounter [facility] 09-18-2024 Note HNO ID: [id number] Author: HEATHER BIRD, ? Service: ? Author Type: Patient Clean Room Technician Type: Progress Notes Filed: 09/18/2024 09:53 Note Text: POPULATION HEALTH NAVIGATION OUTREACH Action/FYI 3rd attempt unable to leave message to add process owner to ob provider field Reason for Outreach Medicaid OB/Peds Care Gaps due: to PCP Visit Patient Contacted: Unable or unnecessary to reach patient: Unable to reach patient Unable to leave message Navigation Signature: Heather Bird Population Health Navigator September 18, 2024 9:52 AM [facility] 09-17-2024 Note HNO ID: [id number] Author: HEATHER BIRD, ? Service: ? Author Type: Patient Clean Room Technician Type: Progress Notes Filed: 09/17/2024 08:16 Note Text: POPULATION HEALTH NAVIGATION OUTREACH Action/FYI Left message to add process owner to OB provider field, verify/est pcp My chart sent Reason for Outreach Medicaid OB/Peds Care Gaps due: to PCP Visit Patient Contacted: Unable or unnecessary to reach patient: Unable to reach patient Left message Bluetectorhart message sent Navigation Signature: Heather Bird Population Health Navigator September 17, 2024 8:15 AM [facility] 09-17-2024 History of Present illness Narrative POPULATION HEALTH NAVIGATION OUTREACH Action/FYI Left message to add process owner to OB provider field, verify/est pcp My chart sent Reason for Outreach Medicaid OB/Peds Care Gaps due: to PCP Visit Patient Contacted: Unable or unnecessary to reach patient: Unable to reach patient Left message Cellabust message sent Navigation Signature: Jacquie Frank [facility] September 17, 2024 8:15 AM documented in this encounter [facility] 09-17-2024 Note Patient Outreach (NE TNAV) EMRE QUINN ([id number]) 1985 F Date Time Provider Department 09/17/24 HEATHER BIRDV During your visit today, we recorded the following information about you: Heather Bird 09/17/2024 8:16 AM Signed POPULATION HEALTH NAVIGATION OUTREACH Action/FYI Left message to add process owner to OB provider field, verify/est pcp My chart sent Reason for Outreach Medicaid OB/Peds Care Gaps due: to PCP Visit Patient Contacted: Unable or unnecessary to reach patient: Unable to reach patient Left message MyChart message sent Navigation Signature: Heather Bird Population Health Navigaye September 17, 2024 8:15 AM Heather Bird 09/18/2024 9:53 AM Signed POPULATION HEALTH NAVIGATION OUTREACH Action/FYI 3rd attempt unable to leave message to add process owner to ob provider field Reason for Outreach Medicaid OB/Peds Care Gaps due: to PCP Visit Patient Contacted: Unable or unnecessary to reach patient: Unable to reach patient Unable to leave message Navigation Signature: Heather Bird, Population Health Navigator September 18, 2024 9:52 AM Allergies As of Date: 09/17/2024 (No Known Allergies) Date Reviewed: 09/10/2024 Reviewed by: Mehran Renee MD - Fully Assessed Reason for Visit: Population Health Navigation Outreach [3910] Cmt: to PCP/OB Prescriptions as of 09/18/2024 - ferrous sulfate 325 mg (65 mg iron) tablet TAKE 1 TABLET BY MOUTH EVERY OTHER DAY - valACYclovir (VALTREX) 1 gram tablet Take 1 tablet by mouth once daily. - omeprazole (PRILOSEC) 20 mg capsule Take 1 capsule by mouth daily before breakfast. 1/2 hr before meal. - Cholecalciferol, Vitamin D3, 50 mcg (2,000 unit) cap Take 1 capsule by mouth once daily. - escitalopram oxalate (LEXAPRO) 10 mg tablet Take 1 tablet by mouth once daily. - aspirin, enteric coated (ECOTRIN LOW STRENGTH) 81 mg EC tablet Take 1 tablet by mouth once daily. - famotidine (PEPCID) 20 mg tablet Take 1 tablet by mouth two times a day. - PNV no.153/FA/om3/dha/epa/fish ( GUMMIES ORAL) Take 2 Pieces by mouth once daily. 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] 10/01/2020 05/13/2024 Mixed incontinence [N39.46] 08/29/2023 03/04/2024 Advanced maternal age in multigravida, second t*03/04/2024 History of herpes genitalis [Z86.19] 03/04/2024 History of pelvic inflammatory disease [Z87.42] 03/04/2024 05/13/2024 Obesity affecting in second trimester*03/04/2024 Anxiety disorder affecting , antepartu*03/04/2024 Depression affecting [O99.340, F32.A] 03/04/2024 History of miscarriage [Z87.59] 03/04/2024 05/13/2024 History of smoking [Z87.891] 03/04/2024 Heartburn during in first trimester [*03/04/2024 Nausea and vomiting during [O21.9] 03/04/2024 History of headache [Z87.898] 03/04/2024 History of depression [Z87.59, Z86.5*03/04/2024 History of alcohol abuse [F10.11] 03/04/2024 Supervision of high risk in second tr*07/08/2024 Maternal iron deficiency anemia complicating pr*07/16/2024 Request for sterilization [Z30.2] 09/10/2024 Encounter Status:Closed by HEATHER BIRD on 09/17/24 [facility] 09-10-2024 Progress note Formatting of t his note might be different from the original. KJ - S: Emre denies LOF, contractions or vaginal bleeding. O: 37w0d, see flow sheet SENSITIVE EXAM: Sensitive exam not performed. A/P: Assessment & Plan LGA (large for gestational age) infant ([facility]) EFW & AC both >99% Multigravida of advanced maternal age in third trimester (HCC) Anemia during in third trimester (HCC) S/p IV iron Obesity in ([facility]) Plan for 39wk IOL 37 weeks gestation of ([facility]) Orders: URINE OB DIP B/O Request for sterilization Titlle 19 papers signed today Discussed that would need to be done after delivery and may be referred to [facility]. History of herpes genitalis Continue valtrex suppression Reviewed labor & FM precautions Mehran Renee MD [facility] 09-10-2024 Miscellaneous Notes KJ - S: Emre denies LOF, contractions or vaginal bleeding. O: 37w0d, see flow sheet SENSITIVE EXAM: Sensitive exam not performed. A/P: Assessment & Plan LGA (large for gestational age) infant ([facility]) EFW & AC both >99% Multigravida of advanced maternal age in third trimester ([facility]) Anemia during in third trimester ([facility]) S/p IV iron Obesity in ([facility]) Plan for 39wk IOL 37 weeks gestation of ([facility]) Orders: URINE OB DIP B/O Request for sterilization Breann 19 papers signed today Discussed that would need to be done after delivery and may be referred to [facility]. History of herpes genitalis Continue valtrex suppression Reviewed labor & FM precautions Mehran Renee MD documented in this encounter [facility] 09-10-2024 Note Indication Evaluation of growth, Evaluation of well-being Advanced maternal age, Maternal obesity, BMI >40 Impression - Single, live, intrauterine . - presentation is cephalic. - The biometry is ahead of the assigned gestational dating. - The EFW is 3937 g, at the 99%. AC is at the >99%. - Amniotic fluid volume is normal amount with an MVP of 6.7 cm and WENDY of 19.7 cm. - The placenta is posterior, fundal. - No malformations visualized on a limited survey as detailed below. Recommendations Additional follow-up as clinically indicated. Maternal Assessment Height 170 cm Height (ft) 5 ft Height (in) 7 in Physical Exam Initial weight (lb) 281 lb Initial BMI 44.01 kg/m Maternal assessment other: 4 Para 1 Method Transabdominal ultrasound examination Ray . Number of fetuses: 1 Dating LMP on: 01/04/2024 Cycle: LMP date uncertain GA by LMP 35 w + 5 d ELENITA by LMP: 10/10/2024 GA by prior assessment 37 w + 0 d ELENITA by prior assessment: 10/01/2024 Ultrasound examination on: 09/10/2024 GA by U/S based upon: BPD, Femur, HC GA by U/S 37 w + 1 d ELENITA by U/S: 09/30/2024 Assigned: based on stated ELENITA, selected on 09/10/2024 Assigned GA 37 w + 0 d Assigned ELENITA: 10/01/2024 General Evaluation Cardiac activity present. FHR 146 bpm. movements: present. Presentation: cephalic Placenta: Placental site: posterior, fundal Umbilical cord: Cord vessels: 3 vessel cord Amniotic fluid: Amount of AF: normal amount. MVP 6.7 cm. WENDY 19.7 cm. Q1 5.9 cm, Q2 6.7 cm, Q3 3.6 cm, Q4 3.6 cm Biophysical Profile 2: breathing movements 2: Gross body movements 2: tone 2: Amniotic fluid volume 09/27 Biophysical profile score Growth Overview Exam date GA BPD (mm) HC (mm) AC (mm) FL (mm) HL (mm) EFW (g) 05/13/2024 19w 6d 46.5 59% 165.9 31% 150.2 58% 31.5 62% 31.6 78% 320 47% 08/05/2024 31w 6d 82.5 79% 299 58% 307 98% 61.9 69% 2234 89% 09/10/2024 37w 0d 94.7 94% 335.5 64% 386.2 >99% 68.1 27% 3937 99% Biometry Standard BPD 94.7 mm 38w 4d 94% Hadlock OFD 115.6 mm 36w 4d 53% Nicolaides HC 335.5 mm 38w 1d 64% Gabriel AC 386.2 mm -/- >99% Hadlock Femur 68.1 mm 34w 4d 27% Gabriel EFW 3,937 g -/- 99% Hadlock EFW (lb) 8 lb EFW (oz) 11 oz EFW by: Hadlock (HC-AC-FL) Extended Nude Model 4.8 mm Extremities / Bony Struc FL / HC 0.20 Other Structures FHR 146 bpm Anatomy Lateral ventricles: normal Cavum septi pellucidi: normal Cerebellum: normal Cisterna magna: normal 4-chamber view: suboptimally visualized RVOT view: suboptimally visualized LVOT view: suboptimally visualized 3-vessel view: suboptimally visualized Heart / Thorax Situs: situs solitus (normal) Diaphragm: normal Stomach: normal Kidneys: normal Bladder: normal sex: male Wants to know sex: yes Performed By: Annmarie Malin RDMS, RVT Read By: Lakisha Santiago M.D. [facility] 09-10-2024 Instructions Andrew Travis RN - 09/10/2024 10:46 AM EDT SEQUENTIAL SCREENINGS The [facility] offers sequential screenings for women who are interested in screenings for chromosomal abnormalities and certain defects during a . The sequential screen combines ultrasound and blood tests to determine the risk of chromosomal abnormalities, including Down's Syndrome (Trisomy 21) and Trisomy 18, as well as open neural tube defects including spina bifida. Ultrasound examination is performed between 11 weeks and 13 weeks gestational age. Blood tests are drawn after the ultrasound and again later in the between 15 and 21 weeks gestational age. Please let your physician know if you are interested in this testing. It will require an appointment with our chief technician x ray. This is not an ultrasound performed by a physician in our office during a routine visit. SIGNS AND SYMPTOMS OF LABOR 1. Contractions every 10 minutes or more often 2. Clear, pink, or brownish fluid (water) leaking from vagina 3. Feeling that baby is pushing down, pressure 4. Low, dull backache 5. Cramps that feel like a period 6. Cramps with or without diarrhea If you notice any of the above symptoms, contact our office at [phone] and ask to speak with a nurse. After hours, you can call doctors registry at [phone] OR call [facility] at [phone] and ask to have the doctor addiction specialist paged. If you consider this an emergency, dial 10-21- or go to your nearest emergency department. NEED HELP? Are you dealing with a violent or abusive relationship? Are you a victim of rape or sexual assult? Call [facility] ([place]) 24 hour Crisis Hotline: 180.757.9151 or 073-793-4246. MANUAL Your Guide to a Healthy manual is now on-line. Visit [email or web address] to download your free copy documented in this encounter [facility] 09-05-2024 Progress note Formatting of t his note might be different from the original. KJ - S: Emre denies LOF, contractions or vaginal bleeding. O: 36w2d, see flow sheet SENSITIVE EXAM: The sensitive examination was discussed with the Patient or Patient's Authorized Animal Handler. As applicable, any other physician, advance practice provider, medical student, or other health professional student that will be observing or involved in the sensitive examination for educational or training purposes was discussed with the Patient or Authorized Animal Handler. The Patient or Authorized Animal Handler has agreed to proceed with the sensitive examination. (Sensitive examination includes inspection and/or palpation of the breasts, pelvis, prostate and anorectal regions). A/P: Assessment & Plan Supervision of high risk in third trimester ([facility]) Orders: URINE OB DIP B/O ROUTINE, GROUP B STREPTOCOCCUS BY PCR Multigravida of advanced maternal age in third trimester ([facility]) Orders: URINE OB DIP B/O ROUTINE, GROUP B STREPTOCOCCUS BY PCR Anemia during in third trimester ([facility]) S/p IV iron Orders: URINE OB DIP B/O ROUTINE, GROUP B STREPTOCOCCUS BY PCR Obesity in ([facility]) NST today Growth US next week Orders: URINE OB DIP B/O ROUTINE, GROUP B STREPTOCOCCUS BY PCR 36 weeks gestation of ([facility]) Orders: URINE OB DIP B/O ROUTINE, GROUP B STREPTOCOCCUS BY PCR Reviewed labor & FM precautions Mehran Renee MD [facility] Work Phone: 09-05-2024 Miscellaneous Notes KJ - S: Emre denies LOF, contractions or vaginal bleeding. O: 36w2d, see flow sheet SENSITIVE EXAM: The sensitive examination was discussed with the Patient or Patient's Authorized Animal Handler. As applicable, any other physician, advance practice provider, medical student, or other health professional student that will be observing or involved in the sensitive examination for educational or training purposes was discussed with the Patient or Authorized Animal Handler. The Patient or Authorized Animal Handler has agreed to proceed with the sensitive examination. (Sensitive examination includes inspection and/or palpation of the breasts, pelvis, prostate and anorectal regions). A/P: Assessment & Plan Supervision of high risk in third trimester (HCC) Orders: URINE OB DIP B/O ROUTINE, GROUP B STREPTOCOCCUS BY PCR Multigravida of advanced maternal age in third trimester (HCC) Orders: URINE OB DIP B/O ROUTINE, GROUP B STREPTOCOCCUS BY PCR Anemia during in third trimester ([facility]) S/p IV iron Orders: URINE OB DIP B/O ROUTINE, GROUP B STREPTOCOCCUS BY PCR Obesity in ([facility]) NST today Growth US next week Orders: URINE OB DIP B/O ROUTINE, GROUP B STREPTOCOCCUS BY PCR 36 weeks gestation of ([facility]) Orders: URINE OB DIP B/O ROUTINE, GROUP B STREPTOCOCCUS BY PCR Reviewed labor & FM precautions Mehran Renee MD documented in this encounter [facility] 09-05-2024 Instructions Ev Brown MA - 09/05/2024 10:58 AM EDT SEQUENTIAL SCREENINGS The [facility] offers sequential screenings for women who are interested in screenings for chromosomal abnormalities and certain defects during a . The sequential screen combines ultrasound and blood tests to determine the risk of chromosomal abnormalities, including Down's Syndrome (Trisomy 21) and Trisomy 18, as well as open neural tube defects including spina bifida. Ultrasound examination is performed between 11 weeks and 13 weeks gestational age. Blood tests are drawn after the ultrasound and again later in the between 15 and 21 weeks gestational age. Please let your physician know if you are interested in this testing. It will require an appointment with our chief technician x ray. This is not an ultrasound performed by a physician in our office during a routine visit. SIGNS AND SYMPTOMS OF LABOR 1. Contractions every 10 minutes or more often 2. Clear, pink, or brownish fluid (water) leaking from vagina 3. Feeling that baby is pushing down, pressure 4. Low, dull backache 5. Cramps that feel like a period 6. Cramps with or without diarrhea If you notice any of the above symptoms, contact our office at [phone] and ask to speak with a nurse. After hours, you can call doctors registry at [phone] OR call [facility] at [phone] and ask to have the doctor addiction specialist paged. If you consider this an emergency, dial 9-3 or go to your nearest emergency department. NEED HELP? Are you dealing with a violent or abusive relationship? Are you a victim of rape or sexual assult? Call [facility] ([place]) 24 hour Crisis Hotline: 270.250.8875 or 435-636-5699. MANUAL Your Guide to a Healthy manual is now on-line. Visit [email or web address] [email or web address] to download your free copy documented in this encounter [facility] 09-02-2024 Telephone encounter Note Pharmacy requesting 90 day supply. 35w6d Requested Prescriptions Pending Prescriptions Disp Refills ferrous sulfate 325 mg (65 mg iron) tablet [Pharmacy Med Name: FERROUS SULFATE 325 MG TABLET] 45 tablet 2 Sig: TAKE 1 TABLET BY MOUTH EVERY OTHER DAY Stefany Pierce RN [facility] 09-02-2024 Miscellaneous Notes Pharmacy requesting 90 day supply. 35w6d Requested Prescriptions Pending Prescriptions Disp Refills ferrous sulfate 325 mg (65 mg iron) tablet [Pharmacy Med Name: FERROUS SULFATE 325 MG TABLET] 45 tablet 2 Sig: TAKE 1 TABLET BY MOUTH EVERY OTHER DAY Stefany Pierce RN documented in this encounter [facility] 08-28-2024 Note HNO ID: [id number] Author: JULIA DAY MD Service: ? Author Type: Physician Type: Progress Notes Filed: 08/28/2024 10:44 Note Text: NST SUMMARY PROVIDER ASSESSMENT AND INTERPRETATION Emre Quinn is a 39 year old female, , who is at 35w1d with an ELENITA of 10/01/2024, by Ultrasound dating method. Indications for NST: AMA and Obesity Baseline: 150 Variability: Moderate Accelerations: Present 15 X 15 Decelerations: None Contractions: TOCO: occasional Interpretation: Category I and Reactive SIGNATURE: Julia Cadena MD [facility] 08-28-2024 History of Present illness Narrative NST SUMMARY PROVIDER ASSESSMENT AND INTERPRETATION Emre Quinn is a 39 year old female, , who is at 35w1d with an ELENITA of 10/01/2024, by Ultrasound dating method. Indications for NST: AMA and Obesity Baseline: 150 Variability: Moderate Accelerations: Present 15 X 15 Decelerations: None Contractions: TOCO: occasional Interpretation: Category I and Reactive SIGNATURE: Julia Cadena MD documented in this encounter [facility] 08-28-2024 Progress note Formatting of t his note might be different from the original. DM-Pt doing well. Denies vaginal Bleeding, Leaking fluid, or regular Contractions. Pt reports good movement. Taking valtrex daily- no outbreaks since taking it per patient Physical Exam: Gen: female in no apparent distress Abd: soft, Gravid. Non tender to palpation. See flow sheet @ 35.1 weeks Assessment & Plan Supervision of high risk in third trimester ([facility]) Orders: URINE OB DIP B/O Multigravida of advanced maternal age in third trimester ([facility]) Orders: URINE OB DIP B/O Anemia during in third trimester ([facility]) IV IRON Repeat cab Orders: COMPLETE BLOOD COUNT; Future Obesity in ([facility]) Discussed Delivery at 39 weeks or sooner if indicated. Weekly NSTs Growth us scheduled Orders: URINE OB DIP B/O 35 weeks gestation of ([facility]) Kick counts and labor reviewed RTO weekly Orders: URINE OB DIP B/O Julia Cadena MD [facility] 08-28-2024 Miscellaneous Notes DM-Pt doing well. Denies vaginal Bleeding, Leaking fluid, or regular Contractions. Pt reports good movement. Taking valtrex daily- no outbreaks since taking it per patient Physical Exam: Gen: female in no apparent distress Abd: soft, Gravid. Non tender to palpation. See flow sheet @ 35.1 weeks Assessment & Plan Supervision of high risk in third trimester ([facility]) Orders: URINE OB DIP B/O Multigravida of advanced maternal age in third trimester ([facility]) Orders: URINE OB DIP B/O Anemia during in third trimester ([facility]) IV IRON Repeat cab Orders: COMPLETE BLOOD COUNT; Future Obesity in ([facility]) Discussed Delivery at 39 weeks or sooner if indicated. Weekly NSTs Growth us scheduled Orders: URINE OB DIP B/O 35 weeks gestation of ([facility]) Kick counts and labor reviewed RTO weekly Orders: URINE OB DIP B/O Julia Cadena MD documented in this encounter [facility] 08-28-2024 Instructions Misty Cervantes MA - 08/28/2024 10:07 AM EDT SEQUENTIAL SCREENINGS The [facility] offers sequential screenings for women who are interested in screenings for chromosomal abnormalities and certain defects during a . The sequential screen combines ultrasound and blood tests to determine the risk of chromosomal abnormalities, including Down's Syndrome (Trisomy 21) and Trisomy 18, as well as open neural tube defects including spina bifida. Ultrasound examination is performed between 11 weeks and 13 weeks gestational age. Blood tests are drawn after the ultrasound and again later in the between 15 and 21 weeks gestational age. Please let your physician know if you are interested in this testing. It will require an appointment with our chief technician x ray. This is not an ultrasound performed by a physician in our office during a routine visit. SIGNS AND SYMPTOMS OF LABOR 1. Contractions every 10 minutes or more often 2. Clear, pink, or brownish fluid (water) leaking from vagina 3. Feeling that baby is pushing down, pressure 4. Low, dull backache 5. Cramps that feel like a period 6. Cramps with or without diarrhea If you notice any of the above symptoms, contact our office at [phone] and ask to speak with a nurse. After hours, you can call doctors registry at [phone] OR call [facility] at [phone] and ask to have the doctor addiction specialist paged. If you consider this an emergency, dial 9-1-7 or go to your nearest emergency department. NEED HELP? Are you dealing with a violent or abusive relationship? Are you a victim of rape or sexual assult? Call [facility] ([place]) 24 hour Crisis Hotline: 918.616.2396 or 990-967-8900. MANUAL Your Guide to a Healthy manual is now on-line. Visit [email or web address] [email or web address] to download your free copy documented in this encounter [facility] 08-20-2024 Progress note Formatting of t his note might be different from the original. N/a [facility] 08-20-2024 Miscellaneous Notes N/a documented in this encounter [facility] 08-20-2024 Note HNO ID: [id number] Author: MEHRAN RENEE MD Service: ? Author Type: Physician Type: Progress Notes Filed: 08/20/2024 10:54 Note Text: NST SUMMARY PROVIDER ASSESSMENT AND INTERPRETATION Emre Quinn is a 39 year old female, , who is at 34w0d with an ELENITA of 10/01/2024, by Ultrasound dating method. Indications for NST: Obesity Baseline: 140 Variability: Moderate Accelerations: Present 15 X 15 Decelerations: Variable Contractions: TOCO: None Interpretation: Reactive SIGNATURE: Mehran Renee MD [facility] 08-20-2024 History of Present illness Narrative NST SUMMARY PROVIDER ASSESSMENT AND INTERPRETATION Emre Quinn is a 39 year old female, , who is at 34w0d with an ELENITA of 10/01/2024, by Ultrasound dating method. Indications for NST: Obesity Baseline: 140 Variability: Moderate Accelerations: Present 15 X 15 Decelerations: Variable Contractions: TOCO: None Interpretation: Reactive SIGNATURE: Mehran Renee MD documented in this encounter [facility] 08-20-2024 Instructions Roxie Flores MA - 08/20/2024 10:03 AM EDT SEQUENTIAL SCREENINGS The [facility] offers sequential screenings for women who are interested in screenings for chromosomal abnormalities and certain defects during a . The sequential screen combines ultrasound and blood tests to determine the risk of chromosomal abnormalities, including Down's Syndrome (Trisomy 21) and Trisomy 18, as well as open neural tube defects including spina bifida. Ultrasound examination is performed between 11 weeks and 13 weeks gestational age. Blood tests are drawn after the ultrasound and again later in the between 15 and 21 weeks gestational age. Please let your physician know if you are interested in this testing. It will require an appointment with our chief technician x ray. This is not an ultrasound performed by a physician in our office during a routine visit. SIGNS AND SYMPTOMS OF LABOR 1. Contractions every 10 minutes or more often 2. Clear, pink, or brownish fluid (water) leaking from vagina 3. Feeling that baby is pushing down, pressure 4. Low, dull backache 5. Cramps that feel like a period 6. Cramps with or without diarrhea If you notice any of the above symptoms, contact our office at [phone] and ask to speak with a nurse. After hours, you can call doctors registry at [phone] OR call [facility] at [phone] and ask to have the doctor addiction specialist paged. If you consider this an emergency, dial or go to your nearest emergency department. NEED HELP? Are you dealing with a violent or abusive relationship? Are you a victim of rape or sexual assult? Call [facility] ([facility] 24 hour Crisis Hotline: 175.492.1445 or 140-354-3870. MANUAL Your Guide to a Healthy manual is now on-line. Visit [email or web address] to download your free copy documented in this encounter [facility] 08-14-2024 Note HNO ID: [id number] Author: RACHELLE VARNER MD Service: ? Author Type: Physician Type: Progress Notes Filed: 08/14/2024 14:47 Note Text: NST SUMMARY PROVIDER ASSESSMENT AND INTERPRETATION Indications for NST: AMA and Obesity Baseline: 125 Variability: Moderate Accelerations: Present 15 X 15 Decelerations: None Interpretation: Reactive SIGNATURE: Rachelle Varner MD [facility] 08-14-2024 History of Present illness Narrative NST SUMMARY PROVIDER ASSESSMENT AND INTERPRETATION Indications for NST: AMA and Obesity Baseline: 125 Variability: Moderate Accelerations: Present 15 X 15 Decelerations: None Interpretation: Reactive SIGNATURE: Rachelle Varner MD documented in this encounter [facility] 08-14-2024 Progress note Formatting of t his note might be different from the original. S: Emre Quinn is a 39 year old female who presents at 10/01/2024, by Ultrasound for a routine visit. Denies headache, visual changes, chest pain, shortness of breath, vaginal bleeding, leakage of fluid, or dysuria. Feeling well, no complaints. Good movement, No contractions O: See flow sheet Gen: No apparent distress Abd: Gravid, nontender Reactive NST ASSESSMENT/PLAN: 1. Supervision of high risk in third trimester ([facility]) - ICD9: V23.9, ICD10: O09.93 (primary diagnosis) 2. Multigravida of advanced maternal age in third trimester ([facility]) - ICD9: 659.63, ICD10: O09.523 3. Obesity in ([facility]) - ICD9: 649.10, ICD10: O99.210 Growth q 4 Nsts q weeks 4. 33 weeks gestation of ([facility]) - ICD9: V22.2, ICD10: Z3A.33 Rachelle Varner MD [facility] 08-14-2024 Miscellaneous Notes S: Emre Quinn is a 39 year old female who presents at 10/01/2024, by Ultrasound for a routine visit. Denies headache, visual changes, chest pain, shortness of breath, vaginal bleeding, leakage of fluid, or dysuria. Feeling well, no complaints. Good movement, No contractions O: See flow sheet Gen: No apparent distress Abd: Gravid, nontender Reactive NST ASSESSMENT/PLAN: 1. Supervision of high risk in third trimester ([facility]) - ICD9: V23.9, ICD10: O09.93 (primary diagnosis) 2. Multigravida of advanced maternal age in third trimester ([facility]) - ICD9: 659.63, ICD10: O09.523 3. Obesity in ([facility]) - ICD9: 649.10, ICD10: O99.210 Growth q 4 Nsts q weeks 4. 33 weeks gestation of ([facility]) - ICD9: V22.2, ICD10: Z3A.33 Rachelle Varner MD documented in this encounter [facility] 08-14-2024 Instructions Roxie Flores MA - 08/14/2024 1:38 PM EDT SEQUENTIAL SCREENINGS The [facility] offers sequential screenings for women who are interested in screenings for chromosomal abnormalities and certain defects during a . The sequential screen combines ultrasound and blood tests to determine the risk of chromosomal abnormalities, including Down's Syndrome (Trisomy 21) and Trisomy 18, as well as open neural tube defects including spina bifida. Ultrasound examination is performed between 11 weeks and 13 weeks gestational age. Blood tests are drawn after the ultrasound and again later in the between 15 and 21 weeks gestational age. Please let your physician know if you are interested in this testing. It will require an appointment with our chief technician x ray. This is not an ultrasound performed by a physician in our office during a routine visit. SIGNS AND SYMPTOMS OF LABOR 1. Contractions every 10 minutes or more often 2. Clear, pink, or brownish fluid (water) leaking from vagina 3. Feeling that baby is pushing down, pressure 4. Low, dull backache 5. Cramps that feel like a period 6. Cramps with or without diarrhea If you notice any of the above symptoms, contact our office at [phone] and ask to speak with a nurse. After hours, you can call doctors registry at [phone] OR call [facility] at [phone] and ask to have the doctor addiction specialist paged. If you consider this an emergency, dial or go to your nearest emergency department. NEED HELP? Are you dealing with a violent or abusive relationship? Are you a victim of rape or sexual assult? Call [facility] ([place]) 24 hour Crisis Hotline: 201.854.1858 or 538-574-9030. MANUAL Your Guide to a Healthy manual is now on-line. Visit [email or web address] to download your free copy documented in this encounter [facility] 08-13-2024 Telephone encounter Note Faxed. Andrew Travis RN [facility] 08-13-2024 Miscellaneous Notes Faxed. Andrew Travis RN Breast pump request received from [employer]. Order to provider to sign. Annmarie Spivey RN documented in this encounter [facility] 08-12-2024 Telephone encounter Note Breast pump request received from [employer]. Order to provider to sign. Annmarie Spivey RN [facility] 08-05-2024 Note Indication Evaluation of growth, Evaluation of well-being Maternal obesity, BMI >40, Advanced maternal age Impression - Single, live, intrauterine . - presentation is cephalic. - The biometry is consistent with the assigned gestational dating. - The EFW is 2234 g, at the 89%. AC is at the 98%. - Amniotic fluid volume is normal amount with an MVP of 6.1 cm and WENDY of 15.8 cm. - The placenta is posterior, fundal. - No malformations visualized on a limited survey as detailed below. Recommendations - growth scan every 4 weeks - Additional follow up as clinically indicated. Maternal Assessment Height 170 cm Height (ft) 5 ft Height (in) 7 in Physical Exam Initial weight (lb) 281 lb Initial BMI 44.01 kg/m Maternal assessment other: 4 Para 1 REMOTE READ Method Transabdominal ultrasound examination Ray . Number of fetuses: 1 Dating LMP on: 01/04/2024 Cycle: LMP date uncertain GA by LMP 30 w + 4 d ELENITA by LMP: 10/10/2024 GA by prior assessment 31 w + 6 d ELENITA by prior assessment: 10/01/2024 Ultrasound examination on: 08/05/2024 GA by U/S based upon: AC, BPD, Femur, HC GA by U/S 33 w + 0 d ELENITA by U/S: 09/23/2024 Assigned: based on stated ELENITA, selected on 08/05/2024 Assigned GA 31 w + 6 d Assigned ELENITA: 10/01/2024 General Evaluation Cardiac activity present. FHR 128 bpm. movements: present. Presentation: cephalic Placenta: Placental site: posterior, fundal Umbilical cord: Cord vessels: 3 vessel cord Amniotic fluid: Amount of AF: normal amount. MVP 6.1 cm. WENDY 15.8 cm. Q1 6.1 cm, Q2 5.3 cm, Q3 1.9 cm, Q4 2.5 cm Biophysical Profile 2: breathing movements 2: Gross body movements 2: tone 2: Amniotic fluid volume 09/27 Biophysical profile score Growth Overview Exam date GA BPD (mm) HC (mm) AC (mm) FL (mm) HL (mm) EFW (g) 05/13/2024 19w 6d 46.5 59% 165.9 31% 150.2 58% 31.5 62% 31.6 78% 320 47% 08/05/2024 31w 6d 82.5 79% 299 58% 307 98% 61.9 69% 2234 89% Biometry Standard BPD 82.5 mm 33w 1d 79% Hadlock OFD 105.2 mm 31w 1d 47% Nicolaides HC 299.0 mm 32w 2d 58% Gabriel AC 307.0 mm 34w 5d 98% Hadlock Femur 61.9 mm 32w 0d 69% Gabriel EFW 2,234 g 33w 2d 89% Hadlock EFW (lb) 4 lb EFW (oz) 15 oz EFW by: Hadlock (HC-AC-FL) Extended Nude Model 4.9 mm Extremities / Bony Struc FL / HC 0.21 Other Structures FHR 128 bpm Anatomy Lateral ventricles: normal Cavum septi pellucidi: normal Cerebellum: normal Cisterna magna: normal 4-chamber view: normal RVOT view: normal LVOT view: normal 3-vessel view: normal Heart / Thorax Situs: situs solitus (normal) Diaphragm: normal Stomach: normal Kidneys: normal Bladder: normal sex: male Wants to know sex: yes Performed By: Annmarie Malin RDMS, RVT Read By: Lakisha Santiago M.D. [facility] 08-05-2024 Note HNO ID: [id number] Author: KRISTI ARDON MD Service: ? Author Type: Physician Type: Progress Notes Filed: 08/05/2024 11:57 Note Text: SW- Pt doing well. Good FM. No ctx, vb, lof. No TORRES or vision changes. 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 BPP 09/27. Discussed risks with obesity in and questions answered. Weekly NST's ordered. Discussed delivery at tertiary care center for BMI > 50. Schedule repeat growth US 4 weeks - RTO 1 wk Kristi Ardon DO [facility] 08-05-2024 History of Present illness Narrative SW- Pt doing well. Good FM. No ctx, vb, lof. No TORRES or vision changes. 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 BPP 09/27. Discussed risks with obesity in and questions answered. Weekly NST's ordered. Discussed delivery at tertiary care center for BMI > 50. Schedule repeat growth US 4 weeks - RTO 1 wk Kristi Ardon DO documented in this encounter [facility] 08-05-2024 Instructions Misty Cervantes MA - 08/05/2024 11:28 AM EDT SEQUENTIAL SCREENINGS The [facility] offers sequential screenings for women who are interested in screenings for chromosomal abnormalities and certain defects during a . The sequential screen combines ultrasound and blood tests to determine the risk of chromosomal abnormalities, including Down's Syndrome (Trisomy 21) and Trisomy 18, as well as open neural tube defects including spina bifida. Ultrasound examination is performed between 11 weeks and 13 weeks gestational age. Blood tests are drawn after the ultrasound and again later in the between 15 and 21 weeks gestational age. Please let your physician know if you are interested in this testing. It will require an appointment with our chief technician x ray. This is not an ultrasound performed by a physician in our office during a routine visit. SIGNS AND SYMPTOMS OF LABOR 1. Contractions every 10 minutes or more often 2. Clear, pink, or brownish fluid (water) leaking from vagina 3. Feeling that baby is pushing down, pressure 4. Low, dull backache 5. Cramps that feel like a period 6. Cramps with or without diarrhea If you notice any of the above symptoms, contact our office at [phone] and ask to speak with a nurse. After hours, you can call [employer] [facility] at [phone] OR call [facility] at [phone] and ask to have the doctor addiction specialist paged. If you consider this an emergency, dial --1 or go to your nearest emergency department. NEED HELP? Are you dealing with a violent or abusive relationship? Are you a victim of rape or sexual assult? Call [facility] ([place]) 24 hour Crisis Hotline: 927.413.1694 or 843-167-0765. MANUAL Your Guide to a Healthy manual is now on-line. Visit [email or web address] to download your free copy documented in this encounter [facility] 08-02-2024 Telephone encounter Note Pt phone number updated. Lisa Ayers MA [facility] 08-02-2024 Miscellaneous Notes Pt phone number updated. Lisa Ayers MA documented in this encounter [facility] 07-23-2024 Telephone encounter Note 3rd risk assessment form submitted 07/23/2024. Rachelle King RN [facility] 07-23-2024 Miscellaneous Notes 3rd risk assessment form submitted 07/23/2024. Rachelle King RN documented in this encounter [facility] 07-22-2024 Progress note Formatting of t his note might be different from the original. S: Emre Quinn is a 38 year old female who presents at 10/01/2024, by Ultrasound for a routine visit. Denies headache, visual changes, chest pain, shortness of breath, vaginal bleeding, leakage of fluid, or dysuria. Feeling well, no complaints. Good movement, No contractions O: See flow sheet Gen: No apparent distress Abd: Gravid, nontender Taking iron supplement daily now Will schedule for Growth US ASSESSMENT/PLAN: 1. Supervision of high risk in third trimester ([facility]) - ICD9: V23.9, ICD10: O09.93 (primary diagnosis) 2. Multigravida of advanced maternal age in third trimester ([facility]) - ICD9: 659.63, ICD10: O09.523 3. Obesity in ([facility]) - ICD9: 649.10, ICD10: O99.210 Growth q 4 weeks NSTs weekly at 32 - OBSTETRIC ULTRASOUND WHI - NON-STRESS TEST 4. 29 weeks gestation of ([facility]) - ICD9: V22.2, ICD10: Z3A.29 PT precautions Rachelle Varner MD [facility] 07-22-2024 Miscellaneous Notes S: Emre Quinn is a 38 year old female who presents at 10/01/2024, by Ultrasound for a routine visit. Denies headache, visual changes, chest pain, shortness of breath, vaginal bleeding, leakage of fluid, or dysuria. Feeling well, no complaints. Good movement, No contractions O: See flow sheet Gen: No apparent distress Abd: Gravid, nontender Taking iron supplement daily now Will schedule for Growth US ASSESSMENT/PLAN: 1. Supervision of high risk in third trimester ([facility]) - ICD9: V23.9, ICD10: O09.93 (primary diagnosis) 2. Multigravida of advanced maternal age in third trimester ([facility]) - ICD9: 659.63, ICD10: O09.523 3. Obesity in ([facility]) - ICD9: 649.10, ICD10: O99.210 Growth q 4 weeks NSTs weekly at 32 - OBSTETRIC ULTRASOUND WHI - NON-STRESS TEST 4. 29 weeks gestation of ([facility]) - ICD9: V22.2, ICD10: Z3A.29 PT precautions Rachelle Varner MD documented in this encounter [facility] 07-22-2024 Instructions Roxie Flores MA - 07/22/2024 10:38 AM EDT SEQUENTIAL SCREENINGS The [facility] offers sequential screenings for women who are interested in screenings for chromosomal abnormalities and certain defects during a . The sequential screen combines ultrasound and blood tests to determine the risk of chromosomal abnormalities, including Down's Syndrome (Trisomy 21) and Trisomy 18, as well as open neural tube defects including spina bifida. Ultrasound examination is performed between 11 weeks and 13 weeks gestational age. Blood tests are drawn after the ultrasound and again later in the between 15 and 21 weeks gestational age. Please let your physician know if you are interested in this testing. It will require an appointment with our chief technician x ray. This is not an ultrasound performed by a physician in our office during a routine visit. SIGNS AND SYMPTOMS OF LABOR 1. Contractions every 10 minutes or more often 2. Clear, pink, or brownish fluid (water) leaking from vagina 3. Feeling that baby is pushing down, pressure 4. Low, dull backache 5. Cramps that feel like a period 6. Cramps with or without diarrhea If you notice any of the above symptoms, contact our office at [phone] and ask to speak with a nurse. After hours, you can call doctors registry at [phone] OR call [facility] at [phone] and ask to have the doctor addiction specialist paged. If you consider this an emergency, dial 9-1-7 or go to your nearest emergency department. NEED HELP? Are you dealing with a violent or abusive relationship? Are you a victim of rape or sexual assult? Call [facility] ([place]) 24 hour Crisis Hotline: 155.686.9611 or 414-751-4054. MANUAL Your Guide to a Healthy manual is now on-line. Visit [email or web address] to download your free copy documented in this encounter [facility] 07-17-2024 Telephone encounter Note Venofer treatment plan signed and PA approved [facility] 07-17-2024 Miscellaneous Notes Venofer treatment plan signed and PA approved documented in this encounter [facility] 07-16-2024 Note HNO ID: [id number] Author: SONAM ORDOÑEZ PA-C Service: ? Author Type: Physician Improvement Leader Type: Progress Notes Filed: 07/16/2024 15:25 Note Text: [facility] MEDICINE DEPARTMENT OF BLOOD MANAGEMENT ORDERS ONLY ENCOUNTER PATIENT NAME: Emre Quinn DATE OF SERVICE: July 16, 2024 REFERRING PROVIDER: Selene Basilio APRN.CNM Subjective Patient referred to Blood Management for evaluation and treatment of anemia in and iron deficiency anemia. Patient's relevant history, recent diagnostic data, and treatment plan as entered by Maura Pretty RN were reviewed. Medical/Surgical History: PAST MEDICAL HISTORY Diagnosis Date Abnormal Pap smear of cervix before 2007 Acquired acanthosis nigricans Anemia 05/09/2016 Carpal tunnel syndrome of right wrist 10/01/2020 Chronic pain of both knees 07/18/2019 Generalized anxiety disorder Gonorrhea 2020 Herpes, genital History of pelvic inflammatory disease 03/04/2024 2020 Incontinence of urine Mixed incontinence 08/29/2023 Pain in right wrist 11/10/2015 Patellofemoral arthralgia of both knees 10/01/2020 Perineural cyst 10/01/2020 PID (acute pelvic inflammatory disease) 2019 Right wrist tendonitis 11/10/2015 Suicidal ideation 03/13/2017 [facility] transfer to [facility] PAST SURGICAL HISTORY Procedure Laterality Date PAST SURGICAL HISTORY OF BIOPSY OF SCALP LSION TONSILLECTOMY PRIMARY/SECONDARY Tonsillectomy Other significant Medical/Surgical history: - None CURRENT MEDICATIONS: Current Outpatient Medications Medication Instructions aspirin, enteric coated (ECOTRIN LOW STRENGTH) 81 mg, ORAL, DAILY Cholecalciferol (Vitamin D3) 2,000 Units, ORAL, DAILY escitalopram oxalate (LEXAPRO) 10 mg, ORAL, DAILY famotidine (PEPCID) 20 mg, ORAL, 2 TIMES DAILY omeprazole (PRILOSEC) 20 mg, ORAL, DAILY BEFORE BREAKFAST, 1/2 hr before meal. PNV no.153/FA/om3/dha/epa/fish ( GUMMIES ORAL) 2 pieces, DAILY valACYclovir (VALTREX) 1,000 mg, ORAL, DAILY Current medications that may affect iron absorption and/or blood loss: - Antacids (H2 receptor blockers, PPI) - Aspirin Objective Data Reviewed: WBC (k/uL) Date Value 07/08/2024 6.53 RBC (m/uL) Date Value 07/08/2024 3.39 (L) Hemoglobin (g/dL) Date Value 07/08/2024 9.8 (L) Hematocrit (%) Date Value 07/08/2024 30.0 (L) MCV (fL) Date Value 07/08/2024 88.5 MCH (pg) Date Value 07/08/2024 28.9 MCHC (g/dL) Date Value 07/08/2024 32.7 RDW-CV (%) Date Value 07/08/2024 13.1 Platelet Count (k/uL) Date Value 07/08/2024 265 MPV (fL) Date Value 07/08/2024 10.5 Iron Date Value Ref Range Status 07/08/2024 155 41 - 186 ug/dL Final TIBC Date Value Ref Range Status 07/08/2024 413 (H) 232 - 386 ug/dL Final Ferritin Date Value Ref Range Status 07/08/2024 26.8 14.7 - 205.1 ng/mL Final Vitamin B12 Date Value Ref Range Status 05/25/2020 863 232 - 1,245 pg/mL Final Transferrin Saturation Date Value Ref Range Status 07/08/2024 37.5 15.0 - 57.0 % Final Assessment AND Plan Maternal iron deficiency anemia complicating , third trimester (HCC) - Patient referred to blood management for anemia in and iron deficiency anemia - Previously prescribed pre-narciso vitamin including iron supplement PO daily - Patient with treatment failure from oral iron supplementation and ongoing iron deficiency anemia noted on most recent labs from 07/08/2024: - Ferritin 26.8, Iron 155, TIBC 413, TSAT 37.5%, and Hgb 9.8 g/dL - Per Ganzoni equation, 788 mg iron deficient utilizing pre- weight (>100kg) and goal Hgb 11 g/dL. - Therapy plan for Venofer (iron sucrose) 200 mg IV infusion x 4 doses was reviewed and signed. - Recommend ongoing monitoring of iron deficiency anemia by referring provider to ensure adequate response to IV iron supplementation. Portions of this note were copied from prior encounter from Maura Pretty RN on 07/16/24. The patient's medications, allergies, past medical/surgical hx, and family hx have all been reviewed and updated as appropriate. The interval history and assessment/plan content have been modified and are specific to today's (July 16, 2024) purpose for the visit. Sonam Ordoñez PA-C Department of Blood Management July 16, 2024 CC: Referring Provider: Selene Basilio APRN.CNM [facility] 07-16-2024 History of Present illness Narrative [facility] MEDICINE DEPARTMENT OF BLOOD MANAGEMENT ORDERS ONLY ENCOUNTER PATIENT NAME: Emre Quinn DATE OF SERVICE: July 16, 2024 REFERRING PROVIDER: Selene Basilio APRN.CNM Subjective Patient referred to Blood Management for evaluation and treatment of anemia in and iron deficiency anemia. Patient's relevant history, recent diagnostic data, and treatment plan as entered by Maura Pretty RN were reviewed. Medical/Surgical History: PAST MEDICAL HISTORY Diagnosis Date Abnormal Pap smear of cervix before 2007 Acquired acanthosis nigricans Anemia 05/09/2016 Carpal tunnel syndrome of right wrist 10/01/2020 Chronic pain of both knees 07/18/2019 Generalized anxiety disorder Gonorrhea 2020 Herpes, genital History of pelvic inflammatory disease 03/04/2024 2020 Incontinence of urine Mixed incontinence 08/29/2023 Pain in right wrist 11/10/2015 Patellofemoral arthralgia of both knees 10/01/2020 Perineural cyst 10/01/2020 PID (acute pelvic inflammatory disease) 2019 Right wrist tendonitis 11/10/2015 Suicidal ideation 03/13/2017 [facility] transfer to [facility] PAST SURGICAL HISTORY Procedure Laterality Date PAST SURGICAL HISTORY OF BIOPSY OF SCALP LSION TONSILLECTOMY PRIMARY/SECONDARY <AGE 14 Tonsillectomy Other significant Medical/Surgical history: - None CURRENT MEDICATIONS: Current Outpatient Medications Medication Instructions aspirin, enteric coated (ECOTRIN LOW STRENGTH) 81 mg, ORAL, DAILY Cholecalciferol (Vitamin D3) 2,000 Units, ORAL, DAILY escitalopram oxalate (LEXAPRO) 10 mg, ORAL, DAILY famotidine (PEPCID) 20 mg, ORAL, 2 TIMES DAILY omeprazole (PRILOSEC) 20 mg, ORAL, DAILY BEFORE BREAKFAST, 1/2 hr before meal. PNV no.153/FA/om3/dha/epa/fish ( GUMMIES ORAL) 2 pieces, DAILY valACYclovir (VALTREX) 1,000 mg, ORAL, DAILY Current medications that may affect iron absorption and/or blood loss: - Antacids (H2 receptor blockers, PPI) - Aspirin Objective Data Reviewed: WBC (k/uL) Date Value 07/08/2024 6.53 RBC (m/uL) Date Value 07/08/2024 3.39 (L) Hemoglobin (g/dL) Date Value 07/08/2024 9.8 (L) Hematocrit (%) Date Value 07/08/2024 30.0 (L) MCV (fL) Date Value 07/08/2024 88.5 MCH (pg) Date Value 07/08/2024 28.9 MCHC (g/dL) Date Value 07/08/2024 32.7 RDW-CV (%) Date Value 07/08/2024 13.1 Platelet Count (k/uL) Date Value 07/08/2024 265 MPV (fL) Date Value 07/08/2024 10.5 Iron Date Value Ref Range Status 07/08/2024 155 41 - 186 ug/dL Final TIBC Date Value Ref Range Status 07/08/2024 413 (H) 232 - 386 ug/dL Final Ferritin Date Value Ref Range Status 07/08/2024 26.8 14.7 - 205.1 ng/mL Final Vitamin B12 Date Value Ref Range Status 05/25/2020 863 232 - 1,245 pg/mL Final Transferrin Saturation Date Value Ref Range Status 07/08/2024 37.5 15.0 - 57.0 % Final Assessment & Plan Maternal iron deficiency anemia complicating , third trimester (HCC) - Patient referred to blood management for anemia in and iron deficiency anemia - Previously prescribed pre- vitamin including iron supplement PO daily - Patient with treatment failure from oral iron supplementation and ongoing iron deficiency anemia noted on most recent labs from 07/08/2024: - Ferritin 26.8, Iron 155, TIBC 413, TSAT 37.5%, and Hgb 9.8 g/dL - Per Ganzoni equation, 788 mg iron deficient utilizing pre- weight (>100kg) and goal Hgb 11 g/dL. - Therapy plan for Venofer (iron sucrose) 200 mg IV infusion x 4 doses was reviewed and signed. - Recommend ongoing monitoring of iron deficiency anemia by referring provider to ensure adequate response to IV iron supplementation. Portions of this note were copied from prior encounter from Maura Pretty RN on 07/16/24. The patient's medications, allergies, past medical/surgical hx, and family hx have all been reviewed and updated as appropriate. The interval history and assessment/plan content have been modified and are specific to today's (July 16, 2024) purpose for the visit. Sonam Ordoñez PA-C Department of Blood Management July 16, 2024 CC: Referring Provider: Selene Basilio APRN.CNM documented in this encounter [facility] 07-16-2024 Note HNO ID: [id number] Author: MAURA WHITE RN Service: ? Author Type: Registered Nurse Type: Progress Notes Filed: 07/16/2024 14:36 Note Text: Patient referred to Blood Management for evaluation and treatment of pre-surgical anemia and/or iron deficiency. Non-surgical: anemia in Date of surgery: NA Medical/Surgical History: PAST MEDICAL HISTORY Diagnosis Date Abnormal Pap smear of cervix before 2007 Acquired acanthosis nigricans Anemia 05/09/2016 Carpal tunnel syndrome of right wrist 10/01/2020 Chronic pain of both knees 07/18/2019 Generalized anxiety disorder Gonorrhea 2020 Herpes, genital History of pelvic inflammatory disease 03/04/2024 2020 Incontinence of urine Mixed incontinence 08/29/2023 Pain in right wrist 11/10/2015 Patellofemoral arthralgia of both knees 10/01/2020 Perineural cyst 10/01/2020 PID (acute pelvic inflammatory disease) 2020 Right wrist tendonitis 11/10/2015 Suicidal ideation 03/13/2017 [facility] transfer to [facility] PAST SURGICAL HISTORY Procedure Laterality Date PAST SURGICAL HISTORY OF BIOPSY OF SCALP LSION TONSILLECTOMY PRIMARY/SECONDARY Tonsillectomy Other significant Medical/Surgical history: - None Current Outpatient Medications Medication Sig omeprazole (PRILOSEC) 20 mg capsule Take 1 capsule by mouth daily before breakfast. 1/2 hr before meal. Cholecalciferol, Vitamin D3, 50 mcg (2,000 unit) cap Take 1 capsule by mouth once daily. escitalopram oxalate (LEXAPRO) 10 mg tablet Take 1 tablet by mouth once daily. aspirin, enteric coated (ECOTRIN LOW STRENGTH) 81 mg EC tablet Take 1 tablet by mouth once daily. famotidine (PEPCID) 20 mg tablet Take 1 tablet by mouth two times a day. PNV no.153/FA/om3/dha/epa/fish ( GUMMIES ORAL) Take 2 Pieces by mouth once daily. valACYclovir (VALTREX) 1 gram tablet Take 1 tablet by mouth once daily. No current facility-administered medications for this visit. Current medications that may affect iron absorption and/or blood loss: - Antacids (H2 receptor blockers, PPI) and - Aspirin Baseline laboratory values: WBC (k/uL) Date Value 07/08/2024 6.53 RBC (m/uL) Date Value 07/08/2024 3.39 (L) Hemoglobin (g/dL) Date Value 07/08/2024 9.8 (L) Hematocrit (%) Date Value 07/08/2024 30.0 (L) MCV (fL) Date Value 07/08/2024 88.5 MCH (pg) Date Value 07/08/2024 28.9 MCHC (g/dL) Date Value 07/08/2024 32.7 RDW-CV (%) Date Value 07/08/2024 13.1 Platelet Count (k/uL) Date Value 07/08/2024 265 MPV (fL) Date Value 07/08/2024 10.5 Iron Date Value Ref Range Status 07/08/2024 155 41 - 186 ug/dL Final TIBC Date Value Ref Range Status 07/08/2024 413 (H) 232 - 386 ug/dL Final Ferritin Date Value Ref Range Status 07/08/2024 26.8 14.7 - 205.1 ng/mL Final Vitamin B12 Date Value Ref Range Status 05/25/2020 863 232 - 1,245 pg/mL Final Transferrin Saturation Date Value Ref Range Status 07/08/2024 37.5 15.0 - 57.0 % Final Assess for the need to augment a patient?s natural red blood cell production: - Blood transfusion avoidance - Iron depletion Recommendations according to Blood Management patient care guidelines: - Iron Sucrose 200 mg, IV infusion, dose(s) 4 total iron deficit using Ganzoni equation = 788 mg (pre- wt >100 kg/goal hgb 11 g/dL) Clinical information is sent to a provider for review and evaluation for treatment. [facility] 07-16-2024 History of Present illness Narrative Patient referred to Blood Management for evaluation and treatment of pre-surgical anemia and/or iron deficiency. Non-surgical: anemia in Date of surgery: NA Medical/Surgical History: PAST MEDICAL HISTORY Diagnosis Date Abnormal Pap smear of cervix before 2007 Acquired acanthosis nigricans Anemia 05/09/2016 Carpal tunnel syndrome of right wrist 10/01/2020 Chronic pain of both knees 07/18/2019 Generalized anxiety disorder Gonorrhea 2019 Herpes, genital History of pelvic inflammatory disease 03/04/20242019 Incontinence of urine Mixed incontinence 08/29/2023 Pain in right wrist 11/10/2015 Patellofemoral arthralgia of both knees 10/01/2020 Perineural cyst 10/01/2020 PID (acute pelvic inflammatory disease) 2019 Right wrist tendonitis 11/10/2015 Suicidal ideation 03/13/2017 [facility] transfer to [facility] PAST SURGICAL HISTORY Procedure Laterality Date PAST SURGICAL HISTORY OF BIOPSY OF SCALP LSION TONSILLECTOMY PRIMARY/SECONDARY <AGE 14 Tonsillectomy Other significant Medical/Surgical history: - None Current Outpatient Medications Medication Sig omeprazole (PRILOSEC) 20 mg capsule Take 1 capsule by mouth daily before breakfast. 1/2 hr before meal. Cholecalciferol, Vitamin D3, 50 mcg (2,000 unit) cap Take 1 capsule by mouth once daily. escitalopram oxalate (LEXAPRO) 10 mg tablet Take 1 tablet by mouth once daily. aspirin, enteric coated (ECOTRIN LOW STRENGTH) 81 mg EC tablet Take 1 tablet by mouth once daily. famotidine (PEPCID) 20 mg tablet Take 1 tablet by mouth two times a day. PNV no.153/FA/om3/dha/epa/fish ( GUMMIES ORAL) Take 2 Pieces by mouth once daily. valACYclovir (VALTREX) 1 gram tablet Take 1 tablet by mouth once daily. No current facility-administered medications for this visit. Current medications that may affect iron absorption and/or blood loss: - Antacids (H2 receptor blockers, PPI) and - Aspirin Baseline laboratory values: WBC (k/uL) Date Value 07/08/2024 6.53 RBC (m/uL) Date Value 07/08/2024 3.39 (L) Hemoglobin (g/dL) Date Value 07/08/2024 9.8 (L) Hematocrit (%) Date Value 07/08/2024 30.0 (L) MCV (fL) Date Value 07/08/2024 88.5 MCH (pg) Date Value 07/08/2024 28.9 MCHC (g/dL) Date Value 07/08/2024 32.7 RDW-CV (%) Date Value 07/08/2024 13.1 Platelet Count (k/uL) Date Value 07/08/2024 265 MPV (fL) Date Value 07/08/2024 10.5 Iron Date Value Ref Range Status 07/08/2024 155 41 - 186 ug/dL Final TIBC Date Value Ref Range Status 07/08/2024 413 (H) 232 - 386 ug/dL Final Ferritin Date Value Ref Range Status 07/08/2024 26.8 14.7 - 205.1 ng/mL Final Vitamin B12 Date Value Ref Range Status 05/25/2020 863 232 - 1,245 pg/mL Final Transferrin Saturation Date Value Ref Range Status 07/08/2024 37.5 15.0 - 57.0 % Final Assess for the need to augment a patient s natural red blood cell production: - Blood transfusion avoidance - Iron depletion Recommendations according to Blood Management patient care guidelines: - Iron Sucrose 200 mg, IV infusion, dose(s) 4 total iron deficit using Ganzoni equation = 788 mg (pre- wt >100 kg/goal hgb 11 g/dL) Clinical information is sent to a provider for review and evaluation for treatment. documented in this encounter [facility] 07-08-2024 Progress note Formatting of t his note might be different from the original. EH - S: Erme is a 38 year old female who presents at 27w6d for a routine visit. Feeling movement. Denies headache, visual changes, chest pain, shortness of breath, vaginal bleeding, leakage of fluid, or dysuria. Feeling well, no complaints. O: See flow sheet Gen: No apparent distress Abd: Gravid, nontender, S>D ASSESSMENT/PLAN: Supervision of high risk in second trimester ([facility]) - ICD9: V23.9, ICD10: O09.92 (primary diagnosis) - Continue PNV and LDA - Encouraged support band for musculoskeletal pain 27 weeks gestation of ([facility]) - ICD9: V22.2, ICD10: Z3A.27 - 1 hour GCT, CBC, and RPR today - Rh positive - Declines TDAP today - LARC form reviewed. Accepts Liletta IUD. - Depression screen + for some anxiety - plan form discussed and given to Emre - Reviewed how to pre register through [facility] AMA (advanced maternal age) multigravida 35+, second trimester ([facility]) - ICD9: 659.63, ICD10: O09.522 - Age 39 at ELENITA Anemia complicating , second trimester ([facility]) - ICD9: 648.23, 285.9, ICD10: O99.012 - Continue oral iron and recheck CBC today Obesity affecting in second trimester, unspecified obesity type ([facility]) - ICD9: 649.13, ICD10: O99.212 - Pre BMI 44 - Plan for growth and then weekly NSTs starting at 32 weeks. Depression affecting ([facility]) - ICD9: 648.40, 311, ICD10: O99.340, F32.A 8. Anxiety disorder affecting , antepartum ([facility]) - ICD9: 648.43, 300.00, ICD10: O99.340, F41.9 - Continue counseling monthly through 180 and Lexapro - Symptoms controlled - Denies thoughts of self harm History of herpes genitalis - ICD9: V12.09, ICD10: Z86.19 - Plan for suppression therapy at 36 weeks History of alcohol abuse - ICD9: 305.03, ICD10: F10.11 - Almost 10 months sober!! PTL precautions and kick counts reviewed. RTO in 2 weeks or sooner as needed. Chaparrita Cope APRN.COMMODITY BUYER [facility] 07-08-2024 Miscellaneous Notes EH - S: Emre is a 38 year old female who presents at 27w6d for a routine visit. Feeling movement. Denies headache, visual changes, chest pain, shortness of breath, vaginal bleeding, leakage of fluid, or dysuria. Feeling well, no complaints. O: See flow sheet Gen: No apparent distress Abd: Gravid, nontender, S>D ASSESSMENT/PLAN: Supervision of high risk in second trimester ([facility]) - ICD9: V23.9, ICD10: O09.92 (primary diagnosis) - Continue PNV and LDA - Encouraged support band for musculoskeletal pain 27 weeks gestation of ([facility]) - ICD9: V22.2, ICD10: Z3A.27 - 1 hour GCT, CBC, and RPR today - Rh positive - Declines TDAP today - LARC form reviewed. Accepts Liletta IUD. - Depression screen + for some anxiety - plan form discussed and given to Emre - Reviewed how to pre register through [facility] AMA (advanced maternal age) multigravida 35+, second trimester ([facility]) - ICD9: 659.63, ICD10: O09.522 - Age 39 at ELENITA Anemia complicating , second trimester ([facility]) - ICD9: 648.23, 285.9, ICD10: O99.012 - Continue oral iron and recheck CBC today Obesity affecting in second trimester, unspecified obesity type ([facility]) - ICD9: 649.13, ICD10: O99.212 - Pre BMI 44 - Plan for growth and then weekly NSTs starting at 32 weeks. Depression affecting ([facility]) - ICD9: 648.40, 311, ICD10: O99.340, F32.A 8. Anxiety disorder affecting , antepartum (HCC) - ICD9: 648.43, 300.00, ICD10: O99.340, F41.9 - Continue counseling monthly through 180 and Lexapro - Symptoms controlled - Denies thoughts of self harm History of herpes genitalis - ICD9: V12.09, ICD10: Z86.19 - Plan for suppression therapy at 36 weeks History of alcohol abuse - ICD9: 305.03, ICD10: F10.11 - Almost 10 months sober!! PTL precautions and kick counts reviewed. RTO in 2 weeks or sooner as needed. Chaparrita Cope APRN.COMMODITY BUYER documented in this encounter [facility] 07-08-2024 Instructions Ev Brown MA - 07/08/2024 9:48 AM EDT SEQUENTIAL SCREENINGS The [facility] offers sequential screenings for women who are interested in screenings for chromosomal abnormalities and certain defects during a . The sequential screen combines ultrasound and blood tests to determine the risk of chromosomal abnormalities, including Down's Syndrome (Trisomy 21) and Trisomy 18, as well as open neural tube defects including spina bifida. Ultrasound examination is performed between 11 weeks and 13 weeks gestational age. Blood tests are drawn after the ultrasound and again later in the between 15 and 21 weeks gestational age. Please let your physician know if you are interested in this testing. It will require an appointment with our chief technician x ray. This is not an ultrasound performed by a physician in our office during a routine visit. SIGNS AND SYMPTOMS OF LABOR 1. Contractions every 10 minutes or more often 2. Clear, pink, or brownish fluid (water) leaking from vagina 3. Feeling that baby is pushing down, pressure 4. Low, dull backache 5. Cramps that feel like a period 6. Cramps with or without diarrhea If you notice any of the above symptoms, contact our office at [phone] and ask to speak with a nurse. After hours, you can call doctors registry at [phone] OR call [facility] at [phone] and ask to have the doctor addiction specialist paged. If you consider this an emergency, dial 9-1-1 or go to your nearest emergency department. NEED HELP? Are you dealing with a violent or abusive relationship? Are you a victim of rape or sexual assult? Call [facility] ([place]) 24 hour Crisis Hotline: 750.936.5838 or 316-673-7299. MANUAL Your Guide to a Healthy manual is now on-line. Visit [email or web address] ncyGuide to download your free copy documented in this encounter [facility] 07-01-2024 Telephone encounter Note Images from the original note were not included. Omeprazole Received: Today Emre Quinn Seymourtr Famp My Chart Rx Pool Is it possible for me to get a new prescription of my Omeprazole? I'm completely out. [facility] 07-01-2024 Miscellaneous Notes Images from the original note were not included. Omeprazole Received: Today Emre Quinn Brent Wstr [facility] My Chart Rx Pool Is it possible for me to get a new prescription of my Omeprazole? I'm completely out. documented in this encounter [facility] 06-28-2024 Progress note Formatting of t his note might be different from the original. NAUN-S: Emre Quinn is a 38 year old female who presents at 26w3d with ELENITA:10/01/2024, by Ultrasound for a routine visit. Denies headache, visual changes, chest pain, shortness of breath, vaginal bleeding, leakage of fluid, or dysuria. Feeling well, no complaints. O: See flow sheet Gen: No apparent distress Abd: Gravid, nontender VE: Pubic symphsis pain with palpation SENSITIVE EXAMINATION CONSENT: The sensitive examination was discussed with the Patient or Patient's Authorized Animal Handler. As applicable, any other physician, advance practice provider, medical student, or other health professional student that will be observing or involved in the sensitive examination for educational or training purposes was discussed with the Patient or Authorized Animal Handler. The Patient or Authorized Animal Handler has agreed to proceed with the sensitive examination. ASSESSMENT/PLAN: 1. Supervision of other high risk pregnancies, second trimester 2. AMA (advanced maternal age) multigravida 35+, second trimester 3. 26 weeks gestation of 4. Pelvic pain in , antepartum -Pubic symphysis dysfunction. Offered PT for eval and management. Declines -Reviewed positional changes -Discussed positional changes 5. Obesity affecting in second trimester, unspecified obesity type PTL precautions reviewed and when to call RTO in 2 weeks Aixa Mak APRN.CNM [facility] 06-28-2024 Miscellaneous Notes NAUN-S: Emre Quinn is a 38 year old female who presents at 26w3d with ELENITA:10/01/2024, by Ultrasound for a routine visit. Denies headache, visual changes, chest pain, shortness of breath, vaginal bleeding, leakage of fluid, or dysuria. Feeling well, no complaints. O: See flow sheet Gen: No apparent distress Abd: Gravid, nontender VE: Pubic symphsis pain with palpation SENSITIVE EXAMINATION CONSENT: The sensitive examination was discussed with the Patient or Patient's Authorized Animal Handler. As applicable, any other physician, advance practice provider, medical student, or other health professional student that will be observing or involved in the sensitive examination for educational or training purposes was discussed with the Patient or Authorized Animal Handler. The Patient or Authorized Animal Handler has agreed to proceed with the sensitive examination. ASSESSMENT/PLAN: 1. Supervision of other high risk pregnancies, second trimester 2. AMA (advanced maternal age) multigravida 35+, second trimester 3. 26 weeks gestation of 4. Pelvic pain in , antepartum -Pubic symphysis dysfunction. Offered PT for eval and management. Declines -Reviewed positional changes -Discussed positional changes 5. Obesity affecting in second trimester, unspecified obesity type PTL precautions reviewed and when to call RTO in 2 weeks Aixa Mak APRN.CNM documented in this encounter [facility] [facility] 06[facility]28[facility]24 Instructions Bk Bean MA - 06/28/2024 3:36 PM EDT SEQUENTIAL SCREENINGS The [facility] offers sequential screenings for women who are interested in screenings for chromosomal abnormalities and certain defects during a . The sequential screen combines ultrasound and blood tests to determine the risk of chromosomal abnormalities, including Down's Syndrome (Trisomy 21) and Trisomy 18, as well as open neural tube defects including spina bifida. Ultrasound examination is performed between 11 weeks and 13 weeks gestational age. Blood tests are drawn after the ultrasound and again later in the between 15 and 21 weeks gestational age. Please let your physician know if you are interested in this testing. It will require an appointment with our chief technician x ray. This is not an ultrasound performed by a physician in our office during a routine visit. SIGNS AND SYMPTOMS OF LABOR 1. Contractions every 10 minutes or more often 2. Clear, pink, or brownish fluid (water) leaking from vagina 3. Feeling that baby is pushing down, pressure 4. Low, dull backache 5. Cramps that feel like a period 6. Cramps with or without diarrhea If you notice any of the above symptoms, contact our office at [phone] and ask to speak with a nurse. After hours, you can call doctors registry at [phone] OR call [facility] at [phone] and ask to have the doctor addiction specialist paged. If you consider this an emergency, dial 9-1-5 or go to your nearest emergency department. NEED HELP? Are you dealing with a violent or abusive relationship? Are you a victim of rape or sexual assult? Call [facility] ([place]) 24 hour Crisis Hotline: 630.240.4784 or 033-228-1226. MANUAL Your Guide to a Healthy manual is now on-line. Visit [email or web address] to download your free copy documented in this encounter [facility] 06-28-2024 Telephone encounter Note 26w3d Pt calls stating within the last couple of weeks she has had pelvic pressure to the point where it hurts to just stand. Wearing underwear is uncomfortable as c/o labial swelling/soreness. Denies vaginal itching/burning. No new low back pain. Denies contractions/Denies LOF/vaginal bleeding. Appt scheduled with NAUN today to address pelvic pressure. Andrew Travis RN [facility] 06-28-2024 Miscellaneous Notes 26w3d Pt calls stating within the last couple of weeks she has had pelvic pressure to the point where it hurts to just stand. Wearing underwear is uncomfortable as c/o labial swelling/soreness. Denies vaginal itching/burning. No new low back pain. Denies contractions/Denies LOF/vaginal bleeding. Appt scheduled with NAUN today to address pelvic pressure. Andrew Travsi RN documented in this encounter [facility] 06-11-2024 Telephone encounter Note 2nd risk assessment form submitted 06/12/2024. Rachelle King RN [facility] 06-11-2024 Miscellaneous Notes 2nd risk assessment form submitted 06/12/2024. Rachelle King RN documented in this encounter [facility] 06-10-2024 Progress note Formatting of t his note might be different from the original. S: Emre Quinn is a 38 year old female who presents at 23.6 weeks gestation for a routin visit. Positive movements. Sometimes feeling pelvic heaviness. Recommended support belt. Denies headache, visual changes, chest pain, shortness of breath, vaginal bleeding, leakage of fluid, or dysuria. O: See flow sheet Gen: No apparent distress Abd: Gravid, non tender ASSESSMENT/PLAN: 1. AMA (advanced maternal age) multigravida 35+, 2. Obesity affecting in second trimester, unspecified obesity type 3. Anxiety disorder affecting , antepartum 4. Depression affecting 5. 23 weeks gestation of 6. Screening for diabetes mellitus - Wear support belt - Continue vitamin - Continue ASA - Continue Lexapro- reports mood as stable - Reviewed process of GCT at next visit and questions answered - RTO 4 weeks Selene Basilio APRN.CNM P: 1) PTL precautions reviewed and when to call 2) RTO [facility] Work Phone: 06-10-2024 Miscellaneous Notes S: Emre Quinn is a 38 year old female who presents at 23.6 weeks gestation for a routin visit. Positive movements. Sometimes feeling pelvic heaviness. Recommended support belt. Denies headache, visual changes, chest pain, shortness of breath, vaginal bleeding, leakage of fluid, or dysuria. O: See flow sheet Gen: No apparent distress Abd: Gravid, non tender ASSESSMENT/PLAN: 1. AMA (advanced maternal age) multigravida 35+, 2. Obesity affecting in second trimester, unspecified obesity type 3. Anxiety disorder affecting , antepartum 4. Depression affecting 5. 23 weeks gestation of 6. Screening for diabetes mellitus - Wear support belt - Continue vitamin - Continue ASA - Continue Lexapro- reports mood as stable - Reviewed process of GCT at next visit and questions answered - RTO 4 weeks Selene Basilio APRN.CNM P: 1) PTL precautions reviewed and when to call 2) RTO documented in this encounter [facility] 06-10-2024 Instructions Bk Bean MA - 06/10/2024 9:28 AM EDT SEQUENTIAL SCREENINGS The [facility] offers sequential screenings for women who are interested in screenings for chromosomal abnormalities and certain defects during a . The sequential screen combines ultrasound and blood tests to determine the risk of chromosomal abnormalities, including Down's Syndrome (Trisomy 21) and Trisomy 18, as well as open neural tube defects including spina bifida. Ultrasound examination is performed between 11 weeks and 13 weeks gestational age. Blood tests are drawn after the ultrasound and again later in the between 15 and 21 weeks gestational age. Please let your physician know if you are interested in this testing. It will require an appointment with our chief technician x ray. This is not an ultrasound performed by a physician in our office during a routine visit. SIGNS AND SYMPTOMS OF LABOR 1. Contractions every 10 minutes or more often 2. Clear, pink, or brownish fluid (water) leaking from vagina 3. Feeling that baby is pushing down, pressure 4. Low, dull backache 5. Cramps that feel like a period 6. Cramps with or without diarrhea If you notice any of the above symptoms, contact our office at [phone] and ask to speak with a nurse. After hours, you can call doctors registry at [phone] OR call [facility] at [phone] and ask to have the doctor addiction specialist paged. If you consider this an emergency, dial 0-1-7 or go to your nearest emergency department. NEED HELP? Are you dealing with a violent or abusive relationship? Are you a victim of rape or sexual assult? Call [facility] ([place]) 24 hour Crisis Hotline: 984.830.7957 or 122-888-3788. MANUAL Your Guide to a Healthy manual is now on-line. Visit [email or web address] to download your free copy documented in this encounter [facility] 05-17-2024 Telephone encounter Note She should talk to her OB provider about this. Ronny Borja APRN.CHARLES [facility] 05-17-2024 Miscellaneous Notes She should talk to her OB provider about this. Ronny Borja APRN.CNP I'm currently and having issues with bladder control. It is to the point where I have to change my pants se What is needed? Please clarify Soco Sharma APRN.CNP Please see pt message I am trying to receive these products through my insurance and [facility] has sent over the request for your continence care supplies. documented in this encounter [facility] 05-16-2024 Telephone encounter Note I'm currently and having issues with bladder control. It is to the point where I have to change my pants se [facility] 05-16-2024 Telephone encounter Note What is needed? Please clarify Soco Sharma APRN.COMMODITY BUYER [facility] 05-14-2024 Telephone encounter Note Please see pt message I am trying to receive these products through my insurance and [facility] has sent over the request for your continence care supplies. [facility] 05-14-2024 Telephone encounter Note Turned into TE Tessa Tubbs MA [facility] 05-14-2024 Miscellaneous Notes Turned into TE Tessa Tubbs MA documented in this encounter [facility] 05-13-2024 Progress note Formatting of t his note might be different from the original. RR- VB No. LOF No. CTXS No. Movement: present. Other c/o: No. Medication list reviewed. SENSITIVE EXAM: Sensitive exam not performed. Physical Exam See Flow Sheet Gen: no accute distress, well appearing A/P 19w6d Estimated Date of Delivery: 10/01/24 Assessment & Plan AMA (advanced maternal age) multigravida 35+, second trimester US done today f/u in 4 weeks or prn d/w her r/b/a to influenza vaccine, accepts declines COVID vaccine 19 weeks gestation of Obesity affecting in second trimester, unspecified obesity type cont. current meds on asa prpohylaxis cont. pepcid prn n/v improved Miguel Escudero M.D. [facility] 05-13-2024 Miscellaneous Notes RR- VB No. LOF No. CTXS No. Movement: present. Other c/o: No. Medication list reviewed. SENSITIVE EXAM: Sensitive exam not performed. Physical Exam See Flow Sheet Gen: no accute distress, well appearing A/P 19w6d Estimated Date of Delivery: 10/01/24 Assessment & Plan AMA (advanced maternal age) multigravida 35+, second trimester US done today f/u in 4 weeks or prn d/w her r/b/a to influenza vaccine, accepts declines COVID vaccine 19 weeks gestation of Obesity affecting in second trimester, unspecified obesity type cont. current meds on asa prpohylaxis cont. pepcid prn n/v improved Miguel Escudero M.D. documented in this encounter [facility] 05-13-2024 Instructions Ev Brown MA - 05/13/2024 10:42 AM EDT SEQUENTIAL SCREENINGS The [facility] offers sequential screenings for women who are interested in screenings for chromosomal abnormalities and certain defects during a . The sequential screen combines ultrasound and blood tests to determine the risk of chromosomal abnormalities, including Down's Syndrome (Trisomy 21) and Trisomy 18, as well as open neural tube defects including spina bifida. Ultrasound examination is performed between 11 weeks and 13 weeks gestational age. Blood tests are drawn after the ultrasound and again later in the between 15 and 21 weeks gestational age. Please let your physician know if you are interested in this testing. It will require an appointment with our chief technician x ray. This is not an ultrasound performed by a physician in our office during a routine visit. SIGNS AND SYMPTOMS OF LABOR 1. Contractions every 10 minutes or more often 2. Clear, pink, or brownish fluid (water) leaking from vagina 3. Feeling that baby is pushing down, pressure 4. Low, dull backache 5. Cramps that feel like a period 6. Cramps with or without diarrhea If you notice any of the above symptoms, contact our office at [phone] and ask to speak with a nurse. After hours, you can call doctors registry at [phone] OR call [facility] at [phone] and ask to have the doctor addiction specialist paged. If you consider this an emergency, dial 9-1-6 or go to your nearest emergency department. NEED HELP? Are you dealing with a violent or abusive relationship? Are you a victim of rape or sexual assult? Call [facility] ([place]) 24 hour Crisis Hotline: 139.435.7689 or 707-264-0639. MANUAL Your Guide to a Healthy manual is now on-line. Visit [email or web address] ncyGuide to download your free copy documented in this encounter [facility] 05-09-2024 Telephone encounter Note The following approved medication requests have been transmitted electronically. Requested Prescriptions Signed Prescriptions Disp Refills Cholecalciferol, Vitamin D3, 50 mcg (2,000 unit) cap 90 capsule 3 Sig: Take 1 capsule by mouth once daily. Ronny Borja APRN.CNP [facility] 05-09-2024 Miscellaneous Notes The following approved medication requests have been transmitted electronically. Requested Prescriptions Signed Prescriptions Disp Refills Cholecalciferol, Vitamin D3, 50 mcg (2,000 unit) cap 90 capsule 3 Sig: Take 1 capsule by mouth once daily. Ronny Borja APRN.CNP Pt returned call and given provider's message. Pt reports she took vit D regularly until she ran out. Ran out about a month ago. Asking provider to send rx to [facility]'s pharmacy. Pended. Left message to return call Tessa Tubbs MA Please let her know that her vitamin D level is low. I know she needed a refill on her 2000 international unit(s) of Vitamin D3. Please find out if she has been taking this regularly, meaning that this level would be accurate. If so, I'd like to increase her dose. Ronny Borja APRN.CNP documented in this encounter [facility] 05-09-2024 Telephone encounter Note Pt returned call and given provider's message. Pt reports she took vit D regularly until she ran out. Ran out about a month ago. Asking provider to send rx to [facility]'s pharmacy. Pended. [facility] 05-09-2024 Telephone encounter Note Left message to return call Tessa Tubbs MA [facility] 05-09-2024 Telephone encounter Note Please let her know that her vitamin D level is low. I know she needed a refill on her 2000 international unit(s) of Vitamin D3. Please find out if she has been taking this regularly, meaning that this level would be accurate. If so, I'd like to increase her dose. Ronny Borja APRN.COMMODITY BUYER T [facility] 05-08-2024 History of Present illness Narrative Chief Complaint No chief complaint on file. HPI Emre Quinn is a 38 year old female who presents here today for Above Complaints.. Anxiety- Lexapro 10mg daily. States this definitely works and wants to stay consistent with this. Pt reports her OB is okay with her taking this. Knee pain - states her right knee has been cracking and grinding when she walks, is painful and will swell up after activity. States her knee always hurts, but is worse when active. This pain has been going on for at least a year but is much worse now since becoming - 19 weeks gestation.Takes tylenol for it and this does not help. Past medical history, appointments, medications, allergies reviewed. Previous Medical History PAST MEDICAL HISTORY Diagnosis Date Abnormal Pap smear of cervix before 2007 Acquired acanthosis nigricans Anemia 05/09/2016 Carpal tunnel syndrome of right wrist 10/01/2020 Chronic pain of both knees 07/18/2019 Generalized anxiety disorder Gonorrhea 2019 Herpes, genital Incontinence of urine Mixed incontinence 08/29/2023 Pain in right wrist 11/10/2015 Patellofemoral arthralgia of both knees 10/01/2020 PID (acute pelvic inflammatory disease) 2019 Right wrist tendonitis 11/10/2015 Suicidal ideation 03/13/2017 [facility] transfer to [facility] Previous Surgical History PAST SURGICAL HISTORY Procedure Laterality Date PAST SURGICAL HISTORY OF BIOPSY OF SCALP LSION TONSILLECTOMY PRIMARY/SECONDARY <AGE 14 Tonsillectomy Family History FAMILY HISTORY Problem Relation Age of Onset None Mother other (osteoarthritis) Mother Hypertension Father Arthritis Maternal Grandmother rheumatoid Patient Allergies ALLERGIES No Known Allergies Current Medications Current Outpatient Medications on File Prior to Visit Medication Sig escitalopram oxalate (LEXAPRO) 10 mg tablet Take 1 tablet by mouth once daily. aspirin, enteric coated (ECOTRIN LOW STRENGTH) 81 mg EC tablet Take 1 tablet by mouth once daily. famotidine (PEPCID) 20 mg tablet Take 1 tablet by mouth two times a day. PNV no.153/FA/om3/dha/epa/fish ( GUMMIES ORAL) Take 2 Pieces by mouth once daily. valACYclovir (VALTREX) 1 gram tablet Take 1 tablet by mouth once daily. Cholecalciferol, Vitamin D3, 50 mcg (2,000 unit) cap Take 1 capsule by mouth once daily. No current facility-administered medications on file prior to visit. Social History Social History Tobacco Use Smoking status: Former Current packs/day: 0.00 Average packs/day: 0.5 packs/day for 10.0 years (5.0 ttl pk-yrs) Types: Cigarettes Start date: 01/20/2006 Quit date: 01/21/2016 Years since quittin.3 Smokeless tobacco: Never Vaping Use Vaping status: Former Substances: Nicotine, THC Substance Use Topics Alcohol use: Not Currently Drug use: No Review of Symptoms REVIEW OF SYSTEMS See HPI, otherwise negative EXAM: LMP 01/04/2024 (Exact Date) General Appearance: Well appearing, alert, in no acute distress, well-hydrated, well nourished.. Ears: External ears normal, canals clear. Oropharynx: Lips, mucosa, and tongue normal, teeth and gums normal, oropharynx normal. Neck: Supple, no adenopathy; thyroid symmetric, normal size, no bruits. Lungs: Lungs clear to auscultation. No wheezing, rhonchi, rales.. Heart: RRR without murmur, gallop, or rubs. No ectopy. Abdomen: Normal abdominal exam, Abdomen soft, non-tender. Bowel sounds normal. No masses, organomegaly. 19weeks Extremities: No deformities, edema, skin discoloration, clubbing or cyanosis. Good capillary refill. . Peripheral Pulses: Normal. Musculoskeletal: Negative findings: No deformities present, No erythema, induration, or nodules, No evidence of joint effusion, No evidence of joint instability, No evidence of muscle atrophy. Health Maintenance List Anxiety Screening Never done DTaP,Tdap,Td Vaccine(7 - Tdap) due on 08/03/2015 Influenza Vaccine(1) due on 10/22/2023 Covid-19 Vaccine( - 2023- season) Never done Cervical Cancer Screening due on 04/28/2027 Hepatitis B Vaccine Completed RSV Vaccine(No Doses Required) Completed Hepatitis C Screening Completed HIV Screening Completed Data reviewed See HPI, otherwise negative ASSESSMENT/PLAN: 1. Chronic pain of right knee - ICD9: 719.46, 338.29, ICD10: M25.561, G89.29 (primary diagnosis) - Educated patient to utilize rest, ice, compression, and elevation - KNEE BRACE WITH STRAPS 2. Vitamin D deficiency - ICD9: 268.9, ICD10: E55.9 - Checking vitamin D labs, ok to continue with 2,000 unit vitamin D3 daily - VITAMIN D 25 HYDROXY 3. Encounter for screening examination for other mental health and behavioral disorders - ICD9: V79.8, ICD10: Z13.39 - ANXIETY SCREENING 4. Primary osteoarthritis of right knee - ICD9: 715.16, ICD10: M17.11 - KNEE BRACE WITH STRAPS 5. Morbid obesity with BMI of 45.0-49.9, adult (HCC) - ICD9: 278.01, V85.42, ICD10: E66.01, Z68.42 - KNEE BRACE WITH STRAPS 6. Well adult exam - ICD9: V70.0, ICD10: Z00.00 - Counseled on healthy diet and regular exercise - Follow up for annual exam in one year 7. MARCO ANTONIO (generalized anxiety disorder) - ICD9: 300.02, ICD10: F41.1 - Continue lexapro 10mg daily Alona Story Attending Note I have personally performed a face to face assessment of the patient and have reviewed the SUN note and I agree. Other additions or changes: As edited Signature: Ronny Borja Date: 05/08/2024 Time: 12:41 PM Medical Decision Making: Problems: Moderate: 2+ stable chronic illnesses Data: Unique test result(s) reviewed: 3+ Unique test(s) ordered: 1 Risk: Low: Low risk from testing/treatment Moderate: Drug management Medical Decision Making Level: 4 - Moderate documented in this encounter [facility] 05-08-2024 Note HNO ID: [id number] Author: RONNY BORJA APRN.CNP Service: ? Author Type: Nurse Practitioner Type: Progress Notes Filed: 05/08/2024 12:42 Note Text: Chief Complaint No chief complaint on file. HPI Emre Quinn is a 38 year old female who presents here today for Above Complaints.. Anxiety- Lexapro 10mg daily. States this definitely works and wants to stay consistent with this. Pt reports her OB is okay with her taking this. Knee pain - states her right knee has been cracking and grinding when she walks, is painful and will swell up after activity. States her knee always hurts, but is worse when active. This pain has been going on for at least a year but is much worse now since becoming - 19 weeks gestation.Takes tylenol for it and this does not help. Past medical history, appointments, medications, allergies reviewed. Previous Medical History PAST MEDICAL HISTORY Diagnosis Date Abnormal Pap smear of cervix before 2007 Acquired acanthosis nigricans Anemia 05/09/2016 Carpal tunnel syndrome of right wrist 10/01/2020 Chronic pain of both knees 07/18/2019 Generalized anxiety disorder Gonorrhea 2019 Herpes, genital Incontinence of urine Mixed incontinence 08/29/2023 Pain in right wrist 11/10/2015 Patellofemoral arthralgia of both knees 10/01/2020 PID (acute pelvic inflammatory disease) 2019 Right wrist tendonitis 11/10/2015 Suicidal ideation 03/13/2017 [facility] transfer to [facility] Previous Surgical History PAST SURGICAL HISTORY Procedure Laterality Date PAST SURGICAL HISTORY OF BIOPSY OF SCALP LSION TONSILLECTOMY PRIMARY/SECONDARY Tonsillectomy Family History FAMILY HISTORY Problem Relation Age of Onset None Mother other (osteoarthritis) Mother Hypertension Father Arthritis Maternal Grandmother rheumatoid Patient Allergies ALLERGIES No Known Allergies Current Medications Current Outpatient Medications on File Prior to Visit Medication Sig escitalopram oxalate (LEXAPRO) 10 mg tablet Take 1 tablet by mouth once daily. aspirin, enteric coated (ECOTRIN LOW STRENGTH) 81 mg EC tablet Take 1 tablet by mouth once daily. famotidine (PEPCID) 20 mg tablet Take 1 tablet by mouth two times a day. PNV no.153/FA/om3/dha/epa/fish ( GUMMIES ORAL) Take 2 Pieces by mouth once daily. valACYclovir (VALTREX) 1 gram tablet Take 1 tablet by mouth once daily. Cholecalciferol, Vitamin D3, 50 mcg (2,000 unit) cap Take 1 capsule by mouth once daily. No current facility-administered medications on file prior to visit. Social History Social History Tobacco Use Smoking status: Former Current packs/day: 0.00 Average packs/day: 0.5 packs/day for 10.0 years (5.0 ttl pk-yrs) Types: Cigarettes Start date: 01/20/2006 Quit date: 01/21/2016 Years since quittin.3 Smokeless tobacco: Never Vaping Use Vaping status: Former Substances: Nicotine, THC Substance Use Topics Alcohol use: Not Currently Drug use: No Review of Symptoms REVIEW OF SYSTEMS See HPI, otherwise negative EXAM: LMP 01/04/2024 (Exact Date) General Appearance: Well appearing, alert, in no acute distress, well-hydrated, well nourished.. Ears: External ears normal, canals clear. Oropharynx: Lips, mucosa, and tongue normal, teeth and gums normal, oropharynx normal. Neck: Supple, no adenopathy; thyroid symmetric, normal size, no bruits. Lungs: Lungs clear to auscultation. No wheezing, rhonchi, rales.. Heart: RRR without murmur, gallop, or rubs. No ectopy. Abdomen: Normal abdominal exam, Abdomen soft, non-tender. Bowel sounds normal. No masses, organomegaly. 19weeks Extremities: No deformities, edema, skin discoloration, clubbing or cyanosis. Good capillary refill. . Peripheral Pulses: Normal. Musculoskeletal: Negative findings: No deformities present, No erythema, induration, or nodules, No evidence of joint effusion, No evidence of joint instability, No evidence of muscle atrophy. Health Maintenance List Anxiety Screening Never done DTaP,Tdap,Td Vaccine(7 - Tdap) due on 08/03/2015 Influenza Vaccine(1) due on 10/22/2023 Covid-19 Vaccine( - season) Never done Cervical Cancer Screening due on 04/28/2027 Hepatitis B Vaccine Completed RSV Vaccine(No Doses Required) Completed Hepatitis C Screening Completed HIV Screening Completed Data reviewed See HPI, otherwise negative ASSESSMENT/PLAN: 1. Chronic pain of right knee - ICD9: 719.46, 338.29, ICD10: M25.561, G89.29 (primary diagnosis) - Educated patient to utilize rest, ice, compression, and elevation - KNEE BRACE WITH STRAPS 2. Vitamin D deficiency - ICD9: 268.9, ICD10: E55.9 - Checking vitamin D labs, ok to continue with 2,000 unit vitamin D3 daily - VITAMIN D 25 HYDROXY 3. Encounter for screening examination for other mental health and behavioral disorders - ICD9: V79.8, ICD10: Z13.39 - ANXIETY SCREENING 4. Primary osteoarthritis of right kn (more content not included)... [facility] 05-06-2024 Telephone encounter Note Pt notified via [employer] she needs an appointment. Prescription Refill Information The patient has been identified by name and date of : Yes Caregiver verified no other encounters exist for this prescription request: Yes Caregiver confirmed with patient/requestor that no other refills are due, in the near future, with this provider at this time: No The last office visit in the department: 01/26/23 Does the patient have a future office visit with this provider/department: No Requested Prescriptions Pending Prescriptions Disp Refills escitalopram oxalate (LEXAPRO) 10 mg tablet 90 tablet 1 Sig: Take 1 tablet by mouth once daily. Lisa Ayers MA May 06, 2024 10:49 AM [facility] 05-06-2024 Miscellaneous Notes Pt notified via [employer] she needs an appointment. Prescription Refill Information The patient has been identified by name and date of : Yes Caregiver verified no other encounters exist for this prescription request: Yes Caregiver confirmed with patient/requestor that no other refills are due, in the near future, with this provider at this time: No The last office visit in the department: 01/26/23 Does the patient have a future office visit with this provider/department: No Requested Prescriptions Pending Prescriptions Disp Refills escitalopram oxalate (LEXAPRO) 10 mg tablet 90 tablet 1 Sig: Take 1 tablet by mouth once daily. Lisa Ayers MA May 06, 2024 10:49 AM documented in this encounter [facility] 04-17-2024 Telephone encounter Note Financial referral placed [facility] 04-17-2024 Miscellaneous Notes Financial referral placed 1st attempt left message to return call Patient needs appt Holland Vang DO documented in this encounter [facility] 04-11-2024 Telephone encounter Note 1st attempt left message to return call [facility] 04-09-2024 Telephone encounter Note Patient needs appt Holland Vang DO [facility] Work Phone: 04-09-2024 Telephone encounter Note See refill request April 09, 2024 [facility] 04-09-2024 Miscellaneous Notes See refill request April 09, 2024 documented in this encounter [facility] 04-01-2024 Progress note Formatting of t his note might be different from the original. DM-Pt doing well. Denies vaginal Bleeding, Leaking fluid, or regular Cramping. Physical Exam: Gen: female in no apparent distress Abd: soft, Gravid. Non tender to palpation. See flow sheet @ 12.4 weeks Assessment & Plan Encounter for supervision of high risk in first trimester, antepartum Advanced maternal age in multigravida, first trimester Orders: [id number] PLUS; Future Obesity affecting in first trimester, unspecified obesity type Anxiety disorder affecting , antepartum Depression affecting History of miscarriage 12 weeks gestation of Orders: [id number] PLUS; Future NEW OB LABS TODAY EARLY ANATOMY TODAY ANATOMY US SCHEDULED RTO 4 WKS Julia Cadena MD [facility] 04-01-2024 Miscellaneous Notes DM-Pt doing well. Denies vaginal Bleeding, Leaking fluid, or regular Cramping. Physical Exam: Gen: female in no apparent distress Abd: soft, Gravid. Non tender to palpation. See flow sheet @ 12.4 weeks Assessment & Plan Encounter for supervision of high risk in first trimester, antepartum Advanced maternal age in multigravida, first trimester Orders: [id number] PLUS; Future Obesity affecting in first trimester, unspecified obesity type Anxiety disorder affecting , antepartum Depression affecting History of miscarriage 12 weeks gestation of Orders: [id number] PLUS; Future NEW OB LABS TODAY EARLY ANATOMY TODAY ANATOMY US SCHEDULED RTO 4 WKS Julia Cadena MD documented in this encounter [facility] 04-01-2024 Instructions Roxie Flores MA - 04/01/2024 11:33 AM EST SEQUENTIAL SCREENINGS The [facility] offers sequential screenings for women who are interested in screenings for chromosomal abnormalities and certain defects during a . The sequential screen combines ultrasound and blood tests to determine the risk of chromosomal abnormalities, including Down's Syndrome (Trisomy 21) and Trisomy 18, as well as open neural tube defects including spina bifida. Ultrasound examination is performed between 11 weeks and 13 weeks gestational age. Blood tests are drawn after the ultrasound and again later in the between 15 and 21 weeks gestational age. Please let your physician know if you are interested in this testing. It will require an appointment with our chief technician x ray. This is not an ultrasound performed by a physician in our office during a routine visit. SIGNS AND SYMPTOMS OF LABOR 1. Contractions every 10 minutes or more often 2. Clear, pink, or brownish fluid (water) leaking from vagina 3. Feeling that baby is pushing down, pressure 4. Low, dull backache 5. Cramps that feel like a period 6. Cramps with or without diarrhea If you notice any of the above symptoms, contact our office at [phone] and ask to speak with a nurse. After hours, you can call doctors registry at [phone] OR call [facility] at [phone] and ask to have the doctor addiction specialist paged. If you consider this an emergency, dial 9-3-1 or go to your nearest emergency department. NEED HELP? Are you dealing with a violent or abusive relationship? Are you a victim of rape or sexual assult? Call [facility] ([place]) 24 hour Crisis Hotline: 737.817.2313 or 088-188-0483. MANUAL Your Guide to a Healthy manual is now on-line. Visit [email or web address] ncyGuide to download your free copy documented in this encounter [facility] 03-05-2024 Telephone encounter Note 1st risk assessment form submitted 03/05/2024. Rachelle King RN [facility] 03-05-2024 Miscellaneous Notes 1st risk assessment form submitted 03/05/2024. Rachelle King RN documented in this encounter [facility] 02-29-2024 Note HNO ID: [id number] Author: CHAPARRITA COPE APRN.COMMODITY BUYER Service: ? Author Type: Nurse Practitioner Type: Progress Notes Filed: 03/04/2024 10:09 Note Text: Senior Software Tester offered: Patient declines. INITIAL OB ASSESSMENT HPI: Emre is a 38 year old Black Female here to establish Obstetrical Care. Patient's last menstrual period was 01/04/2024 (exact date). from OB Dating Form. was unplanned but accepted Complaints: Abdominal pain (mild cramping) OB History T1 L1 SAB2 IAB0 Ectopic0 Multiple0 Live Births1 Previous history: Prior : never History of 4th degree laceration: no History of shoulder dystocia: no History of Hypertensive disorders including pre-eclampsia or gestational hypertension: no History of gestational diabetes: no Patient's Risk Screening for delivery: Have you had a prior ray between 20w and 36w6d? No How many pregnancies have you had before? 3 Did you have a previous baby with a GBS Infection? No Please select all that apply for any prior : N/A MEDICAL/PSYCHOSOCIAL HISTORY: Severe Bleeding with delivery: no Thyroid Disease: no Gestational Hypertension:no Preeclampsia:no Diabetes in : no ABO/RH(D) Date Value Ref Range Status 09/16/2008 B POS Final BMI 44.47 kg/(m2) Last Pap: 05/09/2022 History of abnormal pap: yes Prior treatment for cervical dysplasia: LEEP. Last HPV: 04/29/2022 History of STDs: chlamydia, GC, and HSV Partner History of STDs: Unknown Did you have a partner with Herpes? Yes Tobacco use: No E-Cigarette/Vaping Use: No Caffeine use: Yes Drug use: No Alcohol use: No Multivitamin with Folic acid: Yes Would refuse blood transfusion if medically necessary: No Social Needs: How often does this describe you? I don't have enough money to pay my bills: Never Within the past 12 months, have you worried that your food would run out before you had money to buy more? Never In the past 12 months, has lack of reliable transportation kept you from going to medical appointments or work, or from getting things needed for daily living? Never In the past 12 months, have you had any concerns about having a place to live, or about the condition or quality of your housing? Never Would you like more information on any of the following (please check all that apply)? Social History: Do you have any history of depression, anxiety, PTSD, or other mood problems? Yes Do you have a history of abuse or trauma that may impact your experience? No Are you currently employed? No Depression/Anxiety Screening: Admits to symptoms of depression and anxiety. OB Depression and Anxiety Screening- This Encounter (since 03/03/2024) Over the past 2 weeks have you felt down, depressed, or hopeless? Positive - Further Testing Indicated Over the past two weeks, have you felt little interest or pleasure in doing things?? Positive - Further Testing Indicated I have been able to laugh and see the funny side of things. Not quite so much now I have looked forward with enjoyment to things. Rather less than I used to I have blamed myself unnecessarily when things went wrong. Yes, some of the time I have been anxious or worried for no good reason. Yes, sometimes I have felt scared or panicky for no good reason. No, not at all Things have been getting on top of me. No, most of the time I have coped quite well I have been so unhappy that I have had difficulty sleeping. Not at all I have felt sad or miserable. No, not at all I have been so unhappy that I have been crying. No, never The thought of harming myself has occurred to me. Never Elsa Depression Scale Total 7 Feeling nervous, anxious or on edge 3-Nearly every day Not being able to stop or control worrying 3-Nearly every day Anxiety Pre-Screening Total (If >/= 3 additional questions will be reviewed) 6 Worrying too much about different things 2-More than half the days Trouble relaxing 2-More than half the days Being so restless that it is hard to sit still 2-More than half the days Becoming easily annoyed or irritable 2-More than half the days Feeling afraid, as if something awful might happen 2-More than half the days Anxiety (MARCO ANTONIO) Full Screening Total 16 Genetic Screening: Partner present: No Patient verbalized knowledge of partner family health history: No Do you or your partner have any personal or family history of defects not previously discussed: No Do you have history of a complicated by anomaly, genetic condition, or demise: No Preeclampsia Risk Screening: Screening for prevention of preeclampsia: High risk factors: None Moderate risk ractors: Obesity (body mass index greater than 30) and Age 35 years or older OB Risk Screening: Completed, positive findings include: Patient answered 'Yes' to Partner with H (more content not included)... [facility] 02-29-2024 History of Present illness Narrative Images from the original note were not included. Senior Software Tester offered: Patient declines. INITIAL OB ASSESSMENT HPI: Emre is a 38 year old Black Female here to establish Obstetrical Care. Patient's last menstrual period was 01/04/2024 (exact date). from OB Dating Form. was unplanned but accepted Complaints: Abdominal pain (mild cramping) OB History T1 L1 SAB2 IAB0 Ectopic0 Multiple0 Live Births1 Previous history: Prior : never History of 4th degree laceration: no History of shoulder dystocia: no History of Hypertensive disorders including pre-eclampsia or gestational hypertension: no History of gestational diabetes: no Patient's Risk Screening for delivery: Have you had a prior ray between 20w and 36w6d? No How many pregnancies have you had before? 3 Did you have a previous baby with a GBS Infection? No Please select all that apply for any prior : N/A MEDICAL/PSYCHOSOCIAL HISTORY: Severe Bleeding with delivery: no Thyroid Disease: no Gestational Hypertension:no Preeclampsia:no Diabetes in : no ABO/RH(D) Date Value Ref Range Status 09/16/2008 B POS Final BMI 44.47 kg/(m^2) Last Pap: 05/09/2022 History of abnormal pap: yes Prior treatment for cervical dysplasia: LEEP. Last HPV: 04/29/2022 History of STDs: chlamydia, GC, and HSV Partner History of STDs: Unknown Did you have a partner with Herpes? Yes Tobacco use: No E-Cigarette/Vaping Use: No Caffeine use: Yes Drug use: No Alcohol use: No Multivitamin with Folic acid: Yes Would refuse blood transfusion if medically necessary: No Social Needs: How often does this describe you? I don't have enough money to pay my bills: Never Within the past 12 months, have you worried that your food would run out before you had money to buy more? Never In the past 12 months, has lack of reliable transportation kept you from going to medical appointments or work, or from getting things needed for daily living? Never In the past 12 months, have you had any concerns about having a place to live, or about the condition or quality of your housing? Never Would you like more information on any of the following (please check all that apply)? Social History: Do you have any history of depression, anxiety, PTSD, or other mood problems? Yes Do you have a history of abuse or trauma that may impact your experience? No Are you currently employed? No Depression/Anxiety Screening: Admits to symptoms of depression and anxiety. OB Depression and Anxiety Screening- This Encounter (since 03/03/2024) Over the past 2 weeks have you felt down, depressed, or hopeless? Positive - Further Testing Indicated Over the past two weeks, have you felt little interest or pleasure in doing things? Positive - Further Testing Indicated I have been able to laugh and see the funny side of things. Not quite so much now I have looked forward with enjoyment to things. Rather less than I used to I have blamed myself unnecessarily when things went wrong. Yes, some of the time I have been anxious or worried for no good reason. Yes, sometimes I have felt scared or panicky for no good reason. No, not at all Things have been getting on top of me. No, most of the time I have coped quite well I have been so unhappy that I have had difficulty sleeping. Not at all I have felt sad or miserable. No, not at all I have been so unhappy that I have been crying. No, never The thought of harming myself has occurred to me. Never Elsa Depression Scale Total 7 Feeling nervous, anxious or on edge 3-Nearly every day Not being able to stop or control worrying 3-Nearly every day Anxiety Pre-Screening Total (If >/= 3 additional questions will be reviewed) 6 Worrying too much about different things 2-More than half the days Trouble relaxing 2-More than half the days Being so restless that it is hard to sit still 2-More than half the days Becoming easily annoyed or irritable 2-More than half the days Feeling afraid, as if something awful might happen 2-More than half the days Anxiety (MARCO ANTONIO) Full Screening Total 16 Genetic Screening: Partner present: No Patient verbalized knowledge of partner family health history: No Do you or your partner have any personal or family history of defects not previously discussed: No Do you have history of a complicated by anomaly, genetic condition, or demise: No Preeclampsia Risk Screening: Screening for prevention of preeclampsia: High risk factors: None Moderate risk ractors: Obesity (body mass index greater than 30) and Age 35 years or older OB Risk Screening: Completed, positive findings include: Patient answered 'Yes' to Partner with Herpes Marital Status:Single Partner: Name: Maciej Age: 32 Occupation: [employer] Gender: Male PAST MEDICAL HISTORY Diagnosis Date Abnormal Pap smear of cervix before 2007 Acquired acanthosis nigricans Anemia 05/09/2016 Carpal tunnel syndrome of right wrist 10/01/2020 Chronic pain of both knees 07/18/2019 Generalized anxiety disorder Gonorrhea 2019 Herpes, genital Incontinence of urine Mixed incontinence 08/29/2023 Pain in right wrist 11/10/2015 Patellofemoral arthralgia of both knees 10/01/2020 PID (acute pelvic inflammatory disease) 2019 Right wrist tendonitis 11/10/2015 Suicidal ideation 03/13/2017 [facility] transfer to [facility] PAST SURGICAL HISTORY Procedure Laterality Date PAST SURGICAL HISTORY OF BIOPSY OF SCALP LSION TONSILLECTOMY PRIMARY/SECONDARY <AGE 12 Tonsillectomy Current Outpatient Medications Medication Sig Dispense Refill PNV no.153/FA/om3/dha/epa/fish ( GUMMIES ORAL) Take 2 Pieces by mouth once daily. valACYclovir (VALTREX) 1 gram tablet Take 1 tablet by mouth once daily. 90 tablet 3 escitalopram oxalate (LEXAPRO) 10 mg tablet Take 1 tablet by mouth once daily. 90 tablet 1 Cholecalciferol, Vitamin D3, 50 mcg (2,000 unit) cap Take 1 capsule by mouth once daily. 90 capsule 3 omeprazole (PRILOSEC) 20 mg capsule Take 1 capsule by mouth daily before breakfast. 1/2 hr before meal. (Patient not taking: Reported on 02/29/2024) 30 capsule 2 MYRBETRIQ 25 mg Tb24 TAKE 1 TABLET BY MOUTH EVERY DAY (Patient not taking: Reported on 02/29/2024) 90 tablet 3 multivitamin tablet Take 1 tablet by mouth once daily. (Patient not taking: Reported on 02/29/2024) No current facility-administered medications for this visit. Allergies As of Date: 03/04/2024 (No Known Allergies) Fully Assessed 03/04/2024 SBIRT Zewatson Quinn was given the 's screening tool. Emre answered as follows: OB Opioid Screening - Last Recorded (since 06/08/2023) Did any of your parents have a problem with alcohol or other drug use? Yes Alcohol Does your partner have a problem with alcohol or other drug use? Unknown In the past, have you had difficulties in your life because of alcohol or other drugs, including prescription medications? Yes In the past month have you drunk any alcohol or used other drugs? No Are you taking medication for pain during the either prescribed or not? No Based on the screen and further questions, she is considered at Low risk due to: no longer using Positive reinforcement of current behavior. Plan to rescreen early third trimester. Chaparrita Cope APRN.COMMODITY BUYER Does patient have penicillin allergy: No REVIEW OF SYSTEMS: GENERAL: Negative for: Fever or Chills HEENT: Negative for: Impaired Vision, Ringing in Ears, Nosebleeds + intermittent headache NECK: Negative for: Swelling, Pain, Stiffness RESPIRATORY: Negative for: Cough, Shortness of breath, Wheezing GASTROINTESTINAL: Negative for: Diarrhea, Blood in stool + heartburn, nausea, occasional constipation MUSCULOSKELETAL: Negative for: Muscle or joint pain, stiffness, Joint swelling NEUROLOGIC/PSYCHIATRIC: Negative for: Weakness, Paralysis, Numbness, Tingling, Tremor, Memory loss + anxiety/depression SKIN: Negative for: Rash, Itching GENITOURINARY: Negative for: vaginal itching, vaginal discharge, hematuria or dysuria SENSITIVE EXAM: The sensitive examination was discussed with the Patient or Patient's Authorized Animal Handler. As applicable, any other physician, advance practice provider, medical student, or other health professional student that will be observing or involved in the sensitive examination for educational or training purposes was discussed with the Patient or Authorized Animal Handler. The Patient or Authorized Animal Handler has agreed to proceed with the sensitive examination. (Sensitive examination includes inspection and/or palpation of the breasts, pelvis, prostate and anorectal regions). PHYSICAL EXAM: BP 124/72 Ht 5' 6.654 (1.69m) Wt 281 lb (127.5kg) LMP 01/04/2024 BMI 44.47 kg/(m^2). GENERAL: pleasant in no apparent distress DERMATOLOGY: Normal, without lesions, non-icteric, and non-hirsute NECK: Supple, full range of motion, no adenopathy, and thyroid normal CHEST: Normal inspiratory effort BREAST: soft, non-tender, symmetric, no dominant mass, normal nipple-areolar complex, no lymphadenopathy, and no nipple discharge ABDOMEN: soft, non-tender, and no masses NEURO: alert and oriented x3,exam grossly non-focal PELVIS: External genitalia normal without lesions. Perineal body intact. No vaginal or cervical lesions. Cervix closed. Uterus 8 week size. No adnexal masses or tenderness. Clinical Pelvimetry: Pelvimetry clinically assessed as adequate Limited OB ultrasound exam: single intrauterine and positive cardiac activity ASSESSMENT: 38 year old at 8w4d wks gestational age PLAN: 1) Patient oriented to practice. Patient given new OB orientation folder. Discussed nutrition, folic acid supplementation, dietary guidelines, exercise, smoking, alcohol, caffeine, and drug use. Discussed gestational weight gain guidelines. Discussed routine OB labs including STD/HIV. Discussed how to access Your guide to a health and the Instructor Nurse. Discussed hemoglobin electrophoresis. Patient: Accepts Reviewed midwifery and director of distance learning services that are available. 2) Screening: Hemoglobin A1C: ordered Baby Aspirin: The patient has been counseled about the potential benefits of low dose aspirin in and our recommendation that this be offered to all patients, regardless of whether they meet the high risk criteria specified above. She Accepts Aneuploidy Screening: Discussed aneuploidy screening, nuchal translucency/first trimester early anatomy ultrasound and NIPT. The risks/benefits and limitations of NIPT/aneuploidy screening were reviewed including the potential for false negative and false positive results. The availability of genetic counseling was reviewed. Information on aneuploidy screening was provided. The patient chooses to proceed with First trimester early anatomy ultrasound (12-13w6d) Myriad Carrier Screening: Discussed myriad carrier screening. We discussed the availability of professional-society guided carrier screening and reviewed the conditions screened and limitations of screening. The availability of genetic counseling was reviewed. Information on carrier screening was provided. The patient is considering 3) Patient offered option of Virtual Visits. Patient unsure. May consider in future. ACTIVE PROBLEM LIST Encounter for Supervision of High Risk in First Trimester, Antepartum - 03/04/2024 Comment: Care Checklist Vaccines: [] Flu vaccine [] declined [] RSV vaccine 32 0/7 - 36 6/7 (Oct - Mar) [] declined [] COVID vaccine [] declined [] TDaP 27-36 [] declined First trimester: [x] Dating US [] 1st tri labs [x] Pap smear [] Carrier screening - considering [] declined [] NIPT screening - considering [] declined [x] First trimester anatomy scan [] declined [x] universal ASA ordered (start 12w-16w) [] declined [] M Power Consult [] not indicated [] declined Second trimester: [] Anatomy scan [] Mode of Delivery - [] Feeding - [] Pump ordered [] Diabetes screen [] CBC, RPR [] Behavioral Health Screening Third trimester (28-30 weeks): [] Consent [] Contraception [] Construction Scheduler [] TeamBirth handout Third trimester (36-40 weeks): [] GBS [] Presentation - [] Scheduled [] yes - Hibiclens, pre-op instructions, CBC, T&S ordered [] no [] H&P [] Preferences worksh Advanced Maternal Age in Multigravida, First Trimester - 03/04/2024 Comment: March 04, 2024 Will be age 39 at [place] Chaparrita Cope APRN.COMMODITY BUYER History of Herpes Genitalis - 03/04/2024 Comment: March 04, 2024 Takes suppression therapy daily. Chaparrita Cope APRN.COMMODITY BUYER History of Pelvic Inflammatory Disease - 03/04/2024 Comment: 2019 Obesity Affecting in First Trimester - 03/04/2024 Comment: - Pre BMI 44 - Plan for growth and then weekly NSTs starting at 32 weeks. Anxiety Disorder Affecting , Antepartum - 03/04/2024 Comment: March 04, 2024 MARCO ANTONIO score 16. Denies thoughts of self harm. Mental health resources provided. Has counselor she sees biweekly through [employer]. PCP manages Lexapro. Discussed recommendation of following up with PCP about possible dosage adjustment. Chaparrita Cope APRN.COMMODITY BUYER Depression Affecting - 03/04/2024 History of Depression - 03/04/2024 Comment: March 04, 2024 EDPS 7. Denies thoughts of self harm. Mental health resources provided. Has counselor she sees biweekly through [employer]. PCP manages Lexapro. Discussed recommendation of following up with PCP about possible dosage adjustment. Chaparrita Cope APRN.CNP History of Miscarriage - 03/04/2024 Comment: March 04, 2024 14 week loss at age 23 9 week loss Chaparrita Cope APRN.COMMODITY BUYER History of Smoking - 03/04/2024 Comment: March 04, 2024 Quit right before discovery of . Recommend continued cessation. Chaparrita Cope APRN.COMMODITY BUYER Heartburn During in First Trimester - 03/04/2024 Comment: March 04, 2024 Pepcid rx sent. Chaparrita Cope APRN.COMMODITY BUYER Nausea and Vomiting During - 03/04/2024 Comment: 03/04/24 Vitamin B6 doses reviewed. To notify if prescription is needed. Chaparrita Cope APRN.CNP History of Headache - 03/04/2024 Comment: March 04, 2024 Discussed Tylenol or Magnesium for relief. Chaparrita Cope APRN.CNP History of Alcohol Abuse - 03/04/2024 Comment: March 04, 2024 Has been sober 6 months. Went to rehab through 180. Chaparrita Cope APRN.COMMODITY BUYER Follow up in 4 weeks or sooner prn. Plan for NT scan between 12w0d and 13w6d gestation. Chaparrita Cope APRN.COMMODITY BUYER documented in this encounter [facility] 02-29-2024 Instructions Chaparrita Cope APRN.CNP - 02/29/2024 3:33 PM EST Images from the original note were not included. Please select the following link to access the [facility] Your Guide to a Healthy . www.[facility].org/healthypregnancyguide Please select the following link to access the [facility] Your Guide to a Healthy . www.[facility].org/healthypregnancyguide Psychotherapy Services at [facility] Call Behavioral Health Access Line at [phone] to schedule Individual psychotherapy In-person or virtual Wait time for first evaluation may be 12 or more weeks. Wait list spots may be available. Due to the high volume of patients this option is recommended if you are looking for short term acute symptom coping strategies. 3-246-9-GSBD2WIKL - [place] Maternal Mental Health Hotline If you are in suicidal crisis, please call or text 6-277-545-DTBE ( ) or visit the National Suicide Prevention Lifeline website. mchb.z[facility] comprehensive health centera.gov If you are in crisis, call 001 or go to your nearest Emergency Department Here are some links for wonderful Providers here in the community and surrounding areas. Do not hesitate to contact their offices, many are offering virtual visits during this time. Psychotherapy Services outside of [facility] Support International Online Provider Directory https://MobileDevHQ.TuneCore/ - can assist in finding providers in your area that might be more extensive then the list below. [facility] - [place], [place] [address] [place] [address] [address] [facility] [address] [place] [address] [facility] [address] [place] [address] Rama Diehl MD [address] [place], [place] [address] [facility] [address] [facility], [address] [place] [address] [facility] Services [facility] [place] [address] [facility] Services [place] / [place] [phone]/ [phone] Heather Domínguez [address] [facility] [phone] Nixon of Counseling and Mediation Alvin / Dionicio [phone] [facility] [address] [place] [address]/ [place] [phone] Inge Sales, JACIEL, CLC [facility]ump and Beyond Family Therapy Workshops, telehealth and at home visits. [phone] [facility] counseling [place] 20 locations [place], [place], [place], [place], [place], [place], [place], [facility], [place], [place], [place], [place], [place], [place], [facility], [place], [place] ,[facility], [place], [place],[facility], [facility], [place], [facility], [facility], [place] www.[facility] [phone] Psychotherapy resources outside of [facility] are listed below [facility] Web: https://www.Enabled Employment/ Support International Online Provider Directory https://Vastrm/ [facility] https://Rocket.La/ 1Lay for Behavioral Health and Wellness Web: https://P10 Finance S.L./ Arisdyne Systems for Effective Living Web: https://www.Lifeenergyliving.TuneCore/ LifeStance Web: https://Souktel.TuneCore/location/s moise/iowa/ [facility] Web: https://www.[facility].or / [facility] Web: https://Soteria Systems.org/ Recovery Resources Mental health and substance abuse help Web: https://www.CloudFlare.Railsware & RESOURCES Support International Direct peer support and connection to professional resources Non-Emergency Helpline Phone: / Text: [phone] Web: https://www..net/ Online Provider Directory: https://Vastrm/ Online Support Meetings: https://www..net/get-he lp/tih-seclrn-ceflqvf-meetings/ BILL Baby and Safe And Vault Service Mechanic Services Web: https://Selexys Pharmaceuticals Corporation/ Q-Bot Expert information on medication use during and Text: [phone] Web: https://Flashtalking/ NATIONAL REGISTRY FOR PSYCHIATRIC MEDICATIONS Currently studying the safety of antidepressants, ADHD medications and atypical antipsychotics taken during TO PARTICIPATE CALL TOLL-FREE: Web: https://[facility].org/re search/pregnancyregistry/ Support Groups: [facility]- Follow on facebook Baby Bistro support group led by [facility] department Resilient Mamas - Support Group [facility].org The POEM support group [phone] Www.poBeamlyonline.org Follow on facebook - DAVE lobo Online support meetings PSI https://www..net/get-he lp/guo-ekqbmb-zeeayrb-meetings/ [facility] mommy and me virtual support group 11:30-1pm Support for mothers and new babies and toddlers [place] childbirth education: Childbirth @cc.org or call [phone] CRISIS: CRISIS HOTLINE [phone], 911 or go to the nearest [facility] [phone] / [facility] [phone] https://www.[facility].org Crisis text line text the word HOME to [phone] Lemuel [facility] [address] [place] [address] [facility] [address] www.Rachel Joyce Organic SalonkyleOryon Technologies Gina Diego clinical counseling [address] [address] www.Biomonitor [phone] Holding space psychotherapy Marii Ordoñez CONCRETE TILE MACHINE OPERATOR CUSTOMER ENGAGEMENT ANALYST-S [address] [facility] www.Soapbox [phone]/ [place] [phone] They all offer virtual. All work with trauma Support groups Online support meetings PSI https://www..net/get-he lp/pzw-jsfkei-ipxvjyr-meetings/ Here are the support groups they offer: Support of parents of 1 to 4 years old children POEM ( Outreach and Encouragement for Moms) offers free support for mothers experiencing depression, anxiety, and other mood and anxiety disorders. Masks are recommended but not required. No pre-registration required. Babies in arms welcome. meetings now take place on the and Monday of each month Location: [facility] [address] [place] [address] Room 122 (library room) 7-8:00 p.m. When you enter the [facility] parking lot off of [address] the entrance door closest to our meeting room is on the front of the building toward the right. For those who are more comfortable with a virtual platform, POEM offers online support group options several days of the week. To register for an online group or to find out more about POEM, website at: https://mhaohio.org/get-help/faxton hospitalefhb-tdccbe-cfalqd/poem-services/ offer a confidential helpline: private Facebook group is called DAVE Lobo Here are the groups they offer: Traumatic childbirth resources: Http://pattch.org/ https://www.ileneGIGASsonia Scopelec.TuneCore/ Name Location (s) Phone # (s) Services Website [facility] [address] [facility], [place], [place] - [phone]; [address]- [phone] In-Person GROUPS INDIVIDUAL THERAPY MATERNAL- MENTAL HEALTH MEDICATION MANAGEMENT PLAY AND ART THERAPY TELETHERAPY https://www.Enabled Employment/s ervices/ [facility] Vangie ALVAREZ? [address] [place], [place] [address] ? [place] [address] [facility], [address] [place], [place] [address] ? [place] [phone]? Grief Support Groups Individual Grief Counseling Spiritual Care Memorial Events https://[place].[facility].org/grief-services [facility] [address] [place], [place] [address]; ; Email: mir@Yospace Technologies Women's Mental Health; Couples Counseling; Trauma (EMDR); Stress Management; Mood and Anxiety Related Disorders- and much more https://www.Kawa Objects/ Clan Fight Numerous as they have contract providers: access website to find specific providers near you Counseling including CBT and EMDR as well as many more modalities; Medication Management; Telehealth and In-Person https://nContact Surgical/ NewCondosOnline Behavioral Health and Wellness [address] [place], [place] [address]; [phone] Personal, Family and Group Therapy; Psychological Testing and Diagnosis; Medication Management; Life and Career Coaching; Psychoanalysis; Literacy Testing; Yoga and Meditation https://P10 Finance S.L./ Fit [facility] [address] [facility] [address], [place] [address] [address] ; [address] [place] [address], [address] [place] [address]; Office # for both sites: Individual and Couples Counseling https://www.[address] Residence FACC Fund I.TuneCore/ paymentinsurance.html OCD & Anxiety [facility] [address] [facility], [address], [place] [address]; Specialize in Cognitive-Behavioral Therapy (CBT) for the treatment of anxiety disorders across the lifespan. TELEHEALTH ONLY. https://ocdandanxietycenteroTalentClick/faqs [facility] [address] [facility] 6th [place], [address] [place] [address] [facility] [place], [address] [place] [address] [place], [address] [place] [address] [address] [place], [place], [address] [address], [id number] [place] [address] [place], [address] [place] [address] [place], [place], [id number] Transportation Services To minimize patient barriers, [facility] provides transportation services to patients who qualify. If you are unable to get to your appointment at any of our facilities, please let us know. Need help now? Stop by one of our walk-in clinics to establish behavioral health care. Counseling Indvidual, Group, Couples and Family Counseling and EMDR. Medication Management Case Management benefits applications housing assistance Substance abuse treatment Medication assisted treatment https://www.[facility].or g/mental-health/ [facility] OFFICE AT [facility] [address] [place] [address] [facility] OFFICE [address] [place] [address] [facility] OFFICE [address] [place] [address] [facility] OFFICE (at [facility]) [address] [place] [address] [facility] SYR[facility] EXCHANGE PROGRAM & HIV SCREENING [address] [place] [address] [place] [facility] SYRING[facility] EXCHANGE PROGRAM [address] [place] [address] Behavioral Health Urgent Care: [facility] Sites Counseling Indvidual and Group Medication Management Case Management benefits applications housing assistance Substance abuse treatment Medication assisted treatment Employment Services/ Job Training https://theKisstixxersTimeshare Broker Salesio.org/ Recovery Resources [address] [place], [place] [address]: P: [phone] [address] P: [phone] Our services include: Addiction Mental Health Treatment Assessment Psychiatry Medical Care Employment Housing Drug and Alcohol Prevention HIV/AIDS Prevention https://www.recres.org/ [facility] [place] [address] [facility] [address] [place] [address] [place] [address] [place], [place] [address] [place] [address] [place] [address] [place] [address] [facility] [address] [place] [address] [place] [address] TMS Therapy/ Counseling Psychocological Testing for ADHD Medication Management In-Person/ Telemedicine https://www.Tidal/nikki ents-depression Memory & Psychological services [address] [place] [address], [place] [address] Neuropsychological Testing For ADHD https://www.memoryandpsych.com/ The Counsel[facility] Office [facility] [place], [place] [id number] [address] [phone] Providing arrm-bc-bgom and telehealth services. Adult Case Management Community Education and Prevention Employment Outpatient Treatment - Counseling & Psychotherapy Psychiatric Services http://www.[facility].org/ [facility] [place] [address] [place] [address] Manny [facility]) [address] [place] [address] Virtual Appointments! Now offering safe and convenient virtual client appointments to anyone in [place]! Individual Therapy Couples/Relationship Therapy Trauma/EMDR Therapy Art Therapy Play Therapy Bilingual Receptionist Support: Parenting Skills, Parent Child Interaction Therapy, Parent Interaction Therapy Meditation Dietitian/Brine Plant Operator Services Group Therapy Yoga https://www.Ebix. TuneCore/ Bettie Elias [phone] Private Practice: Telehealth Only Specializes in EMDR for Trauma None MORNING SICKNESS IN by Bety Bernal M.D. for [facility] As you may already know, morning sickness can often be more appropriately called evening sickness or atteb-ddadjx-vq-the-day sickness. While there are the andrzej few, most women (50-90%) experience some degree of nausea, some have vomiting, and a few develop a severe form of vomiting during called hyperemesis gravidarum. What causes the nausea and vomiting of ? We can't explain why some people feel fine and others are green for months. Even the same woman may feel vastly different in each . There is some relationship between nausea and the level of the hormone hCG. In twin pregnancies, and in other situations where the hCG is greater than expected, nausea and vomiting tend to be worse. In a destined for miscarriage, hCG levels tend to be low, and nausea is often less severe. This being said, a lack of nausea doesn't guarantee that the is destined for miscarriage. The fact that nausea and vomiting are often signs of a healthy can offer a silver lining in the dark cloud of miserable nausea. How long will the nausea last? Fortunately, for most women, nausea and vomiting are a first trimester event, peaking at week 9-10 and waning by week 14-16. When you are feeling bad the weeks can go by slowly but most moms do feel tremendously better by the middle of the . Whether morning sickness is a brief experience or lasts through most of the , there are treatments that can make the weeks or months more tolerable. What can you do about it? Diet: See what works for you. Try eating bland dry foods, and avoid fatty or spicy foods. It is okay to eat a less than perfectly balanced diet in the first trimester. Have your liquids separately from dry foods. Try sports drinks, water, clear juices, Hernan-aid, or non-caffeinated tea. Avoid carbonated beverages that fill up your stomach. Try eating lots of little meals. If you tend to feel sick when you first wake up, leave crackers next to the bed for a quick snack before rising. Keeping healthy snacks with you all day to nibble when you feel queasy can sometimes even prevent nausea from starting. vitamins and nausea: Pre-narciso vitamins can sometimes worsen nausea in . While folate is necessary, especially early in the , it comes as a smaller pill that many people find more tolerable than the complete vitamin pill. Ask your practitioner if it is okay to temporarily replace vitamins and iron with just a folate pill if you find a significant worsening in the level of your nausea from the vitamins. Alternative therapies: Acupressure may be used to treat nausea in , and is not known to have any risks for the fetus. Wristbands (marketed for seasickness) that put pressure on an acupressure point at the wrist are often available at drugstores or travel stores. Gina root is used for nausea in many traditional cultures. Some women take fresh grated gina or gina tablets. It is possible that the pill form contains other ingredients or contaminants, so you may want to try fresh gina first. Medications: Emetrol is the only nausea medication approved for use in . It is available over the counter and is soothing to the stomach. A prescription medication called Bendectin was available in the 1970s-1979's and was shown to be safe in , but the company stopped marketing it in the [place] due to the costs of liability coverage. Bendectin contained 10 milligrams of vitamin B6 and 10 milligrams of Doxylamine. Two tablets were given at bedtime and a total of up to 4 tablets could be used in a 24-hour period. Interestingly, Unisom , which contains a higher dose (25 mg.) of the same medication, Doxylamine, is currently marketed as an zcak-jwu-mnlufpi sleeping pill. Ask your practitioner if creating a vitamin B6/Doxylamine combination with gerl-okb-wqijyyl medications would be safe for you. Prescription medications like Compazine and Phenergan can be used if the benefits outweigh possible risks, but these have not been clearly shown to be safe in . Zofran , an expensive anti-nausea medication often used to treat nausea from chemotherapy, can also be used. Can I throw up so much it harms the baby? The act of vomiting cannot hurt your fetus, which is protected inside the uterus. If you get dehydrated or develop a metabolic imbalance, this can be unhealthy. As long as you can keep down liquids, you and your baby will generally do all right. Eat when you feel able. If you are unable to keep anything down, or if you notice potential signs of dehydration such as lightheadedness, or concentrated and/or infrequent urination, call your practitioner. Some women need brief hospital admission for intravenous fluids and anti-nausea medications if their condition becomes severe. This severe form of nausea and vomiting is called Hyperemesis Gravidarum. As with many symptoms of , remind yourself that this, too, shall pass, and you'll have a wonderful baby to show for it! TREATMENT OPTIONS, SHORT VERSION: Frequent small meals Hydrate throughout day Sea-Bands wrist pressure point applicators Gina root (powdered, in capsules) 250mg four times a day Vitamin B6 25 mg tablet three times a day Also may be taken with half a tablet of Unisom three times a day (Doxylamine 12.5 mg) If severe (weight loss, dehydration), call us and come in for IV hydration and possible medication in the form of injections. Prescription medications such as Phenergan, Compazine, Reglan documented in this encounter [facility] 12-18-2023 Telephone encounter Note Prescription Refill Information The patient has been identified by name and date of : Yes Caregiver verified no other encounters exist for this prescription request: Yes Caregiver confirmed with patient/requestor that no other refills are due, in the near future, with this provider at this time: No The last office visit in the department: 01/26/23 distance visit Does the patient have a future office visit with this provider/department: Yes Requested Prescriptions Pending Prescriptions Disp Refills omeprazole (PRILOSEC) 20 mg capsule 30 capsule 2 Sig: Take 1 capsule by mouth daily before breakfast. 1/2 hr before meal. Lisa Ayers MA December 18, 2023 1:44 PM [facility] 12-18-2023 Miscellaneous Notes Prescription Refill Information The patient has been identified by name and date of : Yes Caregiver verified no other encounters exist for this prescription request: Yes Caregiver confirmed with patient/requestor that no other refills are due, in the near future, with this provider at this time: No The last office visit in the department: 01/26/23 distance visit Does the patient have a future office visit with this provider/department: Yes Requested Prescriptions Pending Prescriptions Disp Refills omeprazole (PRILOSEC) 20 mg capsule 30 capsule 2 Sig: Take 1 capsule by mouth daily before breakfast. 1/2 hr before meal. Lisa Ayers MA December 18, 2023 1:44 PM documented in this encounter [facility] 11-13-2023 Telephone encounter Note Patient was scheduled for a cysto in August and cancelled. Patient is requesting an appointment, she states medication is not working for incontinence. Did you want a cysto rescheduled or an office visit? Thank you Elena [facility] 11-13-2023 Miscellaneous Notes Patient was scheduled for a cysto in August and cancelled. Patient is requesting an appointment, she states medication is not working for incontinence. Did you want a cysto rescheduled or an office visit? Thank you Elena documented in this encounter [facility] 09-13-2023 Note [facility] Medical Records Department [address] [place] [address] Discharge Summary 09/13/23 1214 MR#: [id number] Acct: [id number] Name: EMRE QUINN Rep #: [id number] : 1985 38 From: Jorje Harper MD PCP: Dr. Holland Vang DO Status:ADM IN Location: [facility] [facility]-5 Providers Date of Admission: 09/11/23 Date of Discharge: 09/13/23 Primary Care Physician: Dr. Holland Vang DO Reason For Visit: ETOH WITHDRAWAL Diagnosis Discharge Diagnosis (1) Desire for detoxification: Status: Acute Plan The patient is a 38 y/o F with history of polysubstance use and alcohol admitted with acute alcohol withdrawal syndrome. w/ PMHx: Polysubstance abuse (Cannabis use, Psilocybin usage), Former tobacco use, Anxiety and Depression/Mood disorder, GERD, EtOH abuse (Wine, Liquor) who presents to the [facility] on 09/11/23 w/ noted acute EtOH withdrawal, onset starting on day of presentation following last EtOH intake the evening prior. #1. Acute alcohol withdrawal syndrome with history of chronic alcohol use disorder with dependence and tolerance: Patient is being admitted to MedSurg floor. Patient on phenobarbital based order set along with other adjunctive medications gabapentin, Bentyl, Vistaril, clonidine, Klonopin as needed for alcohol withdrawal symptom control. Patient is on thiamine and folate acid. CIWA monitor. industrial maintenance manager 180 consulted. 09/12: Patient alcohol withdrawal symptoms are well-controlled. She is walking around the nursing station independently. Patient was evaluated by [facility] staff and felt she is stable for discharge to inpatient alcohol rehab. Patient is discharged. #2. Anxiety and depression with suicidal ideation, no specific plan reported: Patient was evaluated by crisis management and found no high risk. Sitter was discontinued. Continue escitalopram and BuSpar. 09/12: Patient denies any suicidal ideation. #3. Hypokalemia: Admission K+ 3.4, magnesium level requested, supplementation given, repeat potassium is still 3.4. On Neutra-Phos. Magnesium and phosphorus in normal range. 09/12: Potassium replaced. #4. Polysubstance abuse: Patient with usage of cannabis and psilocybin, denies any IV drug abuse or any usage of narcotic therapies, UDS with cannabis noted only, discussed at length and patient is amenable especially given previous history of sexually transmitted infections to have HIV, hepatitis and syphilis testing. #5. Former cigarette tobacco use-> vaping, recent cessation: Encourage continued cigarette tobacco cessation and encouraged patient continue discontinuation of vaping, notes 2 weeks since last usage. #6. Morbid Obesity: Weight loss and lifestyle changes encouraged. #7. GERD: We will have as needed Mylanta regimen. #8. DVT prophylaxis: Low risk, encourage ambulation discharge medication reconciliation done. Discharge follow-up instructions completed. Discharge process discussed with the patient and all questions were answered to patient's satisfaction. Follow with PCP in 1 to 2 weeks Total time spent, exact 35 minutes on discharge meds reconciliation, examination, coordination of care with nurses and ancillary staff, review of imaging and blood test and discussion with the patient on follow-up instructions. Medications at Discharge Home Medications Valtrex 500 mg PO DAILY herpes 07/12/19 multivitamin with minerals 1 ea PO DAILY dep 07/12/19 buspirone 5 mg tablet 5 mg PO PRN ANXIETY 09/11/23 cholecalciferol (vitamin D3) 50 mcg (2,000 unit) capsule 50 mcg PO DAILY VIT 09/11/23 escitalopram oxalate 10 mg tablet 10 mg PO DAILY ANXIETY 09/11/23 folic acid 1 mg tablet 1 mg PO DAILY@0800 #0 tabs 09/13/23 thiamine HCl (vitamin B1) 100 mg tablet 100 mg PO DAILYCM #0 tabs 09/13/23 Physical Exam Narrative Seen and examined. Alcohol withdrawal symptoms are well-controlled. Physical exam General: Alert, Oriented x3, Cooperative HEENT: Atraumatic, PERRLA, EOMI, Normocephalic Oral: No Gingival or Mucosal Lesions/ Ulcerations Neck: Supple, No JVD, Negative Carotid Bruits Chest wall/Lungs: Air entry diminished in bilateral lung bases. No crepitation/rhonchi Cardiovascular: Regular rate, Regular Rhythm, Normal S1, Normal S2, No M/G/R Abdomen: Bowel Sounds Present, Soft, Non Tender, Non-Distended : No dysuria. No renal angle tenderness. No suprapubic tenderness. Extremities: No edema, Capillary Refill Less than 3 Seconds Skin: No rashes, No breakdown Musculoskeletal: No Tenderness to Palpation of Joints or Extremities Neurological: Cranial nerves II-XII grossly intact, DTR 2+/4. No acute focal neurological deficit. Psych/Mental Status: Normal Affect, Appropriate. Weight / BMI Weight Weight: 261 lb 7.492 oz Body Mass Index (BMI) 43.4 ABG / Lab / Microbiology Data 09/11/23 17:55 09/11/23 17:55 D/C Instruction (more content not included)... [facility] 08-29-2023 Note HNO ID: [id number] Author: DELPHINE BRADLEY MD Service: ? Author Type: Physician Type: Progress Notes Filed: 08/29/2023 08:30 Note Text: [facility] NEW PATIENT ENCOUNTER HISTORY OF PRESENT ILLNESS: Emre Quinn is a 38 year old female who presents send urgency incontinence and stress urinary incontinence Patient also has nocturia x 3-4 and frequency every half an hour Has to wear a depends all the time Urinalysis done today was negative for heme or infection Patient Entered Questionnaires PROMIS Global Health 06/28/2019 09/30/2019 03/21/2020 PROMIS Global Health Scale Physical Health Percentile 15 22 41 Mental Health Percentile 53 82 63 Percentiles provide an indication of how the patient's score ranks in relation to the general population. Higher percentile rankings indicate better function/quality of life. 50th percentile is the average of the general population and indicates half of respondents had a worse score. Review of Systems LAB Creatinine Date Value Ref Range Status 06/07/2023 0.66 0.58 - 0.96 mg/dL Final GLUCOSE UA (POCT) (mg/dL) Date Value 07/14/2021 Negative BILIRUBIN UA (POCT) (no units) Date Value 07/14/2021 Negative KETONE UA (POCT) (mg/dL) Date Value 07/14/2021 Negative SPECIFIC GRAVITY UA (POCT) (no units) Date Value 07/14/2021 1.020 HEMOGLOBIN/BLOOD UA (POCT) (no units) Date Value 07/14/2021 Trace-intact (A) PH UA (POCT) (no units) Date Value 07/14/2021 6.0 PROTEIN UA (POCT) (mg/dL) Date Value 07/14/2021 Negative UROBILINOGEN UA (POCT) (E.U./dL) Date Value 07/14/2021 0.2 NITRITE UA (POCT) (no units) Date Value 07/14/2021 Negative LEUKOCYTES UA (POCT) (no units) Date Value 07/14/2021 Negative COLOR UA (POCT) (no units) Date Value 07/14/2021 Yellow CLARITY UA (POCT) (no units) Date Value 07/14/2021 Clear ] MEDICATIONS omeprazole (PRILOSEC) 20 mg capsule Take 1 capsule by mouth daily before breakfast. 1/2 hr before meal. valACYclovir (VALTREX) 1 gram tablet Take 1 tablet by mouth once daily. escitalopram oxalate (LEXAPRO) 10 mg tablet Take 1 tablet by mouth once daily. Cholecalciferol, Vitamin D3, 50 mcg (2,000 unit) cap Take 1 capsule by mouth once daily. multivitamin tablet Take 1 tablet by mouth once daily. mirabegron (MYRBETRIQ) 25 mg Tb24 Take 1 tablet by mouth once daily. HISTORIES PAST MEDICAL HISTORY Diagnosis Date Abnormal Pap smear of cervix before 2007 Acquired acanthosis nigricans Gonorrhea 2019 Herpes, genital Incontinence of urine PID (acute pelvic inflammatory disease) 2019 Suicidal ideation 03/13/2017 [facility] transfer to [facility] PAST SURGICAL HISTORY Procedure Laterality Date PAST SURGICAL HISTORY OF BIOPSY OF SCALP LSION TONSILLECTOMY PRIMARY/SECONDARY Tonsillectomy FAMILY HISTORY Problem Relation Age of Onset None Mother other (osteoarthritis) Mother Hypertension Father Arthritis Maternal Grandmother rheumatoid SOCIAL HISTORY Social History Tobacco Use Smoking status: Former Packs/day: 0.50 Years: 10.00 Additional pack years: 0.00 Total pack years: 5.00 Types: Cigarettes Quit date: 01/21/2016 Years since quittin.6 Smokeless tobacco: Never Vaping Use Vaping Use: current everyday user Substances: Nicotine, THC Substance Use Topics Alcohol use: Yes Drug use: No LMP 08/04/2023 (Exact Date) Physical Exam Constitutional: Appearance: Normal appearance. HENT: Head: Normocephalic. Nose: Nose normal. Eyes: Pupils: Pupils are equal, round, and reactive to light. Pulmonary: Effort: Pulmonary effort is normal. Abdominal: General: Abdomen is flat. Musculoskeletal: General: Normal range of motion. Skin: General: Skin is warm. Neurological: General: No focal deficit present. Psychiatric: Mood and Affect: Mood normal. Legs are benign ASSESSMENT AND PLAN ASSESSMENT/PLAN: 1. Mixed incontinence - ICD9: 788.33, ICD10: N39.46 Will start Myrbetriq cannot get patient scheduled for cystoscopy and urodynamic evaluation Delphine Bradley MD This note was partially created using voice recognition software and is inherently subject to errors including those of syntax and sound-alike substitutions which may escape proofreading. In such instances, original meaning may be extrapolated by contextual derivation. [facility] 08-29-2023 History of Present illness Narrative Images from the original note were not included. [facility] NEW PATIENT ENCOUNTER HISTORY OF PRESENT ILLNESS: Emre Quinn is a 38 year old female who presents send urgency incontinence and stress urinary incontinence Patient also has nocturia x 3-4 and frequency every half an hour Has to wear a depends all the time Urinalysis done today was negative for heme or infection Patient Entered Questionnaires PROMIS Global Health 06/28/2019 09/30/2019 03/21/2020 PROMIS Global Health Scale Physical Health Percentile 15 22 41 Mental Health Percentile 53 82 63 Percentiles provide an indication of how the patient's score ranks in relation to the general population. Higher percentile rankings indicate better function/quality of life. 50th percentile is the average of the general population and indicates half of respondents had a worse score. Review of Systems LAB Creatinine Date Value Ref Range Status 06/07/2023 0.66 0.58 - 0.96 mg/dL Final GLUCOSE UA (POCT) (mg/dL) Date Value 07/14/2021 Negative BILIRUBIN UA (POCT) (no units) Date Value 07/14/2021 Negative KETONE UA (POCT) (mg/dL) Date Value 07/14/2021 Negative SPECIFIC GRAVITY UA (POCT) (no units) Date Value 07/14/2021 1.020 HEMOGLOBIN/BLOOD UA (POCT) (no units) Date Value 07/14/2021 Trace-intact (A) PH UA (POCT) (no units) Date Value 07/14/2021 6.0 PROTEIN UA (POCT) (mg/dL) Date Value 07/14/2021 Negative UROBILINOGEN UA (POCT) (E.U./dL) Date Value 07/14/2021 0.2 NITRITE UA (POCT) (no units) Date Value 07/14/2021 Negative LEUKOCYTES UA (POCT) (no units) Date Value 07/14/2021 Negative COLOR UA (POCT) (no units) Date Value 07/14/2021 Yellow CLARITY UA (POCT) (no units) Date Value 07/14/2021 Clear ] MEDICATIONS omeprazole (PRILOSEC) 20 mg capsule Take 1 capsule by mouth daily before breakfast. 1/2 hr before meal. valACYclovir (VALTREX) 1 gram tablet Take 1 tablet by mouth once daily. escitalopram oxalate (LEXAPRO) 10 mg tablet Take 1 tablet by mouth once daily. Cholecalciferol, Vitamin D3, 50 mcg (2,000 unit) cap Take 1 capsule by mouth once daily. multivitamin tablet Take 1 tablet by mouth once daily. mirabegron (MYRBETRIQ) 25 mg Tb24 Take 1 tablet by mouth once daily. HISTORIES PAST MEDICAL HISTORY Diagnosis Date Abnormal Pap smear of cervix before 2007 Acquired acanthosis nigricans Gonorrhea 2020 Herpes, genital Incontinence of urine PID (acute pelvic inflammatory disease) 2020 Suicidal ideation 03/13/2017 [facility] transfer to [facility] PAST SURGICAL HISTORY Procedure Laterality Date PAST SURGICAL HISTORY OF BIOPSY OF SCALP LSION TONSILLECTOMY PRIMARY/SECONDARY <AGE 12 Tonsillectomy FAMILY HISTORY Problem Relation Age of Onset None Mother other (osteoarthritis) Mother Hypertension Father Arthritis Maternal Grandmother rheumatoid SOCIAL HISTORY Social History Tobacco Use Smoking status: Former Packs/day: 0.50 Years: 10.00 Additional pack years: 0.00 Total pack years: 5.00 Types: Cigarettes Quit date: 01/21/2016 Years since quittin.6 Smokeless tobacco: Never Vaping Use Vaping Use: current everyday user Substances: Nicotine, THC Substance Use Topics Alcohol use: Yes Drug use: No LMP 08/04/2023 (Exact Date) Physical Exam Constitutional: Appearance: Normal appearance. HENT: Head: Normocephalic. Nose: Nose normal. Eyes: Pupils: Pupils are equal, round, and reactive to light. Pulmonary: Effort: Pulmonary effort is normal. Abdominal: General: Abdomen is flat. Musculoskeletal: General: Normal range of motion. Skin: General: Skin is warm. Neurological: General: No focal deficit present. Psychiatric: Mood and Affect: Mood normal. Legs are benign ASSESSMENT & PLAN ASSESSMENT/PLAN: 1. Mixed incontinence - ICD9: 788.33, ICD10: N39.46 Will start Myrbetriq cannot get patient scheduled for cystoscopy and urodynamic evaluation Delphine Bradley MD This note was partially created using voice recognition software and is inherently subject to errors including those of syntax and sound-alike substitutions which may escape proofreading. In such instances, original meaning may be extrapolated by contextual derivation. documented in this encounter [facility] 08-23-2023 Telephone encounter Note Pt assisted to schedule urology appointment. Brittany Lake LPN [facility] 08-23-2023 Miscellaneous Notes Pt assisted to schedule urology appointment. Brittany Lake LPN [facility] staff please assist pt in getting scheduled with urology. Brittany Lake LPN Schedule w/ urology. Incontinence Please see pt's mychart message and further advise. Brittany Lake LPN documented in this encounter [facility] 08-23-2023 Telephone encounter Note [facility] staff please assist pt in getting scheduled with urology. Brittany Laek LPN [facility] 08-23-2023 Telephone encounter Note Schedule w/ urology. Incontinence [facility] 08-23-2023 Telephone encounter Note Please see pt's mychart message and further advise. Brittany Lake LPN [facility] 08-23-2023 Telephone encounter Note NANETTE-01/26/23 Labs-06/07/23 NOV- not due for wellness till Nov. Ruth Beth LPN [facility] 08-23-2023 Miscellaneous Notes NANETTE-01/26/23 Labs-06/07/23 NOV- not due for wellness till Dec. 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 Encounter Diagnosis ICD-10-CM 1. Pelvic pain in female R10.2 Please see report under imaging tab. Ally Levin MD August 23, 2023 8:52 AM documented in this encounter [facility] 08-17-2023 History of Present illness Narrative Emre is a 38 year old who presents for an annual gynecologic exam without complaints. Concern that she has some low back pain around ovulation and menses. Ever since she had PID in 2019. Does not plan future pregnancies. Menses: cycles every 28-30 days and 5 days of flow. Not a lot of crampig, uses prn OTC meds w/ relief Contraception: none HPV vaccine: Yes Last Pap: 05/09/2022 normal HPV: 04/29/2022 negative History of abnormal pap: No Last mammogram: never Sexually active: Yes OB History T1 L1 SAB2 IAB0 Ectopic0 Multiple0 Live Births1 Pet Handler History LMP: 08/04/2023 (Exact Date), Having periods Age at Menarche: Age at First : Age at Menopause: Pet Handler History Comments: Sexual Activity: Yes; Male Contraception: Condom, None PAST MEDICAL HISTORY Diagnosis Date Abnormal Pap smear of cervix before 2007 Acquired acanthosis nigricans Gonorrhea 2019 Herpes, genital PID (acute pelvic inflammatory disease) 2019 Suicidal ideation 03/13/2017 [facility] transfer to [facility] PAST SURGICAL HISTORY Procedure Laterality Date PAST SURGICAL HISTORY OF BIOPSY OF SCALP LSION TONSILLECTOMY PRIMARY/SECONDARY <AGE 12 Tonsillectomy FAMILY HISTORY Problem Relation Age of Onset None Mother other (osteoarthritis) Mother Hypertension Father Arthritis Maternal Grandmother rheumatoid SOCIAL HISTORY Social History Tobacco Use Smoking status: Former Packs/day: 0.50 Years: 10.00 Additional pack years: 0.00 Total pack years: 5.00 Types: Cigarettes Quit date: 01/21/2016 Years since quittin.5 Smokeless tobacco: Never Vaping Use Vaping Use: current everyday user Substances: Nicotine, THC Substance Use Topics Alcohol use: Yes Drug use: No REVIEW OF SYSTEMS Abdomen: No abdominal pain, nausea, vomiting, diarrhea, or constipation. No bloating, early satiety, indigestion, or increased flatulence. Bladder: No dysuria, gross hematuria, urinary frequency, urinary urgency, or incontinence. Breast: No breast lumps, nipple d/c, overlying skin changes, redness or skin retraction. Allergies and current medication updated:Yes EXAM: BP 144/88 Ht 5' 6.25 (1.68m) Wt 261 lb (118.4kg) LMP 08/04/2023 BMI 41.80 kg/(m^2). GENERAL: pleasant, female in no apparent distress HEENT: Normocephalic, atraumatic, mucus membranes moist, and no lesions NECK: Supple, full range of motion, no adenopathy, and thyroid normal DERMATOLOGY: Normal, without lesions, non-icteric, and non-hirsute BREAST: soft, non-tender, symmetric, no dominant mass, normal nipple-areolar complex, no lymphadenopathy, and no nipple discharge CHEST: Normal inspiratory effort ABDOMEN: soft, non-tender, and no masses PELVIC: external genitalia normal, normal Bartholin's glands, urethra, [place]'s glands, no vulvar lesions, no cervical lesions, good vaginal support, physiologic discharge present, normal appearing perineal body and perianal region BIMANUAL: uterus normal size, shape and consistency, no adnexal masses, and non-tender RECTOVAGINAL: deferred. NEURO: alert and oriented x3,exam grossly non-focal EXTREMITIES: normal ASSESSMENT/PLAN: 1) Health maintenance: Pap/HPV up to date. Mammogram starting age 40. 2) Contraception: none. Contraceptive options reviewed and information provided. 3) STD screening: Accepted STD check for Gonorrhea and Chlamydia. 4) Follow up one year or sooner as needed HSV, no outbreaks but desires to cont. prophylaxis after we discussed option Miguel Escudero MD documented in this encounter [facility] 07-08-2023 Telephone encounter Note Patient has been identified by name and date of : Yes, Provider Holland Vang DO Date July 08, 2023 Time 11:38 AM Patient phones for refill(s): Requested Prescriptions Pending Prescriptions Disp Refills escitalopram oxalate (LEXAPRO) 10 mg tablet 90 tablet 1 Sig: Take 1 tablet by mouth once daily. Date of last office visit in primary care: 12/28/22 Date of next office visit in primary care: none Please advise. Thank you. Lisa Ayers MA. [facility] 07-08-2023 Miscellaneous Notes Patient has been identified by name and date of : Yes, Provider Holland Vang, Date July 08, 2023 Time 11:38 AM Patient phones for refill(s): Requested Prescriptions Pending Prescriptions Disp Refills escitalopram oxalate (LEXAPRO) 10 mg tablet 90 tablet 1 Sig: Take 1 tablet by mouth once daily. Date of last office visit in primary care: 12/28/22 Date of next office visit in primary care: none Please advise. Thank you. Lisa Ayers MA. documented in this encounter [facility] 06-08-2023 Miscellaneous Notes Spoke with pt gave information provided. Pt voices understanding. Please inform patient that her labs are overall stable. Her vitamin D and hemoglobin labs are borderline. Would recommend taking an extra vitamin D3 1000 international unit(s) a day with a meal and increased iron rich foods Holland Vang DO documented in this encounter [facility] 06-06-2023 Miscellaneous Notes Next annual 08/17/23. Requested Prescriptions Pending Prescriptions Disp Refills valACYclovir (VALTREX) 1 gram tablet [Pharmacy Med Name: VALACYCLOVIR HCL 1 GRAM TABLET] 90 tablet 0 Sig: TAKE 1 TABLET BY MOUTH EVERY DAY Rachelle Muniz RN documented in this encounter [facility] 05-26-2023 Miscellaneous Notes Patient has been identified by name and date of : Yes Patient phones for refill(s): Requested Prescriptions Pending Prescriptions Disp Refills omeprazole (PRILOSEC) 20 mg capsule 30 capsule 2 Sig: Take 1 capsule by mouth daily before breakfast. 1/2 hr before meal. Date of last office visit in primary care: 12/28/2022 Date of next office visit in primary care: Visit date not found Please advise. Thank you. Gamal Polanco LPN. documented in this encounter [facility] 05-10-2023 Miscellaneous Notes Patient already scheduled for 08/17/23. Stefany Pierce RN Rx sent. Needs to schedule annual to continue w/ refils after this rx. Any provider. Miguel Escudero MD Last annual 04/27/22. Mychart message sent. Requested Prescriptions Pending Prescriptions Disp Refills valACYclovir (VALTREX) 500 mg tablet 60 tablet 3 Sig: Take 2 tablets by mouth once daily. Stefany Pierce RN documented in this encounter [facility] 03-29-2023 Miscellaneous Notes Lab orders placed. Ronny Borja APRN.COMMODITY BUYER Pt. labs . Please file new orders. documented in this encounter [facility] 12-28-2022 Nurse Note Pt received flu vaccine in office as ordered , Tolerated well. documented in this encounter [facility] 12-28-2022 History of Present illness Narrative Chief Complaint Patient presents with: yearly physical HPI Emre Quinn is a 37 year old female who presents here today for Above Complaints. Emre is an established patient of Dr. Taj Do. She is a new patient to me today. Concerns today... Mood--- On lexapro 10 mg daily. 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 Tolerates this dosage well. Does report episodes of anxiety/panic attacks a few x per week. She can control these emotions while in public. Anxiety attacks are worse with big crowds and when she feels very overwhelmed with too many things to do. Feels her anxiety is leading to anger outbursts to her daughter and she wants to fix this. Pt denies any depressed mood. Denies SI/HI Smoking -- Quit cold turkey on her own in the past. The last few months she started smoking again due to her stress of moving and losing her job. Smoking about 1/2 pack per day. Is not at the correct mindset to stop at this time. Wrist pain -- R mainly x years. Causes numbness/tingling sensation in fingers with shooting pain that radiates up to elbow. Pain worse at night. After mentioning carpal tunnel -- pt reports she has been told in the past that she has this. No other concerns or complaints. Past medical history, appointments, medications, allergies reviewed. Previous Medical History PAST MEDICAL HISTORY Diagnosis Date Acquired acanthosis nigricans Suicidal ideation 03/13/2017 [facility] transfer to [facility] Previous Surgical History PAST SURGICAL HISTORY Procedure Laterality Date PAST SURGICAL HISTORY OF BIOPSY OF SCALP LSION TONSILLECTOMY PRIMARY/SECONDARY <AGE 14 Tonsillectomy Family History FAMILY HISTORY Problem Relation Age of Onset None Mother other (osteoarthritis) Mother Hypertension Father Arthritis Maternal Grandmother rheumatoid Patient Allergies ALLERGIES No Known Allergies Current Medications Current Outpatient Medications on File Prior to Visit Medication Sig omeprazole (PRILOSEC) 20 mg capsule Take 1 capsule by mouth daily before breakfast. 1/2 hr before meal. Cholecalciferol, Vitamin D3, 50 mcg (2,000 unit) cap Take 1 capsule by mouth once daily. valACYclovir (VALTREX) 500 mg tablet Take 2 tablets by mouth once daily. pseudoephedrine-guaiFENesin (MUCINEX D) 60-600 mg per tablet Take 1 tablet by mouth every 12 hours as needed for cold/allergy symptoms. (Patient not taking: Reported on 04/27/2022) fluticasone (FLONASE) 50 mcg/actuation nasal spray Use 2 Sprays in each nostril once daily. Rinse mouth after use. (Patient not taking: Reported on 04/27/2022) cetirizine (ZYRTEC) 10 mg tablet Take 1 tablet by mouth once daily. nabumetone (RELAFEN) 500 mg tablet Take 1 tablet by mouth twice daily. TAKE WITH FOOD (Patient not taking: No sig reported) multivitamin tablet Take 1 tablet by mouth once daily. escitalopram oxalate (LEXAPRO) 10 mg tablet risperiDONE (RISPERDAL) 1 mg tablet (Patient not taking: Reported on 04/27/2022) baclofen (LIORESAL) 10 mg tablet Take 1 tablet by mouth three times daily as needed (muscle spasms). (Patient not taking: No sig reported) No current facility-administered medications on file prior to visit. Social History Social History Tobacco Use Smoking status: Former Packs/day: 0.50 Years: 10.00 Additional pack years: 0.00 Total pack years: 5.00 Types: Cigarettes Quit date: 01/21/2016 Years since quittin.9 Smokeless tobacco: Never Vaping Use Vaping Use: Never used Substance Use Topics Alcohol use: Yes Drug use: No REVIEW OF SYSTEMS: as above Reviewed relevant PMHx, PSHx, Social Hx, current medications and allergies. Review of Symptoms REVIEW OF SYSTEMS See HPI. EXAM: BP 120/80 (BP Site: Left Arm, BP Position: Sitting, BP Cuff Size: Large Adult) Pulse 64 Resp 14 Ht 169 cm (5' 6.54) Wt 119.4 kg (263 lb 3.2 oz) LMP 04/18/2022 (Exact Date) BMI 41.80 kg/m General Appearance: Well appearing, alert, in no acute distress, well-hydrated, well nourished.. Skin: Skin color, texture, turgor normal, no suspicious rashes or lesions. Head: Normocephalic, no masses, lesions, tenderness or abnormalities. Lungs: Lungs clear to auscultation. No wheezing, rhonchi, rales.. Heart: RRR without murmur, gallop, or rubs. No ectopy. Abdomen: Normal abdominal exam, Abdomen soft, non-tender. Bowel sounds normal. No masses, organomegaly. Extremities: No deformities, edema, skin discoloration, clubbing or cyanosis. Good capillary refill. . Musculoskeletal: No joint swelling, deformity, or tenderness. Neurologic: Gait normal. Reflexes normal and symmetric. Sensation grossly intact.. Health Maintenance List Covid-19 Vaccine(1) Never done DTaP,Tdap,Td Vaccine(7 - Tdap) due on 08/03/2015 Depression Assessment Never done Influenza Vaccine(1) due on 10/21/2022 Pap Testing due on 04/28/2027 HPV Testing due on 04/28/2027 Hepatitis B Vaccine Completed HPV Vaccine Completed Hepatitis C Screening Completed HIV Screening Completed ASSESSMENT/PLAN: 1. Well adult exam - ICD9: V70.0, ICD10: Z00.00 (primary diagnosis) - Counseled on healthy diet and regular exercise - Recommend vitamin containing 0.4 mg of folic acid - Calcium intake with supplements or by diet of 1000 mg/day for under 50, 7608-3317 mg/day for 50+ - Depression screening tool completed and reviewed with patient. Based on score and interview, patient is at risk for depression and recommended continuing current plan of care and starting medication. - Follow up for annual exam in one year - COMP METABOLIC PANEL - CBC + DIFF - OMEPRAZOLE 20 MG CAPSULE,DELAYED RELEASE 2. Vitamin D deficiency - ICD9: 268.9, ICD10: E55.9 Recheck lab value. Refilled - VITAMIN D 25 HYDROXY - CHOLECALCIFEROL (VITAMIN D3) 50 MCG (2,000 UNIT) CAPSULE 3. Screening for lipid disorders - ICD9: V77.91, ICD10: Z13.220 - LIPID PANEL BASIC 4. Screening for diabetes mellitus - ICD9: V77.1, ICD10: Z13.1 - HGB A1C 5. GERD without esophagitis - ICD9: 530.81, ICD10: K21.9 Stable. Well controlled on this regimen. Refilled. - OMEPRAZOLE 20 MG CAPSULE,DELAYED RELEASE 6. Encounter for immunization - ICD9: V03.89, ICD10: Z23 - INFLUENZA VACCINE, AGE 6 MO - 64 YR, QUADRIVALENT (AFLURIA, FLULAVAL, FLUZONE) 7. Pain in right wrist - ICD9: 719.43, ICD10: M25.531 Likely carpal tunnel syndrome given the explanation of symptoms. I do not see prior EMG completed, although there is a prior dx of carpal tunnel. Take OTC NSAIDs or tylenol as needed. Wear OTC wrist brace to RLE at night. If no improvement in 1-2 months, we can order EMG to confirm dx. 8. Carpal tunnel syndrome of right wrist - ICD9: 354.0, ICD10: G56.01 See above #7. 9. MARCO ANTONIO (generalized anxiety disorder) - ICD9: 300.02, ICD10: F41.1 Refilled lexapro -- continue on current regimen. Add buspar as needed TID for situational anxiety. RTO if no improvement in symptoms. - ESCITALOPRAM 10 MG TABLET - DEPRESSION SCREENING/ASSESSMENT - BUSPIRONE 5 MG TABLET 10. Smoker - ICD9: 305.1, ICD10: F17.200 - Cessation encouraged. Pt is not ready. - Physiologic and physical aspects of tobacco addiction as well as strategies for quitting were discussed. - Counseling was given focusing on the harmful effects of this addiction especially given the patient's medical condition(s) which will be worsened because of the chemicals in tobacco. - Counseling was given 3-4 minutes. - Recommended to called 1-800-QUIT NOW RTO as needed and annually. Prescription instructions reviewed with patient as applicable. Potential red flag symptoms discussed with the patient. Reviewed appropriate action plan to take if red flag symptoms occur. Patient agreeable to treatment plan. Soco Miguel APRN.[employer] [address] [place] [address] documented in this encounter [facility] 10-07-2022 Miscellaneous Notes Patient has been identified by name and date of : Yes Patient phones for refill(s): Requested Prescriptions Pending Prescriptions Disp Refills omeprazole (PRILOSEC) 20 mg capsule 30 capsule 2 Sig: Take 1 capsule by mouth daily before breakfast. 1/2 hr before meal. Date of last office visit in primary care: [facility] 07/14/21 NOV not scheduled Last 2 Encounter Wt Readings: Date: Wt: 04/27/2022 131.1 kg (289 lb) 07/14/2021 130.6 kg (288 lb) Please advise. Thank you. MARLINE Crawford documented in this encounter [facility] 07-25-2022 Discharge summary Note Date/Time July 25, 2022 4:08p [facility] Medical Records Department [address] [place] [address] Emergency Department Summary 07/25/22 MR#: [id number] Acct: [id number] Name: EMRE QUINN Rep #:[id number] : 1985 36 From: Rudi Duke MD PCP: Dr. Holland Vang, Status:RE G ER Location: ED HPI HPI - Female History of Present Illness Chief Complaint: Female C/O Informant: patient Narrative Narrative: With vaginal itch odor and discharge. Patient has a new sexual partner. Symptoms started after intercourse about a week ago. She is not really having pain. But she has a thick discharge. She states that has a strong odor. She is not sure if it is a fishy odor or not. She is not really having pain. No change in urination or bowel habits. No fevers or chills. No upper abdominal pain. No sore joints or rashes. She overall feels well but just has the discharge and odor. No history of diabetes. No polyuria or polydipsia. [facility] Medical History (Updated 07/25/22 @ 16:16 by Franci Troy) Acute urogenital gonorrhea Chlamydia Physical exam, pre-employment Home Medications Valtrex 500 mg PO DAILY herpes 07/12/19 [History Last Taken Unknown] multivitamin with minerals 1 ea PO DAILY dep 07/12/19 [History Last Taken 07/12/19] metronidazole 500 mg tablet 500 mg PO BID 7 days #14 tabs 07/25/22 [Rx Last Taken Unknown] Allergy/AdvReac Type Severity Reaction Status Date / Time No Known Allergies Allergy Verified 07/25/22 15:46 Social History Smoking Status: Former smoker ROS ROS ED ROS Narrative A complete review of systems was performed and is negative except as documented in the history of present illness. Some specific details below. Constitutional: No recent fevers or chills. She does not feel ill. ENT: No difficulty swallowing. No sore throat. CV: No chest pain or palpitations. Respiratory: No dyspnea. No hemoptysis. No difficulty taking breaths. GI: No nausea vomiting abdominal pain or change in bowel habits : See history of present illness. Musculoskeletal: No recent trauma. No pains. Skin: No rash. Nondiaphoretic. Neuro: No weakness or numbness. Endocrine: No polyuria or polydipsia. EXAM Physical Exam Narrative Exam Narrative: CONSTITUTIONAL: Patient is nontoxic in appearance. The patient looks comfortable. She is sitting comfortably on bed. HEENT: No notable trauma. Mucous membranes moist. EYES: No conjunctival injection. CARDIOVASCULAR: Regular rate. Regular rhythm. No notable murmur. No JVD. RESPIRATORY: No respiratory distress. Breathing is unlabored. No wheezes. GASTROINTESTINAL: Not distended. Bowel sounds are normal. No tenderness. No guarding. No rebound. No palpable mass. No bruit. GENITOURINARY: No tenderness over the bladder. No CVA tenderness. Pelvic exam will be done separately with nurse in attendance. MUSCULOSKELETAL: Atraumatic. No peripheral edema. NEUROLOGICAL: Patient is alert and appropriate. SKIN: No noted rashes. No diaphoresis. PSYCHIATRIC: Patient is calm. Mood is appropriate. Const Vital Signs: 07/25/22 15:46 07/25/22 16:16 Temperature 97 F L 97.9 F Temperature Source Temporal Temporal Pulse Rate 94 84 Respiratory Rate 14 18 Blood Pressure 124/83 H 132/89 H Blood Pressure Mean 96 103 Pulse Ox 100 97 Oxygen Delivery Method Room Air Room Air MDM MDM MDM Narrative Medical decision making narrative: Patient's urine does show a few white cells but its also having a discharge on the patient. She is not having dysuria. This will not be treated with antibiotics. I did do a pelvic exam with nurse Tessie in attendance. Patient has signs of yeast with some redness on the external structures and whitish discharge but shealso has that whitish discharge which is rather thin and watery it is not thick. She is also has some odor. I think this may be bacterial vaginosis. She will be treated for this and candidal vaginitis is. We have sent off chlamydia and GC. She does not think it is those either. If those are positive we will have to contact her and initiate treatment. Patient's urine test is negative. Lab Data Attestation: I reviewed the patient's lab results. Labs: Laboratory Results - last 24 hr 07/25/22 16:35 Urine Color Yellow Urine Clarity Sl. Cloudy Urine pH 6.0 Ur Specific [place] 1.025 Urine Protein 30 H Urine Glucose (UA) Normal Urine Ketones 5 H Urine Occult Blood 25 H Urine Nitrite Negative Urine Bilirubin Negative Urine Urobilinogen 1 H Ur Leukocyte Esterase 500 H Urine RBC 0-5 SEEN Urine WBC 10-25 SEEN Ur Squamous Epith Cells 0-5 SEEN Urine Bacteria 1+ Urine Mucus 0 SEEN Urine Test Negative Discharge Plan Triage Chief Complaint: Female C/O ED Provider: Rudi Duke Dx/Rx/DC Orders Instructions: Bacterial Vaginosis, Candidiasis Vaginal Prescriptions: New metronidazole 500 mg tablet 500 mg PO BID 7 Days Qty: 14 0RF No Action multivitamin with minerals 1 EACH tablet 1 ea PO DAILY Valtrex 500 mg PO DAILY Primary Care Provider: Holland Vang Referrals: Holland Vang DO [Primary Care Provider] - 1 Week if not improving Activity Restrictions/Additional Instructions: Purchase Monistat 7 [id number] and use. Do not drink any alcohol while taking the antibiotic. Disposition Disposition: Home, Self Care What to do if you have Problems For any increased pain, shortness of breath, bleeding, nausea or vomiting, chestpain, or any unexpected problems, contact your Primary Care Provider. Call [facility] ([phone]) or report to the closest Emergency Room. Call 911 if necessary. 07/25/22 1715 <Electronically signed by Rudi Duke MD> Cosigner Signature (if applicable): CC: Dr. Holland Vang, DO ~ Signed [facility] Work Phone: [phone]) 520-103305-31-2023 Miscellaneous Notes* Telephone Encounter - Jackie Marrero LPN - 07/20/2022 3:52 PM EDT Left a message for pt to call the office and ask to speak to a nurse. Jackie Marrero LPN * Telephone Encounter - Joie Miller PA-C - 07/20/2022 2:19 PM EDT Please help patient schedule a follow up visit. Labs ordered to be completed prior to visit. The following approved medication requests have been transmitted electronically. Requested Prescriptions Signed Prescriptions Disp Refills Cholecalciferol, Vitamin D3, 50 mcg (2,000 unit) cap 90 capsule 3 Sig: Take 1 capsule by mouth once daily. Authorizing Provider: JOIE MILLER PA-C * Telephone Encounter - Ruth Beth LPN - 07/20/2022 12:18 PM EDT Patient phones requesting refills as follows: Requested Prescriptions Pending Prescriptions Disp Refills Cholecalciferol, Vitamin D3, 50 mcg (2,000 unit) cap 90 capsule 3 Sig: Take 1 capsule by mouth once daily. NANETTE-07/14/21 Labs-07/14/21 NOV-none med filled 07/15/21 Please review and advise. Rtuh Beth LPN [facility] Miscellaneous Notes* Telephone Encounter - Ruth Beth LPN - 07/20/2022 12:20 PM EDT Patient phones requesting refills as follows: Requested Prescriptions Pending Prescriptions Disp Refills omeprazole (PRILOSEC) 20 mg capsule 30 capsule 2 Sig: Take 1 capsule by mouth daily before breakfast. 1/2 hr before meal. NANETTE-07/14/21 Labs-07/14/21 NOV-none Please review and advise. Ruth Beth LPN [facility] Akbar [facility] May 18, 2022 11:42am Note Date/Time May 18, 2022 9:2 9am [facility] Medical Records Department [address] [place] [address] Emergency Department Summary 05/18/22 MR#: [id number] Acct: [id number] Name: EMRE QUINN Rep #:[id number] : 1985 36 From: Lonny Akbar MD PCP: Dr. Holland Vang, DO Status:RE G ER Location: ED HPI HPI - Female History of Present Illness Chief Complaint: Abd Pain Detail of Chief Complaint: Pelvic pain with vaginal bleeding. Informant: patient Pain Pain: Positive for Pelvic Pain Onset: Today and Yesterday Context: Gradual Onset Timing: Continuous Quality: Positive for Cramping Current Severity: Mild Maximum Severity: Mild Bleeding Issue: Positive for Vaginal bleeding and Passing clots; Negative for Passing tissue Onset: Today and Yesterday Context: Gradual Onset Timing: Intermittent Current Severity: Mild Maximum Severity: Heavy Associated Symptoms Associated Symptoms: Negative for Dysuria or Frequency P: 1 Ab: 2 Narrative Narrative: 36-year-old female no seen past medical history. G3, P1 Ab2 with is being miscarriages. Prior history of PID. States she had pelvic pain for the last 3 days. Prior history of similar. Last menstrual period was 227 started having heavierbleeding around 3 days ago and now its only mild. No discharge. No fever. No dysuria. She is also had 1 prior D&C with one of her miscarriages. Prior similar symptoms: Yes Recent Illness/Hospitalization: No PFSH PFSH Medical History Physical exam, pre-employment no medical history Home Medications Valtrex 500 mg PO DAILY herpes 07/12/19 [History Last Taken Unknown] multivitamin with minerals 1 ea PO DAILY dep 07/12/19 [History Last Taken 07/12/19] Allergy/AdvReac Type Severity Reaction Status Date / Time No Known Allergies Allergy Verified 05/18/22 08:47 Social History Smoking Status: Former smoker ROS ROS ED ROS Narrative Pelvic pain with vaginal bleeding. No discharge. No fever. No dysuria. Review of Systems ROS Unobtainable: Denies due to encephalopathy Constitutional Constitutional ED: Denies chills or fever(s) ENT ENT ED: Denies ear pain Cardiovascular Cardiovascular: Denies chest pain Respiratory/Chest Respiratory/Chest: Denies cough or dyspnea Gastrointestinal Gastrointestinal: Reports other Details: Pelvic pain ; Denies abdominal pain Genitourinary Genitourinary ED: Denies dysuria or hematuria Musculoskeletal Musculoskeletal: Denies arthralgias Integumentary Denies abscess Neurologic Neurologic: Denies headache(s) Psychiatric Psychiatric: Denies anxiety or depression Endocrine Endocrinology: Denies heat intolerance Hematologic/Lymphatic Hematologic/Lymphatic: Denies easy bleeding Allergic/Immunologic Allergic/Immunologic ED: Denies mouth swelling EXAM Physical Exam Narrative Exam Narrative: Well-appearing 37-year-old female. Vital signs stable afebrile. No distress. H EENT exam unremarkable. Lungs clear. Heart regular rhythm. Abdomen soft, nontender, nondistended normal bowel sounds without peritoneal signs. Both right upper and right lower quadrants are unremarkable. She has mild discomfort onlower suprapubic and pelvic region. Moving all 4 extremities. Back nontender. Neurologically she is awake and alert. Const Vital Signs: 05/18/22 08:45 03/29/23 10:44 Temperature 97.1 F L Temperature Source Temporal Pulse Rate 79 Respiratory Rate 16 20 H Blood Pressure 143/97 H Blood Pressure Mean 112 Pulse Ox 99 Oxygen Delivery Method Room Air Positive well nourished, well developed and obese; Negative for cachectic, contractures or unkempt General Appearance ED: well developed and NAD; Negative for unkempt, cachectic, contractures or pallor Nutritional Appearance: obese; Negative for cachectic HEENT Reports moist mucous membranes Negative for trauma or tenderness Eyes PERRL and EOMs intact bilaterally General Eye ED: Negative for pale conjunctiva, scleral icterus or other Neck no lymphadenopathy, supple and no JVD General: Negative for other Thyroid: Negative for tender Lymph Lymphatic: Negative for other Chest Wall inspection of chest normal and palpation of chest normal Chest: Negative for other Resp normal respiratory effort and clear to auscultation bilaterally Effort and Inspection: Negative for pain with movement Auscultation: Negative for rales, rhonchi or wheezes Cardio regular rate, regular rhythm, S1 normal heart sound, no murmurs and no JVD GI normal to inspection, nondistended, normoactive bowel sounds, soft to palpation,non-tender, non-distended and no masses GI Narrative: Very mild suprapubic/pelvic tenderness. No abdominal tenderness. Auscultation: normoactive bowel sounds Palpation: Negative for tender, guarding or rigid Back/Spine no CVA tenderness General Back: Negative for CVA tenderness Cervical Spine: Negative for cervical spine tenderness Thoracic Spine / Upper Back: Negative for thoracic spinal tenderness Lumbar Spine / Lower Back: Negative for lumbar spinal tenderness Extremity normal to inspection and full ROM General Extremety ED: Negative for edema or other findings General Extremity: Negative for edema or other findings Neuro oriented x3 and CN's II-XII intact bilaterally Sensorium / Orientation: alert, oriented to person, oriented to place and oriented to time; Negative for confused, lethargic or stuporous Motor Exam: strength 5/5 throughout Psych mental status grossly normal Appearance: Negative for unkempt Attitude: No agitated Speech: No other Mood & Affect: Negative for depressed, anxious or tearful Skin no rashes or lesions noted and no wounds General Skin Exam: Negative for jaundice or pallor Rashes: No rashes noted Trauma: Negative for other MDM MDM MDM Narrative Medical decision making narrative: 36-year-old female with vaginal bleeding and pelvic pain. About time for her menstrual period. Patient is G3, P1 with 2 prior miscarriages. She had a priorD&C. She had PID several years ago. She is having no fever, chills or discharge at this time. Screening labs and urinalysis will be obtained. A serum test. She will be given Zofran for nausea. And a pelvic ultrasound is being obtained. She did not want thing for pain. Repeat exam patient is doing well at 11:35 PM. We discussed all of her test results. This may just be your menstrual period with the cramping and the bleeding. She is having no discharge and deferred a pelvic exam at this time. Outpatient follow- up with her CORPORATE DIRECTOR OF PHARMACY. Tylenol Motrin for pain. Return if worse. Lab Data Attestation: I reviewed the patient's lab results. Lab results narrative: CBC shows normal white count 5.1 H&H of 12.7 39.2. Platelets 354. Electrolytesunremarkable gap of 7 normal BUN of 9 creatinine 0.8. Glucose 99. Serum test negative. UA is negative. Pelvic ultrasound per radiologist read shows no acute abnormality. Labs: Laboratory Results - last 24 hr 05/18/22 05/18/22 05/18/22 09:32 09:32 09:32 WBC 5.1 RBC 4.28 Hgb 12.7 Hct 39.2 MCV 91.6 MCH 29.7 MCHC 32.4 RDW Std Deviation 45.1 H RDW Coeff of Lc 13.3 Plt Count 354 MPV 9.8 Immature Gran % (Auto) 0.000 Neut % (Auto) 62.1 Lymph % (Auto) 29.4 [place] % (Auto) 6.3 Eos % (Auto) 1.6 Baso % (Auto) 0.6 Absolute Neuts (auto) 3.2 Absolute Lymphs (auto) 1.50 Nucleated RBC % 0 Sodium 139 Potassium 3.7 Chloride 106 Carbon Dioxide 26.0 Anion Gap 7 BUN 9 Creatinine 0.86 Estim Creat Clear Calc 82.94 Est GFR (MDRD) Af Amer 96 Est GFR (MDRD) Non-Af 79 BUN/Creatinine Ratio 10.4 Glucose 99 Calcium 8.8 Serum , Qual NEGATIVE Urine Color Urine Clarity Urine pH Ur Specific [place] Urine Protein Urine Glucose (UA) Urine Ketones Urine Occult Blood Urine Nitrite Urine Bilirubin Urine Urobilinogen Ur Leukocyte Esterase Urine RBC Urine WBC Ur Squamous Epith Cells Urine Bacteria Urine Mucus 05/18/22 10:20 WBC RBC Hgb Hct MCV MCH MCHC RDW Std Deviation RDW Coeff of Lc Plt Count MPV Immature Gran % (Auto) Neut % (Auto) Lymph % (Auto) [place] % (Auto) Eos % (Auto) Baso % (Auto) Absolute Neuts (auto) Absolute Lymphs (auto) Nucleated RBC % Sodium Potassium Chloride Carbon Dioxide Anion Gap BUN Creatinine Estim Creat Clear Calc Est GFR (MDRD) Af Amer Est GFR (MDRD) Non-Af BUN/Creatinine Ratio Glucose Calcium Serum , Qual Urine Color Yellow Urine Clarity Clear Urine pH 6.0 Ur Specific [place] 1.025 Urine Protein 30 H Urine Glucose (UA) Normal Urine Ketones 5 H Urine Occult Blood 50 H Urine Nitrite Negative Urine Bilirubin Negative Urine Urobilinogen Normal Ur Leukocyte Esterase 25 H Urine RBC 0 SEEN Urine WBC 0 SEEN Ur Squamous Epith Cells 0-5 SEEN Urine Bacteria 0 SEEN Urine Mucus 1+ Radiography Diagnostic Testing: Clinical Impression(s) from Imaging Studies Transvaginal US 05/18/22 09:22 IMPRESSION: Normal pelvic sonogram. Electronically Signed: Carlos Pugh MD at 10:22 EDT , Discharge Plan Triage Chief Complaint: Abd Pain ED Provider: Lonny Akbar Dx/Rx/DC Orders Clinical Impression: Pelvic pain, Vaginal bleeding Instructions: ED Pelvic Pain, Unknown Cause Prescriptions: No Action multivitamin with minerals 1 EACH tablet 1 ea PO DAILY Valtrex 500 mg PO DAILY Primary Care Provider: Holland Vang Referrals: Holland Vang DO [Primary Care Provider] - Miguel Escudero MD [Med Staff - Active Staff] - 3-5 Days if not improving Activity Restrictions/Additional Instructions: Plenty fluids and rest. Tylenol and Motrin for pain. Follow-up with your CORPORATE DIRECTOR OF PHARMACY if not improving. Return if increasing pain, fever, discharge or heavy bleeding with clots. Disposition Disposition: Home, Self Care What to do if you have Problems For any increased pain, shortness of breath, bleeding, nausea or vomiting, chestpain, or any unexpected problems, contact your Primary Care Provider. Call [facility] ([phone]) or report to the closest Emergency Room. Call 911 if necessary. 05/18/22 1142 <Electronically signed by Lonny Akbar MD> Cosigner Signature (if applicable): CC: Dr. Holland Vang, DO ~ Signed [facility] Work Phone: [phone] 443-525803-08-2023 History of Present illness Narrative* Miguel Escudero MD - 04/27/2022 1:02 PM EST Emre is a 36 year old who presents for an annual gynecologic exam with complaints, someitems skips menses. Not getting heavier. . medium flow. Not a lot of cramping. Menses: cycles every 28-30 days for most part but does sometimes skip 1-2 months and 5 days of flow. Contraception: none HPV vaccine: Yes Last Pap: 02/12/2009 normal reports had a normal one within past few years HPV: 02/06/2009 positive History of abnormal pap: No Last mammogram: never Sexually active: Yes OB History T0 L1 SAB2 IAB0 Ectopic0 Multiple0 Live Births1 Pet Handler History LMP: 04/18/2022 (Exact Date), Having periods Age at Menarche: Age at First : Age at Menopause: Pet Handler History Comments: Sexual Activity: Yes; Male Contraception: Condom PAST MEDICAL HISTORY Diagnosis Date Acquired acanthosis nigricans Suicidal ideation 03/13/2017 [facility] transfer to [facility] PAST SURGICAL HISTORY Procedure Laterality Date PAST SURGICAL HISTORY OF BIOPSY OF SCALP LSION TONSILLECTOMY PRIMARY/SECONDARY <AGE 12 Tonsillectomy FAMILY HISTORY Problem Relation Age of Onset None Mother other (osteoarthritis) Mother Hypertension Father Arthritis Maternal Grandmother rheumatoid SOCIAL HISTORY Social History Tobacco Use Smoking status: Former Packs/day: 0.50 Years: 10.00 Pack years: 5.00 Types: Cigarettes Quit date: 01/21/2016 Years since quittin.2 Smokeless tobacco: Never Vaping Use Vaping Use: Never used Substance Use Topics Alcohol use: Yes Drug use: No REVIEW OF SYSTEMS Abdomen: No abdominal pain, nausea, vomiting, diarrhea, or constipation. No bloating, early satiety, indigestion, or increased flatulence. Bladder: No dysuria, gross hematuria, urinary frequency, urinary urgency, or incontinence. Breast: No breast lumps, nipple d/c, overlying skin changes, redness or skin retraction. Allergies and current medication updated:Yes EXAM: BP 132/90 Ht 5' 5.5 (1.66m) Wt 289 lb (131.1kg) LMP 04/18/2022 BMI 47.34 kg/(m^2). GENERAL: pleasant, female in no apparent distress HEENT: Normocephalic, atraumatic, mucus membranes moist, and no lesions NECK: Supple, full range of motion, no adenopathy, and thyroid normal DERMATOLOGY: Normal, without lesions, non-icteric, and non-hirsute BREAST: soft, non-tender, symmetric, no dominant mass, normal nipple-areolar complex, no lymphadenopathy, and no nipple discharge CHEST: Normal inspiratory effort ABDOMEN: soft, non-tender, and no masses PELVIC: external genitalia normal, normal Bartholin's glands, urethra, [place]'s glands, no vulvar lesions, no cervical lesions, good vaginal support, physiologic discharge present, normal appearing perineal body and perianal region BIMANUAL: uterus normal size, shape and consistency, no adnexal masses, non- tender, and limited by habitus RECTOVAGINAL: deferred. NEURO: alert and oriented x3,exam grossly non-focal EXTREMITIES: normal ASSESSMENT/PLAN: 1) Health maintenance: Pap done with HPV. Mammogram starting age 40. 2) Contraception: declines at this time. Contraceptive options reviewed and information provided. 3) STD screening: Declined STD check. 4) Follow up one year or sooner as needed refill on valtrex, uses for genital HSV prophylaxis Miguel Escudero MD [facility] Miscellaneous Notes* Telephone Encounter - Lisa Ayers Ma - 03/14/2022 6:08 PM EST Last office visit: 07/14/21 F/u scheduled: none Lisa Ayers Ma documented in this encounterSum[facility]-2022 Miscellaneous Notes* Telephone Encounter - Harsh Hair Ma - 11/01/2021 8:19 AM EDT NANETTE: 07/14/2021 Last refill: 07/14/2021 QTY: 30 Refills: 2 Patient's request for medication is as follows: Requested Prescriptions Pending Prescriptions Disp Refills omeprazole (PRILOSEC) 20 mg capsule 30 capsule 2 Sig: Take 1 capsule by mouth daily before breakfast. 1/2 hr before meal. Please approve the above prescription(s) to electronically send to pharmacy. Harsh Hair Ma documented in this encounterSum[facility]-26-2022 Miscellaneous Notes* Telephone Encounter - Masha Guan RN - 07/15/2021 1:53 PM EDT Patient returned call and given provider's message below and patient verbalized understanding. Jeremias Guan RN * Telephone Encounter - Ruth Beth LPN - 07/15/2021 11:13 AM EDT TC to ptBenito LM to call office, ask for triage nurse to get results. Ruth Beth LPN * Telephone Encounter - Ronny Borja APRN.COMMODITY BUYER - 07/15/2021 10:56 AM EDT Please let Emre know that I received most of her lab results, just now waiting on a couple of the autoimmune indicators. Her vitamin D level is low. I don't believe she is on a supplement already. I've sent in a daily [id number] for her. Her CRP and sed rate are both elevated just a bit. These are both nonspecific inflammatory markers.However, these are elevated just slightly and she has a hx of these slight elevations, so no interventions are necessary at this point. Otherwise, no other concerns. The following approved medication requests have been transmitted electronically. Signed Prescriptions Disp Refills Cholecalciferol, Vitamin D3, 50 mcg (2,000 unit) cap 90 capsule 3 Sig: Take 1 capsule by mouth once daily. Authorizing Provider: RONNY BORJA APRN.COMMODITY BUYER [facility] NoteHNO ID: [id number] Author: Tracey Boone MD Service: ? Author Type: Physician Type: Progress Notes Filed: 10/01/2020 9:43 AM Note Text: VIRTUAL VISIT PROGRESS NOTE This is a virtual visit using XZERES video visit. It required patient-provider interaction for the medical decision making as documented below. Emre Quinn is a 35 year old female seen for elevated inflammatory markers. Pain in her wrist, tingling in her feet. Knees lock up. Bones hurt. Tendonitis in the wrist. Said it was carpal tunnel. Took medication for inflammation. Nabumetone twice daily. Some relief. resiperadol and lexapro for anxiety and depression. prilosec prescription. One multiple vitamin. 7 year old. Girl. Could make her knees pop when younger. Arachoid cyst. Top of hand swells. former smoker. Works at [employer]. Flat footed. She has not gotten the COVID vaccine yet, but she is interested. KRISTINE negative RF negative CRP 2.0 ESR 26. + COVID test in January HISTORY REVIEWED (electronic chart updated): PAST MEDICAL HISTORY Diagnosis Date - Acquired acanthosis nigricans - Suicidal ideation 03/13/2017 [facility] transfer to [facility] PAST SURGICAL HISTORY Procedure Laterality Date - PAST SURGICAL HISTORY OF BIOPSY OF SCALP LSION - REMOVAL OF TONSILS,<14 Y/O Tonsillectomy FAMILY HISTORY Problem Relation Age of Onset - Arthritis Maternal Grandmother - None Mother - None Father Social History Tobacco Use - Smoking status: Former Smoker Packs/day: 0.50 Years: 10.00 Pack years: 5.00 Types: Cigarettes Quit date: 01/21/2016 Years since quittin.6 - Smokeless tobacco: Never Used Substance Use Topics - Alcohol use: Yes - Drug use: No Current Outpatient Medications Medication Sig - omeprazole (PRILOSEC) 20 mg capsule Take 1 capsule by mouth daily before breakfast. 1/2 hr before meal. - nabumetone (RELAFEN) 500 mg tablet Take 1 tablet by mouth twice daily. TAKE WITH FOOD - multivitamin tablet Take 1 tablet by mouth once daily. - escitalopram oxalate (LEXAPRO) 10 mg tablet - risperiDONE (RISPERDAL) 1 mg tablet - baclofen (LIORESAL) 10 mg tablet Take 1 tablet by mouth three times daily as needed (muscle spasms). - valACYclovir (VALTREX) 500 mg tablet Take 500 mg by mouth twice daily. No current facility-administered medications for this visit. ALLERGIES No Known Allergies REVIEW OF SYSTEMS: GENERAL: feeling well without fatigue, no recent change in weight PHYSICAL EXAMINATION: pleasant, overweight. No visible swelling. ASSESSMENT: Slight elevation of inflammatory markers can be from being overweight. ASSESSMENT/PLAN: 1. Patellofemoral arthralgia of both knees - ICD9: 719.46, ICD10: M22.2X1, M22.2X2 (primary diagnosis) Subluxed patellae seen on xray 2. Pes planus of both feet - ICD9: 734, ICD10: M21.41, M21.42 3. Chronic midline low back pain without sciatica - ICD9: 724.2, 338.29, ICD10: M54.5, G89.29 - FERRITIN BLD - VITAMIN D 25 HYDROXY 4. Carpal tunnel syndrome of right wrist - ICD9: 354.0, ICD10: G56.01 Possible , in office evaluation necessary. Check CCP ahead of times. 5. Perineural cyst - ICD9: 355.9, ICD10: G96.191 Seen on MRI spine 6. Encounter for long-term (current) use of medications - ICD9: V58.69, ICD10: Z79.899 - VITAMIN B12 BLOOD prilosec can lower B12 level Tracey Chen MD PLAN: Patient Instructions You are on a low dose of nabumetone 500 mg. You can take 3 tablets daily. Don't forget to have blood work done. For knees, start exercises to strengthen your quadriceps muscles. For feet, go to pharmacy and get inserts for your sneakers for overpronation (Dr. Keating's) Medication List Accurate as of October 01, 2020 9:24 AM. If you have any questions, ask your nurse or doctor. CONTINUE taking these medications baclofen 10 mg tablet Commonly known as: LIORESAL Take 1 tablet by mouth three times daily as needed (muscle spasms). escitalopram oxalate 10 mg tablet Commonly known as: LEXAPRO multivitamin tablet Take 1 tablet by mouth once daily. nabumetone 500 mg tablet Commonly known as: RELAFEN Take 1 tablet by mouth twice daily. TAKE WITH FOOD omeprazole 20 mg capsule Commonly known as: PriLOSEC Take 1 capsule by mouth daily before breakfast. 1/2 hr before meal. risperiDONE 1 mg tablet Commonly known as: RisperDAL VALTREX 500 mg tablet Generic drug: valACYclovir ou Tracey Chen MD No orders found for this visit on 10/01/20. No orders of the defined types were placed in this encounter. I spent a total of 40 minutes on the date of the service which included preparing to see the patient, araw-wi-staf patient care, completing clinical documentation, obtaining and/or reviewing separately obtained history, performing a medically appropriate examination, counseling and educating the patient/family/caregiver, ordering medications, tests, or procedures, communic (more content not included)...[facility] Evaluation note* Diagnosis Vitamin D deficiency- Primary Unspecified vitamin D deficiency [facility] Diagnosis GERD without esophagitis Esophageal reflux Well adult exam Routine general medical examination at a health care facility [facility] Diagnosis GERD without esophagitis Esophageal reflux Well adult exam Routine general medical examination at a health care facility [facility] Encounter for gynecological examination (general) (routine) without abnormal findings- Primary Screening for cervical cancer Screening for malignant neoplasm of the cervix Encounter for screening for human papillomavirus (HPV) Special screening examination for human papillomavirus (HPV) documented [facility] this [facility] noteNo assessment information availableWGlenbeigh Hospital Work Phone: Evaluation note* Diagnosis Well adult exam- Primary Routine general medical examination at a health care facility Vitamin D deficiency Unspecified vitamin D deficiency [facility]* Diagnosis GERD without esophagitis Esophageal reflux Well adult exam Routine general medical examination at a health care facility [facility] Diagnosis Well adult exam- Primary Routine general medical examination at a [facility] care facility Vitamin D deficiency Unspecified vitamin D deficiency Screening for lipid disorders Screening for diabetes mellitus GERD without esophagitis Esophageal reflux Encounter for immunization Need for other specified prophylactic vaccination against single bacterial disease Pain in right wrist Pain in joint, forearm Carpal tunnel syndrome of right wrist Carpal tunnel syndrome MARCO ANTONIO (generalized anxiety disorder) Generalized anxiety disorder Smoker Tobacco use disorder [facility]* Diagnosis Vitamin D deficiency- Primary Unspecified vitamin D deficiency Screening for lipid disorders Screening for diabetes mellitus documented [facility]* Diagnosis MARCO ANTONIO (generalized anxiety disorder) Generalized anxiety disorder documented [facility]* Diagnosis Well adult exam [facility]ine [facility] GERD without esophagitis Esophageal reflux [facility]* Diagnosis MARCO ANTONIO (generalized anxiety disorder) Generalized anxiety disorder [facility]* Diagnosis MARCO ANTONIO (generalized anxiety disorder) Generalized anxiety disorder [facility]* Diagnosis MARCO ANTONIO (generalized anxiety disorder) Generalized anxiety disorder [facility]* Diagnosis Encounter for gynecological examination (general) (routine) without abnormal findings- Primary Screen for STD (sexually transmitted disease) Screening examination for venereal disease Pelvic pain in female Unspecified symptom associated with female genital organs [facility]* Diagnosis Pelvic pain in female Unspecified symptom associated with female genital organs documented [facility]* Diagnosis Vitamin D deficiency Unspecified vitamin D deficiency Well adult exam Routine general medical examination at a [facility] care facility GERD without esophagitis Esophageal reflux [facility]* Diagnosis Mixed incontinence- Primary Mixed incontinence urge and stress (male)(female) documented [facility] this [facility]* Diagnosis Mixed incontinence Mixed incontinence urge and stress (male)(female) [facility]* Diagnosis Well adult exam Routine general medical examination at a [facility] care facility GERD without esophagitis Esophageal reflux [facility] in [facility]* Diagnosis Well adult exam Routine general medical examination at a [facility] GERD without esophagitis Esophageal reflux documented in this [facility]* Diagnosis Encounter for supervision of high risk in first trimester, antepartum- Primary 8 weeks gestation of state, incidental with uncertain dates in first trimester Advanced maternal age in multigravida, first trimester History of herpes genitalis Personal history of other infectious and parasitic disease History of pelvic inflammatory disease Personal history of other genital system and obstetric disorders Obesity affecting in first trimester, unspecified obesity type Anxiety disorder affecting , antepartum Depression affecting History of miscarriage Personal history of other genital system and obstetric disorders History of smoking Personal history of tobacco use, presenting hazards to health Heartburn during in first trimester Nausea and vomiting during History of headache Personal history of other specified diseases History of depression History of alcohol abuse Nondependent alcohol abuse, in remission [facility] Diagnosis Encounter for supervision of high risk in first trimester, antepartum- Primary Advanced maternal age in multigravida, first trimester Obesity affecting in first trimester, unspecified obesity type Anxiety disorder affecting , antepartum Depression affecting History of miscarriage Personal history of other genital system and obstetric disorders 12 weeks gestation of state, incidental * Assessment & Plan Note - Julia Day MD - 04/01/2024 12:04 PM ESTAssociated Problem(s): Advanced maternal age in multigravida, first trimester Orders: [id number] PLUS; Future * Assessment & Plan Note - Julia Day MD - 04/01/2024 12:04 PM ESTAssociated Problem(s): Obesity affecting in first trimester * Assessment & Plan Note - Julia Day MD - 04/01/2024 12:04 PM ESTAssociated Problem(s): Anxiety disorder affecting , antepartum * Assessment & Plan Note - Julia Day MD - 04/01/2024 12:04 PM ESTAssociated Problem(s): Depression affecting * Assessment & Plan Note - Julia Day MD - 04/01/2024 12:04 PM ESTAssociated Problem(s): History of miscarriage * Assessment & Plan Note - Julia Day MD - 04/01/2024 12:04 PM ESTAssociated Problem(s): Encounter for supervision of high risk in first trimester, antepartum documented in this encounter [facility] note* Diagnosis Encounter for supervision of high risk in first trimester, antepartum- Primary Advanced maternal age in multigravida, first trimester Obesity affecting in first trimester, unspecified obesity type Anxiety disorder affecting , antepartum Depression affecting History of miscarriage Personal history of other genital system and obstetric disorders 12 weeks gestation of state, incidental Encounter for screening for malformation using ultrasound- Primary 12 weeks gestation of state, incidental documented in this encounter [facility] note* Diagnosis Encounter for supervision of high risk in first trimester, antepartum- Primary Advanced maternal age in multigravida, first trimester Obesity affecting in first trimester, unspecified obesity type Anxiety disorder affecting , antepartum Depression affecting History of miscarriage Personal history of other genital system and obstetric disorders 12 weeks gestation of state, incidental MARCO ANTONIO (generalized anxiety disorder) Generalized anxiety disorder documented in this encounter [facility] note* Diagnosis Encounter for supervision of high risk in first trimester, antepartum- Primary Advanced maternal age in multigravida, first trimester Obesity affecting in first trimester, unspecified obesity type Anxiety disorder affecting , antepartum Depression affecting History of miscarriage Personal history of other genital system and obstetric disorders 12 weeks gestation of state, incidental MARCO ANTONIO (generalized anxiety disorder) Generalized anxiety disorder [facility] Diagnosis Encounter for supervision of high risk in first trimester, antepartum- Primary Advanced maternal age in multigravida, first trimester Obesity affecting in first trimester, unspecified obesity type Anxiety disorder affecting , antepartum Depression affecting History of miscarriage Personal history of other genital system and obstetric disorders 12 weeks gestation of state, incidental Chronic pain of right knee- Primary Vitamin D deficiency Unspecified vitamin D deficiency Encounter for screening examination for other mental health and behavioral disorders Primary osteoarthritis of right knee Primary localized osteoarthrosis, lower leg Morbid obesity with BMI of 45.0-49.9, adult (HCC) Morbid obesity Well adult exam Routine general medical examination at a health care facility MARCO ANTONIO (generalized anxiety disorder) Generalized anxiety disorder documented in this encounter [facility] note* Diagnosis Encounter for supervision of high risk in first trimester, antepartum- Primary Advanced maternal age in multigravida, first trimester Obesity affecting in first trimester, unspecified obesity type Anxiety disorder affecting , antepartum Depression affecting History of miscarriage Personal history of other genital system and obstetric disorders 12 weeks gestation of state, incidental AMA (advanced maternal age) multigravida 35+, second trimester- Primary 19 weeks gestation of state, incidental Obesity affecting in second trimester, unspecified obesity type Need for influenza vaccination Need for prophylactic vaccination and inoculation against influenza documented in this encounter [facility] note* Diagnosis Encounter for supervision of high risk in first trimester, antepartum- Primary Advanced maternal age in multigravida, first trimester Obesity affecting in first trimester, unspecified obesity type Anxiety disorder affecting , antepartum Depression affecting History of miscarriage Personal history of other genital system and obstetric disorders 12 weeks gestation of state, incidental Encounter for anatomic survey- Primary Encounter for supervision of high risk in first trimester, antepartum 8 weeks gestation of state, incidental documented in this encounter [facility] note* Diagnosis Encounter for supervision of high risk in first trimester, antepartum (HCC)- Primary Advanced maternal age in multigravida, first trimester (HCC) Obesity affecting in first trimester, unspecified obesity type (HCC) Anxiety disorder affecting , antepartum (HCC) Depression affecting (HCC) History of miscarriage Personal history of other genital system and obstetric disorders 12 weeks gestation of (HCC) state, incidental AMA (advanced maternal age) multigravida 35+, second trimester (HCC)- Primary Obesity affecting in second trimester, unspecified obesity type (HCC) Anxiety disorder affecting , antepartum (HCC) Depression affecting (HCC) 23 weeks gestation of ([facility]) state, incidental Screening for diabetes mellitus documented in this encounter [facility] note* Diagnosis Encounter for supervision of high risk in first trimester, antepartum (HCC)- Primary Advanced maternal age in multigravida, first trimester (HCC) Obesity affecting in first trimester, unspecified obesity type (HCC) Anxiety disorder affecting , antepartum (HCC) Depression affecting (HCC) History of miscarriage Personal history of other genital system and obstetric disorders 12 weeks gestation of ([facility]) state, incidental Supervision of other high risk pregnancies, second trimester (HCC)- Primary AMA (advanced maternal age) multigravida 35+, second trimester (HCC) 26 weeks gestation of ([facility]) state, incidental Pelvic pain in , antepartum (HCC) Other specified complication, antepartum Obesity affecting in second trimester, unspecified obesity type (HCC) documented in this encounter [facility] note* Diagnosis Encounter for supervision of high risk in first trimester, antepartum (HCC)- Primary Advanced maternal age in multigravida, first trimester (HCC) Obesity affecting in first trimester, unspecified obesity type (HCC) Anxiety disorder affecting , antepartum (HCC) Depression affecting (HCC) History of miscarriage Personal history of other genital system and obstetric disorders 12 weeks gestation of ([facility]) state, incidental Well adult exam Routine general medical examination at a [facility] care facility GERD without esophagitis Esophageal reflux documented in this encounter [facility] note* Diagnosis Encounter for supervision of high risk in first trimester, antepartum (HCC)- Primary Advanced maternal age in multigravida, first trimester (HCC) Obesity affecting in first trimester, unspecified obesity type (HCC) Anxiety disorder affecting , antepartum (HCC) Depression affecting (HCC) History of miscarriage Personal history of other genital system and obstetric disorders 12 weeks gestation of ([facility]) state, incidental Supervision of high risk in second trimester (HCC)- Primary Unspecified high-risk 27 weeks gestation of (HCC) state, incidental AMA (advanced maternal age) multigravida 35+, second trimester (HCC) Anemia complicating , second trimester (HCC) Obesity affecting in second trimester, unspecified obesity type (HCC) Depression affecting (HCC) Anxiety disorder affecting , antepartum (HCC) History of herpes genitalis Personal history of other infectious and parasitic disease History of alcohol abuse Nondependent alcohol abuse, in remission documented in this encounter [facility] note* Diagnosis Encounter for supervision of high risk in first trimester, antepartum (HCC)- Primary Advanced maternal age in multigravida, first trimester (HCC) Obesity affecting in first trimester, unspecified obesity type (HCC) Anxiety disorder affecting , antepartum (HCC) Depression affecting (HCC) History of miscarriage Personal history of other genital system and obstetric disorders 12 weeks gestation of (HCC) state, incidental Vitamin D deficiency Unspecified vitamin D deficiency documented in this encounter [facility] note* Diagnosis Encounter for supervision of high risk in first trimester, antepartum (HCC)- Primary Advanced maternal age in multigravida, first trimester (HCC) Obesity affecting in first trimester, unspecified obesity type (HCC) Anxiety disorder affecting , antepartum (HCC) Depression affecting (HCC) History of miscarriage Personal history of other genital system and obstetric disorders 12 weeks gestation of (HCC) state, incidental Maternal iron deficiency anemia complicating , third trimester (HCC)- Primary documented in this encounter [facility] note* Diagnosis Encounter for supervision of high risk in first trimester, antepartum (HCC)- Primary Advanced maternal age in multigravida, first trimester (HCC) Obesity affecting in first trimester, unspecified obesity type (HCC) Anxiety disorder affecting , antepartum (HCC) Depression affecting (HCC) History of miscarriage Personal history of other genital system and obstetric disorders 12 weeks gestation of (HCC) state, incidental Maternal iron deficiency anemia complicating , third trimester (HCC)- Primary documented in this encounter [facility] note* Diagnosis Encounter for supervision of high risk in first trimester, antepartum (HCC)- Primary Advanced maternal age in multigravida, first trimester (HCC) Obesity affecting in first trimester, unspecified obesity type (HCC) Anxiety disorder affecting , antepartum (HCC) Depression affecting (HCC) History of miscarriage Personal history of other genital system and obstetric disorders 12 weeks gestation of (HCC) state, incidental Supervision of high risk in third trimester (HCC)- Primary Unspecified high-risk Multigravida of advanced maternal age in third trimester (HCC) Obesity in (HCC) Obesity complicating , childbirth, or the puerperium, unspecified as to episode of care or not applicable 29 weeks gestation of (HCC) state, incidental documented in this encounter [facility] note* Diagnosis Encounter for supervision of high risk in first trimester, antepartum (HCC)- Primary Advanced maternal age in multigravida, first trimester (HCC) Obesity affecting in first trimester, unspecified obesity type (HCC) Anxiety disorder affecting , antepartum (HCC) Depression affecting (HCC) History of miscarriage Personal history of other genital system and obstetric disorders 12 weeks gestation of ([facility]) state, incidental Advanced maternal age in multigravida, second trimester (HCC)- Primary Obesity in (HCC) Obesity complicating , childbirth, or the puerperium, unspecified as to episode of care or not applicable Obesity affecting in second trimester, unspecified obesity type (HCC) documented in this encounter [facility] note* Diagnosis Encounter for supervision of high risk in first trimester, antepartum (HCC)- Primary Advanced maternal age in multigravida, first trimester (HCC) Obesity affecting in first trimester, unspecified obesity type (HCC) Anxiety disorder affecting , antepartum (HCC) Depression affecting (HCC) History of miscarriage Personal history of other genital system and obstetric disorders 12 weeks gestation of (HCC) state, incidental Obesity in (HCC)- Primary Obesity complicating , childbirth, or the puerperium, unspecified as to episode of care or not applicable 31 weeks gestation of ([facility]) state, incidental Supervision of high risk in third trimester (HCC) Unspecified high-risk Multigravida of advanced maternal age in third trimester (HCC) documented in this encounter [facility] note* Diagnosis Encounter for supervision of high risk in first trimester, antepartum (HCC)- Primary Advanced maternal age in multigravida, first trimester (HCC) Obesity affecting in first trimester, unspecified obesity type (HCC) Anxiety disorder affecting , antepartum (HCC) Depression affecting (HCC) History of miscarriage Personal history of other genital system and obstetric disorders 12 weeks gestation of (HCC) state, incidental Supervision of high risk in third trimester (HCC)- Primary Unspecified high-risk Multigravida of advanced maternal age in third trimester (HCC) Obesity in (HCC) Obesity complicating , childbirth, or the puerperium, unspecified as to episode of care or not applicable 33 weeks gestation of (HCC) state, incidental [facility] Diagnosis Encounter for supervision of high risk in first trimester, antepartum (HCC)- Primary Advanced maternal age in multigravida, first trimester (HCC) Obesity affecting in first trimester, unspecified obesity type (HCC) Anxiety disorder affecting , antepartum (HCC) Depression affecting (HCC) History of miscarriage Personal history of other genital system and obstetric disorders 12 weeks gestation of (HCC) state, incidental Supervision of high risk in third trimester (HCC)- Primary Unspecified high-risk Multigravida of advanced maternal age in third trimester (HCC) Obesity in (HCC) Obesity complicating , childbirth, or the puerperium, unspecified as to episode of care or not applicable 34 weeks gestation of ([facility]) state, incidental documented in this encounter [facility] note* Diagnosis Encounter for supervision of high risk in first trimester, antepartum (HCC)- Primary Advanced maternal age in multigravida, first trimester (HCC) Obesity affecting in first trimester, unspecified obesity type (HCC) Anxiety disorder affecting , antepartum (HCC) Depression affecting (HCC) History of miscarriage Personal history of other genital system and obstetric disorders 12 weeks gestation of ([facility]) state, incidental Maternal iron deficiency anemia complicating , third trimester (HCC)- Primary documented in this encounter [facility] note* Diagnosis Encounter for supervision of high risk in first trimester, antepartum (HCC)- Primary Advanced maternal age in multigravida, first trimester (HCC) Obesity affecting in first trimester, unspecified obesity type (HCC) Anxiety disorder affecting , antepartum (HCC) Depression affecting (HCC) History of miscarriage Personal history of other genital system and obstetric disorders 12 weeks gestation of (HCC) state, incidental Supervision of high risk in third trimester (HCC)- Primary Unspecified high-risk Multigravida of advanced maternal age in third trimester (HCC) Anemia during in third trimester (HCC) Obesity in (HCC) Obesity complicating , childbirth, or the puerperium, unspecified as to episode of care or not applicable 35 weeks gestation of (HCC) state, incidental documented in this encounter [facility] note* Diagnosis Encounter for supervision of high risk in first trimester, antepartum (HCC)- Primary Advanced maternal age in multigravida, first trimester (HCC) Obesity affecting in first trimester, unspecified obesity type (HCC) Anxiety disorder affecting , antepartum (HCC) Depression affecting (HCC) History of miscarriage Personal history of other genital system and obstetric disorders 12 weeks gestation of (HCC) state, incidental Maternal iron deficiency anemia complicating , third trimester (HCC)- Primary documented in this encounter [facility] note* Diagnosis Encounter for supervision of high risk in first trimester, antepartum (HCC)- Primary Advanced maternal age in multigravida, first trimester (HCC) Obesity affecting in first trimester, unspecified obesity type (HCC) Anxiety disorder affecting , antepartum (HCC) Depression affecting ([facility]) History of miscarriage Personal history of other genital system and obstetric disorders 12 weeks gestation of ([facility]) state, incidental Maternal iron deficiency anemia complicating , third trimester (HCC)- Primary documented in this encounter [facility] note* Diagnosis Encounter for supervision of high risk in first trimester, antepartum (HCC)- Primary Advanced maternal age in multigravida, first trimester (HCC) Obesity affecting in first trimester, unspecified obesity type (HCC) Anxiety disorder affecting , antepartum (HCC) Depression affecting (HCC) History of miscarriage Personal history of other genital system and obstetric disorders 12 weeks gestation of (HCC) state, incidental Maternal iron deficiency anemia complicating , third trimester (HCC)- Primary documented in this encounter [facility] note* Diagnosis Encounter for supervision of high risk in first trimester, antepartum (HCC)- Primary Advanced maternal age in multigravida, first trimester (HCC) Obesity affecting in first trimester, unspecified obesity type (HCC) Anxiety disorder affecting , antepartum (HCC) Depression affecting (HCC) History of miscarriage Personal history of other genital system and obstetric disorders 12 weeks gestation of (HCC) state, incidental Supervision of high risk in third trimester (HCC)- Primary Unspecified high-risk Multigravida of advanced maternal age in third trimester (HCC) Anemia during in third trimester (HCC) Obesity in (HCC) Obesity complicating , childbirth, or the puerperium, unspecified as to episode of care or not applicable 36 weeks gestation of ([facility]) state, incidental documented in this encounter [facility] note* Diagnosis Encounter for supervision of high risk in first trimester, antepartum (HCC)- Primary Advanced maternal age in multigravida, first trimester (HCC) Obesity affecting in first trimester, unspecified obesity type (HCC) Anxiety disorder affecting , antepartum (HCC) Depression affecting ([facility]) History of miscarriage Personal history of other genital system and obstetric disorders 12 weeks gestation of ([facility]) state, incidental Anemia complicating , second trimester ([facility])- Primary documented in this encounter [facility] note* Diagnosis Encounter for supervision of high risk in first trimester, antepartum (HCC)- Primary Advanced maternal age in multigravida, first trimester (HCC) Obesity affecting in first trimester, unspecified obesity type (HCC) Anxiety disorder affecting , antepartum (HCC) Depression affecting ([facility]) History of miscarriage Personal history of other genital system and obstetric disorders 12 weeks gestation of ([facility]) state, incidental LGA (large for gestational age) ([facility])- Primary Other wrphx-zar-ryxch infants Multigravida of advanced maternal age in third trimester (HCC) Anemia during in third trimester (HCC) Obesity in (HCC) Obesity complicating , childbirth, or the puerperium, unspecified as to episode of care or not applicable 37 weeks gestation of ([facility]) state, incidental Request for sterilization History of herpes genitalis Personal history of other infectious and parasitic disease * Assessment & Plan Note - Mehran Renee MD - 09/10/2024 11:43 AM EDTAssociated Problem(s): Supervision of high risk in second trimester ([facility]) EFW & AC both >99% * Assessment & Plan Note - Mehran Renee MD - 09/10/2024 11:43 AM EDTAssociated Problem(s): Request for sterilization Breann 19 papers signed today Discussed that would need to be done after delivery and may be referred to [facility]. * Assessment & Plan Note - Mehran Renee MD - 09/10/2024 11:43 AM EDTAssociated Problem(s): History of herpes genitalis Continue valtrex suppression documented in this encounter [facility] note* Diagnosis Encounter for supervision of high risk in first trimester, antepartum (HCC)- Primary Advanced maternal age in multigravida, first trimester ([facility]) Obesity affecting in first trimester, unspecified obesity type ([facility]) Anxiety disorder affecting , antepartum ([facility]) Depression affecting ([facility]) History of miscarriage Personal history of other genital system and obstetric disorders 12 weeks gestation of ([facility]) state, incidental Advanced maternal age in multigravida, second trimester ([facility])- Primary Obesity in ([facility]) Obesity complicating , childbirth, or the puerperium, unspecified as to episode of care or not applicable Obesity affecting in second trimester, unspecified obesity type ([facility]) LGA (large for gestational age) ([facility])- Primary Other ryyjh-fvy-ftnmp infants Multigravida of advanced maternal age in third trimester ([facility]) Anemia during in third trimester ([facility]) Obesity in ([facility]) Obesity complicating , childbirth, or the puerperium, unspecified as to episode of care or not applicable 37 weeks gestation of ([facility]) state, incidental Request for sterilization History of herpes genitalis Personal history of other infectious and parasitic disease documented in this encounter [facility] note* Diagnosis Encounter for supervision of high risk in first trimester, antepartum (HCC)- Primary Advanced maternal age in multigravida, first trimester (HCC) Obesity affecting in first trimester, unspecified obesity type (HCC) Anxiety disorder affecting , antepartum (HCC) Depression affecting (HCC) History of miscarriage Personal history of other genital system and obstetric disorders 12 weeks gestation of (HCC) state, incidental LGA (large for gestational age) (HCC)- Primary Other blory-yfy-lonng infants Multigravida of advanced maternal age in third trimester ([facility]) Anemia during in third trimester (HCC) Obesity in (HCC) Obesity complicating , childbirth, or the puerperium, unspecified as to episode of care or not applicable 37 weeks gestation of ([facility]) state, incidental Request for sterilization History of herpes genitalis Personal history of other infectious and parasitic disease LGA (large for gestational age) ([facility])- Primary Other jnvjd-vki-idmik infants 38 weeks gestation of ([facility]) state, incidental Multigravida of advanced maternal age in third trimester ([facility]) Obesity in (HCC) Obesity complicating , childbirth, or the puerperium, unspecified as to episode of care or not applicable Supervision of high risk in third trimester ([facility]) Unspecified high-risk [facility] Additional Instructions Plenty fluids and rest. Tylenol and Motrin for pain. Follow-up with your CORPORATE DIRECTOR OF PHARMACY if not improving. Return if increasing pain, fever, discharge or heavy bleeding with clots.[facility] Work Phone: Hospital Discharge instructions Additional Instructions Purchase Monistat 7 [id number] and use. Do not drink any alcohol while taking the antibiotic.[facility] Work Phone: Reason for referral (narrative)* Diagnostic Procedure Only (Routine) - Authorized Specialty Diagnoses / Procedures Referred By Conttiffanie t Referred To Contact [facility] Diagnoses Pelvic pain in female Procedures PELVIC US WHI US PELVIC NONOBSTETRIC REAL-TIME IMAGE COMPLETE Miguel Escudero MD [address] [place] [address] [facility] [address] [place] [place] [address] Referral ID Status Reason Start Date Expiration Date Visits Requested Visits Authorized [id number] Authorized Auto-Generat ed Referral 08/17/2023 08/16/2024 1 1 [facility] for referral (narrative)* Diagnostic Procedure Only (Routine) - Authorized Specialty Diagnoses / Procedures Referred By Contac t Referred To Contact [facility] Diagnoses Encounter for supervision of high risk in first trimester, antepartum 8 weeks gestation of Procedures OBSTETRIC ULTRASOUND WHI US PREG UTERUS AFTER 1ST TRIMEST GESTATION Chaparrita Cope APRN.COMMODITY BUYER [address] [place] [address] [place] [id number] Referral ID Status Reason Start Date Expiration Date Visits Requested Visits Authorized [id number] Authorized Auto-Generat ed Referral 03/04/2024 03/04/2025 1 1 * Diagnostic Procedure Only (Routine) - Authorized Specialty Diagnoses / Procedures Referred By Contac t Referred To Contact [facility] Diagnoses Encounter for supervision of high risk in first trimester, antepartum 8 weeks gestation of Procedures OBSTETRIC ULTRASOUND WHI US PREG UTERUS AFTER 1ST TRIMEST GESTATION Chaparrita Cope APRN.COMMODITY BUYER [address] [place] [address] [facility] [address] [place] [address] Referral ID Status Reason Start Date Expiration Date Visits Requested Visits Authorized [id number] Authorized Auto-Generat ed Referral 03/04/2024 03/04/2025 1 1 [facility] for visit Narrative* Diagnostic Procedure Only (Routine) - Closed Specialty Diagnoses / Procedures Referred By Contac t Referred To Contact [facility] Diagnoses Pelvic pain in female Procedures PELVIC US WHI US PELVIC NONOBSTETRIC REAL-TIME IMAGE COMPLETE Miguel Escudero MD [address] [place] [address] [facility] [address] [place] [address] Referral ID Status Reason Start Date Expiration Date V isits Requested Visits Authorized [id number] Closed Auto-Generate d Referral 08/17/2023 08/16/2024 1 1 [facility] for visit Narrative* [place] Prior Authorization (Routine) - Authorized Specialty Diagnoses / Procedures Referred By Contac t Referred To Contact Diagnoses Maternal iron deficiency anemia complicating , third trimester (HCC) Sonam Ordoñez PA-C [id number] [place] [address] Phone: tel: fax: Sonam Ordoñez PA-C [address] [place] [address] Phone: tel: fax: Referral ID Status Reason Start Date Expiration Date V isits Requested Visits Authorized [id number] Authorized 07/16/2024 10/14/2024 1 99 [facility] Summary Purpose Family History No Family History Records Found Relationship Condition Age at Onset Recorded Date/T crystal Unknown Family History?No pertinent history Unkno wn July 12, 2019 6:51pm Relationship Condition Age at Onset Recorded Date/T crystal Unknown Family History?No pertinent history Unkno wn July 12, 2019 5:51pm Advance Directives No Advanced Directives Records Found Advance Directive Response Recorded Date/ Time Advance Directives No March 13, 2017 10:37am Living Will No May 18, 2022 8:54am Power of [employer] Senior Officer No May 18 8:54am Advance Directive Response Recorded Date/ Time Advance Directives No March 13, 2017 10:37am Living Will No July 25, 2022 4 :06pm Power of [employer] Senior Officer No July 25, 2022 4:06pm Advance Directive Response Recorded Date/ Time Advance Directives No March 13, 2017 9:37am Living Will No February 10 8:49pm Power of [employer] Senior Officer No February 10, 2023 8:49pm Chief Complaint and Reason for Visit Chief Complaint abdominal pain Chief Complaint abdominal pain VAGINAL Chief Complaint HEAD INJURY Reason for Referral Specialty Diagnoses / Procedures Referred By Contac t Referred To Contact Urology Diagnoses Mixed incontinence Procedures CONSULT TO UROLOGY OFFICE/OUTPATIENT [facility] 60 MINUTES Miguel Escudero MD [address] [place] [address] Referral ID Status Reason Start Date Expiration Date Visits Requested Visits Authorized [id number] Authorized PCP Requested Referral 08/23/2023 08/22/2024 1 1 Additional Source Comments INFORMATION SOURCE (unrecogn ized section and content) DATE CREATED AUTHOR 05/27/2020 [facility] DATE CREATED AUTHOR AUTHOR'S ORGANIZ ATION 12/06/2020 [facility] DATE CREATED AUTHOR AUTHOR'S ORGANIZ ATION 11/15/2023 [facility] DATE CREATED AUTHOR AUTHOR'S ORGANIZ ATION 07/08/2024 [facility] DATE CREATED AUTHOR AUTHOR'S ORGANIZ ATION 09/21/2024 [facility] Source Comments (unrecognize d section and content) In the event this informatio n is protected by the Federal Confidentiality of Alcohol and Drug Abuse Patient Records regulations: The Federal rules restrict any use of the information to criminally investigate or prosecute any alcohol or drug abuse patient.[facility] the event this information is protected by the Federal Confidentiality of Alcohol and Drug Abuse Patient Records regulations: The Federal rules restrict any use of the information to criminally investigate or prosecute any alcohol or drug abuse patient.[facility] the event this information is protected by the Federal Confidentiality of Alcohol and Drug Abuse Patient Records regulations: The Federal rules restrict any use of the information to criminally investigate or prosecute any alcohol or drug abuse patient.[facility] the event this information is protected by the Federal Confidentiality of Alcohol and Drug Abuse Patient Records regulations: The Federal rules restrict any use of the information to criminally investigate or prosecute any alcohol or drug abuse patient.[facility] the event this information is protected by the Federal Confidentiality of Alcohol and Drug Abuse Patient Records regulations: The Federal rules restrict any use of the information to criminally investigate or prosecute any alcohol or drug abuse patient.[facility] the event this information is protected by the Federal Confidentiality of Alcohol and Drug Abuse Patient Records regulations: The Federal rules restrict any use of the information to criminally investigate or prosecute any alcohol or drug abuse patient.[facility] the event this information is protected by the Federal Confidentiality of Alcohol and Drug Abuse Patient Records regulations: The Federal rules restrict any use of the information to criminally investigate or prosecute any alcohol or drug abuse patient.[facility] the event this information is protected by the Federal Confidentiality of Alcohol and Drug Abuse Patient Records regulations: The Federal rules restrict any use of the information to criminally investigate or prosecute any alcohol or drug abuse patient.[facility] the event this information is protected by the Federal Confidentiality of Alcohol and Drug Abuse Patient Records regulations: The Federal rules restrict any use of the information to criminally investigate or prosecute any alcohol or drug abuse patient.[facility] the event this information is protected by the Federal Confidentiality of Alcohol and Drug Abuse Patient Records regulations: The Federal rules restrict any use of the information to criminally investigate or prosecute any alcohol or drug abuse patient.[facility] the event this information is protected by the Federal Confidentiality of Alcohol and Drug Abuse Patient Records regulations: The Federal rules restrict any use of the information to criminally investigate or prosecute any alcohol or drug abuse patient.[facility] the event this information is protected by the Federal Confidentiality of Alcohol and Drug Abuse Patient Records regulations: The Federal rules restrict any use of the information to criminally investigate or prosecute any alcohol or drug abuse patient.[facility] the event this information is protected by the Federal Confidentiality of Alcohol and Drug Abuse Patient Records regulations: The Federal rules restrict any use of the information to criminally investigate or prosecute any alcohol or drug abuse patient.[facility] the event this information is protected by the Federal Confidentiality of Alcohol and Drug Abuse Patient Records regulations: The Federal rules restrict any use of the information to criminally investigate or prosecute any alcohol or drug abuse patient.[facility] the event this information is protected by the Federal Confidentiality of Alcohol and Drug Abuse Patient Records regulations: The Federal rules restrict any use of the information to criminally investigate or prosecute any alcohol or drug abuse patient.[facility] the event this information is protected by the Federal Confidentiality of Alcohol and Drug Abuse Patient Records regulations: The Federal rules restrict any use of the information to criminally investigate or prosecute any alcohol or drug abuse patient.[facility] the event this information is protected by the Federal Confidentiality of Alcohol and Drug Abuse Patient Records regulations: The Federal rules restrict any use of the information to criminally investigate or prosecute any alcohol or drug abuse patient.[facility] the event this information is protected by the Federal Confidentiality of Alcohol and Drug Abuse Patient Records regulations: The Federal rules restrict any use of the information to criminally investigate or prosecute any alcohol or drug abuse patient.[facility] the event this information is protected by the Federal Confidentiality of Alcohol and Drug Abuse Patient Records regulations: The Federal rules restrict any use of the information to criminally investigate or prosecute any alcohol or drug abuse patient.[facility] the event this information is protected by the Federal Confidentiality of Alcohol and Drug Abuse Patient Records regulations: The Federal rules restrict any use of the information to criminally investigate or prosecute any alcohol or drug abuse patient.[facility] the event this information is protected by the Federal Confidentiality of Alcohol and Drug Abuse Patient Records regulations: The Federal rules restrict any use of the information to criminally investigate or prosecute any alcohol or drug abuse patient.[facility] the event this information is protected by the Federal Confidentiality of Alcohol and Drug Abuse Patient Records regulations: The Federal rules restrict any use of the information to criminally investigate or prosecute any alcohol or drug abuse patient.[facility] CampusIn the event this information is protected by the Federal Confidentiality of Alcohol and Drug Abuse Patient Records regulations: The Federal rules restrict any use of the information to criminally investigate or prosecute any alcohol or drug abuse patient.[facility] CampusIn the event this information is protected by the Federal Confidentiality of Alcohol and Drug Abuse Patient Records regulations: The Federal rules restrict any use of the information to criminally investigate or prosecute any alcohol or drug abuse patient.[facility] CampusIn the event this information is protected by the Federal Confidentiality of Alcohol and Drug Abuse Patient Records regulations: The Federal rules restrict any use of the information to criminally investigate or prosecute any alcohol or drug abuse patient.[facility] CampusIn the event this information is protected by the Federal Confidentiality of Alcohol and Drug Abuse Patient Records regulations: The Federal rules restrict any use of the information to criminally investigate or prosecute any alcohol or drug abuse patient.[facility] CampusIn the event this information is protected by the Federal Confidentiality of Alcohol and Drug Abuse Patient Records regulations: The Federal rules restrict any use of the information to criminally investigate or prosecute any alcohol or drug abuse patient.[facility] CampusIn the event this information is protected by the Federal Confidentiality of Alcohol and Drug Abuse Patient Records regulations: The Federal rules restrict any use of the information to criminally investigate or prosecute any alcohol or drug abuse patient.[facility] CampusIn the event this information is protected by the Federal Confidentiality of Alcohol and Drug Abuse Patient Records regulations: The Federal rules restrict any use of the information to criminally investigate or prosecute any alcohol or drug abuse patient.[facility] CampusIn the event this information is protected by the Federal Confidentiality of Alcohol and Drug Abuse Patient Records regulations: The Federal rules restrict any use of the information to criminally investigate or prosecute any alcohol or drug abuse patient.[facility] CampusIn the event this information is protected by the Federal Confidentiality of Alcohol and Drug Abuse Patient Records regulations: The Federal rules restrict any use of the information to criminally investigate or prosecute any alcohol or drug abuse patient.[facility] CampusIn the event this information is protected by the Federal Confidentiality of Alcohol and Drug Abuse Patient Records regulations: The Federal rules restrict any use of the information to criminally investigate or prosecute any alcohol or drug abuse patient.[facility] CampusIn the event this information is protected by the Federal Confidentiality of Alcohol and Drug Abuse Patient Records regulations: The Federal rules restrict any use of the information to criminally investigate or prosecute any alcohol or drug abuse patient.[facility] CampusIn the event this information is protected by the Federal Confidentiality of Alcohol and Drug Abuse Patient Records regulations: The Federal rules restrict any use of the information to criminally investigate or prosecute any alcohol or drug abuse patient.[facility] CampusIn the event this information is protected by the Federal Confidentiality of Alcohol and Drug Abuse Patient Records regulations: The Federal rules restrict any use of the information to criminally investigate or prosecute any alcohol or drug abuse patient.[facility] CampusIn the event this information is protected by the Federal Confidentiality of Alcohol and Drug Abuse Patient Records regulations: The Federal rules restrict any use of the information to criminally investigate or prosecute any alcohol or drug abuse patient.[facility] CampusIn the event this information is protected by the Federal Confidentiality of Alcohol and Drug Abuse Patient Records regulations: The Federal rules restrict any use of the information to criminally investigate or prosecute any alcohol or drug abuse patient.[facility] CampusIn the event this information is protected by the Federal Confidentiality of Alcohol and Drug Abuse Patient Records regulations: The Federal rules restrict any use of the information to criminally investigate or prosecute any alcohol or drug abuse patient.[facility] CampusIn the event this information is protected by the Federal Confidentiality of Alcohol and Drug Abuse Patient Records regulations: The Federal rules restrict any use of the information to criminally investigate or prosecute any alcohol or drug abuse patient.[facility] CampusIn the event this information is protected by the Federal Confidentiality of Alcohol and Drug Abuse Patient Records regulations: The Federal rules restrict any use of the information to criminally investigate or prosecute any alcohol or drug abuse patient.[facility] CampusIn the event this information is protected by the Federal Confidentiality of Alcohol and Drug Abuse Patient Records regulations: The Federal rules restrict any use of the information to criminally investigate or prosecute any alcohol or drug abuse patient.[facility] CampusIn the event this information is protected by the Federal Confidentiality of Alcohol and Drug Abuse Patient Records regulations: The Federal rules restrict any use of the information to criminally investigate or prosecute any alcohol or drug abuse patient.[facility] CampusIn the event this information is protected by the Federal Confidentiality of Alcohol and Drug Abuse Patient Records regulations: The Federal rules restrict any use of the information to criminally investigate or prosecute any alcohol or drug abuse patient.[facility] CampusIn the event this information is protected by the Federal Confidentiality of Alcohol and Drug Abuse Patient Records regulations: The Federal rules restrict any use of the information to criminally investigate or prosecute any alcohol or drug abuse patient.[facility] CampusIn the event this information is protected by the Federal Confidentiality of Alcohol and Drug Abuse Patient Records regulations: The Federal rules restrict any use of the information to criminally investigate or prosecute any alcohol or drug abuse patient.[facility] CampusIn the event this information is protected by the Federal Confidentiality of Alcohol and Drug Abuse Patient Records regulations: The Federal rules restrict any use of the information to criminally investigate or prosecute any alcohol or drug abuse patient.[facility] CampusIn the event this information is protected by the Federal Confidentiality of Alcohol and Drug Abuse Patient Records regulations: The Federal rules restrict any use of the information to criminally investigate or prosecute any alcohol or drug abuse patient.[facility] CampusIn the event this information is protected by the Federal Confidentiality of Alcohol and Drug Abuse Patient Records regulations: The Federal rules restrict any use of the information to criminally investigate or prosecute any alcohol or drug abuse patient.[facility] CampusIn the event this information is protected by the Federal Confidentiality of Alcohol and Drug Abuse Patient Records regulations: The Federal rules restrict any use of the information to criminally investigate or prosecute any alcohol or drug abuse patient.[facility] the event this information is protected by the Federal Confidentiality of Alcohol and Drug Abuse Patient Records regulations: The Federal rules restrict any use of the information to criminally investigate or prosecute any alcohol or drug abuse patient.[facility] CampusIn the event this information is protected by the Federal Confidentiality of Alcohol and Drug Abuse Patient Records regulations: The Federal rules restrict any use of the information to criminally investigate or prosecute any alcohol or drug abuse patient.[facility] CampusIn the event this information is protected by the Federal Confidentiality of Alcohol and Drug Abuse Patient Records regulations: The Federal rules restrict any use of the information to criminally investigate or prosecute any alcohol or drug abuse patient.[facility]In the event this information is protected by the Federal Confidentiality of Alcohol and Drug Abuse Patient Records regulations: The Federal rules restrict any use of the information to criminally investigate or prosecute any alcohol or drug abuse patient.[facility] CampusIn the event this information is protected by the Federal Confidentiality of Alcohol and Drug Abuse Patient Records regulations: The Federal rules restrict any use of the information to criminally investigate or prosecute any alcohol or drug abuse patient.[facility] CampusIn the event this information is protected by the Federal Confidentiality of Alcohol and Drug Abuse Patient Records regulations: The Federal rules restrict any use of the information to criminally investigate or prosecute any alcohol or drug abuse patient.[facility] CampusIn the event this information is protected by the Federal Confidentiality of Alcohol and Drug Abuse Patient Records regulations: The Federal rules restrict any use of the information to criminally investigate or prosecute any alcohol or drug abuse patient.[facility] CampusIn the event this information is protected by the Federal Confidentiality of Alcohol and Drug Abuse Patient Records regulations: The Federal rules restrict any use of the information to criminally investigate or prosecute any alcohol or drug abuse patient.[facility] CampusIn the event this information is protected by the Federal Confidentiality of Alcohol and Drug Abuse Patient Records regulations: The Federal rules restrict any use of the information to criminally investigate or prosecute any alcohol or drug abuse patient.[facility] CampusIn the event this information is protected by the Federal Confidentiality of Alcohol and Drug Abuse Patient Records regulations: The Federal rules restrict any use of the information to criminally investigate or prosecute any alcohol or drug abuse patient.[facility] CampusIn the event this information is protected by the Federal Confidentiality of Alcohol and Drug Abuse Patient Records regulations: The Federal rules restrict any use of the information to criminally investigate or prosecute any alcohol or drug abuse patient.[facility] CampusIn the event this information is protected by the Federal Confidentiality of Alcohol and Drug Abuse Patient Records regulations: The Federal rules restrict any use of the information to criminally investigate or prosecute any alcohol or drug abuse patient.[facility] CampusIn the event this information is protected by the Federal Confidentiality of Alcohol and Drug Abuse Patient Records regulations: The Federal rules restrict any use of the information to criminally investigate or prosecute any alcohol or drug abuse patient.[facility] CampusIn the event this information is protected by the Federal Confidentiality of Alcohol and Drug Abuse Patient Records regulations: The Federal rules restrict any use of the information to criminally investigate or prosecute any alcohol or drug abuse patient.[facility] CampusIn the event this information is protected by the Federal Confidentiality of Alcohol and Drug Abuse Patient Records regulations: The Federal rules restrict any use of the information to criminally investigate or prosecute any alcohol or drug abuse patient.[facility] CampusIn the event this information is protected by the Federal Confidentiality of Alcohol and Drug Abuse Patient Records regulations: The Federal rules restrict any use of the information to criminally investigate or prosecute any alcohol or drug abuse patient.[facility] CampusIn the event this information is protected by the Federal Confidentiality of Alcohol and Drug Abuse Patient Records regulations: The Federal rules restrict any use of the information to criminally investigate or prosecute any alcohol or drug abuse patient.[facility] CampusIn the event this information is protected by the Federal Confidentiality of Alcohol and Drug Abuse Patient Records regulations: The Federal rules restrict any use of the information to criminally investigate or prosecute any alcohol or drug abuse patient.[facility] CampusIn the event this information is protected by the Federal Confidentiality of Alcohol and Drug Abuse Patient Records regulations: The Federal rules restrict any use of the information to criminally investigate or prosecute any alcohol or drug abuse patient.[facility] CampusIn the event this information is protected by the Federal Confidentiality of Alcohol and Drug Abuse Patient Records regulations: The Federal rules restrict any use of the information to criminally investigate or prosecute any alcohol or drug abuse patient.[facility] CampusIn the event this information is protected by the Federal Confidentiality of Alcohol and Drug Abuse Patient Records regulations: The Federal rules restrict any use of the information to criminally investigate or prosecute any alcohol or drug abuse patient.[facility] CampusIn the event this information is protected by the Federal Confidentiality of Alcohol and Drug Abuse Patient Records regulations: The Federal rules restrict any use of the information to criminally investigate or prosecute any alcohol or drug abuse patient.[facility] CampusIn the event this information is protected by the Federal Confidentiality of Alcohol and Drug Abuse Patient Records regulations: The Federal rules restrict any use of the information to criminally investigate or prosecute any alcohol or drug abuse patient.[facility] CampusIn the event this information is protected by the Federal Confidentiality of Alcohol and Drug Abuse Patient Records regulations: The Federal rules restrict any use of the information to criminally investigate or prosecute any alcohol or drug abuse patient.[facility] CampusIn the event this information is protected by the Federal Confidentiality of Alcohol and Drug Abuse Patient Records regulations: The Federal rules restrict any use of the information to criminally investigate or prosecute any alcohol or drug abuse patient.[facility] CampusIn the event this information is protected by the Federal Confidentiality of Alcohol and Drug Abuse Patient Records regulations: The Federal rules restrict any use of the information to criminally investigate or prosecute any alcohol or drug abuse patient.[facility] CampusIn the event this information is protected by the Federal Confidentiality of Alcohol and Drug Abuse Patient Records regulations: The Federal rules restrict any use of the information to criminally investigate or prosecute any alcohol or drug abuse patient.[facility] CampusIn the event this information is protected by the Federal Confidentiality of Alcohol and Drug Abuse Patient Records regulations: The Federal rules restrict any use of the information to criminally investigate or prosecute any alcohol or drug abuse patient.[facility] CampusIn the event this information is protected by the Federal Confidentiality of Alcohol and Drug Abuse Patient Records regulations: The Federal rules restrict any use of the information to criminally investigate or prosecute any alcohol or drug abuse patient.[facility] CampusIn the event this information is protected by the Federal Confidentiality of Alcohol and Drug Abuse Patient Records regulations: The Federal rules restrict any use of the information to criminally investigate or prosecute any alcohol or drug abuse patient.[facility] Reason for Visit (unrecogniz ed section and content) Reason Comments Results Reason Onset Date Comments Refill Request 10/30/2021 Reason Onset Date Comments Refill Request 03/14/2022 Reason Comments Yearly Exam Reason Onset Date Comments Refill Request 07/17/2022 Reason Onset Date Comments Refill Request 10/07/2022 Reason Comments yearly physical Reason Comments Refill Request Reason Onset Date Comments Refill Request 05/10/2023 Reason Comments Med Change Request Reason Onset Date Comments Refill Request 06/08/2023 Reason Onset Date Comments Refill Request 07/08/2023 Reason Onset Date Comments Refill Request 07/14/2023 Reason Comments Yearly Exam Reason Onset Date Comments Refill Request 08/23/2023 Reason Comments Urinary Incontinence While sneezing, cou ghing and laughingPt states, Some days I need to change my pants at least 4 times Nocturia Around 3 times per n ight Specialty Diagnoses / Procedures Referred By Contac t Referred To Contact Urology Diagnoses Mixed incontinence Procedures CONSULT TO UROLOGY OFFICE/OUTPATIENT NEW HIGH MDM 60 MINUTES Miguel Escudero MD [address] [place] [address] Referral ID Status Reason Start Date Expiration Date V isits Requested Visits Authorized [id number] Closed PCP Requested Referral 08/23/2023 08/22/2024 1 1 Reason Onset Date Comments Refill Request 05/26/2023 Reason Onset Date Comments Refill Request 12/16/2023 Reason Comments Initial OB Visit Reason Comments [facility] [employer] [facility] Reason Onset Date Comments Care 04/01/2024 Reason Comments US Specialty Diagnoses / Procedures Referred By Felecia t Referred To Contact [facility] Diagnoses Encounter for supervision of high risk in first trimester, antepartum 8 weeks gestation of Procedures OBSTETRIC ULTRASOUND WHI US PREG UTERUS AFTER 1ST TRIMEST GESTATION Chaparrita Cope APRN.COMMODITY BUYER [address] [place] [address] Phone: tel: fax: [facility] [address] [place] [address] Referral ID Status Reason Start Date Expiration Date V isits Requested Visits Authorized [id number] Closed Auto-Generate d Referral 03/04/2024 03/04/2025 1 1 Reason Onset Date Comments Refill Request 04/09/2024 Reason Onset Date Comments Refill Request 05/05/2024 Reason Onset Date Comments Care 05/13/2024 Immunizations 05/13/2024 Flu vaccination Specialty Diagnoses / Procedures Referred By Contac t Referred To Contact It Support Engineer / CORPORATE DIRECTOR OF PHARMACY Diagnoses Encounter for supervision of high risk in first trimester, antepartum Anatomy/OB Procedures OFFICE/OUTPATIENT ESTABLISHED MOD MDM 30 MIN EST WHI OB Chaparrita Cope, ROAD BUILDER.COMMODITY BUYER [address] [place] [address] Phone: tel: fax: Miguel Escudero MD [address] [place] [address] Phone: tel: fax: Referral ID Status Reason Start Date Expiration Date Visits Requested Visits Authorized [id number] Denied OON Notification Letter Financial Clearance Required - OON Payor Clearance not met - patient not scheduled & unable to contact patient 05/13/2024 08/11/2024 1 0 Referral ID Status Reason Start Date Expiration Date Visits Requested Visits Authorized [id number] Authorized Auto-Generate d Referral Financial Clearance Required - OON Payor Clearance not met - patient not scheduled & unable to contact patient 05/07/2024 02/19/2025 20 20 Reason Onset Date Comments Care 06/10/2024 Reason Onset Date Comments Care 06/28/2024 Reason Onset Date Comments Refill Request 07/01/2024 Reason Onset Date Comments Care 07/08/2024 Reason Onset Date Comments Results 05/09/2024 Reason Comments Blood management Reason Comments Hematology Reason Onset Date Comments Care 07/22/2024 Specialty Diagnoses / Procedures Referred By Contac t Referred To Contact [facility] Diagnoses Obesity in (HCC) Procedures OBSTETRIC ULTRASOUND WHI US PREG UTERUS AFTER 1ST TRIMEST GESTATION Rachelle Varner MD [address] [place] [address] Phone: tel: fax: [facility] [address] [place] [address] Referral ID Status Reason Start Date Expiration Date V isits Requested Visits Authorized [id number] Closed Auto-Generate d Referral 07/22/2024 07/22/2025 3 1 Reason Onset Date Comments Care 08/05/2024 Reason Comments breast pump Reason Onset Date Comments Care 08/14/2024 Reason Onset Date Comments Care 08/20/2024 Reason Comments Non-Chemotherapy Treatment Specialty Diagnoses / Procedures Referred By Felecia sampson Referred To Contact Diagnoses Maternal iron deficiency anemia complicating , third trimester (HCC) Sonam Ordoñez PA-C [address] [place] [address] Phone: tel: fax: Sonam Ordoñez PA-C [address] [place] [address] Phone: tel: fax: Referral ID Status Reason Start Date Expiration Date V isits Requested Visits Authorized [id number] Authorized 07/16/2024 10/14/2024 1 99 Reason Onset Date Comments Care 08/28/2024 Reason Onset Date Comments Care 09/05/2024 Reason Onset Date Comments Care US Care 09/10/2024 Reason Onset Date Comments Population Health Navigation Outreach 09/17/2024 to PCP/OB Reason Onset Date Comments Care 09/19/2024 Care Teams (unrecognized sec tion and content) Seal Mixer Relationship Specialty Start Date End Date Holland Vang DO [address] [place], [place] [id number] PCP - General Family Practice 11/12/13 Lianne Velasquez, ROAD BUILDER.COMMODITY BUYER [address] [place], [place] [id number] Family Practice 09/15/20 Seal Mixer Relationship Specialty Start Date End Date Holland Vang DO [address] [place], [place] [id number] PCP - General Family Practice 11/12/13 Lianne Velaqsuez, ROAD BUILDER.COMMODITY BUYER [address] [place] [address] Family Practice 09/15/20 Seal Mixer Relationship Specialty Start Date End Date Holland Vang DO [address] [facility] [place] [address] PCP - General Family Medicine 11/12/13 Lianne Velasquez, ROAD BUILDER.COMMODITY BUYER [address] [place] [address] Family Medicine 09/15/20 Seal Mixer Relationship Specialty Start Date End Date Holland Vang DO [address] [facility] [place] [address] PCP - General Family Medicine 11/12/13 Lianne Velasquez, ROAD BUILDER.COMMODITY BUYER [address] [place] [address] [facility] Medicine 09/15/20 Team Status: Active Member Role Status Dates Dr. Holland Vang DO Family Provider Active Dr. Holland Vang DO Primary Care Provider Active Team Status: Inactive Member Role Status Dates Dr. Lonny Akbar MD Emergency Provider Active Dr. Holland Vang , Primary Care Provider Active Seal Mixer Relationship Specialty Start Date End Date Holland Vang DO [address] [facility] [place] [address] PCP - General Family Medicine 11/12/13 Lianne Velasquez, ROAD BUILDER.COMMODITY BUYER [address] [place] [address] Family Medicine 09/15/20 Team Status: Inactive Member Role Status Dates Dr. Lonny Akbar MD Attending Provider, Emergency Pro vider Active Dr. Holland Vang , DO Primary Care Provider Active Team Status: Inactive Member Role Status Dates Dr. Holland Vang DO Primary Care Provider Active Dr. Rudi Duke MD Emergency Provider Active Seal Mixer Relationship Specialty Start Date End Date Holland Vang DO [address] [place] [address] PCP - General Family Medicine 11/12/13 Lianne Velasquez, ROAD BUILDER.COMMODITY BUYER [address] [place] [address] Family Medicine 09/15/20 Seal Mixer Relationship Specialty Start Date End Date Holland Vang DO [address] [place] [address] PCP - General Family Medicine 11/12/13 Lianne Velasquez, ROAD BUILDER.COMMODITY BUYER [address] [place] [address] Family Medicine 09/15/20 Team Status: Inactive Member Role Status Dates Dr. Holland Vang DO Primary Care Provider Active Dr. Rachelle Kay MD Emergency Provider Active Seal Mixer Relationship Specialty Start Date End Date Holland Vang DO [address] [place] [address] PCP - General Family Medicine 11/12/13 Lianne Velasquez, ROAD BUILDER.COMMODITY BUYER [address] [place] [address] Family Medicine 09/15/20 Seal Mixer Relationship Specialty Start Date End Date Holland Vang DO [address] [place] [address] PCP - General Family Medicine 11/12/13 Lianne Velasquez, ROAD BUILDER.COMMODITY BUYER [address] [place] [address] Family Medicine 09/15/20 Seal Mixer Relationship Specialty Start Date End Date Holland Vang DO [address] [facility] [place] [address] PCP - General Family Medicine 11/12/13 Lianne Velasquez, ROAD BUILDER.COMMODITY BUYER [address] [place] [address] Family Medicine 09/15/20 Seal Mixer Relationship Specialty Start Date End Date Holland Vang DO [address] [facility] [place] [address] PCP - General Family Medicine 11/12/13 Lianne Velasquez, ROAD BUILDER.COMMODITY BUYER [address] [place] [address] Family Medicine 09/15/20 Seal Mixer Relationship Specialty Start Date End Date Holland Vang DO [address] [facility] [place] [address] PCP - General Family Medicine 11/12/13 Lianne Velasquez, ROAD BUILDER.COMMODITY BUYER [address] [place] [address] Family Medicine 09/15/20 Seal Mixer Relationship Specialty Start Date End Date Holland Vang DO [address] [facility] [place] [address] PCP - General Family Medicine 11/12/13 Lianne Velasquez, ROAD BUILDER.COMMODITY BUYER [address] [place] [address] Family Medicine 09/15/20 Seal Mixer Relationship Specialty Start Date End Date Holland Vang DO [address] [place] [address] PCP - General Family Medicine 11/12/13 Lianne Velasquez, LIAT.COMMODITY BUYER [address] [place] [address] Family Medicine 09/15/20 Seal Mixer Relationship Specialty Start Date End Date Holland Vang DO [address] [place] [address] PCP - General Family Medicine 11/12/13 Lianne Velasquez, ROAD BUILDER.COMMODITY BUYER [address] [place] [address] Family Medicine 09/15/20 Seal Mixer Relationship Specialty Start Date End Date Holland Vang DO [address] [place] [address] PCP - General Family Medicine 11/12/13 Lianne Velasquez, ROAD BUILDER.COMMODITY BUYER [address] [place] [address] Family Medicine 09/15/20 Seal Mixer Relationship Specialty Start Date End Date Holland Vang DO [address] [place] [address] PCP - General Family Medicine 11/12/13 Lianne Velasquez, ROAD BUILDER.COMMODITY BUYER [address] [place] [address] Family Medicine 09/15/20 Seal Mixer Relationship Specialty Start Date End Date Holland Vang DO [address] [facility] [place] [address] PCP - General Family Medicine 11/12/13 Lianne Velasquez, ROAD BUILDER.COMMODITY BUYER [address] [place] [address] Family Medicine 09/15/20 Seal Mixer Relationship Specialty Start Date End Date Holland Vang DO [address] [place] [address] PCP - General Family Medicine 11/12/13 Lianne Velasquez, ROAD BUILDER.COMMODITY BUYER [address] [place] [address] Family Medicine 09/15/20 Soco Sharma, ROAD BUILDER.COMMODITY BUYER [address] [facility] [place] [address] Salesperson Furniture Family Medicine 01/28/24 Ronny Borja, ROAD BUILDER.COMMODITY BUYER [address] [facility] [place] [address] Salesperson Furniture Family Medicine 01/28/24 Seal Mixer Relationship Specialty Start Date End Date Holland Vang DO [address] [facility] [place] [address] PCP - General Family Medicine 11/12/13 Lianne Velasquez, ROAD BUILDER.COMMODITY BUYER [address] [place] [address] Family Medicine 09/15/20 Soco Sharma, ROAD BUILDER.COMMODITY BUYER [address] [facility] [place] [address] Salesperson Furniture Family Medicine 01/28/24 Ronny Borja, ROAD BUILDER.COMMODITY BUYER [address] [facility] [place] [address] Formerly [facility] 01/28/24 Seal Mixer Relationship Specialty Start Date End Date Holland Vang DO [address] [facility] [place] [address] PCP - General Family Medicine 11/12/13 Lianne Velasquez, ROAD BUILDER.COMMODITY BUYER [address] [facility] [place] [address] Family Medicine 09/15/20 Soco Sharma, ROAD BUILDER.COMMODITY BUYER [address] [facility] [place] [address] [facility]person [facility] 01/28/24 Ronny Borja, ROAD BUILDER.COMMODITY BUYER [address] [facility] [place] [address] Formerly [facility] 01/28/24 Seal Mixer Relationship Specialty Start Date End Date Holland Vang DO [address] [facility] [address] PCP - General Family Medicine 11/12/13 Lianne Velasquez, ROAD BUILDER.COMMODITY BUYER [address] [facility] [place] [address] Family Medicine 09/15/20 Soco Sharma, ROAD BUILDER.COMMODITY BUYER [address] [facility] [address] Salesperson [facility] 01/28/24 Ronny Borja, ROAD BUILDER.COMMODITY BUYER [address] [place] [address] Salesperson Furn[employer] Family Medicine 01/28/24 Seal Mixer Relationship Specialty Start Date End Date Holland Vang DO [address] [place] [address] PCP - General Family Medicine 11/12/13 Lianne Velasquez, ROAD BUILDER.COMMODITY BUYER [address] [place] [address] Family Medicine 09/15/20 Soco Sharma, ROAD BUILDER.COMMODITY BUYER [address] [place] [address] Salesperson Furniture Family [facility] 01/28/24 Ronny Borja, ROAD BUILDER.COMMODITY BUYER [address] [place] [address] Salesperson Furniture [facility] 01/28/24 Seal Mixer Relationship Specialty Start Date End Date Holland Vang DO [address] [place] [address] PCP - General Family Medicine 11/12/13 Lianne Velasquez, ROAD BUILDER.COMMODITY BUYER [address] [place] [address] Family Medicine 09/15/20 Soco Sharma, ROAD BUILDER.COMMODITY BUYER [address] [place] [address] Salesperson Furniture Family [facility] 01/28/24 Ronny Borja, ROAD BUILDER.COMMODITY BUYER [address] [place] [address] Salesperson Furniture Family [facility] 01/28/24 Seal Mixer Relationship Specialty Start Date End Date Holland Vang DO [address] [facility] [place] [address] PCP - General Family Medicine 11/12/13 Lianne Velasquez, ROAD BUILDER.COMMODITY BUYER [address] [place] [address] Family Medicine 09/15/20 Soco Sharma, ROAD BUILDER.COMMODITY BUYER [address] [facility] [place] [address] Salesperson [facility] 01/28/24 Ronny Borja, ROAD BUILDER.COMMODITY BUYER [address] [facility] [place] [address] Salesperson [facility] 01/28/24 Seal Mixer Relationship Specialty Start Date End Date Holland Vang DO [address] [facility] [place] [address] PCP - General Family Medicine 11/12/13 Ronny Borja, ROAD BUILDER.COMMODITY BUYER [address] [facility] [place] [address] Salesperson [facility] 01/28/24 Seal Mixer Relationship Specialty Start Date End Date Holland Vang DO [address] [facility] [place] [address] PCP - General Family Medicine 11/12/13 Ronny Borja, ROAD BUILDER.COMMODITY BUYER [address] [facility] [place] [address] Salesperson Furniture Family Medicine 01/28/24 Seal Mixer Relationship Specialty Start Date End Date Holland Vang DO [address] [facility] [address] PCP - General Family Medicine 11/12/13 Ronny Borja, ROAD BUILDER.COMMODITY BUYER [address] [place] [address] Salesperson Furniture Family Medicine 01/28/24 Seal Mixer Relationship Specialty Start Date End Date Holland Vang DO [address] [place] [address] PCP - General Family Medicine 11/12/13 Ronny Borja, ROAD BUILDER.COMMODITY BUYER [address] [place] [address] Salesperson [facility] 01/28/24 Seal Mixer Relationship Specialty Start Date End Date Holland Vang DO [address] [place] [address] PCP - General Family Medicine 11/12/13 Lianne Velasquez, ROAD BUILDER.COMMODITY BUYER [address] [place] [address] Family Medicine 09/15/20 05/10/24 Soco Sharma, ROAD BUILDER.COMMODITY BUYER [address] [facility] [place] [address] Salesperson Furniture Family Medicine 01/28/24 05/10/24 Ronny Borja, ROAD BUILDER.COMMODITY BUYER [address] [facility] [place] [address] Salesperson Furniture Family Medicine 01/28/24 Seal Mixer Relationship Specialty Start Date End Date Holland Vang DO [address] [facility] [place] [address] PCP - General Family Medicine 11/12/13 Lianne Velasquez, ROAD BUILDER.COMMODITY BUYER [address] [facility] [place] [address] Family Medicine 09/15/20 05/10/24 Soco Sharma, ROAD BUILDER.COMMODITY BUYER [address] [facility] [place] [address] Salesperson Furniture Family Medicine 01/28/24 05/10/24 Ronny Borja, ROAD BUILDER.COMMODITY BUYER [address] [facility] [place] [address] Salesperson Furniture Family Medicine 01/28/24 Seal Mixer Relationship Specialty Start Date End Date Holland Vang DO [address] [facility] [place] [address] PCP - General Family Medicine 11/12/13 Ronny Borja, ROAD BUILDER.COMMODITY BUYER [address] [facility] [place] [address] Salesperson Furniture Family Medicine 01/28/24 Seal Mixer Relationship Specialty Start Date End Date Holland Vang DO [address] [facility] [place] [address] PCP - General Family Medicine 11/12/13 Ronny Borja, ROAD BUILDER.COMMODITY BUYER [address] [facility] [place] [address] Salesperson Furniture Family Medicine 01/28/24 Seal Mixer Relationship Specialty Start Date End Date Holland Vang DO [address] [facility] [place] [address] PCP - General Family Medicine 11/12/13 Ronny Borja, ROAD BUILDER.COMMODITY BUYER [address] [facility] [place] [address] Salesperson Furniture Family [facility] 01/28/24 Seal Mixer Relationship Specialty Start Date End Date Holland Vang DO [address] [facility] [place] [address] PCP - General Family Medicine 11/12/13 Ronny Borja, ROAD BUILDER.COMMODITY BUYER [address] [facility] [place] [address] Salesperson Furniture Family [facility] 01/28/24 Seal Mixer Relationship Specialty Start Date End Date Holland Vang DO [address] [facility] [place] [address] PCP - General Family Medicine 11/12/13 Ronny Borja, ROAD BUILDER.COMMODITY BUYER [address] [facility] [place] [address] Salesperson Furniture [facility] 01/28/24 Seal Mixer Relationship Specialty Start Date End Date Holland Vang DO [address] [facility] [place] [address] PCP - General Family Medicine 11/12/13 Lianne Velasquez, ROAD BUILDER.COMMODITY BUYER [address] [place] [address] Family Medicine 09/15/20 05/10/24 Soco Sharma, ROAD BUILDER.COMMODITY BUYER [address] [place] [address] Salesperson Furniture Family Medicine 01/28/24 05/10/24 Ronny Borja, ROAD BUILDER.COMMODITY BUYER [address] [place] [address] Salesperson Furniture Family Medicine 01/28/24 Seal Mixer Relationship Specialty Start Date End Date Holland Vang DO [address] [place] [address] PCP - General Family Medicine 11/12/13 Ronny Borja, ROAD BUILDER.COMMODITY BUYER [address] [place] [address] Salesperson Furniture [facility] 01/28/24 Seal Mixer Relationship Specialty Start Date End Date Holland Vang DO [address] [place] [address] PCP - General Family Medicine 11/12/13 oRnny Borja, ROAD BUILDER.COMMODITY BUYER [address] [place] [address] Salesperson Furniture Family [facility] 01/28/24 Seal Mixer Relationship Specialty Start Date End Date Holland Vang DO [address] [place] [address] PCP - General Family Medicine 11/12/13 Ronny Borja, ROAD BUILDER.COMMODITY BUYER [address] [place] [address] Salesperson Furniture [facility] 01/28/24 Seal Mixer Relationship Specialty Start Date End Date Holland Vang DO [address] [place] [address] PCP - General Family Medicine 11/12/13 Ronny Borja, ROAD BUILDER.COMMODITY BUYER [address] [place] [address] Salesperson Furniture Family Medicine 01/28/24 Mi Weiner, ROAD BUILDER.COMMODITY BUYER [address] [place] [address] Salesperson Furniture Family Medicine 08/05/24 Seal Mixer Relationship Specialty Start Date End Date Holland Vang DO [address] [place] [address] PCP - General Family Medicine 11/12/13 Ronny Borja, ROAD BUILDER.COMMODITY BUYER [address] [place] [address] Salesperson Furniture Family Medicine 01/28/24 Mi Weiner, ROAD BUILDER.COMMODITY BUYER [address] [place] [address] Salesperson [facility] 08/05/24 Seal Mixer Relationship Specialty Start Date End Date Holland Vang DO [address] [place] [address] PCP - General Family Medicine 11/12/13 Ronny Borja, ROAD BUILDER.COMMODITY BUYER [address] [place] [address] Salesperson Furniture Family Medicine 01/28/24 Mi Weiner, ROAD BUILDER.COMMODITY BUYER [address] [place] [address] Salesperson [facility] 08/05/24 Seal Mixer Relationship Specialty Start Date End Date Holland Vang DO [address] [place] [address] PCP - General Family Medicine 11/12/13 Ronny Borja, ROAD BUILDER.COMMODITY BUYER [address] [place] [address] Salesperson Furniture Family Medicine 01/28/24 Mi Weiner, ROAD BUILDER.COMMODITY BUYER [address] [place] [address] Formerly [facility] 08/05/24 Seal Mixer Relationship Specialty Start Date End Date Holland Vang DO [address] [place] [address] PCP - General Family Medicine 11/12/13 Ronny Borja, ROAD BUILDER.COMMODITY BUYER [address] [place] [address] Salesperson [facility] 01/28/24 Mi Weiner, ROAD BUILDER.COMMODITY BUYER [address] [place] [address] Formerly [facility] 08/05/24 Seal Mixer Relationship Specialty Start Date End Date Holland Vang DO [address] [place] [address] PCP - General Family Medicine 11/12/13 Ronny Borja, ROAD BUILDER.COMMODITY BUYER [address] [place] [address] Salesperson Furniture Family [facility] 01/28/24 Mi Weiner, ROAD BUILDER.COMMODITY BUYER [address] [place] [address] Formerly [facility] 08/05/24 Seal Mixer Relationship Specialty Start Date End Date Holland Vang DO [address] [facility] [place] [address] PCP - General Family Medicine 11/12/13 Ronny Borja, ROAD BUILDER.COMMODITY BUYER [address] [place] [address] Formerly [facility] 01/28/24 Mi Weiner, ROAD BUILDER.COMMODITY BUYER [address] [place] [address] Formerly [facility] 08/05/24 Seal Mixer Relationship Specialty Start Date End Date Holland Vang DO [address] [place] [address] PCP - General Family Medicine 11/12/13 Ronny Borja, ROAD BUILDER.COMMODITY BUYER [address] [place] [address] Salesperson [facility] 01/28/24 Mi Weiner, ROAD BUILDER.COMMODITY BUYER [address] [facility] [place] [address] Formerly [facility] 08/05/24 Seal Mixer Relationship Specialty Start Date End Date Holland Vang DO [address] [facility] [place] [address] PCP - General Family Medicine 11/12/13 Ronny Borja, ROAD BUILDER.COMMODITY BUYER [address] [facility] [place] [address] Salesperson Furniture Family Medicine 01/28/24 Mi Weiner, ROAD BUILDER.COMMODITY BUYER [address] [facility] [place] [address] Salesperson Furniture Family Medicine 08/05/24 Seal Mixer Relationship Specialty Start Date End Date Holland Vang DO [address] [facility] [place] [address] PCP - General Family Medicine 11/12/13 Ronny Borja, ROAD BUILDER.COMMODITY BUYER [address] [facility] [place] [address] Salesperson Furniture Family Medicine 01/28/24 Mi Weiner, ROAD BUILDER.COMMODITY BUYER [address] [place] [address] Salesperson Furniture Family [facility] 08/05/24 Seal Mixer Relationship Specialty Start Date End Date Holland Vang DO [address] [facility] [place] [address] PCP - General Family Medicine 11/12/13 JonhRonny, ROAD BUILDER.COMMODITY BUYER [address] [facility] [place] [address] Salesperson Furniture Family Medicine 01/28/24 Mi Weiner, ROAD BUILDER.COMMODITY BUYER [address] [facility] [place] [address] Salesperson Furniture Family Medicine 08/05/24 Seal Mixer Relationship Specialty Start Date End Date Holland Vang DO [address] [place] [address] PCP - General Family Medicine 11/12/13 Ronny Borja, ROAD BUILDER.COMMODITY BUYER [address] [place] [address] Salesperson Furniture Family Medicine 01/28/24 Mi Weiner, ROAD BUILDER.COMMODITY BUYER [address] [place] [address] Salesperson Furniture Family Medicine 08/05/24 Seal Mixer Relationship Specialty Start Date End Date Holland Vang DO [address] [place] [address] PCP - General Family Medicine 11/12/13 Ronny Borja, ROAD BUILDER.COMMODITY BUYER [address] [place] [address] Salesperson Furniture Family Medicine 01/28/24 Mi Weiner, ROAD BUILDER.COMMODITY BUYER [address] [place] [address] Salesperson Furniture Family [facility] 08/05/24 Seal Mixer Relationship Specialty Start Date End Date Holland Vang DO [address] [place] [address] PCP - General Family Medicine 11/12/13 Ronny Borja, ROAD BUILDER.COMMODITY BUYER [address] [place] [address] Salesperson Furniture Family Medicine 01/28/24 Mi Weiner, ROAD BUILDER.COMMODITY BUYER [address] [place] [address] Salesperson Furniture Family Medicine 08/05/24 Seal Mixer Relationship Specialty Start Date End Date Holland Vang DO [address] [place] [address] PCP - General Family Medicine 11/12/13 Ronny Borja, ROAD BUILDER.COMMODITY BUYER [address] [place] [address] Salesperson Furniture Family Medicine 01/28/24 Mi Weiner, ROAD BUILDER.COMMODITY BUYER [address] [place] [address] Salesperson Furniture Family Medicine 08/05/24 Seal Mixer Relationship Specialty Start Date End Date Holland Vang DO [address] [place] [address] PCP - General Family Medicine 11/12/13 Ronny Borja, ROAD BUILDER.COMMODITY BUYER [address] [place] [address] Salesperson Furniture Family Medicine 01/28/24 Mi Weiner, ROAD BUILDER.COMMODITY BUYER [address] [place] [address] Salesperson Furniture Family Medicine 08/05/24 Seal Mixer Relationship Specialty Start Date End Date Holland Vang DO [address] [facility] [place] [address] PCP - General Family Medicine 11/12/13 Ronny Borja, ROAD BUILDER.COMMODITY BUYER [address] [place] [address] Salesperson Furniture Family Medicine 01/28/24 Mi Weiner APRN.[facility] [address] [place] [address] Formerly [facility] 08/05/24 Goals (unrecognized section and content) Goals may be documented in a n alternate sectionGoals may be documented in an alternate sectionGoals may be documented in an alternate section FOR RECORDS PERTAINING TO PATIENTS WHO ARE OR HAVE BEEN ENROLLED IN A CHEMICAL DEPENDENCY/SUBSTANCEABUSE PROGRAM, SOME INFORMATION MAY BE OMITTED. This clinical summary was aggregated from multiple sources. Caution should be exercised in using it in the provision of clinical care. This summary normalizes information from multiple sources, and as a consequence, information in this document may materially change the coding, format and clinical context of patient data. In addition, data may be omitted in some cases. CLINICAL DECISIONS SHOULD BE BASED ON THE PRIMARY CLINICAL RECORDS. [facility] [employer] [facility]. provides no warranty or guarantee of the accuracy or completeness of information in this document.
[2024-09-23 23:55] LABS: Pathology Specimen OB SEE PATHOLOGY REPORT
[2024-09-24 00:30] VITALS: BP 114/67; PULSE 96; RESP 18; TEMP 36.6; O2SAT 97
[2024-09-24 03:49] VITALS: BP 108/56; PULSE 92; RESP 16; TEMP 36.6; O2SAT 96
[2024-09-24] MEDS: Ketorolac 30 MG/ML Syringe IV ×2 (04:45→10:24)
[2024-09-24 07:55] VITALS: BP 138/64; PULSE 87; RESP 16; TEMP 36.6; O2SAT 100
--- NOTE | 2024-09-24 08:32 | PCM.PN.BLA ---
Progress Note Pain well controlled, average lochia. Denies TORRES or visual changes or SOB Physical Exam Narrative bandage clean, dry and intact Const alert General Appearance: cooperative GI GI Narrative: soft, moderate distention, fundus firm, appropriately tender. Abdominal bandage clean dry and intact Assessment & Plan Assessment/Plan (1) Request for sterilization: (2) History of shoulder dystocia in prior : (3) delivery delivered: PLAN: Postoperative day #1. Elective primary section due to history of shoulder dystocia and LGA fetus. Patient and are doing well. Blood pressure was elevated overnight consistent with gestational hypertension. No signs or symptoms of severe preeclampsia. Will continue to monitor. A.m. CBC is pending. Started on Procardia last night. (4) Single live :
[2024-09-24 08:53] LABS: Hematocrit 28.5 % (37-47); Hemoglobin 9.4 g/dL (12.0-15.0); Mean Corp Hgb Conc 33.0 g/dL (32-36); Mean Corpuscular Volume 89.1 fL (81-99); Mean Platelet Vol. 10.6 fl (6.2-12.0); Platelet Count 220 K/mm3 (150-450); RBC Distribution Width CV 15.9 % (11.6-14.6); RBC Distribution Width SD 52.0 fl (35.1-43.9); Red Blood Count 3.20 M/mm3 (4.2-5.4); White Blood Count 10.4 K/mm3 (4.4-11.0)
[2024-09-24] MEDS: Senna/Docusate Sodium 1 Tablet PO (10:23)
[2024-09-24] MEDS: NIFEdipine 30 MG Tablet PO (10:24)
[2024-09-24] MEDS: 0.9% Saline Lock 10 ML Syringe IV (10:24)
[2024-09-24 12:51] VITALS: BP 123/74; PULSE 95; RESP 16; TEMP 36.4; O2SAT 100
[2024-09-24 16:22] VITALS: BP 124/69; PULSE 86; RESP 16; TEMP 36.3; O2SAT 99
[2024-09-24 20:03] VITALS: BP 125/71; PULSE 92; RESP 15; TEMP 36.3; O2SAT 100
[2024-09-25 01:44] VITALS: BP 141/74; PULSE 83; RESP 16; TEMP 36.1; O2SAT 99
[2024-09-25 06:38] LABS: Hematocrit 28.7 % (37-47); Hemoglobin 9.4 g/dL (12.0-15.0); Mean Corp Hgb Conc 32.8 g/dL (32-36); Mean Corpuscular Volume 90.0 fL (81-99); Mean Platelet Vol. 9.9 fl (6.2-12.0); Platelet Count 235 K/mm3 (150-450); RBC Distribution Width CV 16.1 % (11.6-14.6); RBC Distribution Width SD 53.1 fl (35.1-43.9); Red Blood Count 3.19 M/mm3 (4.2-5.4); White Blood Count 7.6 K/mm3 (4.4-11.0)
[2024-09-25 07:55] VITALS: BP 134/77; PULSE 96; RESP 16; TEMP 36.6; O2SAT 99
--- NOTE | 2024-09-25 08:28 | PCM.DC.SUM ---
Providers Date of Admission: 09/23/24 Primary Care Physician: Dr. Holland Vang, DO Reason For Visit: PRIMAY C SECTION Diagnosis Discharge Diagnosis (1) Request for sterilization: Status: Acute Code(s): Z30.2 - Encounter for sterilization (2) delivery delivered: Status: Acute Code(s): O82 - Encounter for delivery without indication (3) Single live : Status: Acute Code(s): Z37.0 - Single live (4) Elevated blood pressure reading: Status: Acute Code(s): R03.0 - Elevated blood-pressure reading, without diagnosis of hypertension (5) Advanced maternal age (AMA) in : Status: Acute (6) Morbid obesity: Status: Acute Code(s): E66.01 - Morbid (severe) obesity due to excess calories (7) History of depression: Status: Acute Code(s): Z86.59 - Personal history of other mental and behavioral disorders Plan POD 2 C/S Pain controlled with Tylenol and Motrin PO Ambulating and voiding without difficulty Continue Procardia 30 mg XR PO daily- RX sent BP stable at 123/130/ 70-80's Pre-e precautions reviewed and when to call office D/C home with follow up next week in office for BP and incision check Medications at Discharge Home Medications Valtrex 500 mg PO DAILY herpes 07/12/19 multivitamin with minerals 1 ea PO DAILY dep 07/12/19 buspirone 5 mg tablet 5 mg PO PRN ANXIETY 09/11/23 cholecalciferol (vitamin D3) 50 mcg (2,000 unit) capsule 50 mcg PO DAILY VIT 09/11/23 escitalopram oxalate 10 mg tablet 10 mg PO DAILY ANXIETY 09/11/23 folic acid 1 mg tablet 1 mg PO DAILY@0800 prenancy #0 tabs 09/13/23 Held on 09/23/24. Instructions: Order Changed thiamine HCl (vitamin B1) 100 mg tablet 100 mg PO DAILYCM #0 tabs 09/13/23 Held on 09/23/24. Instructions: Ordered aspirin 81 mg tablet,delayed release 81 mg PO DAILY 09/23/24 famotidine 20 mg tablet 20 mg PO BID 09/23/24 ferrous sulfate 325 mg (65 mg iron) tablet 325 mg PO QODAY 09/23/24 omeprazole 20 mg capsule,delayed release 20 mg PO 09/23/24 acetaminophen 500 mg tablet 1,000 mg (2 x 500 mg) PO Q6H #0 tabs 09/25/24 ibuprofen 600 mg tablet 600 mg PO Q6H #0 tabs 09/25/24 nifedipine 30 mg tablet,extended release 24 hr 30 mg PO DAILY #30 tabs 09/25/24 sennosides 8.6 mg-docusate sodium 50 mg tablet (Stimulant Laxative Plus) 1 - 2 tab PO DAILY #0 tabs 09/25/24 Hospital Course Operations section Procedures None Summary of Care Provided Minutes Spent on Discharge: 15 Hospital Course: Patient had section. Hospital course was uneventful. Physical Exam Narrative Patient seen at bedside. Eating breakfast tray. Denies any headache, vision changes, SOB, or CP. Lochia decreased. Formula feeding. Denies pain. Desires discharge home today. Const alert and no apparent distress General Appearance: cooperative and comfortable Exam Limitations: no limitations HEENT normocephalic Eyes General Eye: normal appearance of both eyes Neck full ROM General: normal visual inspection Chest Chest: symmetrical chest wall rise Resp normal respiratory effort and normal air movement Effort and Inspection: symmetric chest movement Auscultation: clear to auscultation bilaterally Cardio regular rate and regular rhythm GI normal to inspection, nondistended, normoactive bowel sounds Back/Spine normal ROM Extremity full ROM and no calf tenderness General Extremity: normal exam except as noted Skin no rashes or lesions noted Wound Narrative: Dressing is dry and intact. Neuro CN's II-XII intact bilaterally Psych mental status grossly normal Weight / BMI Weight Weight: 301 lb 6.4 oz Body Mass Index (BMI) 48.6 ABG / Lab / Microbiology Data 09/25/24 06:29 09/23/24 18:50 Laboratory: Laboratory Results - last 24 hr 09/24/24 08:35: WBC 10.4, RBC 3.20 L, Hgb 9.4 L, Hct 28.5 L, MCV 89.1, MCH 29.4, MCHC 33.0, RDW Std Deviation 52.0 H, RDW Coeff of Lc 15.9 H, Plt Count 220, MPV 10.6 09/25/24 06:29: WBC 7.6, RBC 3.19 L, Hgb 9.4 L, Hct 28.7 L, MCV 90.0, MCH 29.5, MCHC 32.8, RDW Std Deviation 53.1 H, RDW Coeff of Lc 16.1 H, Plt Count 235, MPV 9.9 D/C Instructions Discharge Activity: May Drive (2 weeks) and May Shower May resume sexual activity in: 6-8 weeks Weight Bearing Status: Weight bearing as tolerated Lifting Restricted to (Lbs): 25 Call your doctor if your incision/area has: Continuous Slow Oozing, Sudden Increased Bleeding, Increased Pain/ Swelling, Increased Redness, Foul Smelling Discharge and Swelling at the incision site Call your doctor if you observe: Fever of 101 or Higher, Numbness or Tingling, Using more than 1 pad per hour, Shortness of breath, Dizziness, Swelling in the ankles, Chest pain, Calf discomfort and Uncontrolled pain Suture Line Care: Avoid Pulling/Pushing Remove Dressing in: 5 days (Remove yourself or call office and schedule appointment for dressing removal.) DC O2, CPAP, BIPAP Needs Home O2 Discharge instructions: No When: NEXT WEEK FOR BP and INCISION CHECK at [facility] Meaningful Use Info Meaningful Use Meaningful Use Diagnoses (Choose all that apply): None applicable Discharge Plan Admission Admit Date/Time: 09/23/24 13:48 Primary Reason for Your Visit: Laobr and Delivery Attending Provider: Aixa Mak Primary Care Provider: Holland Vang Discharge Orders/Prescriptions Prescriptions: New nifedipine 30 mg Tablet Extended Release 24hr 30 mg PO DAILY Qty: 30 1RF sennosides-docusate sodium [Stimulant Laxative Plus] 8.6-50 mg Tablet 1 - 2 tab PO DAILY Qty: 0 0RF acetaminophen 500 mg Tablet 1,000 mg PO Q6H Qty: 0 0RF ibuprofen 600 mg Tablet 600 mg PO Q6H Qty: 0 0RF Continued buspirone 5 mg tablet 5 mg PO PRN escitalopram oxalate 10 mg tablet 10 mg PO DAILY ferrous sulfate 325 mg (65 mg iron) tablet 325 mg PO QODAY No Action multivitamin with minerals 1 EACH tablet 1 ea PO DAILY Valtrex 500 mg PO DAILY cholecalciferol (vitamin D3) 50 mcg (2,000 unit) capsule 50 mcg PO DAILY thiamine HCl (vitamin B1) 100 mg Tablet 100 mg PO DAILYCM Qty: 0 0RF folic acid 1 mg Tablet 1 mg PO DAILY@0800 Qty: 0 0RF aspirin 81 mg tablet,delayed release (DR/EC) 81 mg PO DAILY famotidine 20 mg tablet 20 mg PO BID omeprazole 20 mg capsule,delayed release(DR/EC) 20 mg PO Referrals / Follow Up: Holland Vang DO [Primary Care Provider] - Disposition Disposition (needs filled in before D/C Order can be placed): Home, Self Care
[2024-09-25] MEDS: NIFEdipine 30 MG Tablet PO (10:21)
[2024-09-25 13:20] VITALS: BP 140/73; PULSE 91; RESP 14; O2SAT 99
--- NOTE | 2024-09-27 09:27 | CASEMGMT ---
Social Work Assessment Labor and Delivery Unit Patient Address: [address] [place], [place] [address] [place] [address] Phone number: [phone] Date of Referral: 09/23/24 Time of Referral:? 1338 Referred By: Aixa Mak Date of Intervention: ??09/25/24 Time of Intervention:? 1020 Reason for Referral:? Substance abuse Sw completed chart review and acknowledges social work consult. Sw presented to bedside and introduced self to mother of baby (GENE- Emre). Sw explained sw role to MOB and completed psychosocial assessment. History obtained from: medical records and MOB Household composition: Currently residing in the home with MOB is GENE's 9 year old daughter, Yoseph Burnette. [place] baby to also reside in the home when he is ready for discharge. MOB denies any problems or concerns with her apartment, stating that it is safe and secure. Patient's parent/guardian status:? MOB states that she and the father of baby (FOB) are not currently together. MOB states that she does not want to give the name of FOB as they were not together when baby was conceived, and at this time she is not certain what FOB's intentions are regarding co-parenting. Sw asked MOB if sexual relations with FOB were consensual. MOB stated that they were. MOB denies any domestic violence or intimate partner violence between her or FOB. ? Medical History: ?GENE is 39 year old female who is 4, para 1- now 2 following labor and delivery of . GENE received care during her with [facility]. GENE presented to hospital and delivered baby via repeat on 09/23/24. Baby boy, named Ed Rahman, was born weighing 9lb 12oz and had apgars of 8 and 9 at one and five minutes of life, respectfully. MOB is bottle feeding and says that baby will be followed by Dr. Raines for pediatrics. Educational Status:? 12th grade, no problems with reading, learning or comprehension Financial Status: Currently in school in an [employer] program and when completed will attend school in the fall to obtain her associates degree. Infant Supplies:?? All necessary supplies obtained, including: car seat, safe sleep space, clothes, diapers and wipes. Childcare/Caregiver(s):? MOB will be the primary caregiver Transportation:?? Currently GENE has her learners permit, when she has medical appointments she uses her insurance, and when she needs other things like groceries her friend or her mom will help her Programs/Agencies Involved: ???Connected to [facility] for insurance and food benefits, [facility] and [facility] for sober resources and mental health support Children Services/Legal Issues:??MOB denies history of Children Services involvement. Sw specifically asked due to MOB substance use history and concern for dependency issues, which MOB states that children services has never been involved. Currently no concerns warranting referral to be made. ? Behavioral Health Issues: ??Mental Health History:GENE states that she has been diagnosed with anxiety, depression and a mood disorder. MOB states that she is prescribed Lexapro and can tell a difference with the medication. GENE is connected to mental health supports at [facility], [facility] including counseling. Substance Use History: GENE reports that she started drinking alcohol when she was 18 years old, and noticed that her drinking became problematic when she was 22 years old. MOB states last year when her daughter was 8 years old she noticed that her daughter was starting to notice when she was under the influence of alcohol- which was all of the time. 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 GENE states that at that time she was drinking wine and liquor, and was also using marijuana and mushrooms. GENE presented to the hospital and went through detox and then got connected to [facility] and went through their addiction treatment program and lived in their sober housing. GENE states that [facility] helped her obtain housing. GENE states that now she has been sober over one year, and has no intentions of drinking ever again. ?? Family History:?MOPB states that her father is an alcoholic. Sw discussed recognizing triggers and utilizing healthy and safe coping mechanisms, GENE expressed understanding and reports that she has surrounded herself with healthy people and has healthy coping skills. ? Drug Screens: ??Drug screen at time of delivery was negative for all substances. Family/Social Stressors:? GENE denies any stressors, issues or concerns at this time. GENE states that if MALINDA does not have intentions of parenting with her, she is not worried about that. GENE states that she is perfectly capable of raising her children without a father involved. Support Systems: GENE states that her mom is her biggest support person. Depression/Shaken Baby/Safe Sleeping:? Sw and MOB discussed signs and symptoms of baby blues and depression and anxiety. MOB states that she does not believe that she experienced in the past. MOB states that she may have had some of the blues, but it did not progress into anything more than that. GENE reports that if she did have , it was masked by drinking alcohol. MOB states that if she were to struggle during this period she would talk to her mom or her counselor about what she is struggling with. Currently MOB states that she feels really good mentally, she is just struggling physically after having and getting her tubes tied. MOB states that she feels a connection and prado with baby. Sw educated MOB on shaken baby prevention and ABCs of safe sleep. MOB expressed understanding. ASSESSMENT:? MOB and baby admitted following labor and delivery of . MOB with mental health and substance use history. GENE has gone through substance use treatment and is now one year sober. She remains connected to her substance and mental health treatment provider at [facility]. She is prescribed Lexapro to help her manage her mental health symptoms, and states that she can tell a significance difference in her mental health the support of the medication. GENE states that she has the support from her mother when she needs help with her children, transportation or financially. GENE has financial suppport through [employer] as she is not currently working and is taking online classes. GENE has obtained all baby items and is happy that baby is here. GENE was sitting on couch and was observed to hold baby lovingly. GENE was attentive to baby's needs and fed him a bottle when he started to cry. MOB held baby appropriately and appeared to have a connection with him. GENE made eye contact with sw and was talkative with sw throughout completion of assessment. Conversation flowed naturally and sw believes GENE was open and honest about her mental health and substance use history. PLAN:? No other services requested or indicated. MOB and baby to be discharged when medically ready. Parents were provided literature regarding: signs and symptoms of baby blues and mood and anxiety disorders, Help Me Grow, shaken baby prevention, ABCs of safe sleep and a list of county resources that are available for them should any needs present themselves. Jennifer Clay, [employer], [employer]
--- NOTE | 2024-09-30 14:35 | NURSING ---
Follow up phone call made, no answer, voicemail left
== END 2024-09-25 13:50 | disposition home or self-care (01) | DRG 539 ==
LOC: WPOUT 12:37 → WP 14:44
PROVIDERS: Obstetrics & Gynecology; Admitting Provider Advanced Practice Midwife; PCP Student in an Organized Health Care Education/Training Program; Referring Provider Advanced Practice Midwife; Visit Provider Advanced Practice Midwife
DX: O36.63X0 Maternal care for excessive fetal growth, third trimester, not applicable or unspecified (principal); E66.01 Morbid (severe) obesity due to excess calories; F32.A Depression, unspecified; F41.9 Anxiety disorder, unspecified; O99.214 Obesity complicating childbirth; Z37.0 Single live birth; Z3A.38 38 weeks gestation of pregnancy; O13.4 Gestational [pregnancy-induced] hypertension without significant proteinuria, complicating childbirth; O99.344 Other mental disorders complicating childbirth; Z30.2 Encounter for sterilization; Z79.82 Long term (current) use of aspirin; Z79.899 Other long term (current) drug therapy; Z87.59 Personal history of other complications of pregnancy, childbirth and the puerperium; Z87.891 Personal history of nicotine dependence
CPT/HCPCS: 36415; 59025; 59050; 80053; 80307; 82570; 84156; 85025; 85027; 86780; 86850; 86900; 86901; 88302; 99221; A4216; G0378; J2405